=== PATIENT | male | born 1980 | race Caucasian/White ===

== ENCOUNTER → 2023-03-28 08:49 | Outpatient (REF) | payer OTHER, MEDICAID, SELFPAY ==
[2023-03-28 10:00] LABS: INR 2.04; PT 22.9 Sec (11.4-14.6)
[2023-03-28 10:01] LABS: APTT 36.7 Sec (23.4-35.0)
[2023-03-28 10:26] LABS: ALT (SGPT) 49 U/L (0-50); AST (SGOT) 83 U/L (17-59); Albumin 3.1 g/dl (3.5-5.0); Alkaline Phosphatase 293 U/L (38-126); Blood Urea Nitrogen 18 mg/dl (9-20); Calcium 8.5 mg/dl (8.4-10.2); Carbon Dioxide 28 mmol/L (22-30); Chloride 102 mmol/L (98-107); Direct Bilirubin 3.1 mg/dl (0.0-0.4); Glucose 126 mg/dl (70-99); Potassium 3.9 mmol/L (3.5-5.1); Sodium 137 mmol/L (135-145); Total Bilirubin 6.2 mg/dl (0.2-1.3); Total Protein 7.5 g/dl (6.3-8.2); eGFR > 60.00
== END ==
LOC: REG 08:49
PROVIDERS: ATTENDING PHYSICIAN Internal Medicine
DX: K70.10 Alcoholic hepatitis without ascites (principal)
CPT/HCPCS: 36415; 80053; 82248; 85610; 85730

== ENCOUNTER → 2023-06-11 06:35 | Day surgery (SDC) | payer MEDICAID, SELFPAY | LOC: GI 06:35 | PROVIDERS: ATTENDING PHYSICIAN Internal Medicine Gastroenterology | DX: K76.6 Portal hypertension (principal); K31.89 Other diseases of stomach and duodenum; T18.2XXA Foreign body in stomach, initial encounter; Y83.1 Surgical operation with implant of artificial internal device as the cause of abnormal reaction of the patient, or of later complication, without mention of misadventure at the time of the procedure; K92.0 Hematemesis | CPT/HCPCS: 43235 ==

== ENCOUNTER 2023-07-10 14:50 | Emergency (ER) | payer OTHER, SELFPAY ==
[2023-07-10] VITALS (8 sets, daily range): BP systolic 101–130; BP diastolic 56–80; BMI 25.1
[2023-07-10 15:33] LABS: % Basophils 1.1 % (0-2); % Eosinophils 0.7 % (0-6); % Immature Granulocytes 1.3 % (0-0.5); % Lymphocytes 20.6 % (20.5-51.1); % Monocytes 6.9 % (1.7-9.3); % Neutrophils 69.4 % (42.2-75.2); Absolute Basophils 0.1 10^3/uL (0-0.2); Absolute Eosinophils 0.1 10^3/uL (0-0.7); Absolute Immature Granulocytes 0.1 10^3/uL (0-0.05); Absolute Lymphocytes 1.7 10^3/uL (1.2-3.4); Absolute Monocytes 0.6 10^3/uL (0.1-0.6); Absolute Neutrophils 5.7 10^3/uL (1.4-6.5); Hematocrit 27.4 % (39.0-52.0); Hemoglobin 9.5 g/dL (13.0-18.0); Mean Corp Hgb Conc. 34.7 g/dL (33.0-37.0); Mean Corpuscular Hgb 35.3 pg (27.0-31.0); Mean Corpuscular Volume 101.9 fL (80.0-94.0); Mean Platelet Volume 9.1 fL (7.4-10.4); Nucleated Red Blood Cells % 0 % (-); Platelet Count 71 10^3/uL (130-400); Red Blood Cell Count 2.69 10^6/uL (4.70-6.10); Red Cell Dist. Width 12.8 % (11.5-14.5); White Blood Cell Count 8.3 10^3/uL (4.8-10.8)
[2023-07-10 15:47] LABS: Alcohol 241 mg/dl; Blood Urea Nitrogen 9 mg/dl (9-20); Carbon Dioxide 25 mmol/L (22-30); Chloride 105 mmol/L (98-107); Estimated Creatinine Clearance > 125 ml/min; Glucose 84 mg/dl (70-99); Potassium 3.4 mmol/L (3.5-5.1); Sodium 141 mmol/L (135-145); eGFR > 60.00
[2023-07-10 20:11] LABS: INR 2.31; PT 25.6 Sec (11.4-14.6)
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
[2023-07-10 23:31] LABS: Amphetamines Negative (Negative); Barbiturates Negative (Negative); Benzodiazepines Negative (Negative); Buprenorphine Negative (Negative); Cocaine Negative (Negative); Marijuana Positive (Negative); Methadone Negative (Negative); Methamphetamines Negative (Negative); Opiates Negative (Negative); Phencyclidine Negative (Negative); Tricyclic Antidepressants Negative (Negative)
[2023-07-11 01:00] VITALS: BP 106/57
[2023-07-11 02:00] VITALS: BP 106/64
[2023-07-11 03:00] VITALS: BP 100/64
== END 2023-07-11 04:12 ==
LOC: EMR 14:50
PROVIDERS: Emergency Medicine; EMERGENCY PHYSICIAN Emergency Medicine; FAMILY PHYSICIAN Family Medicine
DX: F32.9 Major depressive disorder, single episode, unspecified (principal); K76.9 Liver disease, unspecified; F41.8 Other specified anxiety disorders; F19.10 Other psychoactive substance abuse, uncomplicated; F43.10 Post-traumatic stress disorder, unspecified; K70.30 Alcoholic cirrhosis of liver without ascites; F17.210 Nicotine dependence, cigarettes, uncomplicated
CPT/HCPCS: 99283; 71046; 73030; 80048; 80306; 82077; 85025; 85610

== ENCOUNTER → 2023-10-08 07:42 | Outpatient (REF) | payer OTHER, SELFPAY ==
[2023-10-08 08:52] LABS: % Basophils 1.2 % (0-2); % Eosinophils 1.5 % (0-6); % Immature Granulocytes 0.2 % (0-0.5); % Lymphocytes 39.2 % (20.5-51.1); % Monocytes 7.5 % (1.7-9.3); % Neutrophils 50.4 % (42.2-75.2); Absolute Basophils 0.1 10^3/uL (0-0.2); Absolute Eosinophils 0.1 10^3/uL (0-0.7); Absolute Lymphocytes 1.6 10^3/uL (1.2-3.4); Absolute Monocytes 0.3 10^3/uL (0.1-0.6); Absolute Neutrophils 2.1 10^3/uL (1.4-6.5); Hematocrit 30.7 % (39.0-52.0); Hemoglobin 10.9 g/dL (13.0-18.0); Mean Corp Hgb Conc. 35.5 g/dL (33.0-37.0); Mean Corpuscular Hgb 36.3 pg (27.0-31.0); Mean Corpuscular Volume 102.3 fL (80.0-94.0); Mean Platelet Volume 9.5 fL (7.4-10.4); Nucleated Red Blood Cells % 0 % (-); Platelet Count 60 10^3/uL (130-400); White Blood Cell Count 4.1 10^3/uL (4.8-10.8)
[2023-10-08 09:00] LABS: INR 1.89; PT 21.9 Sec (11.4-14.6)
[2023-10-08 10:41] LABS: Blood Urea Nitrogen 13 mg/dl (9-20); Calcium 9.8 mg/dl (8.4-10.2); Carbon Dioxide 24 mmol/L (22-30); Chloride 105 mmol/L (98-107); Glucose 82 mg/dl (70-99); Potassium 4.2 mmol/L (3.5-5.1); Sodium 137 mmol/L (135-145); eGFR > 60.00
== END ==
LOC: REG 07:42
PROVIDERS: ATTENDING PHYSICIAN Internal Medicine Gastroenterology; FAMILY PHYSICIAN Physician Assistant Medical
DX: K70.10 Alcoholic hepatitis without ascites (principal)
CPT/HCPCS: 36415; 80048; 85025; 85610

== ENCOUNTER → 2023-10-08 07:48 | Outpatient (REF) | payer SELFPAY ==
[2023-10-08 10:38] LABS: ALT (SGPT) 36 U/L (0-50); AST (SGOT) 54 U/L (17-59); Albumin 4.2 g/dl (3.5-5.0); Alkaline Phosphatase 139 U/L (38-126); Direct Bilirubin 2.8 mg/dl (0.0-0.4); Total Protein 7.4 g/dl (6.3-8.2)
== END ==
LOC: REG 07:48
PROVIDERS: ATTENDING PHYSICIAN Internal Medicine Gastroenterology; FAMILY PHYSICIAN Physician Assistant Medical
DX: K70.10 Alcoholic hepatitis without ascites (principal)
CPT/HCPCS: 36415; 80076

== ENCOUNTER 2023-10-23 10:45 | Inpatient (IN) | payer OTHER, SELFPAY ==
[2023-10-23] VITALS (16 sets, daily range): BP systolic 92–120; BP diastolic 49–76; BMI 21.8; BMI 22.1
[2023-10-23 04:23] LABS: Ammonia 42 umol/L (9-30)
[2023-10-23 04:26] LABS: ALT (SGPT) 32 U/L (0-50); AST (SGOT) 46 U/L (17-59); Albumin 3.9 g/dl (3.5-5.0); Alkaline Phosphatase 139 U/L (38-126); Blood Urea Nitrogen 20 mg/dl (9-20); Calcium 9.3 mg/dl (8.4-10.2); Carbon Dioxide 26 mmol/L (22-30); Chloride 106 mmol/L (98-107); Glucose 89 mg/dl (70-99); Lipase 151 U/L (23-300); Potassium 3.9 mmol/L (3.5-5.1); Sodium 141 mmol/L (135-145); Total Bilirubin 9.5 mg/dl (0.2-1.3); Total Protein 6.9 g/dl (6.3-8.2); eGFR > 60.00
[2023-10-23 04:40] LABS: % Basophils 0.8 % (0-2); % Eosinophils 1.8 % (0-6); % Immature Granulocytes 0.2 % (0-0.5); % Lymphocytes 38.2 % (20.5-51.1); % Monocytes 9.4 % (1.7-9.3); % Neutrophils 49.6 % (42.2-75.2); Absolute Eosinophils 0.1 10^3/uL (0-0.7); Absolute Lymphocytes 1.9 10^3/uL (1.2-3.4); Absolute Monocytes 0.5 10^3/uL (0.1-0.6); Absolute Neutrophils 2.5 10^3/uL (1.4-6.5); Hematocrit 24.6 % (39.0-52.0); Hemoglobin 8.8 g/dL (13.0-18.0); Mean Corp Hgb Conc. 35.8 g/dL (33.0-37.0); Mean Corpuscular Hgb 35.8 pg (27.0-31.0); Mean Platelet Volume 10.2 fL (7.4-10.4); Nucleated Red Blood Cells % 0 % (-); Platelet Count 53 10^3/uL (130-400); Red Blood Cell Count 2.46 10^6/uL (4.70-6.10); Red Cell Dist. Width 12.3 % (11.5-14.5)
--- NOTE | 2023-10-23 06:11 | ED.GENMED ---
History of Present Illness
General
Chief Complaint: Abdominal Symptoms
Source: patient
Exam Limitations: none
Time Seen by Provider: 10/23/23 05:59
History of Present Illness
History of Present Illness:
See MDM
Past History
Past History
ED Past Medical History: Other (Migraine headaches) and Other (Chronic alcohol abuse, alcoholic cirrhosis anxiety, depression, substance abuse)
ED Past Surgical History: Other (Nasal surgery)
Social History
Tobacco: Smoker (1.5 ppd)
Alcohol: Daily
Drug: Former user and IVDA (heroin)
Personal: Single
Living: alone
Employment: Employed
Family History
Family History: Other (Noncontributory)
Phy Exam
Physical Exam
Physical Exam:
See MDM
Course
Orders/Labs/Results
Orders:
Orders
10/23/23 03:59
Ammonia Urgent
Complete Blood Count/With Diff Urgent
Comprehensive Metabolic Panel Urgent
Lipase Urgent
10/23/23 06:09
CT Abd/pelvis W Iv Cont Urgent
Comment:
Reason For Exam: general abd pain, liver disease
Morphine Sulfate 4 mg IV NOW STA
10/23/23 06:11
Nicotine [Nicoderm Transdermal] 14 mg TRANSDERM ONCE ONE
10/23/23 06:26
PTT Urgent
Prothrombin Time Urgent
Abnormal Lab Results
10/23/23 10/23/23
03:59 06:26
RBC 2.46 L 10^6/uL
(4.70-6.10)
Hgb 8.8 L g/dL
(13.0-18.0)
Hct 24.6 L %
(39.0-52.0)
MCV 100.0 H fL
(80.0-94.0)
MCH 35.8 H pg
(27.0-31.0)
Plt Count 53 L 10^3/uL
(130-400)
Monocytes % 9.4 H %
(1.7-9.3)
PT 25.9 H Sec
(11.4-14.6)
APTT 45.1 H Sec
(23.4-35.0)
Total Bilirubin 9.5 H mg/dl
(0.2-1.3)
Alkaline Phosphatase 139 H U/L
(38-126)
Ammonia 42 H umol/L
(9-30)
10/23/23 03:59
10/23/23 03:59
Vital Signs
Initial and Last Documented VS:
Initial Vital Signs
Temp Pulse Resp BP Pulse Ox
98.8 F 70 16 111/76 100
10/23/23 03:36 10/23/23 03:36 10/23/23 03:36 10/23/23 03:36 10/23/23 03:36
Last Documented Vital Signs
Temp Pulse Resp BP Pulse Ox
98.8 F 65 16 113/64 100
10/23/23 03:36 10/23/23 07:37 10/23/23 07:37 10/23/23 07:37 10/23/23 07:37
MDM/Problems Addressed
Differential Diagnosis Includes:
HPI and MDM Narrative:
43-year-old male presenting for evaluation of generalized abdominal pain. Patient states has been ongoing for the past 2 days or so. He states he has been unable to sleep. History of liver disease but denies any vomiting or black or red stool.
Patient states compliance with lactulose. On exam, patient is intermittently falling asleep while complaining of pain. He has no significant abdominal tenderness. We did discuss that his elevated lactulose could be the cause of his altered mental
status. Patient states he has not drank alcohol in months. Given his ongoing pain, will obtain CT but will likely admit based on mental status and elevated ammonia level
Physical exam
General: Sitting bed comfortably. Intermittently falling asleep
HEENT: protecting airway
Neck: appears supple
CV: No evidence of cyanosis
Resp: No accessory muscle use
Abd: Non-distended. No significant tenderness
Extremities: No deformities
Neuro: alert
Psych: Normal affect
Skin: Jaundiced
Problems Addressed including Acute and Chronic Conditions affecting care:
1. Abdominal pain
Acuity: acute
Prognosis: stable
Details: No palpable ascites to suggest SBP. Will obtain CT.
2. Hepatic encephalopathy
Acuity: acute
Prognosis: stable
Details: Patient states compliance with lactulose. Will likely admit based on ammonia level
Updates
CT abdomen/pelvis does show gallstones and sludge. Will obtain right upper quadrant ultrasound and admit
Differential Diagnosis (but not limited to): Hepatic encephalopathy, constipation, appendicitis
Testing considered: Urinalysis but denies symptoms
Drug therapy (if applicable): OTC meds, please see d/c instruction regarding Rx drugs
Amount and/or Complexity of Data Reviewed
Clinical info obtained from: Patient
External data reviewed: Chronic liver disease with history of baseline anemia and thrombocytopenia
Labs I independently reviewed (but not limited to): [Anemia, thrombocytopenia, elevated ammonia level
Radiology: The CT scan was personally and independently reviewed. In addition, official CT report reviewed.
Pulse Ox: not hypoxic
EKG independently reviewed: N/A
Chief I Dispatcher: N/A
Critical Care: N/A
Risk of Complication:
Social Determinants of health: Good social support
Discussed with other providers: Hospitalist
Escalation of Care includes Admit/Obs: Given the abdominal pain and elevated ammonia level, will admit
Occasional wrong word or 'sound a like' substitutions may have occurred due to the inherent limitations of voice recognition software. Read the chart carefully and recognize, using context, where substitutions have occurred.
*Critical Care Note
Total Time (30-74mins, 75-104mins- exclusive of procedures): Not Applicable
ED Attending Note
-
Portions of this chart may have been created with voice recognition software.� Occasional wrong word or��sound alike� substitutions may have occurred due to the inherent limitations of voice recognition software.
Discharge Plan
Departure
Patient Disposition: Admit
Date of Disposition: 10/23/23
Time of Disposition: 08:01
Admit to: Med/Surg
Presentation/result/management discussed w/ accepting MD/DO: Hospitalist
Discharge Problem:
Acute hepatic encephalopathy, Symptomatic cholelithiasis
Prescriptions:
No Action
thiamine HCl (vitamin B1) 100 mg tablet
100 mg PO BID
pantoprazole 40 mg tablet,delayed release (DR/EC)
40 mg PO DAILY
folic acid 1 mg tablet
5 mg PO DAILY
prednisolone sodium phosphate 15 mg/5 mL (3 mg/mL) Solution
40 mg PO DAILY Qty: 335 0RF
lidocaine 4 % Adhesive Patch,Medicated
1 patch topical DAILY Qty: 30 0RF
nicotine 21 mg/24 hr Patch 24 Hour
21 mg transdermal DAILY Qty: 30 0RF
oxycodone 5 mg tablet
5 mg PO Q6H PRN (Reason: Pain) Qty: 24 0RF
senna 8.6 mg capsule
8.6 mg PO DAILY PRN (Reason: when you take Oxycodone) Qty: 30 0RF
Referrals:
Julianna Tay PA-C [Family Provider] -
Interventions
Interventions:
*Risk Screen - Suicide Last Done: 10/23/23 05:07
*General Assessment Last Done: 10/23/23 05:07
*Neglect/Abuse Screening Last Done: 10/23/23 05:07
ED- Fall Risk Assessment Last Done: 10/23/23 06:03
GK-Cdaxvn-Uxlkhavelf Assessment Last Done: 10/23/23 07:40
Discharge Date and Time
Print Language: OCCITAN
[2023-10-23] MEDS: NICODERM TRANSDERMAL 14 MG TRANSDERM (06:23)
[2023-10-23] MEDS: MORPHINE SULFATE 4 MG IV (06:24)
[2023-10-23 06:46] LABS: INR 2.34; PT 25.9 Sec (11.4-14.6)
[2023-10-23 06:47] LABS: APTT 45.1 Sec (23.4-35.0)
--- NOTE | 2023-10-23 08:01 | EDRN ---
Dr. Birmingham in to see pt.
--- NOTE | 2023-10-23 08:31 | EDRN ---
Clary, Dormitory Keeper, in room w/ pt.
--- NOTE | 2023-10-23 08:46 | HPS.HSE ---
Family Physician
-
Family Physician: Julianna Tay PA-C
Chief Complaint
-
Hepatic encephalopathy
History of Present Illness
43-year-old male with alcoholic cirrhosis (C/B hepatic encephalopathy), GERD, depression, substance abuse/IVDU history that presented to the emergency department with altered mentation. Has a history of hepatic encephalopathy, current alcohol use,
prescribed lactulose 10 g twice daily for outpatient reconciliation, unclear if he is adherent to this regimen. Upon arrival [facility]. Labs in the ED showed hemoglobin 8.8 with MCV 100, platelet count 53, INR 2.34, albumin 3.9, ALP 139, total
bilirubin 9.5, normal AST and ALT. CT A/P with contrast showed severe portal hypertension and esophageal varices, splenomegaly, severely distended gallbladder with sludge and cholelithiasis. He was given 4 mg of morphine IV in the ED. Ultrasound
abdomen ordered with results pending. He notes that he was told by his caption writer that he might have a process where his red blood cells were broken down, presumed hemolytic anemia.
Medical History
Past Medical History
Past Medical History: Reports Psychiatric and Other
Additional Past Medical History:
Liver cirrhosis C/B hepatic encephalopathy
Past Surgical History: Reports None
Social History
Tobacco: Smoker
Alcohol: Former (No drinks for 3 months per patient's history)
Drug: Former User
Family History
Family History: Not pertinent
Allergies / Home Medications
Allergies reflects when Allergies were last updated in [facility].
Home Medications with original date entered in [facility]
Allergy/Medication List:
Allergies
Allergy/AdvReac Type Severity Reaction Status Date / Time
No Known Allergies Allergy Verified 07/10/23 15:17
Home Medications
thiamine HCl (vitamin B1) 100 mg tablet 100 mg PO DAILY Supplement 03/07/23
lactulose 10 gram/15 mL oral solution 10 g PO BID 10/23/23
Review of Systems
-
A 12 point ROS was completed and negative except as noted: Yes
Constitutional: Reports Weight Loss
EENT: Reports No Symptoms
Respiratory: Reports No Symptoms
Cardiac: Reports No Symptoms
Abdomen/GI: Reports Abdominal Pain and Nausea
: Reports No Symptoms
Musculoskeletal: Reports Muscle Pain
Skin: Reports No Symptoms
Neurological: Reports No Symptoms
Endocrine: Reports No Symptoms
Hematologic/Lymphatic: Reports No Symptoms
Psych: Reports No Symptoms
Physical Exam
Vital Signs
Vital Signs
Temp Pulse Resp BP Pulse Ox
98.8 F 65 12 109/66 100
10/23/23 03:36 10/23/23 08:00 10/23/23 08:00 10/23/23 08:00 10/23/23 08:00
Physical Exam
General: Comfortable, Appears Chronically Ill and Other (Thin male)
HEENT: NormoCephalic, Moist mucous membranes, Atraumatic, PERRLA and Other (Scleral icterus)
Respiratory: Clear and Non Labored Respirations; No Wheezes, Rales, Rhonchi or Accessory Resp Muscle Use
Cardiac: S1/S2 and Regular Rhythm; No Murmur, Rub, Gallop or Peripheral Edema
GI: Soft, Non Distended, Normal Bowel Sounds, Tender (RUQ, Harden positive) and Organomegaly
Musculoskeletal: No Clubbing, No Cyanosis and No Edema
Skin: Warm, Dry and Jaundice; No Rash
Neuro: AO x 3, Nonfocal/grossly intact and Cranial Nerves Intact
Laboratory Results
-
10/23/23 03:59
10/23/23 03:59
Laboratory Results
PT 25.9 Sec (11.4-14.6) H 10/23/23 06:26
INR 2.34 10/23/23 06:26
APTT 45.1 Sec (23.4-35.0) H 10/23/23 06:26
Total Bilirubin 9.5 mg/dl (0.2-1.3) H 10/23/23 03:59
AST 46 U/L (17-59) 10/23/23 03:59
ALT 32 U/L (0-50) 10/23/23 03:59
Alkaline Phosphatase 139 U/L (38-126) H 10/23/23 03:59
Lipase 151 U/L (23-300) 10/23/23 03:59
Data Reviewed
-
CT Scan: Report Reviewed by me
Lab Data: Labs Reviewed by me
Impression/Plan
-
#Hepatic encephalopathy
-Unclear cause for decompensation, no longer drinks alcohol, adherent to lactulose; possible cholecystitis contributing
-Home regimen includes lactulose 10 g twice daily per outpatient reconciliation
-Upon arrival had altered mentation with elevated bilirubin, INR 2.34
-ALP elevated currently, transaminases WNL, albumin 3.9
-GCS 12-13, no signs of inability to protect airway
Plan
-Resume lactulose with goal for 3-4 bowel movements daily
-Trend daily BMP, CBC, LFTs
-Start supportive IV fluids
-Consult GI for further guidance
#Suspected cholecystitis
-CT A/P with contrast showed severe gallbladder distention with sludge and gallstones present
-Cannot rule out cholecystitis contributing to his decompensated encephalopathy
-RUQ ultrasound ordered with results pending
Plan
-Start IV Zosyn with low threshold to DC if ultrasound negative
-Monitor CBC and temperature curve
-Serial abdominal exams for now
-As needed antiemetics and analgesia
#Hyperbilirubinemia
-Very likely in the context of his decompensated liver cirrhosis
-He does mention that his outpatient caption writer mentioned suspicion for 'breakdown of red cells'
-I added on a hemolytic panel for completeness to labs from the ED, will trend CBC as above
#Decompensated alcoholic cirrhosis -- MELD-Na score 24, 20% 3 month mortality
#Esophageal varices -- S/P intervention in 02/2023
-History of cirrhosis complicated by encephalopathy and thrombocytopenia; CT showing large varices here
-Home regimen includes lactulose, no history of ascites and not on diuretics at this time
-GI consulted as above
#Alcohol abuse
-Start CIWA protocol with PRN benzodiazepine
#Hyperalgesia
-Numerous complaints of pain in different parts of his body
-Does have history of IVDU, suspect hyperalgesia in this contact
-On as needed pain meds for cholecystitis
DVT prophylaxis: SCDs
Diet: N.p.o. pending clinical improvement
CODE STATUS: Full code
Disposition: Admit to ICU
I will be admitting Yong Ye to the hospital for acute on chronic hepatic encephalopathy. He is at high risk of further morbidity mortality due to altered mental status which could worsen to the point of inability to protect airway, potential for
acute liver failure. He will need intensive monitoring of his labs, administration of lactulose with titration of bowel movements to 4 daily. Will require IMU level of care, evaluation by gastroenterology. I have spoken with the
medical front desk specialist, ED physician in order to facilitate care of this patient.
--- NOTE | 2023-10-23 10:00 | EDRN ---
Dr. Soria, hospitalist in to see pt.
--- NOTE | 2023-10-23 10:10 | CON.GI ---
Addendum entered and electronically signed by EDMOND Wray 10/27/23 19:01:
with weight losss concern for severe calorie malnutrition
Addendum entered and electronically signed by Ynes Saeed Do, MD 10/23/23 16:13:
I saw and examined the patient.
The SNUFF BLENDER's note was reviewed and I agree with the note.
Comment: Yong is a 43yo M with h/o ETOH cirrhosis decompensated by encephalopathy who was admitted for 'irritability not feeling well and fatigue' He lives with parents and few days prior to admission had some constipation despite lactulose 15m
BID. He denies blood in stools fever chills or sick contacts. He follows with Dr Alas/GI last seen in May. Vitals reviewed. jaundiced icteric no asterixis. NTTP. Labs reviewed
Impression
- Grade I/II Grade hepatic encephalopathy
- ETOH cirrhosis
Last drink 2 months ago
MELD Na 24
- H/o Maria Eugenia Merino tear
- tobacco use
- h/o esophageal varices on CT not seen endoluminally
- Thrombocytopenia
- Cannabis use
Recommendations
- Lactulose TID goal is 2BMs daily basis.
- Add xifaximin BID
- Infectious workup: UA, BC , CXR
- Imaging neg for HCC
- C/w regular diet
- Trial of vitamin K in case elevated INR is diet related. Recalculate DF tomorrow
- Counseled on continued ETOH abstinence. He has OP FU with transplant hepatology at [facility] next month
Will follow with you
Addendum entered and electronically signed by EDMOND Wray 10/23/23 11:44:
reviewed with pharmacy preferred vitamin K IV or po with erratic absorption. Will change to PO
Original Note:
Consultation
-
Date/Time Consultation Requested: 10/23/23 0900
Date/Time Consultation Performed: 10/23/23 1010
Requesting Provider: Eldon Soria MD
Performing Provider: EDMOND Torres, Ynes Saez MD
Reason for Consultation: encephalopathy
Medical History
Chief Complaint / HPI
Chief Complaint: confusion
History of Present Illness:
Pt is a 43yo yo male with a PMH significant for GERD, alcohol abuse with prior ETOH hepatitis/cirrhosis , GI bleed with EG with MW tear, injected/clips no varices seen otherwise normal. He had follow up in office with repeat EGD 05/2023 with
normal esophagus, healed MW tear no varies, portal gastropathy, endoclip found. He missed follow up in July and call office 2 weeks ago with memory issues, wt loss, neuropathy, and jaundice. He was sent for repeat labs and noted with coagulopathy
elevated LFT's with bili up to 8.4, ammonia 99, hbg 9.5, haptoglobin <10, fibrinogen 133 and platelets 59,000 with possible underlying heme issues and pt was set up for [facility] evaluation. He now presents with abdominal pain and mental status
issue with ammonia 42 on admission and continued elevated bili, INR, with low platelets. Pt states he was concerned as hx heavy ETOH [id number] but cut back in 2023 and last ETOH 3 months ago with worsening labs. He also admits to some RUQ pain
that has developed worse with palpation. On admission US with coarsening liver with steatosis, portal HTN, splenomegaly, mild extrahepatic biliary dilatation no CBD dilatation, cholelithiasis without cholecystitis. Ct with severe portal HTN and EV,
a large recanalized paraumbilical vein, extensive varices in the anterior abdominal wall, and moderate splenomegaly. mildly enlarged liver with nodularity diffuse liver disease, distended GB, mild retroperitoneal edema.
At this time patient admits to occasional GERD. He did have constipation but had several stools with start of Lactulose and continued very dark urine. He denies dysphagia, odynophagia, nausea, vomiting, blood or black in stools. Pt has been
to rehab for ETOH within last year.
Past Medical History
Past Medical History: GERD, Psychiatric (anxiety/depression) and Other (alcohol abuse, ETOH hepatitis/cirrhosis, vocal cord lesion/nodule, migraines)
Past Surgical History: Other (nasal surgery)
Social History
Tobacco: Smoker (1 PPD)
Alcohol: Former (quit 3 months ago but admits to hx heavy use in past )
Drug: Former User (heroin, quit 6 years ago) and Marijuana (gummies )
Living: With Family (parents)
Employment: Not Employed
Family History
Family History: Other (no family hx colon CA, polyps, liver disease )
Allergies / Home Medications
Allergy/AdvReac Type Severity Reaction Status Date / Time
No Known Allergies Allergy Verified 07/10/23 15:17
�Medication �Instructions �Recorded
thiamine HCl (vitamin B1) 100 mg 100 mg PO DAILY Supplement 03/07/23
tablet
lactulose 10 gram/15 mL oral 10 g PO BID 10/23/23
solution
Review of Systems
-
History Source: Patient
Constitutional: Reports Weight Loss ( 30 lbs 3 months ) and Other (feeling hot, sweats )
EENT: Reports No Symptoms
Respiratory: Reports No Symptoms
Cardiac: Reports No Symptoms
Abdomen/GI: Reports Abdominal Pain and Constipated
: Reports Dark Urine
Musculoskeletal: Reports Other (decrease muscle mass )
Skin: Reports Itching and Other (jaundice x 2 years )
Neurological: Reports Weakness and Other (neuropathy)
Hematologic/Lymphatic: Reports Bruising
Vital Signs
Temp Pulse Resp BP Pulse Ox
98.8 F 65 12 109/66 100
10/23/23 03:36 10/23/23 08:00 10/23/23 08:00 10/23/23 08:00 10/23/23 08:00
Physical Exam
Exam
General: Other (thin appearing with marked jaundice and muscle waisting )
HEENT: Normocephalic and Other (marked jaundice, icteric sclera )
Cardiac: Regular Rhythm
GI: Soft, Non Distended and Tender (RUQ)
Genito-urinary: Other (dark urine )
Musculoskeletal: No Clubbing and No Cyanosis
Skin: Warm and Dry
Neuro: Awake, Alert, AO x 3 and Other (no asterixis )
Psych: Calm
Results
WBC 5.0 10^3/uL (4.8-10.8) 10/23/23 03:59
Hgb 8.8 g/dL (13.0-18.0) L 10/23/23 03:59
Hct 24.6 % (39.0-52.0) L 10/23/23 03:59
MCV 100.0 fL (80.0-94.0) H 10/23/23 03:59
Plt Count 53 10^3/uL (130-400) L 10/23/23 03:59
Absolute Neuts (auto) 2.5 10^3/uL (1.4-6.5) 10/23/23 03:59
PT 25.9 Sec (11.4-14.6) H 10/23/23 06:26
INR 2.34 10/23/23 06:26
APTT 45.1 Sec (23.4-35.0) H 10/23/23 06:26
Sodium 141 mmol/L (135-145) 10/23/23 03:59
Potassium 3.9 mmol/L (3.5-5.1) 10/23/23 03:59
Chloride 106 mmol/L (98-107) 10/23/23 03:59
Carbon Dioxide 26 mmol/L (22-30) 10/23/23 03:59
BUN 20 mg/dl (9-20) 10/23/23 03:59
Creatinine 0.7 mg/dL (0.7-1.3) 10/23/23 03:59
Calcium 9.3 mg/dl (8.4-10.2) 10/23/23 03:59
Total Bilirubin 9.5 mg/dl (0.2-1.3) H 10/23/23 03:59
AST 46 U/L (17-59) 10/23/23 03:59
ALT 32 U/L (0-50) 10/23/23 03:59
Alkaline Phosphatase 139 U/L (38-126) H 10/23/23 03:59
Lipase 151 U/L (23-300) 10/23/23 03:59
Diagnostic Image Results:
10/23/23 US abdomen
Coarsened, echogenic liver consistent with steatosis. There is evidence of portal hypertension characterized by a recanalized umbilical vein and splenomegaly. No surface nodularity to suggest cirrhosis. No focal hepatic lesion.
Cholelithiasis with distention of the gallbladder, unchanged in appearance since 03/05/2023. No sonographic evidence of acute cholecystitis.
Suggestion of mild extrahepatic biliary ductal dilatation on ultrasound, however there is no appreciable dilatation of the common bile duct on the same day CT.
10/23/23 CT Abd/pelvis W Iv Cont
1. SEVERE PORTAL HYPERTENSION with SEVERE ESOPHAGEAL VARICES, a large recanalized paraumbilical vein, extensive varices in the anterior abdominal wall, and moderate splenomegaly.
2. Mild hepatomegaly with evidence for diffuse liver disease.
3. Severely distended gallbladder containing sludge and cholelithiasis.
4. Interval increase in mild diffuse retroperitoneal edema.
Prior GI Procedures:
EGD:02/2023 [facility] - Maria Eugenia-Merino tears. Injected. Clip was placed as
described above. No signs of varices were seen.
- Normal stomach.
- Normal examined duodenum.
- No specimens collected.
EGD: 06/11/23 [facility] - Normal esophagus. Healed MW tears, no varices seen.
- Portal hypertensive gastropathy.
- An endoclip was found in the stomach.
- Normal examined duodenum.
- No specimens collected.
Colonoscopy: none
Assessment / Plan
-
Pt is a 43yo yo male with a PMH significant for GERD, alcohol abuse (last 3 months ago prior heavy use), ETOH hepatitis/cirrhosis , GI bleed with MW tear in February with no varices seen. Repeat EGD in May with portal gastropathy healed tear. Now
noted with wt loss (30 lbs in months with loss of muscle), memory issues, wt loss, neuropathy, and jaundice. He is noted with rising bili mostly indirect, elevated INR, thrombocytopenia, elevated ammonia and normal albumin. OP testing with
haptoglobin <10, LDH 176, fibrinogen 133. He was also started on Lactulose 2 weeks ago for confusion and noted constipation and new RUQ pain.
10/22 US with coarsening liver with steatosis, portal HTN, splenomegaly, mild extrahepatic biliary dilatation no CBD dilatation, cholelithiasis without cholecystitis.
10/22 Ct A/p with severe portal HTN and EV, a large recanalized paraumbilical vein, extensive varices in the anterior abdominal wall, and moderate splenomegaly. mildly enlarged liver with nodularity diffuse liver disease, distended GB, mild
retroperitoneal edema.
-ETOH hepatitis/cirrhosis
-hepatic encephalopathy
-coagulopathy
-macrocytic anemia
-thrombocytopenia
-constipation
-neuropathy
-RUQ pain
-severe portal HTN noted in imaging with EV and extensive varices anterior abdominal wall
-ETOH abuse
-hx MW tear
PLAN:
etiology of symptoms with concern for ETOH hepatitis/cirrhosis, ? concurrent underlying heme issue with now confusion- HE, and upper abdominal pain, wt loss
will review labs with Dr. Saez with normal albumin to eval for other heme process
DF - 68.8 with control of 13, MELD 3.0 - 24
will review with for steroids with high DF
check tox screen and ETOH level though pt denies use for 3 months
rutledge culture with concern for HE- urine, blood, CXR
continue lactulose and add Xifaxan -- monitor stools may need increased lactulose dosing
etiology of abdominal pain unclear
US and ct as noted
give dose of vitamin K with marked coagulopathy
counseled on remaining off ETOH
regular diet add supplement daily
consider heme eval as question of concurrent heme issue as bili mostly indirect--
pt is due for follow up at [facility] hepatology in October
-
-
Thank you for consultation and allowing me to participate in the patient's care. Please call the regional intermodal truck driver GI physician during the after hours with any questions or concerns.
--- NOTE | 2023-10-23 10:44 | EDRN ---
Jamaica Arana NP w/ GI was in to see pt for Dr. Churchill
--- NOTE | 2023-10-23 11:00 | EDRN ---
No Delay Nurse Report tubed to IMU at this time w/ call placed to floor and message left for RN who will care for pt.
[2023-10-23 11:02] LABS: Direct Bilirubin 3.2 mg/dl (0.0-0.4)
[2023-10-23 11:28] LABS: LDH 164 U/L (120-246)
[2023-10-23 11:33] LABS: Alcohol None Detected
[2023-10-23] MEDS: NSS 1000 IV (12:01)
[2023-10-23] MEDS: MEPHYTON 10 MG PO (12:01)
[2023-10-23] MEDS: ZOSYN 50 IV ×2 (12:45→17:00)
[2023-10-23] MEDS: XIFAXAN 550 MG PO ×2 (12:46→20:16)
[2023-10-23] MEDS: DUPHALAC/CHRONULAC 10 GRAMS PO ×2 (12:46→20:16)
[2023-10-23] MEDS: VITAMIN B1 100 MG PO (12:46)
[2023-10-23] MEDS: MORPHINE SULFATE 2 MG IV ×2 (12:47→17:00)
[2023-10-23 14:07] LABS: Urine Albumin Negative (Neg - Trace); Urine Bilirubin 1+ (Negative); Urine Character Clear (Clear); Urine Color Yellow; Urine Glucose Negative (Negative); Urine Ketone Negative (Negative); Urine Leukocyte Trace (Negative); Urine Nitrite Negative (Negative); Urine Occult Blood Negative (Negative); Urine Specific Gravity 1.015 (<1.030); Urine Urobilinogen 2+ (Neg - 1+)
[2023-10-23 14:19] LABS: Amphetamines Negative (Negative); Barbiturates Negative (Negative); Benzodiazepines Negative (Negative); Buprenorphine Negative (Negative); Cocaine Negative (Negative); Marijuana Positive (Negative); Methadone Negative (Negative); Methamphetamines Negative (Negative); Opiates Positive (Negative); Phencyclidine Negative (Negative); Tricyclic Antidepressants Negative (Negative)
[2023-10-23 14:20] LABS: Urine Bacteria Few (Negative); Urine Red Blood Cell 0-2 /HPF (0-2)
[2023-10-23 15:10] LABS: Fentanyl, Urine Negative (Negative)
--- NOTE | 2023-10-23 16:11 | PTCARENOTE ---
Pt rec'd from ED into IMU [id number] approx 12 noon, ambulated to bed from stretcher independently with stby assist. Pt is pleasant and conversant, AOx3. Pt does feel that he has 'holes in his memory' and looses train of thought occ. Otherwise appropriate
and compliant with all care. Plan discussed with Dr. Saez at bedside, pt in agreement. Oriented to room, admission and assessment completed. Bcx, urine, and MRSA sent, meds given per orders. Call king in reach.
--- NOTE | 2023-10-23 18:08 | PTCARENOTE ---
Pt continues AOx3, no s/s ETOH w/d, MSAS scores remain benign. Pt eating regular diet, cooperative with care. Call king in reach.
[2023-10-23 20:59] LABS: Magnesium 1.6 mg/dl (1.6-2.3)
[2023-10-24] VITALS (13 sets, daily range): BP systolic 90–107; BP diastolic 45–62; BMI 22.4
[2023-10-24] MEDS: ZOSYN 50 IV ×4 (00:45→17:35)
[2023-10-24] MEDS: SENOKOT-S 1 TABLET PO (01:20)
[2023-10-24] MEDS: REFRESH EYE DROPS (PF) 1 DROPS OPHTH (01:20)
[2023-10-24] MEDS: MORPHINE SULFATE 2 MG IV ×5 (05:06→21:40)
[2023-10-24] MEDS: NSS 1000 IV (05:08)
[2023-10-24 05:41] LABS: INR 2.19; PT 24.6 Sec (11.4-14.6)
[2023-10-24 05:51] LABS: Hematocrit 21.7 % (39.0-52.0); Mean Corp Hgb Conc. 36.9 g/dL (33.0-37.0); Mean Corpuscular Volume 100.5 fL (80.0-94.0); Mean Platelet Volume 10.3 fL (7.4-10.4); Platelet Count 47 10^3/uL (130-400); Red Blood Cell Count 2.16 10^6/uL (4.70-6.10); Red Cell Dist. Width 12.1 % (11.5-14.5)
[2023-10-24 05:53] LABS: ALT (SGPT) 28 U/L (0-50); AST (SGOT) 45 U/L (17-59); Albumin 3.2 g/dl (3.5-5.0); Alkaline Phosphatase 144 U/L (38-126); Blood Urea Nitrogen 16 mg/dl (9-20); Calcium 8.9 mg/dl (8.4-10.2); Carbon Dioxide 25 mmol/L (22-30); Chloride 109 mmol/L (98-107); Estimated Creatinine Clearance > 125 ml/min; Glucose 84 mg/dl (70-99); Magnesium 1.6 mg/dl (1.6-2.3); Potassium 4.3 mmol/L (3.5-5.1); Sodium 140 mmol/L (135-145); Total Bilirubin 6.8 mg/dl (0.2-1.3); Total Protein 5.9 g/dl (6.3-8.2); eGFR > 60.00
[2023-10-24 06:50] LABS: % Basophils 0.7 % (0-2); % Monocytes 10.9 % (1.7-9.3); % Neutrophils 49.4 % (42.2-75.2); Absolute Eosinophils 0.1 10^3/uL (0-0.7); Absolute Lymphocytes 1.5 10^3/uL (1.2-3.4); Absolute Monocytes 0.4 10^3/uL (0.1-0.6); Nucleated Red Blood Cells % 0 % (-)
[2023-10-24] MEDS: XIFAXAN 550 MG PO ×2 (08:04→19:37)
[2023-10-24] MEDS: FOLVITE 1 MG PO (08:04)
[2023-10-24] MEDS: DUPHALAC/CHRONULAC 10 GRAMS PO (08:04)
[2023-10-24] MEDS: VITAMIN B1 100 MG PO (08:04)
--- NOTE | 2023-10-24 08:50 | W.PN.GI.CBS2 ---
Addendum entered and electronically signed by Donavan Moses MD 10/24/23 15:28:
I saw and examined the patient.
The PA's note was reviewed and I agree with the note.
Comment:
Feels somewhat better today. Had 1 BM and has not been having 2-3 BMs recently despite being compliant with lactulose. Will titrate up. Agree with heme consult. Continue with xifaxan.
Original Note:
Today's Communication / Plan
-
continue Xifaxan, lactulose
will request Hematology consult to evaluate for concurrent hemolytic issue
Assessment / Plan
-
Pt is a 43yo yo male with a PMH significant for GERD, alcohol abuse (last 3 months ago prior heavy use), ETOH hepatitis/cirrhosis , GI bleed with MW tear in February with no varices seen. Repeat EGD in May with portal gastropathy healed tear. Now
noted with wt loss (30 lbs in months with loss of muscle), memory issues, wt loss, neuropathy, and jaundice. He is noted with rising bili mostly indirect, elevated INR, thrombocytopenia, elevated ammonia and normal albumin. OP testing with
haptoglobin <10, LDH 176, fibrinogen 133. He was also started on Lactulose 2 weeks ago for confusion and noted constipation and new RUQ pain.
Imaging:
-10/22 US with coarsening liver with steatosis, portal HTN, splenomegaly, mild extrahepatic biliary dilatation no CBD dilatation, cholelithiasis without cholecystitis.
-10/22 Ct A/p with severe portal HTN and EV, a large recanalized paraumbilical vein, extensive varices in the anterior abdominal wall, and moderate splenomegaly. mildly enlarged liver with nodularity diffuse liver disease, distended GB, mild
retroperitoneal edema.
IMPRESSION:
-ETOH hepatitis/cirrhosis
-hepatic encephalopathy
-coagulopathy
-macrocytic anemia
-thrombocytopenia
-constipation
-neuropathy
-RUQ pain
-severe portal HTN noted in imaging with EV and extensive varices anterior abdominal wall
-ETOH abuse - patient reports sober for 4 months (last ETOH drink 05/2023)
-hx MW tear
PLAN:
Etiology of symptoms with concern for alcoholic hepatitis/cirrhosis, with ? concurrent underlying heme issue with now confusion- HE, and upper abdominal pain, wt loss
- haptoglobin pending
- outpatient labs showed haptoglobin <10 and with mostly indirect bilirubin, suggestive of possible hemolytic process, ?ITP/TTP
- will request Hematology consult
Alcoholic Hepatitis/Cirrhosis
- DF today 60.2 (was 68.8 yesterday) - using control of 13
- MELD 3.0 22
- continue lactulose and Xifaxan
- to consider prednisolone with significantly elevated DF, pending blood cultures
- scheduled for outpt Hepatology consultation at [facility] mid-October, Dr. Mejía
Abdominal Pain, RUQ
- etiology unclear, US showing gallstones without acute cholecystitis
- tolerating regular diet
We will follow.
Subjective
Subjective
Date of Service: October 24, 2023
Continues to feel malaise, some confusion, 'all over pain'
-no fevers, chills
Objective
Data Reviewed
Laboratory Data:
Laboratory Results
10/24/23 05:17
10/24/23 05:16
Laboratory Results
PT 24.6 Sec (11.4-14.6) H 10/24/23 05:16
INR 2.19 10/24/23 05:16
APTT 45.1 Sec (23.4-35.0) H 10/23/23 06:26
Magnesium 1.6 mg/dl (1.6-2.3) 10/24/23 05:16
Total Bilirubin 6.8 mg/dl (0.2-1.3) H 10/24/23 05:16
AST 45 U/L (17-59) 10/24/23 05:16
ALT 28 U/L (0-50) 10/24/23 05:16
Alkaline Phosphatase 144 U/L (38-126) H 10/24/23 05:16
Lipase 151 U/L (23-300) 10/23/23 03:59
Vital Signs and I&O:
Vital Signs
Temp Pulse Resp BP Pulse Ox
97.7 F 65 9 92/58 96
10/24/23 04:00 10/24/23 06:00 10/24/23 06:00 10/24/23 06:00 10/24/23 08:14
I&O
10/23/23 10/24/23 10/25/23
06:59 06:59 06:59
Intake Total 1000 / 1000
Output Total 725 / 725
Balance 275 / 275
Physical Exam
Physical Exam
HEENT: Other (+scleral icterus)
Cardiology: Normal Sinus Rhythm
Pulmonary: Clear
GI: Soft, Non Distended, Tender (+mild RUQ tenderness) and Normal Bowel Sounds
Extremities: No Edema
Neuro: Non Focal
--- NOTE | 2023-10-24 09:00 | PTCARENOTE ---
Patient received from fast food shift supervisor. Patient resting comfortably in bed. AAO, VSS. No events noted overnight. Complaints of pain at this time, stated as whole body pain, see MAR. Patient still without bowel movement, monitoring. IVF through IV,
continuing ABX. Call king in reach.
--- NOTE | 2023-10-24 10:15 | W.PN.HOSP.TC ---
Today's Communication/Plan
-
Continue with IV Zosyn and follow cultures
Continue lactulose, increase dode if no BM by early afternoon
Continue Xifaxan
Trend LFTs and follow-up BRETT
Assessment / Plan
Assessment / Plan
#Hepatic encephalopathy
#Coagulopathy
#Alcoholic hepatitis/cirrhosis
-Unclear cause for decompensation, no longer drinks alcohol, adherent to lactulose per patient history
-Home regimen includes lactulose 10 g twice daily per outpatient reconciliation, unclear if he was taking this
-Upon arrival had altered mentation with elevated bilirubin, INR 2.34; s/p vitamin K for reversal
-ALP elevated currently, transaminases WNL, albumin 3.9; GCS 12-13, protecting airway and conversing
-States he has not had bowel movement yet, needs stool softeners before able to go per his history
-Currently on IV Zosyn, pancultures pending for identification of infectious source
-Ammonia level was elevated, debatable whether this is of clinical utility
-Maddrey's DF 62, MELD 24
Plan
-Continue with Xifaxan and lactulose with goal for 2+ bowel movements daily
-Will increase lactulose dose if no bowel movement by early afternoon
-Continue IV Zosyn and follow-up cultures
-Continue supportive IVF; trend daily BMP, CBC, LFTs
-Consider further vitamin K if INR worsening
-Consider steroid, will defer to GI
#Hyperbilirubinemia
-Very likely in the context of his decompensated liver cirrhosis, intravascular hemolysis of nonimmune origin
-He does mention that his outpatient town justice mentioned suspicion for 'breakdown of red cells'
-LDH was normal, haptoglobin is still pending; suspicion for immune mediated hemolysis is low
Plan
-Hematology is consulted, added on Aidee test today
-Trend daily LFTs with fractionated bilirubin
#Decompensated alcoholic cirrhosis -- MELD-Na score 24, 20% 3 month mortality
#Esophageal varices -- S/P intervention in 02/2023 per patient history
#Chronic thrombocytopenia -- reduced TPO, possible intravascular nonimmune hemolysis component
-History of cirrhosis complicated by encephalopathy and thrombocytopenia; CT showing large varices here
-Home regimen includes lactulose, no history of ascites and not on diuretics at this time
-See above for more detail
#Alcohol abuse
-MSAS protocol with PRN benzodiazepine
-States he has been sober for 3 months
#Hyperalgesia
-Numerous complaints of pain in different parts of his body
-Does have history of IVDU, suspect hyperalgesia in this contact
-On as needed pain meds for cholecystitis
DVT prophylaxis: SCDs
Diet: N.p.o. pending clinical improvement
CODE STATUS: Full code
Anticipated Discharge: > 48 hours
Subjective/Interval History
-
Date of Service: October 24, 2023
Seen and examined at bedside. No acute events overnight. He was walking around the room when I entered, states he feels better today.
He also says he has not had a bowel movement yet. Says that when he starts his lactulose that he needs a couple of stool softener doses prior to increased bowel output. Says he would like to hold off on increasing lactulose dose until he has a
second dose of the stool softener. Will follow-up in afternoon and provide extra lactulose if no bowel movement
He denies chest pain, shortness of breath, fevers or chills, abnormal bleeding or bruising, urinary issues, nausea or vomiting, paresthesias or weakness.
Objective Data
-
Labs:
Laboratory Results
10/24/23 10/24/23
05:16 05:17
WBC 4.0 L
Hgb 8.0 L
Hct 21.7 L
Plt Count 47 L
PT 24.6 H
INR 2.19
Sodium 140
Potassium 4.3
Chloride 109 H
Carbon Dioxide 25
BUN 16
Creatinine 0.6 L
Glucose 84
Calcium 8.9
Total Bilirubin 6.8 H
AST 45
ALT 28
Alkaline Phosphatase 144 H
Vital Signs:
Vital Signs
Temp Pulse Resp BP Pulse Ox
98.2 F 65 9 92/58 96
10/24/23 07:59 10/24/23 06:00 10/24/23 06:00 10/24/23 06:00 10/24/23 08:14
I&O
10/23/23 10/24/23 10/25/23
06:59 06:59 06:59
Intake Total 1000 / 1000
Output Total 725 / 725
Balance 275 / 275
Review of Systems
-
History Source: Patient
All other systems: Reviewed and negative
Physical Exam
-
General: No Apparent Distress, Comfortable, Appears Chronically Ill and Other (Thin male)
HEENT: Normocephalic, Atraumatic, Moist Mucous Membranes and Other (Scleral icterus)
Respiratory: Clear to Auscultation and Non Labored Respirations; Negative Wheezes, Rales or Rhonchi
Cardiac: Regular Rhythm and S1/S2; Negative Murmur, Rub or Gallop
GI: Soft, Nondistended, Normal Bowel Sounds and Tender (RUQ, no peritoneal signs)
Musculoskeletal: No Clubbing, No Cyanosis and No Edema
Skin: Warm, Dry and Jaundice; Negative Rash
Neuro: AO x 3, Nonfocal/Grossly Intact and Central Nerve's Intact; Negative Tremors
Data Reviewed
-
Ultrasound: Report Reviewed by me and Discussed with Patient
Labs: Labs Reviewed by me and Discussed with Patient
--- NOTE | 2023-10-24 11:25 | CM ---
Patient with Hx substance abuse/IVDU with Dx Hepatic encephalopathy, Coagulopathy, Alcoholic hepatitis/cirrhosis. Tox Screen + opiates & THC. Room air. Receiving IV Abx, IV MS prn, Lactulose. Per nursing; ambulatory in room. MSAS.
Met with patient who resides in a 2 story rented house with his parents.
The patient has been independent in ADLs and ambulation.
The patient states he is unemployed and on MA.
He receives food assist through the [employer] program.
He has no insecurity re; food, housing, utilities or transportation.
He takes buses or Lyft to medical appointments.
The patient states he hadn't slept for several days prior to admission.
He states he has chronic pain.
The patient denies having a MH counselor.
No DME, prior VN.
PCP - Julianna Tay
Pharmacy - [facility] [place] [facility] [place]
CM Consult: Substance Abuse
Patient volunteers that he is currently in a 12-step program and has a sponsor.
He has been to Inpatient programs in the past including [facility], [facility] and [facility] (left AMA in June 2023).
Patient agrees to speak with YAMILET.
Spoke with YAMILET Pinedo; he will meet with the patient over tomorrow or Sun.
Plan follow up with YAMILET.
[2023-10-24] MEDS: NICODERM TRANSDERMAL 14 MG TRANSDERM (11:45)
--- NOTE | 2023-10-24 13:34 | CON.ONC ---
Addendum entered and electronically signed by Eldon Kamara MD 10/24/23 15:27:
Hematology Addendum:
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
-reviewed peripheral blood smear - significant acanthocytosis - spurr cells - indicative of chronic liver disease
-thrombocytopenia - also likely related to chronic liver disease - it has been chronic in nature
-splenomegaly could also be contributing to cytopenias in the context of splenic sequestration
-check B12 and folic acid levels
-continue to follow CBC
Original Note:
Impression
Impression
ETOH hepatitis/cirrhosis
hepatic encephalopathy
coagulopathy
macrocytic anemia
thrombocytopenia
constipation
neuropathy
RUQ pain
severe portal HTN noted in imaging with EV and extensive varices anterior abdominal wall
ETOH abuse
hx MW tear
Plan
Plan
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
decrease thrombopoiesis secondary to liver disease and splenic sequestrant
Hematology will sign off, please reach out for any questions or concerns
Patient History
History of Present Illness
Consulted by Dr. Eldon Soria
Consult reason: thrombocytopenia
43yo M h/o ETOH cirrhosis decompensated by encephalopathy who was admitted with AMS.
Clinically, denies any overt bleeding or atypical bruising. He feels that his mental status has improved.
Past-Medical/Surgical History
PMH ETOH cirrhosis, hepatic encephalopathy, Maria Eugenia Merino tear, esophageal varices
PSH: nasal surgery
Social: ETOH abstinence x 3 months, daily tobacco use, has medical marijuana card. Former recreational drugs.
Family: denies malignancy, hemochromatosis, bleeding or clotting disorder
Patient Medication
�Medication �Instructions �Recorded �Confirmed �Last Taken �Type
thiamine HCl (vitamin B1) 100 mg 100 mg PO DAILY Supplement 03/07/23 10/23/23 Unknown History
tablet
lactulose 10 gram/15 mL oral 10 g PO BID Gastrointestinal Issue 10/23/23 10/23/23 10/22/23 History
solution
Active Medications
Generic Name Dose Route Start Last Admin
Trade Name Freq PRN Reason Stop Dose Admin
Artificial Tears 1 drops 10/24/23 01:14 10/24/23 01:20
Artificial Tears Pf (Refresh) 10 Drop Droperette OPHTH 11/21/23 01:13 1 drops
QIDPRN PRN Administration
dry eyes
Bisacodyl 10 mg 10/23/23 11:43
Bisacodyl 10 Mg Rectal Suppository RECTAL 11/20/23 11:42
[id number] PRN
constipation
Folic Acid 1 mg 10/24/23 08:00 10/24/23 08:04
Folic Acid 1 Mg Tablet PO 11/21/23 07:59 1 mg
DAILY ABIOLA Administration
Sodium Chloride 1,000 mls @ 60 mls/hr 10/23/23 11:43 10/24/23 05:08
Nss IV 1,000 mls
.[id number] ABIOLA Administration
Piperacillin Sod/Tazobactam Sod 3.375 gram in 50 mls @ 100 mls/hr 10/23/23 12:00 10/24/23 11:45
Zosyn IV 50 mls
Q6 ABIOLA Administration
Lactulose 10 grams 10/23/23 12:00 10/24/23 08:04
Lactulose Solution (20 Grams/30 Ml) 30 Ml Cup PO 11/20/23 11:59 10 grams
BID ABIOLA Administration
Lorazepam 1 mg 10/23/23 18:12
Lorazepam 1 Mg Tablet PO 11/20/23 18:11
Q2HPRN PRN
MSAS 5-7
Lorazepam 1 mg 10/23/23 18:12
Lorazepam 2 Mg/Ml Vial IV 11/20/23 18:11
Q1HPRN PRN
MSAS 8-11
Lorazepam 2 mg 10/23/23 18:12
Lorazepam 2 Mg/Ml Vial IV 11/20/23 18:11
Q1HPRN PRN
MSAS > 11
Morphine Sulfate 2 mg 10/23/23 11:43 10/24/23 13:30
Morphine 2 Mg/Ml Syringe IV 11/06/23 11:42 2 mg
Q4HPRN PRN Administration
severe pain
Morphine Sulfate 1 mg 10/23/23 11:43
Morphine 2 Mg/Ml Syringe IV 11/06/23 11:42
Q4HPRN PRN
pain, moderate
Nicotine 14 mg 10/24/23 11:00 10/24/23 11:45
Nicotine 14 Mg Patch TRANSDERM 11/21/23 10:59 14 mg
DAILY ABIOLA Administration
Ondansetron HCl 4 mg 10/23/23 11:43
Ondansetron 4 Mg/2 Ml Vial IV 11/20/23 11:42
Q6HPRN PRN
nausea and vomiting
Polyethylene Glycol 17 grams 10/23/23 11:43
Polyethylene Glycol Powder 17 Grams Packet PO 11/20/23 11:42
DAILYPRN PRN
constipation
Rifaximin 550 mg 10/23/23 11:30 10/24/23 08:04
Rifaximin 550 Mg Tablet PO 550 mg
BID ABIOLA Administration
Senna/Docusate Sodium 1 tablet 10/23/23 11:43 10/24/23 01:20
Docusate W/Senna (Kailyn-Colace) Tablet PO 11/20/23 11:42 1 tablet
BIDPRN PRN Administration
constipation
Sodium Chloride 0 flush 10/23/23 12:00
Sodium Chloride 0.9% (Flush) Syringe IV 11/20/23 11:59
PER PROTOCOL ABIOLA
Sodium Chloride 0 ml 10/23/23 19:00
Sodium Chloride 0.9% (Preservative Free) 10 Ml Vial IV 11/20/23 18:59
PRN PRN
IV Lorazepam dilution
Protocol
Thiamine HCl 100 mg 10/23/23 11:43 10/24/23 08:04
Thiamine 100 Mg Tablet PO 11/20/23 11:42 100 mg
DAILY ABIOLA Administration
Review of Systems
-
ROS notable for subjective, otherwise negative
Physical Exam
-
General: thin appearing with marked jaundice and muscle waisting
HEENT: icteric sclera
Cardiac: Regular Rhythm
GI: Soft, Non Distended and Tender (RUQ)
Skin: Warm and Dry
Neuro: Awake, Alert, AO x 3
Psych: Calm
Labs
Lab Results
WBC 4.0 10^3/uL (4.8-10.8) L 10/24/23 05:17
RBC 2.16 10^6/uL (4.70-6.10) L 10/24/23 05:17
Hgb 8.0 g/dL (13.0-18.0) L 10/24/23 05:17
Hct 21.7 % (39.0-52.0) L 10/24/23 05:17
MCV 100.5 fL (80.0-94.0) H 10/24/23 05:17
MCH 37.0 pg (27.0-31.0) H 10/24/23 05:17
MCHC 36.9 g/dL (33.0-37.0) 10/24/23 05:17
RDW 12.1 % (11.5-14.5) 10/24/23 05:17
Plt Count 47 10^3/uL (130-400) L 10/24/23 05:17
MPV 10.3 fL (7.4-10.4) 10/24/23 05:17
Abs Immat Gran (auto) 0.0 10^3/uL (0-0.05) 10/24/23 05:17
Absolute Neuts (auto) 2.0 10^3/uL (1.4-6.5) 10/24/23 05:17
Absolute Lymphs (auto) 1.5 10^3/uL (1.2-3.4) 10/24/23 05:17
Absolute Monos (auto) 0.4 10^3/uL (0.1-0.6) 10/24/23 05:17
Absolute Eos (auto) 0.1 10^3/uL (0-0.7) 10/24/23 05:17
Absolute Basos (auto) 0.0 10^3/uL (0-0.2) 10/24/23 05:17
Immature Gran % 0.0 % (0-0.5) 10/24/23 05:17
Neutrophils % 49.4 % (42.2-75.2) 10/24/23 05:17
Lymphocytes % 37.0 % (20.5-51.1) 10/24/23 05:17
Monocytes % 10.9 % (1.7-9.3) H 10/24/23 05:17
Eosinophils % 2.0 % (0-6) 10/24/23 05:17
Basophils % 0.7 % (0-2) 10/24/23 05:17
Creatinine 0.6 mg/dL (0.7-1.3) L 10/24/23 05:16
Vital Signs
Vital Signs
Temp Pulse Resp BP Pulse Ox
98.4 F 65 9 92/58 96
10/24/23 11:58 10/24/23 06:00 10/24/23 06:00 10/24/23 06:00 10/24/23 08:14
--- NOTE | 2023-10-24 14:55 | PN.CDI ---
CDI
- -
CDI:
Physician Documentation Request
Admit Date: 10/23/23 10:45
Dear Doctor /PANTOGRAPH OPERATOR,
Please review the following and provide your response in the progress notes.
Clinical Indicators:
Pt admitted with hepatic encephalopathy /Portal HTN/ Alcoholic Cirrhosis
Documented per Gi consult, ' Reports Weight Loss ( 30 lbs 3 months ) ...(decrease muscle mass )...thin appearing with marked jaundice and muscle waisting )...'
Nutrition note 10/22,' For the past 6-8 weeks he states that he has not had an appetite at all. He states that he lost 30 lbs over the past 6 months. This is a 17% body weight loss in 6 months...Unintentional weight loss >10% in 6 months.'
Based on the above information and your assessment, which of the following most accurately represents the patient's nutritional status?
Malnutrition (specify if mild, moderate or severe)
Cachexia without malnutrition
Other (please specify)
[place] Criteria (ACP Hospitalist 2017)
2 or more criteria must be present for either
non severe or severe malnutrition
Note that the criteria differs related to the
presence of an acute or chronic illness
Acute Illness Chronic Illness
Energy Intake Non Severe: <75% for >7 days Non Severe: <75% for >1 month
Severe: <50% for >5 days Severe: <75% for >1 month
Weight Loss Non Severe: 1-2% over 1 week Non Severe: 5% over 1 month
5% over 1 month 7.5% over 3 months
7.5% over 3 months 10% over 6 months
1 year N/A 20% over 1 year
Severe: >2% over 1 week Severe: >5% over 1 month
>5% over 1 month >7.5% over 3 months
>7.5% over 3 months >10% over 6 months
1 year N/A >20% over 1 year
Body Fat Non Severe: Mild Decrease Non Severe: Mild Loss
Severe: Moderate Decrease Severe: Severe Loss
Muscle Mass Non Severe: Mild Decrease Non Severe: Mild Loss
Severe: Moderate Decrease Severe: Severe Loss
Fluid Accumulation Non Severe: Mild Accumulation Non Severe: Mild Accumulation
Severe: Moderate to severe Severe: Moderate to severe
accumulation accumulation
Reduced Refractory Specialist Strength Non Severe: N/A Non Severe: N/A
Severe: Measurably reduced Severe: Measurably reduced
Use of terms such as suspected, likely, concern for, or probable (associated with a specific diagnosis that is being evaluated, monitored, or treated as if it exists) are acceptable and can be coded in the inpatient setting, when documented at the
time of discharge.
Thank you,
Lorena Laura RN
CDI Specialist
[place] [employer]
Please use your independent medical judgment in providing your response.
[2023-10-24] MEDS: DUPHALAC/CHRONULAC 20 GRAMS PO ×2 (15:45→19:37)
[2023-10-24 20:55] LABS: Folate 6.3 ng/ml (2.76-20); Vitamin B12 793 pg/ml (239-931)
[2023-10-24 23:31] LABS: Haptoglobin <10 mg/dL (30-200)
--- NOTE | 2023-10-25 00:29 | PTCARENOTE ---
Assumed care of pt. approx. 2300.
Pt. OOB, walking to restroom with supervision.
Offers no complaints at this time.
[2023-10-25] MEDS: NSS 1000 IV (01:04)
[2023-10-25] MEDS: ZOSYN 50 IV ×3 (01:05→11:39)
[2023-10-25 01:07] VITALS: BP 110/53
[2023-10-25] MEDS: MORPHINE SULFATE 2 MG IV ×2 (02:40→07:49)
[2023-10-25 02:43] VITALS: BP 91/73
[2023-10-25 03:44] VITALS: BMI 23.1
[2023-10-25 04:00] VITALS: BP 84/50
[2023-10-25 04:06] VITALS: BP 92/55
[2023-10-25 06:00] LABS: % Basophils 0.6 % (0-2); % Eosinophils 1.7 % (0-6); % Immature Granulocytes 0.2 % (0-0.5); % Lymphocytes 33.8 % (20.5-51.1); % Monocytes 10.8 % (1.7-9.3); % Neutrophils 52.9 % (42.2-75.2); Absolute Eosinophils 0.1 10^3/uL (0-0.7); Absolute Lymphocytes 1.6 10^3/uL (1.2-3.4); Absolute Monocytes 0.5 10^3/uL (0.1-0.6); Absolute Neutrophils 2.5 10^3/uL (1.4-6.5); Hematocrit 21.5 % (39.0-52.0); Hemoglobin 7.8 g/dL (13.0-18.0); Mean Corp Hgb Conc. 36.3 g/dL (33.0-37.0); Mean Corpuscular Hgb 36.4 pg (27.0-31.0); Mean Corpuscular Volume 100.5 fL (80.0-94.0); Mean Platelet Volume 10.3 fL (7.4-10.4); Nucleated Red Blood Cells % 0 % (-); Platelet Count 51 10^3/uL (130-400); Red Blood Cell Count 2.14 10^6/uL (4.70-6.10); Red Cell Dist. Width 12.2 % (11.5-14.5); White Blood Cell Count 4.6 10^3/uL (4.8-10.8)
[2023-10-25 06:02] LABS: INR 2.16; PT 23.9 Sec (11.4-14.6)
[2023-10-25 06:42] VITALS: BP 91/51
[2023-10-25 06:43] LABS: ALT (SGPT) 34 U/L (0-50); AST (SGOT) 59 U/L (17-59); Albumin 3.3 g/dl (3.5-5.0); Alkaline Phosphatase 154 U/L (38-126); Blood Urea Nitrogen 16 mg/dl (9-20); Carbon Dioxide 25 mmol/L (22-30); Chloride 106 mmol/L (98-107); Direct Bilirubin 2.5 mg/dl (0.0-0.4); Estimated Creatinine Clearance > 125 ml/min; Glucose 87 mg/dl (70-99); Magnesium 1.6 mg/dl (1.6-2.3); Potassium 4.3 mmol/L (3.5-5.1); Sodium 139 mmol/L (135-145); Total Bilirubin 7.4 mg/dl (0.2-1.3); Total Protein 6.2 g/dl (6.3-8.2); eGFR > 60.00
[2023-10-25] MEDS: FOLVITE 1 MG PO (07:38)
[2023-10-25] MEDS: DUPHALAC/CHRONULAC 20 GRAMS PO (07:38)
[2023-10-25] MEDS: NICODERM TRANSDERMAL 14 MG TRANSDERM (07:38)
[2023-10-25] MEDS: XIFAXAN 550 MG PO (07:38)
[2023-10-25] MEDS: VITAMIN B1 100 MG PO (07:38)
[2023-10-25] MEDS: SENOKOT-S 1 TABLET PO (07:50)
--- NOTE | 2023-10-25 07:55 | PTCARENOTE ---
Patient received from inspector casing. Patient resting comfortably in bed. AAO, VSS. No events noted overnight. Complaints of pain at this time, continues with whole body pain, see MAR. Patient with multiple bowel movements in the later half of
yesterday, however, stated none since and request PRN Senna. IVF through IV, continuing ABX. Possible discharge pending GI, if not, possible downgrade. Call king in reach.
--- NOTE | 2023-10-25 08:00 | W.PN.HOSP.TC ---
Today's Communication/Plan
-
if pt cleared for d/c by GI, will d/c--if not, will transfer out of IMU
Assessment / Plan
Assessment / Plan
pt is a 43 year old male
Hepatic encephalopathy (resolved) unclear trigger, likely from alcoholic hepatitis/cirrhosis with coagulopathy and pancytopenia (chronic thrombocytopenia)--pt awake--lactulose was increased, ammonia 42 on admission--not repeated--no longer drinks
alcohol, adherent to lactulose per patient history---Upon arrival had altered mentation with elevated bilirubin, INR 2.34; s/p vitamin K for reversal--Currently on IV Zosyn, cultures negative --apprec GI--on increased lactulose and Xifaxin--INR
improving to 2.16 but has been lower in past--further care per GI--Decompensated alcoholic cirrhosis -- MELD-Na score 24, 20% 3 month mortality
hypotensive--pt BP running low (although not unusual for cirrhosis/liver disease)--consider stopping IVF and re-eval
Hyperbilirubinemia--Very likely in the context of his decompensated liver cirrhosis, intravascular hemolysis of nonimmune origin--apprec heme--haptoglobin low
Esophageal varices -- S/P intervention in 02/2023 per patient history
Alcohol abuse--MSAS protocol with PRN benzodiazepine--States he has been sober for 3 months
Hyperalgesia/diffuse body pain--Numerous complaints of pain in different parts of his body--Does have history of IVDU--On as needed pain meds --would avoid narcotics if at all possible--nursing reports pt getting IV morphine for diffuse all over
body pain?
DVT prophylaxis: SCDs
CODE STATUS: Full code
if pt cleared for d/c by GI, will d/c--if not, will transfer out of IMU
Anticipated Discharge: Within 24 hours
Subjective/Interval History
-
Date of Service: October 25, 2023
pt feeling better but says not at his baseline
Objective Data
-
Labs:
Laboratory Results
10/25/23
05:37
WBC 4.6 L
Hgb 7.8 L
Hct 21.5 L
Plt Count 51 L
PT 23.9 H
INR 2.16
Sodium 139
Potassium 4.3
Chloride 106
Carbon Dioxide 25
BUN 16
Creatinine 0.6 L
Glucose 87
Calcium 9.0
Total Bilirubin 7.4 H
AST 59
ALT 34
Alkaline Phosphatase 154 H
Vital Signs:
max temp for 24 hours
10/25/23
03:42
Temp 98.7 F
Vital Signs
Temp Pulse Resp BP Pulse Ox
98.7 F 74 18 92/55 97
10/25/23 03:42 10/25/23 04:06 10/25/23 05:45 10/25/23 04:06 10/25/23 05:45
I&O
10/24/23 10/25/23 10/26/23
06:59 06:59 06:59
Intake Total 1000 / 1000 1160 / 1160
Output Total 725 / 725 1000 / 1000
Balance 275 / 275 160 / 160
Review of Systems
-
All other systems: Reviewed and negative
EENT: Reports Other (eye stye (inner left lower eyelid) improved)
Abdomen/GI: Reports Abdominal Pain
Physical Exam
-
General: Appears Chronically Ill
HEENT: Normocephalic and Atraumatic; Negative Anicteric (improved icterus--improved stye on lower inner left eyelid) or Oxygen
Respiratory: Clear to Auscultation; Negative Wheezes or Rhonchi
Cardiac: Regular Rhythm and S1/S2; Negative Murmur
GI: Soft, Nondistended, Normal Bowel Sounds and Tender (diffusely--no guarding or rebound)
Musculoskeletal: No Clubbing, No Cyanosis and No Edema
Skin: Warm and Dry
Neuro: Awake and Alert
[2023-10-25] MEDS: NSS IV (09:10)
[2023-10-25] MEDS: MIRALAX 17 GRAMS PO (11:40)
--- NOTE | 2023-10-25 11:55 | W.PN.GI.CBS2 ---
Today's Communication / Plan
-
Can d/c home from GI stand point
Assessment / Plan
-
Pt is a 43yo yo male with a PMH significant for GERD, alcohol abuse (last 3 months ago prior heavy use), ETOH hepatitis/cirrhosis , GI bleed with MW tear in February with no varices seen. Repeat EGD in May with portal gastropathy healed tear. Now
noted with wt loss (30 lbs in months with loss of muscle), memory issues, wt loss, neuropathy, and jaundice. He is noted with rising bili mostly indirect, elevated INR, thrombocytopenia, elevated ammonia and normal albumin. OP testing with
haptoglobin <10, LDH 176, fibrinogen 133. He was also started on Lactulose 2 weeks ago for confusion and noted constipation and new RUQ pain.
Lactulose dosing increased yesterday, had 2 BMs, pt feeling his cognition is better. On rifaximin, continue. Can d/c zosyn. Tolerating oral diet. Ok to d/c home from GI standpoint, pt has close f/u with hepatology at [facility].
Total Time Spent with Patient (in minutes): 35
Subjective
Subjective
Date of Service: October 25, 2023
Feels better today with improved cognition
Objective
Data Reviewed
Laboratory Data:
Laboratory Results
10/25/23 05:37
10/25/23 05:37
Laboratory Results
PT 23.9 Sec (11.4-14.6) H 10/25/23 05:37
INR 2.16 10/25/23 05:37
APTT 45.1 Sec (23.4-35.0) H 10/23/23 06:26
Magnesium 1.6 mg/dl (1.6-2.3) 10/25/23 05:37
Total Bilirubin 7.4 mg/dl (0.2-1.3) H 10/25/23 05:37
AST 59 U/L (17-59) 10/25/23 05:37
ALT 34 U/L (0-50) 10/25/23 05:37
Alkaline Phosphatase 154 U/L (38-126) H 10/25/23 05:37
Lipase 151 U/L (23-300) 10/23/23 03:59
Vital Signs and I&O:
Vital Signs
Temp Pulse Resp BP Pulse Ox
98.2 F 67 18 91/51 95
10/25/23 07:30 10/25/23 10:00 10/25/23 05:45 10/25/23 06:42 10/25/23 08:01
I&O
10/24/23 10/25/23 10/26/23
06:59 06:59 06:59
Intake Total 1000 / 1000 1160 / 1160
Output Total 725 / 725 1000 / 1000
Balance 275 / 275 160 / 160
[2023-10-25] MEDS: ROXICODONE 5 MG PO (12:29)
[2023-10-25 13:01] VITALS: BP 94/77
--- NOTE | 2023-10-25 13:31 | PTCARENOTE ---
Patient discharged home, left with all known belongings. Patient picked up by family member. Discharge instructions read and reviewed, all questions answered.
--- NOTE | 2023-10-25 13:44 | W.DCSUMMARY ---
Discharge Summary
Discharge Data
Date of Admission: 10/23/23
Date of Discharge: 10/25/23
-
Pending Results: No
Hospital Course
Primary care physician : Julianna Tay
Principal Discharge diagnosis : Hepatic encephalopathy likely from alcoholic hepatitis/cirrhosis with coagulopathy and pancytopenia
Chronic Discharge diagnosis : Hyperbilirubinemia, esophageal varices, history of alcohol abuse, hyperalgesia with diffuse body pain
Hospital Course : Patient is a 43-year-old male with a history of alcoholic cirrhosis, gastroesophageal reflux disease, substance abuse with history of IV drug abuse who presented with altered mentation. He had a previous history of hepatic
encephalopathy and was prescribed lactulose 10 mg twice daily but it was unclear if he was adherent to that regimen. Laboratory studies showed hemoglobin of 8.8 with platelet count of 53,000, INR of 2.3. CAT scan of the abdomen and pelvis showed
severe portal hypertension with esophageal varices, splenomegaly, and a severely distended gallbladder with sludge. Patient stated he was told by his moving picture producer that he might have a process where his red blood cells were broken down. Patient was
admitted.
Problem #1: Hepatic encephalopathy likely from alcoholic hepatitis/cirrhosis with coagulopathy and pancytopenia. Patient was seen in consultation by GI and hematology. Patient received vitamin K for elevated INR of 2.3. His ammonia level was also
42. Patient reports he no longer drinks alcohol and has been adherent to the lactulose protocol. GI increased his lactulose and started Xifaxan. INR improved to 2.16. This is likely decompensated alcoholic cirrhosis. GI has cleared him for
discharge and follow-up with his moving picture producer. His pancytopenia from a hematologic standpoint is considered multifactorial, he has a acanthocytosis, spur cells, indicative of chronic liver disease which could also explain the thrombocytopenia,
splenomegaly could be contributing to his anemia and cytopenias as well.
Problem #2: All other medical issues. These include Hyperbilirubinemia, esophageal varices, history of alcohol abuse, hyperalgesia with diffuse body pain. These medical issues were stable during his hospitalization. Medications were continued as
able. In regards to his diffuse body pain and hyperalgesia, it is unclear what is causing this. Patient has been receiving IV morphine here. He did receive 1 dose of Roxicodone ordered by myself this morning. Since I do not know what I am
treating, I have elected not to send him on any type of pain medications. He is instructed to follow-up with his physician to determine the cause of his diffuse body pain.
Patient has been cleared for discharge by GI. If there are any questions regarding this dictation or his hospital stay, please do not hesitate to call. Our office number is [phone].
Important imaging findings :
ULTRASOUND IMPRESSION:
Coarsened, echogenic liver consistent with steatosis. There is evidence of portal hypertension characterized by a recanalized umbilical vein and splenomegaly. No surface nodularity to suggest cirrhosis. No focal hepatic lesion.
Cholelithiasis with distention of the gallbladder, unchanged in appearance since 03/05/2023. No sonographic evidence of acute cholecystitis.
Suggestion of mild extrahepatic biliary ductal dilatation on ultrasound, however there is no appreciable dilatation of the common bile duct on the same day CT.
CT SCAN ABDOMEN/PELVIS IMPRESSION:
1. SEVERE PORTAL HYPERTENSION with SEVERE ESOPHAGEAL VARICES, a large recanalized paraumbilical vein, extensive varices in the anterior abdominal wall, and moderate splenomegaly.
2. Mild hepatomegaly with evidence for diffuse liver disease.
3. Severely distended gallbladder containing sludge and cholelithiasis.
4. Interval increase in mild diffuse retroperitoneal edema.
Discharge Plan
-
Patient Disposition: Home (Routine Discharge)
Discharge Diagnosis/Procedures: Resolved hepatic encephalopathy from alcoholic hepatitis/cirrhosis with coagulopathy and pancytopenia, hyperbilirubinemia, esophageal varices, alcohol abuse, diffuse body pain
Condition: Good
Diet: As tolerated and Regular
Activity: As tolerated
Driving Restrictions: As prior to admission
Bathing Restrictions: None
Referrals:
Julianna Tay PA-C [Family Provider] - in less than 1 week
Prescriptions:
New
folic acid 1 mg Tablet
1 mg PO DAILY Qty: 30 0RF
lactulose 20 gram/30 mL Solution
20 g PO BID Qty: 1200 0RF
Xifaxan 550 mg Tablet
550 mg PO BID Qty: 60 0RF
Continued
thiamine HCl (vitamin B1) 100 mg tablet
100 mg PO DAILY
Discontinued
lactulose 10 gram/15 mL Solution
10 g PO BID
Discharge Orders:
Discharge Patient (As Directed); Ordered 10/25/23
Ordered By: Josy Nayak
Discharge Date and Time
Discharge Date/Time: 10/25/23 13:24
Print Language: CROATIAN
== END 2023-10-25 13:24 | disposition home or self-care (01) | DRG 441 ==
LOC: IMU 10:45
PROVIDERS: Emergency Medicine; Internal Medicine Gastroenterology; ADMITTING PHYSICIAN Internal Medicine; ATTENDING PHYSICIAN Internal Medicine; EMERGENCY PHYSICIAN Student in an Organized Health Care Education/Training Program; FAMILY PHYSICIAN Physician Assistant Medical; OTHER PHYSICIAN Internal Medicine Hematology & Oncology; OTHER PHYSICIAN Nurse Practitioner Adult Health
DX: K76.82 Hepatic encephalopathy (principal); E43 Unspecified severe protein-calorie malnutrition; D61.818 Other pancytopenia; D68.4 Acquired coagulation factor deficiency; I85.10 Secondary esophageal varices without bleeding; F17.210 Nicotine dependence, cigarettes, uncomplicated; K70.30 Alcoholic cirrhosis of liver without ascites; K70.10 Alcoholic hepatitis without ascites; D53.9 Nutritional anemia, unspecified; F10.10 Alcohol abuse, uncomplicated; Z68.23 Body mass index [BMI] 23.0-23.9, adult
CPT/HCPCS: 71046; 74177; 76700; 80053; 80306; 80307; 81003; 81015; 82077; 82140; 82248; 82607; 82746; 83010; 83615; 83690; 83735; 85025; 85045; 85610; 85730; 87040; 87070; 96374; 99285; Q9967

== ENCOUNTER 2023-11-21 10:46 | Emergency (ER) | payer OTHER, SELFPAY ==
[2023-11-21 10:48] VITALS: BP 117/78
--- NOTE | 2023-11-21 11:23 | ED.GENMED ---
History of Present Illness
General
Chief Complaint: Abdominal Pain
Time Seen by Provider: 11/21/23 11:06
History of Present Illness
History of Present Illness:
43-year-old male with history of alcoholic cirrhosis with ascites presents to the emergency department for evaluation of general malaise, tactile fevers, occasional visual changes, and upper abdominal pain for the past 2 to 3 days. He is concerned
that he is 'becoming encephalopathic'. Denies any vomiting. Has been having daily bowel movements and has been compliant with his lactulose.
Past History
Past History
ED Past Medical History: Other (Migraine headaches) and Other (Chronic alcohol abuse, alcoholic cirrhosis anxiety, depression, substance abuse)
ED Past Surgical History: Other (Nasal surgery)
Social History
Tobacco: Smoker (1.5 ppd)
Alcohol: Daily
Drug: Former user and IVDA (heroin)
Personal: Single
Living: alone
Employment: Employed
Family History
Family History: Other (Noncontributory)
Review of Systems
Review of Systems
Allergies reviewed?: Yes
All Other Systems: ROS reviewed and negative except as documented in HPI and ROS
Phy Exam
Physical Exam
Physical Exam:
GEN: Chronically ill-appearing and jaundiced, no immediate distress
Eyes: PERRLA, EOMs intact, no scleral icterus
HENT: NCAT, oral mucosa moist, no JVD, no cervical adenopathy.
Lungs: CTAB, no wheezes, rales, rhonchi, normal chest wall excursion
Cardiac: RRR, no M/R/G, no peripheral edema. Radial pulses 2+ bilat
Abdomen: Soft, minimal epigastric tenderness, no reproducible fluid wave
Neuro: AO x 3, no asterixis
MSK: No gross deformity or ecchymosis. No edema. No digital clubbing
Skin: No rashes, petechiae. Generalized jaundice
Psych: Calm, cooperative, proper hygiene
Course
Orders/Labs/Results
Orders:
Orders
11/21/23 11:21
US Abdomen Complete/Upper Urgent
Comment:
Reason For Exam: upper abd pain
11/21/23 11:31
Ammonia Urgent
COVID-19 Antigen Urgent
Source: Nasal Swab
Complete Blood Count/With Diff Urgent
Comprehensive Metabolic Panel Urgent
Direct Bilirubin Urgent
Prothrombin Time Urgent
Abnormal Lab Results
11/21/23
11:31
WBC 4.6 L 10^3/uL
(4.8-10.8)
RBC 2.61 L 10^6/uL
(4.70-6.10)
Hgb 9.8 L g/dL
(13.0-18.0)
Hct 27.1 L %
(39.0-52.0)
MCV 103.8 H fL
(80.0-94.0)
MCH 37.5 H pg
(27.0-31.0)
Plt Count 44 L 10^3/uL
(130-400)
PT 22.5 H Sec
(11.4-14.6)
Creatinine 0.6 L mg/dL
(0.7-1.3)
Total Bilirubin 8.1 H mg/dl
(0.2-1.3)
Direct Bilirubin 3.1 H mg/dl
(0.0-0.4)
AST 71 H U/L
(17-59)
Alkaline Phosphatase 190 H U/L
(38-126)
11/21/23 11:31
11/21/23 11:31
Vital Signs
Initial and Last Documented VS:
Initial Vital Signs
Temp Pulse Resp BP Pulse Ox
97.1 F 60 18 117/78 99
11/21/23 10:48 11/21/23 10:48 11/21/23 10:48 11/21/23 10:48 11/21/23 10:48
Last Documented Vital Signs
Temp Pulse Resp BP Pulse Ox
97.1 F 70 18 118/68 98
11/21/23 10:48 11/21/23 13:33 11/21/23 13:33 11/21/23 13:33 11/21/23 13:33
MDM/Problems Addressed
MDM/Problems Addressed:
Patient appears stable, no evidence of hyperammonemia and he is alert and oriented on exam thus we can rule out hepatic cephalopathy. He has no ascites on ultrasound to suggest SBP and gallbladder looks similar to past ultrasound so doubt
Choleycystitis. Patient discharged to outpatient hepatology follow-up at the [facility]
*Critical Care Note
Total Time (30-74mins, 75-104mins- exclusive of procedures): Not Applicable
ED Attending Note
-
Portions of this chart may have been created with voice recognition software.� Occasional wrong word or��sound alike� substitutions may have occurred due to the inherent limitations of voice recognition software.
Discharge Plan
Departure
Patient Disposition: Home (Routine Discharge)
Date of Disposition: 11/21/23
Time of Disposition: 13:17
Patient with high blood pressure during this ER visit?: No
Discharge Problem:
Alcoholic cirrhosis of liver with ascites
Instructions: Cirrhosis
Prescriptions:
No Action
thiamine HCl (vitamin B1) 100 mg tablet
100 mg PO DAILY
folic acid 1 mg Tablet
1 mg PO DAILY Qty: 30 0RF
lactulose 20 gram/30 mL Solution
20 g PO BID Qty: 1200 0RF
Xifaxan 550 mg Tablet
550 mg PO BID Qty: 60 0RF
Referrals:
Julianna Tay PA-C [Family Provider] -
Interventions
Interventions:
*Risk Screen - Suicide Last Done: 11/21/23 11:39
*General Assessment Last Done: 11/21/23 11:39
*Neglect/Abuse Screening Last Done: 11/21/23 11:39
ED- Fall Risk Assessment Last Done: 11/21/23 13:33
*ED COVID-19 Vaccine History Last Done: 11/21/23 13:33
*Nursing Disposition Last Done: 11/21/23 13:33
LV-Ywlurq-Fovnmkwesy Assessment Last Done: 11/21/23 11:39
Discharge Date and Time
Discharge Date/Time: 11/21/23 13:35
Print Language: GUYANESE
[2023-11-21 11:32] VITALS: BP 120/78
[2023-11-21 11:58] LABS: INR 1.99; PT 22.5 Sec (11.4-14.6)
[2023-11-21 11:59] LABS: Ammonia 29 umol/L (9-30)
[2023-11-21 12:00] VITALS: BP 110/71
[2023-11-21 12:00] LABS: Hematocrit 27.1 % (39.0-52.0); Hemoglobin 9.8 g/dL (13.0-18.0); Mean Corp Hgb Conc. 36.2 g/dL (33.0-37.0); Mean Corpuscular Hgb 37.5 pg (27.0-31.0); Mean Corpuscular Volume 103.8 fL (80.0-94.0); Red Blood Cell Count 2.61 10^6/uL (4.70-6.10); Red Cell Dist. Width 11.9 % (11.5-14.5); White Blood Cell Count 4.6 10^3/uL (4.8-10.8)
[2023-11-21 12:03] LABS: ALT (SGPT) 40 U/L (0-50); AST (SGOT) 71 U/L (17-59); Albumin 3.9 g/dl (3.5-5.0); Alkaline Phosphatase 190 U/L (38-126); Blood Urea Nitrogen 14 mg/dl (9-20); Calcium 9.4 mg/dl (8.4-10.2); Carbon Dioxide 26 mmol/L (22-30); Chloride 105 mmol/L (98-107); Direct Bilirubin 3.1 mg/dl (0.0-0.4); Glucose 92 mg/dl (70-99); Potassium 4.1 mmol/L (3.5-5.1); Sodium 142 mmol/L (135-145); Total Bilirubin 8.1 mg/dl (0.2-1.3); Total Protein 7.2 g/dl (6.3-8.2); eGFR > 60.00
[2023-11-21 12:31] LABS: % Basophils 0.7 % (0-2); % Eosinophils 1.5 % (0-6); % Immature Granulocytes 0.4 % (0-0.5); % Lymphocytes 27.5 % (20.5-51.1); % Monocytes 7.4 % (1.7-9.3); % Neutrophils 62.5 % (42.2-75.2); Absolute Eosinophils 0.1 10^3/uL (0-0.7); Absolute Lymphocytes 1.3 10^3/uL (1.2-3.4); Absolute Monocytes 0.3 10^3/uL (0.1-0.6); Absolute Neutrophils 2.9 10^3/uL (1.4-6.5); Mean Platelet Volume 9.2 fL (7.4-10.4); Normal RBC Morphology No; Nucleated Red Blood Cells % 0 % (-); Platelet Count 44 10^3/uL (130-400)
[2023-11-21 12:32] LABS: Acanthocytes 2+
[2023-11-21 13:00] VITALS: BP 124/64
[2023-11-21 13:28] LABS: COVID-19 Antigen Negative (Negative)
[2023-11-21 13:33] VITALS: BP 118/68
== END 2023-11-21 13:35 | disposition home or self-care (01) ==
LOC: EMR 10:46
PROVIDERS: Physician Assistant; EMERGENCY PHYSICIAN Emergency Medicine; FAMILY PHYSICIAN Physician Assistant Medical
DX: K70.31 Alcoholic cirrhosis of liver with ascites (principal); F17.210 Nicotine dependence, cigarettes, uncomplicated
CPT/HCPCS: 99284; 76700; 80053; 82140; 82248; 85025; 85610; 87811

== ENCOUNTER → 2023-12-02 04:35 | Emergency (ER) | payer OTHER, SELFPAY ==
[2023-12-02 04:40] VITALS: BP 125/71
--- NOTE | 2023-12-02 07:24 | ED.GENMED ---
History of Present Illness
General
Chief Complaint: Abdominal Pain
Source: patient
Exam Limitations: none
Time Seen by Provider: 12/02/23 06:04
Nursing documentation reviewed up to this point in time: agreed with
History of Present Illness
History of Present Illness:
Patient is a 43-year-old male with alcoholic cirrhosis decompensated with encephalopathy who is here because of right-sided abdominal pain that radiates to back and both shoulders starting from about 2 weeks ago. States he fell his encephalopathy
is getting worse in the sense that he is irritable and forgetful at times. Does not mention recent constipation last bowel movement was this morning which had normal consistency and was nonbloody. Also mentions tingling of both lower extremities
and occasional shortness of breath. Denies nausea /vomiting, denies fever. Last drink was more than 2 months ago.
He was seen in the ED on the Nov 20 with similar symptoms. Patient follows with Dr. Alas and is scheduled for a transplant evaluation at [facility] on Friday.
Past History
Past History
ED Past Medical History: Other (Migraine headaches) and Other (Chronic alcohol abuse, alcoholic cirrhosis, anxiety, depression, substance abuse)
ED Past Surgical History: Other (Nasal surgery)
Social History
Tobacco: Smoker (1.5 ppd)
Alcohol: Former
Drug: Former user and IVDA (heroin)
Personal: Single
Living: with family
Employment: Employed
Family History
Family History: Other (Noncontributory)
Review of Systems
Review of Systems
Allergies reviewed?: Yes
All Other Systems: ROS reviewed and negative except as documented in HPI and ROS
Phy Exam
Physical Exam
Physical Exam:
Alert and oriented
General Physical Exam
General Skin: other (Jaundice)
General Mental: alert
General Hydration: appears well hydrated
Eye Exam
Scleral Findings: icteric sclera: Bilateral
Cardiovascular Exam
Cardiovascular Exam: regular rate/rhythm, no JVD and normal peripheral pulses
Pulmonary Exam
Pulmonary Exam: lungs clear and no respiratory distress
Gastrointestinal Exam
Gastrointestinal Exam: normal bowel sounds, soft, non distended, no cva tenderness and tender (Mild right upper quadrant)
Neurological Exam
Neurological Exam: alert, oriented x3, no motor deficits, normal reflexs, no sensory deficits and speech normal
Musculoskeletal Exam
Musculoskeletal Exam: no edema
Course
Orders/Labs/Results
Orders:
Orders
12/02/23 08:34
Ammonia Urgent
Complete Blood Count/No Diff Urgent
Comprehensive Metabolic Panel Urgent
LFT [[id number]] Urgent
PTT Urgent
Prothrombin Time Urgent
12/02/23 08:41
Urinalysis Reflex To Culture Urgent
Date Specimen was Collected: 12/02/23
Time Specimen was Collected: 08:39
Vital Signs
Initial and Last Documented VS:
Initial Vital Signs
Temp Pulse Resp BP Pulse Ox
98.2 F 73 18 125/71 100
12/02/23 04:40 12/02/23 04:40 12/02/23 04:40 12/02/23 04:40 12/02/23 04:40
Last Documented Vital Signs
Temp Pulse Resp BP Pulse Ox
98.6 F 75 18 125/71 128
12/02/23 08:42 12/02/23 08:42 12/02/23 08:42 12/02/23 04:40 12/02/23 08:42
MDM/Problems Addressed
Differential Diagnosis Includes:
Encephalopathy in the setting of alcoholic cirrhosis
*Critical Care Note
Total Time (30-74mins, 75-104mins- exclusive of procedures): 20
ED Attending Note
-
Portions of this chart may have been created with voice recognition software.� Occasional wrong word or��sound alike� substitutions may have occurred due to the inherent limitations of voice recognition software.
Discharge Plan
Departure
Prescriptions:
No Action
thiamine HCl (vitamin B1) 100 mg tablet
100 mg PO DAILY
folic acid 1 mg Tablet
1 mg PO DAILY Qty: 30 0RF
lactulose 20 gram/30 mL Solution
20 g PO BID Qty: 1200 0RF
Xifaxan 550 mg Tablet
550 mg PO BID Qty: 60 0RF
Referrals:
Terrance Oconnell MD [Family Provider] -
Interventions
Interventions:
*Risk Screen - Suicide Last Done: 12/02/23 04:45
*General Assessment Last Done: 12/02/23 04:45
*Neglect/Abuse Screening Last Done: 12/02/23 04:45
*ED COVID-19 Vaccine History Last Done: 12/02/23 08:45
PT-Xsrhlv-Gcxoxktrlh Assessment Last Done: 12/02/23 08:43
Discharge Date and Time
Print Language: MALDIVIAN
[2023-12-02 09:01] LABS: Urine Albumin Negative (Neg - Trace); Urine Bilirubin 1+ (Negative); Urine Character Clear (Clear); Urine Color Amber; Urine Glucose Negative (Negative); Urine Ketone Trace (Negative); Urine Leukocyte Trace (Negative); Urine Nitrite Negative (Negative); Urine Occult Blood Negative (Negative); Urine Specific Gravity 1.025 (<1.030); Urine Urobilinogen 3+ (Neg - 1+)
[2023-12-02 09:04] LABS: Hematocrit 25.7 % (39.0-52.0); Hemoglobin 9.1 g/dL (13.0-18.0); Mean Corp Hgb Conc. 35.4 g/dL (33.0-37.0); Mean Corpuscular Hgb 35.5 pg (27.0-31.0); Mean Corpuscular Volume 100.4 fL (80.0-94.0); Platelet Count 52 10^3/uL (130-400); Red Blood Cell Count 2.56 10^6/uL (4.70-6.10); Red Cell Dist. Width 11.9 % (11.5-14.5)
[2023-12-02 09:09] LABS: APTT 41.6 Sec (23.4-35.0); INR 2.25; PT 24.8 Sec (11.4-14.6)
[2023-12-02 09:10] LABS: Urine Mucus Many
[2023-12-02 09:11] LABS: Urine Calcium Oxalate Crystals Present; Urine Hyaline Cast 0-2 /LPF (0-2); Urine Red Blood Cell 0-2 /HPF (0-2); Urine White Cell 0-2 /HPF (0-5)
[2023-12-02 09:16] LABS: ALT (SGPT) 35 U/L (0-50); AST (SGOT) 56 U/L (17-59); Albumin 3.4 g/dl (3.5-5.0); Alkaline Phosphatase 189 U/L (38-126); Blood Urea Nitrogen 13 mg/dl (9-20); Calcium 8.7 mg/dl (8.4-10.2); Carbon Dioxide 24 mmol/L (22-30); Chloride 107 mmol/L (98-107); Glucose 137 mg/dl (70-99); Potassium 3.8 mmol/L (3.5-5.1); Sodium 141 mmol/L (135-145); Total Bilirubin 7.1 mg/dl (0.2-1.3); Total Protein 6.3 g/dl (6.3-8.2); eGFR > 60.00
[2023-12-02 09:31] LABS: Ammonia 28 umol/L (9-30)
--- NOTE | 2023-12-02 12:08 | CON.GI ---
Addendum entered and electronically signed by Prem Tolentino MD 12/02/23 14:51:
I saw and examined the patient.
The [employer] or PA's note was reviewed and I agree with the note.
Comment: 44-year-old male past medical history of alcohol cirrhosis MELD 22 here with acute on chronic right upper quadrant pain. He was seen here in October with similar pain. Ultrasound performed showed gallstones no signs of acute
cholecystitis. Patient with no fever. Does have some nausea. Most likely suspect this is biliary colic. He is undergoing a liver transplant workup at [facility] on Friday. At this time, would defer to [facility] regarding surgery of his gallbladder. Also
ran out of Xifaxan which Krista said gave him a 30-day supply. I also counseled patient to take lactulose and have 2-3 bowel movements a day. He has no signs of encephalopathy at this time is awake alert oriented x 3 with no asterixis. His labs are
similar to prior. I discussed with the ER, okay from GI point of view for discharge. I sent a message to Dr. Alas his outpatient horse groomer as well as to Dr. Gallardo at [facility] regarding his ER visit.
Original Note:
Consultation
-
Date/Time Consultation Requested: 12/02/23 1100
Date/Time Consultation Performed: 12/02/23 1105
Requesting Provider: Dr. Arroyo
Performing Provider: Dr. Tolentino/EDMOND Remy
Reason for Consultation: cirrhosis, abd pain, patient concerns for hepatic encephalopathy
Medical History
Chief Complaint / HPI
Chief Complaint: confusion
History of Present Illness:
43 yo male with a PMH significant for GERD, alcohol abuse (Quit 05/2023 prior heavy use), ETOH hepatitis/cirrhosis , GI bleed with MW tear in February with no varices seen. Repeat EGD in May with portal gastropathy healed tear. In September 2023 seen
in the hospital with memory issues, wt loss, neuropathy, and jaundice. He was noted to have rising bili mostly indirect, elevated INR, thrombocytopenia, elevated ammonia and normal albumin. He was also started on Lactulose in early September 2023 for
confusion and noted constipation and new RUQ pain. His MELD on 10/24/23 was 22 and his Lactulose was increased. He was also started on Xifaxan 550 mg. The patient was only taking this daily and received samples from his PCP. Patient was seen in the
emergency room on 11/21/2023 for right upper quadrant discomfort. The patient's labs are stable. Ultrasound of the right upper quadrant did not show acute cholecystitis. He did have gallstones. There was no signs of ascites. He states that he
felt as if he had some increasing confusion. He was only taking lactulose 20 g twice a day. He would have 1 bowel movement daily. We did discuss that ultimately he should have 2-3 bowel movements daily. He did run out of Xifaxan. Rx from my
office was sent over to [facility]. He was also out of folic acid, this was sent over to [facility] and the patient did receive prescription. As an outpatient he did see [facility] hepatology Dr. Mejía. The patient states that he did not want a follow-up with
him and had already made an outpatient appointment with [facility] and he has an appointment with them on December 07. The patient states that he came in today because he was unable to get a Xifaxan. He thought he may be a little more confused
than usual. He is last bowel movement was yesterday. He is having 1 bowel movement daily. We did discuss that he can give himself an extra dose of lactulose and up titrate to make sure he has 2-3 bowel movements daily. The patient is able to eat
without any difficulty. He has no abdominal pain with eating. He has no nausea. He is afebrile and has no white count. His MELD is still 22. He denies any fevers, chills, nausea, vomiting, melena, hematochezia, dysphagia or odynophagia. He
denies any early satiety. The patient has no lower extremity edema. WBC 4.0, hemoglobin 9.1, hematocrit 25.7, platelets 52, PT 24.8, INR 2.25, sodium 141, potassium 3.8, chloride 107, CO2 24, BUN 13, creatinine 0.5, glucose 137, total bilirubin
7.1, direct bilirubin 3.0, AST 56, ALT 35, alk phos 189, ammonia 28, albumin 3.4
Past Medical History
Past Medical History: GERD, Psychiatric (anxiety/depression) and Other (alcohol abuse, ETOH hepatitis/cirrhosis, vocal cord lesion/nodule, migraines)
Past Surgical History: Other (nasal surgery)
Social History
Tobacco: Smoker (1 PPD)
Alcohol: Former (quit 3 months ago but admits to hx heavy use in past )
Drug: Former User (heroin, quit 6 years ago) and Marijuana (gummies )
Living: With Family (parents)
Employment: Not Employed
Family History
Family History: Other (no family hx colon CA, polyps, liver disease )
Allergies / Home Medications
Allergy/AdvReac Type Severity Reaction Status Date / Time
No Known Allergies Allergy Verified 07/10/23 15:17
�Medication �Instructions �Recorded
thiamine HCl (vitamin B1) 100 mg 100 mg PO DAILY Supplement 03/07/23
tablet
folic acid 1 mg tablet 1 mg PO DAILY #30 tabs 10/25/23
lactulose 20 gram/30 mL oral 20 g (30 mL) PO BID #1,200 mL 10/25/23
solution
rifaximin 550 mg tablet (Xifaxan) 550 mg PO BID #60 tabs 10/25/23
Review of Systems
-
All other systems: A 12 pt ROS was Negative except as stated above in HPI
Vital Signs
Temp Pulse Resp BP Pulse Ox
98.6 F 75 18 125/71 128
12/02/23 08:42 12/02/23 08:42 12/02/23 08:42 12/02/23 04:40 12/02/23 08:42
Physical Exam
Exam
General: No Apparent Distress
HEENT: Other (icteric)
Respiratory: Clear
Cardiac: Regular Rhythm
GI: Soft, Non Distended, Normal Bowel Sounds and Tender (ruq)
Musculoskeletal: No Edema
Skin: Warm and Dry
Neuro: AO x 3 and Other (no asterixis)
Psych: Calm
Results
WBC 4.0 10^3/uL (4.8-10.8) L 12/02/23 08:34
Hgb 9.1 g/dL (13.0-18.0) L 12/02/23 08:34
Hct 25.7 % (39.0-52.0) L 12/02/23 08:34
MCV 100.4 fL (80.0-94.0) H 12/02/23 08:34
Plt Count 52 10^3/uL (130-400) L 12/02/23 08:34
PT 24.8 Sec (11.4-14.6) H 12/02/23 08:34
INR 2.25 12/02/23 08:34
APTT 41.6 Sec (23.4-35.0) H 12/02/23 08:34
Sodium 141 mmol/L (135-145) 12/02/23 08:34
Potassium 3.8 mmol/L (3.5-5.1) 12/02/23 08:34
Chloride 107 mmol/L (98-107) 12/02/23 08:34
Carbon Dioxide 24 mmol/L (22-30) 12/02/23 08:34
BUN 13 mg/dl (9-20) 12/02/23 08:34
Creatinine 0.5 mg/dL (0.7-1.3) L 12/02/23 08:34
Calcium 8.7 mg/dl (8.4-10.2) 12/02/23 08:34
Total Bilirubin 7.1 mg/dl (0.2-1.3) H 12/02/23 08:34
AST 56 U/L (17-59) 12/02/23 08:34
ALT 35 U/L (0-50) 12/02/23 08:34
Alkaline Phosphatase 189 U/L (38-126) H 12/02/23 08:34
Diagnostic Image Results:
US Abd Limited: IMPRESSION: Many tiny gallstones. Stable. No secondary findings to suggest acute cholecystitis. Clinical and laboratory correlation recommended.
Prior GI Procedures:
EGD:02/2023 [facility] - Maria Eugenia-Merino tears. Injected. Clip was placed as
described above. No signs of varices were seen.
- Normal stomach.
- Normal examined duodenum.
- No specimens collected.
EGD: 06/11/23 [facility] - Normal esophagus. Healed MW tears, no varices seen.
- Portal hypertensive gastropathy.
- An endoclip was found in the stomach.
- Normal examined duodenum.
- No specimens collected.
Colonoscopy: none
Assessment / Plan
-
43 yo male with a PMH significant for GERD, alcohol abuse (Quit 05/2023 prior heavy use), ETOH hepatitis/cirrhosis , GI bleed with MW tear in February with no varices seen. Repeat EGD in May with portal gastropathy healed tear. In September 2023 seen
in the hospital with memory issues, wt loss, neuropathy, and jaundice. He was noted to have rising bili mostly indirect, elevated INR, thrombocytopenia, elevated ammonia and normal albumin. He was also started on Lactulose in early September 2023 for
confusion and noted constipation and new RUQ pain. His MELD on 10/24/23 was 22 and his Lactulose was increased. He was also started on Xifaxan 550 mg. The patient was only taking this daily and received samples from his PCP. Patient was seen in the
emergency room on 11/21/2023 for right upper quadrant discomfort. The patient's labs are stable. Ultrasound of the right upper quadrant did not show acute cholecystitis. He did have gallstones. There was no signs of ascites. He states that he
felt as if he had some increasing confusion. He was only taking lactulose 20 g twice a day. He would have 1 bowel movement daily. We did discuss that ultimately he should have 2-3 bowel movements daily. He did run out of Xifaxan. Rx from my
office was sent over to [facility]. He was also out of folic acid, this was sent over to [facility] and the patient did receive prescription. As an outpatient he did see [facility] hepatology Dr. Mejía. The patient states that he did not want a follow-up with
him and had already made an outpatient appointment with [facility] and he has an appointment with them on December 07. The patient states that he came in today because he was unable to get a Xifaxan.
IMPRESSION:
-ETOH hepatitis/cirrhosis-> MELD 3.0 = 22
-hepatic encephalopathy
-Right sided abd pain
-cholelithiasis, no signs of acute cholecystitis
-coagulopathy
-macrocytic anemia
-thrombocytopenia
-RUQ pain
-severe portal HTN noted in imaging with EV and extensive varices anterior abdominal wall in past
-ETOH abuse - patient reports sober (last ETOH drink 05/2023)
-hx MW tear
Plan:
-Discussed with patient would increase his Lactulose to TID to make sure having 2-3 BM daily
-Xifaxan 550 mg BID ordered yesterday. I called [facility] personally in front of patient and this was secured for him for him for the next 5 days without prior auth. Patient wishes to have [facility] to follow up with this. I was also able to secure
a 30 day supply via samples. This was given directly to the patient.
-Follow up with [facility] on Friday.
-Further recommendations to be forthcoming.
-
-
Thank you for consultation and allowing me to participate in the patient's care. Please call the organisational psychologist GI physician during the after hours with any questions or concerns.
== END | disposition home or self-care (01) ==
LOC: EMR 04:35
PROVIDERS: EMERGENCY PHYSICIAN Emergency Medicine; FAMILY PHYSICIAN Internal Medicine; OTHER PHYSICIAN Internal Medicine Gastroenterology
DX: K70.30 Alcoholic cirrhosis of liver without ascites (principal); K76.6 Portal hypertension; F17.210 Nicotine dependence, cigarettes, uncomplicated; K21.9 Gastro-esophageal reflux disease without esophagitis; F10.10 Alcohol abuse, uncomplicated
CPT/HCPCS: 99284; 76705; 80053; 80076; 81003; 81015; 82140; 85027; 85610; 85730

== ENCOUNTER 2024-01-20 23:57 | Emergency (ER) | payer OTHER, SELFPAY ==
[2024-01-21] VITALS: BP 111/61
[2024-01-21 00:12] VITALS: BMI 22.1
[2024-01-21 00:14] VITALS: BP 114/72
[2024-01-21] MEDS: MORPHINE SULFATE 4 MG IV (00:32)
--- NOTE | 2024-01-21 00:35 | ED.GENMED ---
History of Present Illness
General
Chief Complaint: Abdominal Pain
Time Seen by Provider: 01/21/24 00:09
History of Present Illness
History of Present Illness:
44-year-old male with history of alcoholic cirrhosis, currently undergoing evaluation for liver transplant presenting to the emergency department for right-sided abdominal pain. Patient reports after lunch, started with right-sided abdominal pain.
Notes that he has had issues with his gallbladder before. However, they are considering taking out his gallbladder if and when he gets a liver transplant. Denies fever. Reports nausea without vomiting. Denies changes in stool or urination. Pain
is worse with deep inspiration. Notes compliance with his medications. Denies additional acute medical complaints
Past History
Past History
ED Past Medical History: Other (Migraine headaches) and Other (Chronic alcohol abuse, alcoholic cirrhosis, anxiety, depression, substance abuse)
ED Past Surgical History: Other (Nasal surgery)
Social History
Tobacco: Smoker (1.5 ppd)
Alcohol: Former
Drug: Former user and IVDA (heroin)
Personal: Single
Living: with family
Employment: Employed
Family History
Family History: Other (Noncontributory)
Phy Exam
Physical Exam
Physical Exam:
General: no clinical signs of dehydration, nontoxic and in no acute distress, jaundice
HEENT: protecting airway, scleral icterus
Neck: appears supple
CV: Normal heart rate, regular rhythm, no evidence of cyanosis
Resp: No accessory muscle use, no increased work of breathing, lungs clear to auscultation bilaterally
Abd: Soft and non-distended, generalized tenderness to the right upper and right lower quadrant of the abdomen without rebound or guarding
Extremities: No deformities, no swelling, no erythema
Neuro: alert, no focal neurologic deficit
: deferred
Rectal: deferred
Psych: Normal affect
Skin: Intact
Course
Orders/Labs/Results
Orders:
Orders
01/21/24 00:17
Complete Blood Count/With Diff Urgent
Comprehensive Metabolic Panel Urgent
Lipase Urgent
01/21/24 00:26
Morphine Sulfate 4 mg IV NOW STA
US Abdomen Complete/Upper Urgent
Comment:
Reason For Exam: acute on chronic RUQ pain
01/21/24 00:43
0.9% Sodium Chloride 1000 ml [Nss] 1,000 ml IV BOLUS
Abnormal Lab Results
01/21/24
00:17
RBC 2.83 L 10^6/uL
(4.70-6.10)
Hgb 10.5 L g/dL
(13.0-18.0)
Hct 29.2 L %
(39.0-52.0)
MCV 103.2 H fL
(80.0-94.0)
MCH 37.1 H pg
(27.0-31.0)
Plt Count 65 L 10^3/uL
(130-400)
Abs Immat Gran (auto) 0.1 H 10^3/uL
(0-0.05)
Immature Gran % 1.2 H %
(0-0.5)
BUN 24 H mg/dl
(9-20)
Creatinine 0.6 L mg/dL
(0.7-1.3)
Total Bilirubin 6.0 H mg/dl
(0.2-1.3)
AST 65 H U/L
(17-59)
Alkaline Phosphatase 222 H U/L
(38-126)
Lipase 331 H U/L
(23-300)
01/21/24 00:17
01/21/24 00:17
Vital Signs
Initial and Last Documented VS:
Initial Vital Signs
Temp Pulse Resp BP Pulse Ox
98.0 F 66 18 111/61 99
01/21/24 00:00 01/21/24 00:00 01/21/24 00:00 01/21/24 00:00 01/21/24 00:00
Last Documented Vital Signs
Temp Pulse Resp BP Pulse Ox
98.0 F 66 18 114/72 97
01/21/24 00:00 01/21/24 00:00 01/21/24 00:00 01/21/24 00:14 01/21/24 00:21
MDM/Problems Addressed
MDM/Problems Addressed:
44-year-old male with history of alcoholic cirrhosis presenting to the emergency department for right-sided abdominal pain. Vital signs are normal.
On exam, patient is in no acute distress, slightly uncomfortable secondary to pain with generalized tenderness to the right side of the abdomen. On review of EMR, patient has been seen multiple occasions in the past for acute on chronic right-sided
abdominal pain, thought to be biliary colic. Suspected source of symptoms, started after eating lunch. Patient with history of hepatic encephalopathy, no current confusion or concern for decompensated encephalopathy. Will obtain laboratory
analysis and ultrasound imaging to ensure no component of acute cholecystitis. Morphine administered for pain.
00:40 -lipase slightly elevated without focal tenderness epigastric abdomen without present concern for acute pancreatitis. No leukocytosis. Pending ultrasound.
02:30 -ultrasound shows cholelithiasis without evidence of cholecystitis. Bili is 6, which patient reports is at his baseline. On reassessment, remains stable, comfortable. Feel stable for discharge with close interval follow-up with his GI
doctor. Strict return precautions communicated and patient verbalized understanding
*Critical Care Note
Total Time (30-74mins, 75-104mins- exclusive of procedures): Not Applicable
ED Attending Note
-
Portions of this chart may have been created with voice recognition software.� Occasional wrong word or��sound alike� substitutions may have occurred due to the inherent limitations of voice recognition software.
Discharge Plan
Departure
Patient Disposition: Home (Routine Discharge)
Patient with high blood pressure during this ER visit?: No
Condition: Good
Discharge Problem:
Biliary colic
Instructions: Gallstones (DC)
Prescriptions:
No Action
thiamine HCl (vitamin B1) 100 mg tablet
100 mg PO DAILY
folic acid 1 mg Tablet
1 mg PO DAILY Qty: 30 0RF
lactulose 20 gram/30 mL Solution
20 g PO BID Qty: 1200 0RF
Xifaxan 550 mg Tablet
550 mg PO BID Qty: 60 0RF
Referrals:
Julianna Tay PA-C [Family Provider] -
Interventions
Interventions:
*Risk Screen - Suicide Last Done: 01/21/24 00:00
*General Assessment Last Done: 01/21/24 00:00
*Neglect/Abuse Screening Last Done: 01/21/24 00:00
ED- Fall Risk Assessment Last Done: 01/21/24 00:21
*ED COVID-19 Vaccine History Last Done: 01/21/24 00:21
*Nursing Disposition Last Done: 01/21/24 03:30
ZW-Qxlvdd-Bidxscsazy Assessment Last Done: 01/21/24 00:21
Discharge Date and Time
Discharge Date/Time: 01/21/24 03:30
Print Language: LAO
[2024-01-21 00:38] LABS: ALT (SGPT) 44 U/L (0-50); AST (SGOT) 65 U/L (17-59); Albumin 3.9 g/dl (3.5-5.0); Alkaline Phosphatase 222 U/L (38-126); Blood Urea Nitrogen 24 mg/dl (9-20); Carbon Dioxide 27 mmol/L (22-30); Chloride 105 mmol/L (98-107); Estimated Creatinine Clearance > 125 ml/min; Glucose 99 mg/dl (70-99); Lipase 331 U/L (23-300); Sodium 142 mmol/L (135-145); eGFR > 60.00
[2024-01-21 00:39] LABS: % Basophils 0.8 % (0-2); % Eosinophils 2.3 % (0-6); % Immature Granulocytes 1.2 % (0-0.5); % Lymphocytes 41.9 % (20.5-51.1); % Monocytes 8.4 % (1.7-9.3); % Neutrophils 45.4 % (42.2-75.2); Absolute Basophils 0.1 10^3/uL (0-0.2); Absolute Eosinophils 0.1 10^3/uL (0-0.7); Absolute Immature Granulocytes 0.1 10^3/uL (0-0.05); Absolute Lymphocytes 2.5 10^3/uL (1.2-3.4); Absolute Monocytes 0.5 10^3/uL (0.1-0.6); Absolute Neutrophils 2.8 10^3/uL (1.4-6.5); Hematocrit 29.2 % (39.0-52.0); Hemoglobin 10.5 g/dL (13.0-18.0); Mean Corpuscular Hgb 37.1 pg (27.0-31.0); Mean Corpuscular Volume 103.2 fL (80.0-94.0); Mean Platelet Volume 9.4 fL (7.4-10.4); Nucleated Red Blood Cells % 0 % (-); Platelet Count 65 10^3/uL (130-400); Red Blood Cell Count 2.83 10^6/uL (4.70-6.10); Red Cell Dist. Width 12.6 % (11.5-14.5); White Blood Cell Count 6.1 10^3/uL (4.8-10.8)
[2024-01-21] MEDS: NSS 1000 IV (00:49)
--- NOTE | 2024-01-21 04:00 | DOWNTIME ---
There was a [facility] [employer] Downtime on 01/21/2024 from 0100 to 01/21/2024 at 0350. Downtime documentation of patient's care, including medication administrations, has been reconciled in the electronic record per guidelines. Refer to the
patient's paper chart under the miscellaneous tab to see printed paper medication records and downtime forms.
== END 2024-01-21 03:30 | disposition home or self-care (01) ==
LOC: EMR 23:57
PROVIDERS: EMERGENCY PHYSICIAN Student in an Organized Health Care Education/Training Program; FAMILY PHYSICIAN Physician Assistant Medical
DX: K80.70 Calculus of gallbladder and bile duct without cholecystitis without obstruction (principal); R11.0 Nausea; K70.30 Alcoholic cirrhosis of liver without ascites; G43.909 Migraine, unspecified, not intractable, without status migrainosus; F41.9 Anxiety disorder, unspecified; F32.A Depression, unspecified; F17.210 Nicotine dependence, cigarettes, uncomplicated; F19.11 Other psychoactive substance abuse, in remission; Z76.82 Awaiting organ transplant status
CPT/HCPCS: 99284; 96374; 96361; 76700; 80053; 83690; 85025

== ENCOUNTER 2024-02-27 05:14 | Inpatient (IN) | payer OTHER, SELFPAY ==
[2024-02-26 20:40] VITALS: BP 129/74
[2024-02-26 21:02] LABS: % Basophils 0.4 % (0-2); % Eosinophils 1.5 % (0-6); % Immature Granulocytes 0.1 % (0-0.5); % Lymphocytes 31.9 % (20.5-51.1); % Monocytes 9.5 % (1.7-9.3); % Neutrophils 56.6 % (42.2-75.2); Absolute Eosinophils 0.1 10^3/uL (0-0.7); Absolute Lymphocytes 2.4 10^3/uL (1.2-3.4); Absolute Monocytes 0.7 10^3/uL (0.1-0.6); Absolute Neutrophils 4.2 10^3/uL (1.4-6.5); Hematocrit 26.2 % (39.0-52.0); Hemoglobin 9.5 g/dL (13.0-18.0); Mean Corp Hgb Conc. 36.3 g/dL (33.0-37.0); Mean Corpuscular Hgb 37.7 pg (27.0-31.0); Nucleated Red Blood Cells % 0 % (-); Red Blood Cell Count 2.52 10^6/uL (4.70-6.10); Red Cell Dist. Width 13.3 % (11.5-14.5); White Blood Cell Count 7.4 10^3/uL (4.8-10.8)
[2024-02-26 21:12] LABS: Mean Platelet Volume 9.3 fL (7.4-10.4); Platelet Count 60 10^3/uL (130-400)
[2024-02-26 21:15] LABS: ALT (SGPT) 69 U/L (0-50); AST (SGOT) 95 U/L (17-59); Albumin 3.9 g/dl (3.5-5.0); Alkaline Phosphatase 257 U/L (38-126); Blood Urea Nitrogen 18 mg/dl (9-20); Calcium 8.8 mg/dl (8.4-10.2); Carbon Dioxide 25 mmol/L (22-30); Chloride 107 mmol/L (98-107); Glucose 115 mg/dl (70-99); Lipase 531 U/L (23-300); Potassium 3.5 mmol/L (3.5-5.1); Sodium 141 mmol/L (135-145); Total Bilirubin 7.2 mg/dl (0.2-1.3); Total Protein 6.9 g/dl (6.3-8.2); eGFR > 60.00
[2024-02-26 23:20] VITALS: BMI 21.5
[2024-02-26 23:26] VITALS: BP 114/58
[2024-02-27] VITALS (10 sets, daily range): BP systolic 91–140; BP diastolic 50–93
[2024-02-27] LABS: Creatine Phosphokinase 138 U/L (55-170)
[2024-02-27 00:15] LABS: Ammonia 71 umol/L (9-30)
[2024-02-27] MEDS: ZOFRAN 4 MG IV (00:34)
[2024-02-27] MEDS: MORPHINE SULFATE 4 MG IV (00:35)
--- NOTE | 2024-02-27 00:36 | ED.GENMED ---
History of Present Illness
General
Chief Complaint: Abdominal Pain
Source: patient, records, previous radiology exam and previous hospital records
Exam Limitations: none
Time Seen by Provider: 02/26/24 23:49
Nursing documentation reviewed up to this point in time: agreed with
History of Present Illness
History of Present Illness:
44-year-old male complex past medical history--- alcoholic cirrhosis, gallstones, varices, no longer drinking seen locally by GI also in the process of being worked up for transplant at [facility], had few weeks of fatigue, upper
abdominal pain some shortness of breath, no fever, intermittent noncompliance with his lactulose, no fevers, body aches, positive upper respiratory symptoms, states he typically gets some fluids and pain meds and feels better, was told that he may
need to have his gallbladder out sometime sounds like the thought was to have that done at the time of his transplant or by his transplant surgeons, does not typically hold fluid in his abdomen, does holding his legs occasionally
Past History
Past History
ED Past Medical History: Other (Migraine headaches) and Other (Chronic alcohol abuse, alcoholic cirrhosis, anxiety, depression, substance abuse)
ED Past Surgical History: Other (Nasal surgery)
Social History
Tobacco: Smoker (1.5 ppd)
Alcohol: Former
Drug: Former user and IVDA (heroin)
Personal: Single
Living: with family
Employment: Employed
Family History
Family History: Other (Noncontributory)
Review of Systems
Review of Systems
All Other Systems: Not applicable
Constitutional: Reports weight loss and fatigue
EENT: Reports no symptoms
Respiratory: Reports trouble breathing
ABD/GI: Reports abdominal pain, nausea and vomiting; Denies diarrhea or black stools
: Reports no symptoms
Musculoskeletal: Reports no symptoms
Neurological: Reports no symptoms
Endocrine: Reports no symptoms
Phy Exam
Physical Exam
Physical Exam:
Physical Exam
General: Jaundiced chronically ill male
Neck: Yellow skin
Heart: s1/s2 regular rate and rhythm, no murmur. equal radial pulses.
Lungs: no acute respiratory distress. clear bilaterally
Abdomen: Tender in the upper abdomen
Neuro: alert and oriented. No asterixis
Skin: no rash
Psychiatric: Cooperative
Extremities: No cyanosis
Course
Orders/Labs/Results
Orders:
Orders
02/26/24 20:50
Complete Blood Count/With Diff Urgent
Comprehensive Metabolic Panel Urgent
Creatine Phosphokinase Urgent
Comment: ADDED
Lipase Urgent
02/26/24 23:18
EKG [Electrocardiogram (*1)] Urgent
Reason for Study: Fatigue / Weakness
EKG- Treatment ONCE
02/26/24 23:44
Ammonia Urgent
02/26/24 23:50
Add On- LAB Urgent
Tests Added?: cpk
02/27/24 00:15
Morphine Sulfate 4 mg IV NOW STA
Ondansetron Injectable [Zofran] 4 mg IV NOW STA
CR Chest - 2 Views Urgent
Comment:
Reason For Exam: fagigue
02/27/24 00:35
Lactulose [Duphalac/Chronulac] 20 grams PO NOW STA
02/27/24 00:39
US Abdomen Complete/Upper Urgent
Comment:
Reason For Exam: Pain stones pancreatitis
02/27/24 00:41
COVID-19 Antigen Urgent
Source: Nasal Swab
Influenza A+B Rapid Molecular Urgent
ZEHRA Source: Nasal Swab
Specimen Description:
02/27/24 01:00
0.9% Sodium Chloride 1000 ml [Nss] 1,000 ml Mvi, Adult [Multivitamin] 10 ml Thiamine Injection 100 mg IV 500 mls/hr
Abnormal Lab Results
02/26/24 02/26/24
20:50 23:44
RBC 2.52 L 10^6/uL
(4.70-6.10)
Hgb 9.5 L g/dL
(13.0-18.0)
Hct 26.2 L %
(39.0-52.0)
MCV 104.0 H fL
(80.0-94.0)
MCH 37.7 H pg
(27.0-31.0)
Plt Count 60 L 10^3/uL
(130-400)
Absolute Monos (auto) 0.7 H 10^3/uL
(0.1-0.6)
Monocytes % 9.5 H %
(1.7-9.3)
Glucose 115 H mg/dl
(70-99)
Total Bilirubin 7.2 H mg/dl
(0.2-1.3)
AST 95 H U/L
(17-59)
ALT 69 H U/L
(0-50)
Alkaline Phosphatase 257 H U/L
(38-126)
Ammonia 71 H umol/L
(9-30)
Lipase 531 H U/L
(23-300)
02/26/24 20:50
02/26/24 20:50
Vital Signs
Initial and Last Documented VS:
Initial Vital Signs
Temp Pulse Resp BP Pulse Ox
98.3 F 78 16 129/74 99
02/26/24 20:40 02/26/24 20:40 02/26/24 20:40 02/26/24 20:40 02/26/24 20:40
Last Documented Vital Signs
Temp Pulse Resp BP Pulse Ox
98.3 F 70 13 108/53 99
02/26/24 20:40 02/27/24 00:15 02/27/24 00:15 02/27/24 00:00 02/27/24 00:15
MDM/Problems Addressed
Differential Diagnosis Includes:
Decompensated cirrhosis electrolyte abnormality hepatic encephalopathy biliary colic pancreatitis deconditioning electrolyte abnormality pneumonia
MDM/Problems Addressed:
Fatigue shortness of breath abdominal pain
Chronic conditions affecting care:
Liver disease
Acute Exacerbation and/or Progression of Chronic Illness:
Liver disease
*Pulse Oximetry
Patient hypoxic: no
*EKG
Interpreted by ED Provider?: Yes
Interpretation: normal
Comparison EKG: no comparison EKG present
Heart Rate: 68
Rate: normal
Rhythm: sinus
Ischemia: non-specific ST changes
*Staff Writer Interpretation
Rate: normal
Heart Rate: 78
Rhythm: sinus
*Critical Care Note
Total Time (30-74mins, 75-104mins- exclusive of procedures): 15
Update Note
Update Note:
2:30 AM update labs are noted, lipase is creeping up, pneumonia resolved mental status is fairly clear, ultrasound report noted, patient overall does not look too bad all things considered, he states he still feels unwell, with pain in his legs
abdomen and back, options reviewed with the patient including discharged home to follow-up at [place], he prefers to be admitted as he would like to talk to his GI team here
ED Attending Note
-
Portions of this chart may have been created with voice recognition software.� Occasional wrong word or��sound alike� substitutions may have occurred due to the inherent limitations of voice recognition software.
Discharge Plan
Departure
Patient Disposition: Admit
Date of Disposition: 02/27/24
Time of Disposition: 02:35
Admit to: Med/Surg
Presentation/result/management discussed w/ accepting MD/DO: Hospitalist
Patient with high blood pressure during this ER visit?: No
Condition: Fair
Covid-19: Negative COVID-19
Discharge Problem:
Chronic liver failure
Prescriptions:
No Action
thiamine HCl (vitamin B1) 100 mg tablet
100 mg PO DAILY
folic acid 1 mg Tablet
1 mg PO DAILY Qty: 30 0RF
Xifaxan 550 mg Tablet
550 mg PO BID Qty: 60 0RF
lactulose 20 gram/30 mL solution
20 g PO BID
Referrals:
Terrance Oconnell MD [Family Provider] -
Interventions
Interventions:
*Risk Screen - Suicide Last Done: 02/26/24 20:40
*General Assessment Last Done: 02/26/24 20:40
*Neglect/Abuse Screening Last Done: 02/26/24 20:40
ED- Fall Risk Assessment Last Done: 02/26/24 23:35
*ED COVID-19 Vaccine History Last Done: 02/26/24 20:40
KU-Zndzak-Bxebrtmgtf Assessment Last Done: 02/26/24 23:35
Discharge Date and Time
Print Language: GUAMANIAN
[2024-02-27 01:06] LABS: COVID-19 Antigen Negative (Negative)
[2024-02-27] MEDS: MULTIVITAMIN 1011 ML IV (01:33)
[2024-02-27] MEDS: MULTIVITAMIN 1011 MG IV (01:33)
[2024-02-27] MEDS: DUPHALAC/CHRONULAC 20 GRAMS PO ×3 (01:38→12:22)
--- NOTE | 2024-02-27 04:25 | HPS.HSE ---
Family Physician
-
Family Physician: Terrance Oconnell MD
Chief Complaint
-
Abdominal discomfort
History of Present Illness
This is a 44-year-old male with past medical history that is significant for alcohol abuse and alcoholic liver cirrhosis complicated by esophageal varices status post banding who is currently on a transplant list and awaiting cardiac evaluation
presenting to the emergency department with complaints of abdominal discomfort and feeling unwell in general.
Patient tells me that he feels that he is having a decompensation episode. He reports a left-sided lower quadrant abdominal discomfort that he associates with constipation. Instead of having 3-4 bowel movements a day he has maybe 1 and reports he
has about 5-week. He denies any increased abdominal girth. He denies any hematemesis, melena or hematochezia. He reports decreased oral intake and generally feeling dehydrated. Patient denies nausea or vomiting. He has not had any fevers or
chills. He denies sharp abdominal discomfort. Denies any increased lower extremity edema. He reports compliance with his lactulose and despite the toleration of up to 60 g per dose he states he still does not have bowel movements. He denies any
alcohol use. His last alcohol use was in May of last year.
In the ED today blood pressure was 96/50 with a pulse of 64, temperature was 98.3 and was satting 100% on room air. CBC was at baseline with known thrombocytopenia of 60 and hemoglobin of 9.5. Electrolytes were stable with a normal BUN/creatinine.
He has a total bilirubin of 7.2 which is within the range he has had before. Unfortunately stamina level is at 71. Abdominal ultrasound is negative for ascites. He shows gallstones in the gallbladder with 8.9 mm common bile duct dilatation. No
evidence of acute cholecystitis.
Medical History
Past Medical History
Past Medical History: Reports Other (ESLD 2/2 ETOH cirrhosis)
Additional Past Medical History:
Alcoholic cirrhosis
Esophageal varices status post banding
Past Surgical History: Reports None
Social History
Tobacco: Non-smoker
Alcohol: Former
Drug: None
Personal: Single
Living: Alone
Family History
Family History: Not pertinent
Allergies / Home Medications
Allergies reflects when Allergies were last updated in [facility].
Home Medications with original date entered in [facility]
Allergy/Medication List:
Allergies
Allergy/AdvReac Type Severity Reaction Status Date / Time
No Known Allergies Allergy Verified 01/21/24 00:00
Home Medications
thiamine HCl (vitamin B1) 100 mg tablet 100 mg PO DAILY Supplement 03/07/23
folic acid 1 mg tablet 1 mg PO DAILY #30 tabs 10/25/23
rifaximin 550 mg tablet (Xifaxan) 550 mg PO BID #60 tabs 10/25/23
lactulose 20 gram/30 mL oral solution 20 g PO BID 02/26/24
Review of Systems
-
History Source: Patient
Constitutional: Reports Weight Loss
EENT: Reports No Symptoms
Respiratory: Reports No Symptoms
Cardiac: Reports No Symptoms
Abdomen/GI: Reports Abdominal Pain
: Reports No Symptoms
Musculoskeletal: Reports No Symptoms
Skin: Reports No Symptoms
Neurological: Reports Weakness
Endocrine: Reports No Symptoms
Hematologic/Lymphatic: Reports No Symptoms
Psych: Reports No Symptoms
Physical Exam
Vital Signs
Vital Signs
Temp Pulse Resp BP Pulse Ox
98.3 F 64 11 96/52 100
02/26/24 20:40 02/27/24 03:00 02/27/24 03:00 02/27/24 03:00 02/27/24 03:00
Physical Exam
General: Appears Chronically Ill
HEENT: Moist mucous membranes and PERRLA
Respiratory: Clear
Cardiac: S1/S2 and Regular Rhythm
Breast: Deferred by me
GI: Soft, Non Tender, Non Distended and Normal Bowel Sounds
Rectal: Deferred by Provider
Genito-urinary: Deferred by me
Musculoskeletal: No Clubbing, No Cyanosis and No Edema
Skin: Warm
Neuro: AO x 3
Hematologic/Lymphatic: No Lymphadenopathy
Psych: Calm
Laboratory Results
-
02/26/24 20:50
02/26/24 20:50
Laboratory Results
Total Bilirubin 7.2 mg/dl (0.2-1.3) H 02/26/24 20:50
AST 95 U/L (17-59) H 02/26/24 20:50
ALT 69 U/L (0-50) H 02/26/24 20:50
Alkaline Phosphatase 257 U/L (38-126) H 02/26/24 20:50
Lipase 531 U/L (23-300) H 02/26/24 20:50
Data Reviewed
-
Ultrasound: Report Reviewed by me
Lab Data: Labs Reviewed by me
Old Records: Reviewed
Impression/Plan
-
IMPRESSION:
44 male with cirrhosis complicated by esophageal varices s/p banding and h/o hepatic encephalopathy comes in with non-specific abdominal discomfort localized to the left lower quadrant and associated with constipation despite lactulose. Denies
melena, hematochezia or hematemesis. Notes jaundice and bilirubin is similarly chronically elevated. Possibly biliary colic but CBD dilation unchanged and no evidence of stone in duct. No evidence of acute cholecystitis. No ascites and thus
unlikely SBP. Ammonia is elevated. Awaiting transplant
PLAN:
1. Hepatic encephalopathy - Elevated ammonia. Currently alert and oriented. No asterixis.
- admit to med surg
- lactulose enema x 1
- continue lactulose 20g po q 6 until 3 -4 soft bms daily
- continue rifaximin bid
- thiamine/folate
- pain control and antiemetics
- claudia etoh, no evidence of GI bleed or ascites, no evidence of acute choledocholithiasis, occult stool
- check hep panel in am
- GI consult
DVT PPX - heparin sq
Code status - full code
[2024-02-27] MEDS: D5/0.9% SODIUM CHLORIDE 1000 IV (06:24)
[2024-02-27 06:37] LABS: Hematocrit 23.8 % (39.0-52.0); Hemoglobin 8.5 g/dL (13.0-18.0); Mean Corp Hgb Conc. 35.7 g/dL (33.0-37.0); Mean Corpuscular Hgb 37.1 pg (27.0-31.0); Mean Corpuscular Volume 103.9 fL (80.0-94.0); Mean Platelet Volume 10.5 fL (7.4-10.4); Platelet Count 57 10^3/uL (130-400); Red Blood Cell Count 2.29 10^6/uL (4.70-6.10); Red Cell Dist. Width 13.5 % (11.5-14.5); White Blood Cell Count 4.9 10^3/uL (4.8-10.8)
[2024-02-27] MEDS: LACTULOSE ENEMA 300 ML RECTAL (06:40)
[2024-02-27 06:57] LABS: ALT (SGPT) 68 U/L (0-50); AST (SGOT) 91 U/L (17-59); Alkaline Phosphatase 249 U/L (38-126); Blood Urea Nitrogen 14 mg/dl (9-20); Calcium 8.1 mg/dl (8.4-10.2); Carbon Dioxide 20 mmol/L (22-30); Chloride 113 mmol/L (98-107); Direct Bilirubin 2.9 mg/dl (0.0-0.4); Estimated Creatinine Clearance > 125 ml/min; Glucose 82 mg/dl (70-99); Potassium 3.5 mmol/L (3.5-5.1); Sodium 140 mmol/L (135-145); Total Bilirubin 5.6 mg/dl (0.2-1.3); Total Protein 5.8 g/dl (6.3-8.2); eGFR > 60.00
--- NOTE | 2024-02-27 07:15 | CON.GI ---
Addendum entered and electronically signed by Ynes Saeed Do, MD 02/27/24 15:03:
I saw and examined the patient.
The ULTIMATE HOOPS TRAINER's note was reviewed and I agree with the note.
Comment: Yong is a 44yo M with h/o ETOH cirrhosis decompensated with encephalopathy, and chronic biliary dilation who presents with constipation and wanting to see case management. He lives with elderly parents in past and now homeless. He states
that if he eats oats/apples daily then it resolves but he does not have reliable route of groceries and financial means recently. He is currently not working. He completed ETOH rehab in June 2023 but was kicked out. Currently he c/o chronic
fatigue and muscle weakness. Exam jaundice, itcerus, AAOx3 no focal deficits diffuse tattoos, mild abd distension. Labs reviewed.
Impression
- Constipation
- Homeless ness
- ETOH cirrhosis MELD of 20
- GERD
- H/o ETOH abuse
Rehab last June 2023
- h/o ETOH hepatitis
- h/o MWT
Recommendations:
- C/w bowel regimen and xifaximin
- Mental status appears good currently
- ETOH cession
- Close OP FU with [facility]. Currently not transplant candidate due to homelessness and incomplete cardiac workup
- C/w PPI BID
- Case management consult
Ok from GI perspective for hosp d/c if tolerates diet
Will sign off please call for ?
Above d/w hospitalist
Addendum entered and electronically signed by EDMOND Wray 02/27/24 10:35:
meld Na 20 based on today's labs
Original Note:
Consultation
-
Date/Time Consultation Requested: 02/27/2420
Date/Time Consultation Performed: 02/27/24 0915
Requesting Provider: EDMOND Guzman
Performing Provider: EDMOND Torres, Ynes Saez MD
Reason for Consultation: abdominal pain
Medical History
Chief Complaint / HPI
Chief Complaint: abdominal pain/change in mental status
History of Present Illness:
44 yo male with a PMH significant for GERD, alcohol abuse (Quit 06/2023 prior heavy use - 1 bottle daily for 4 years), ETOH hepatitis(prior steroid course 02/2023)/cirrhosis, GI bleed with MW tear, portal gastropathy, Hepatic encephalopathy on Xifaxan
and Lactulose, gallstones with prior noted intra and extrahepatic biliary dilatation, neuropathy, and constipation who now presents with concern for hepatic encephalopathy and multiple other complaints with weakness, abdominal pain etc. Pt is
followed at [facility] for recent cardiac issues with need for cath and possible stenting. He now presents to ER with abdominal pain with shortness of breath. He is currently being followed by [facility] by Dr. Ruben Pro and admits to initial
evaluation for liver transplant but now noted with cardiac issues and due for upcoming cardiac cath and may need stenting completed. On admission he is noted with ammonia of 71 s/p enema given in ER and resumed Xifaxan and lactulose q 6 hours.
In review with patient he is noted with some constipation and states he gets constipated with lactulose and if does not produce diarrhea. Prior to admission he take Xifaxan BID and Lactulose variable amounts from 1-3 doses. He does take
increased protein in his diet and tries to have 3-4 stool daily with diet intakes. He also has some complaints of continued neuropathy, diffuse muscular pain and atrophy. He also admits to dysphagia with liquids at time, GERD, small amount of
blood from nasal area with prior neg ENT eval for source, mild abdominal pain and some LE swelling. He denies any rectal bleeding. On admission labs with hbg 9.5, platelets 60,000, bili 7.2, AST 95, ALT 69, alk phos 257 and lipase 531. US on
admission with chiolelithiasis with neg harden sign no fluid or wall thickening, HSM CBD enlarged to 9 mm no choledocholithiasis in CBD.
Past Medical History
Past Medical History: GERD, Psychiatric (anxiety/depression) and Other (alcohol abuse, ETOH hepatitis/cirrhosis, hepatic encephalopathy, MW tear, portal gastropathy, vocal cord lesion/nodule, migraines)
Past Surgical History: Other (nasal surgery)
Social History
Tobacco: Smoker (1 PPD)
Alcohol: Former (quit 3 months ago but admits to hx heavy use in past )
Drug: Former User (heroin, quit 6 years ago) and Marijuana (gummies )
Living: With Family (parents)
Employment: Not Employed
Family History
Family History: Other (no family hx colon CA, polyps, liver disease )
Allergies / Home Medications
Allergy/AdvReac Type Severity Reaction Status Date / Time
No Known Allergies Allergy Verified 01/21/24 00:00
�Medication �Instructions �Recorded
thiamine HCl (vitamin B1) 100 mg 100 mg PO DAILY Supplement 03/07/23
tablet
folic acid 1 mg tablet 1 mg PO DAILY #30 tabs 10/25/23
rifaximin 550 mg tablet (Xifaxan) 550 mg PO BID #60 tabs 10/25/23
lactulose 20 gram/30 mL oral 20 g PO BID 02/26/24
solution
Review of Systems
-
History Source: Patient
Constitutional: Reports Weight Loss (with some muscle atrophy )
EENT: Reports Other (occasional small amount bleeding from nose )
Respiratory: Reports Trouble Breathing (at times )
Cardiac: Reports Chest Pain (at times )
Abdomen/GI: Reports Abdominal Pain and Constipated
: Reports No Symptoms
Musculoskeletal: Reports Joint Pain
Skin: Reports No Symptoms
Neurological: Reports Weakness
Endocrine: Reports No Symptoms
Hematologic/Lymphatic: Reports No Symptoms
Vital Signs
Temp Pulse Resp BP Pulse Ox
98.3 F 63 18 108/60 100
02/26/24 20:40 02/27/24 06:19 02/27/24 06:19 02/27/24 06:19 02/27/24 06:19
Physical Exam
Exam
General: Other (jaundice with cachexia )
HEENT: Normocephalic and Anicteric
Respiratory: Clear
Cardiac: Regular Rhythm
GI: Soft, Tender (diffuse mild ) and Distended (minimal )
Musculoskeletal: No Clubbing and No Cyanosis
Skin: Warm and Dry
Neuro: Awake, Alert, AO x 3 and Other (no current axterixis )
Psych: Calm
Results
WBC 4.9 10^3/uL (4.8-10.8) 02/27/24 06:19
Hgb 8.5 g/dL (13.0-18.0) L 02/27/24 06:19
Hct 23.8 % (39.0-52.0) L 02/27/24 06:19
MCV 103.9 fL (80.0-94.0) H 02/27/24 06:19
Plt Count 57 10^3/uL (130-400) L 02/27/24 06:19
Absolute Neuts (auto) 4.2 10^3/uL (1.4-6.5) 02/26/24 20:50
Sodium 140 mmol/L (135-145) 02/27/24 06:19
Potassium 3.5 mmol/L (3.5-5.1) 02/27/24 06:19
Chloride 113 mmol/L (98-107) H 02/27/24 06:19
Carbon Dioxide 20 mmol/L (22-30) L 02/27/24 06:19
BUN 14 mg/dl (9-20) 02/27/24 06:19
Creatinine 0.6 mg/dL (0.7-1.3) L 02/27/24 06:19
Calcium 8.1 mg/dl (8.4-10.2) L 02/27/24 06:19
Total Bilirubin 5.6 mg/dl (0.2-1.3) H 02/27/24 06:19
AST 91 U/L (17-59) H 02/27/24 06:19
ALT 68 U/L (0-50) H 02/27/24 06:19
Alkaline Phosphatase 249 U/L (38-126) H 02/27/24 06:19
Lipase 531 U/L (23-300) H 02/26/24 20:50
Diagnostic Image Results:
02/27/24 US abdomen complete
Cholelithiasis with a negative Harden's sign, no pericholecystic fluid and no wall thickening. Findings are unlikely to represent acute cholecystitis.
Hepatosplenomegaly, similar to prior.
The common bile duct is mildly enlarged measuring 9 mm, similar to prior. There is no sonographic evidence of choledocholithiasis within the visualized common bile duct.
02/27/24 CXR No acute cardiopulmonary abnormality.
Prior GI Procedures:
EGD:02/2023 [facility] - Maria Eugenia-Merino tears. Injected. Clip was placed as
described above. No signs of varices were seen.
- Normal stomach.
- Normal examined duodenum.
- No specimens collected.
EGD: 06/11/23 [facility] - Normal esophagus. Healed MW tears, no varices seen.
- Portal hypertensive gastropathy.
- An endoclip was found in the stomach.
- Normal examined duodenum.
- No specimens collected.
Colonoscopy: none
Assessment / Plan
-
44 yo male with a PMH significant for GERD, alcohol abuse (Quit 05/2023 prior heavy use), ETOH hepatitis/cirrhosis , GI bleed with MW tear, portal gastropathy, Hepatic encephalopathy on Xifaxan and Lactulose, gallstones, neuropathy, constipation
presents to ER with abdominal pain with shortness of breath. He is currently being followed by [facility].
-ETOH hepatitis/cirrhosis
-abdominal pain
-hepatic encephalopathy with elevated ammonia level on admission
-elevated LFT's and lipase
-coagulopathy
-macrocytic anemia
-thrombocytopenia
-constipation
-neuropathy
-severe portal HTN noted in imaging with EV and extensive varices anterior abdominal wall
-ETOH abuse
-hx MW tear
-hepatosplenomegaly on imaging
-cholelithiasis
PLAN:
etiology of symptoms with concern for ETOH hepatitis/cirrhosis with decompensation with mild hepatic encephalopathy with elevated ammonia level on admission
Etiology of encephalopathy due to constipation, infection vs other
add INR to calculate MELD
rutledge culture with concern for HE- urine, blood, CXR completed and noted neg
s/p enema given in ER
continue lactulose and add Xifaxan -- monitor stools may need increased dosing at home but admits to constipation with use--- other alternative in adding miralax
etiology of abdominal pain unclear but has been chronic-- known gallstones but no acute cholecystitis-- mild enlarged CBD 9 mm but no choledocholithiasis-- prior imaging with US 12/2023 with CBD 0.8mm
counseled on remaining off ETOH
regular diet add supplement daily
cont thiamine and folate
check tox screen and ETOH level to ensure no recent ETOH with elevated lipase
will need follow up at [facility] where he follows for GI and cardiac care
reviewed with Dr. Lemus
-
-
Thank you for consultation and allowing me to participate in the patient's care. Please call the medical scientific liaison GI physician during the after hours with any questions or concerns.
[2024-02-27 07:29] LABS: Hepatitis B Surface Antigen Negative (Negative)
[2024-02-27 07:47] LABS: Hepatitis A Antibody, Total Negative (Negative); Hepatitis B Core Ab, Total Negative (Negative); Hepatitis B Surface Antibody Negative; Hepatitis C Antibody Negative (Negative)
[2024-02-27] MEDS: DILAUDID 0.5 MG IV ×3 (08:05→18:07)
[2024-02-27 08:53] LABS: INR 1.82; PT 21.2 Sec (11.4-14.6)
[2024-02-27] MEDS: VITAMIN B1 100 MG PO (08:53)
[2024-02-27] MEDS: XIFAXAN 550 MG PO (08:53)
[2024-02-27] MEDS: FOLVITE 1 MG PO (08:53)
[2024-02-27 09:06] LABS: Urine Albumin Trace (Neg - Trace); Urine Bilirubin 1+ (Negative); Urine Character Clear (Clear); Urine Color Amber; Urine Glucose Negative (Negative); Urine Ketone Negative (Negative); Urine Leukocyte Trace (Negative); Urine Nitrite Negative (Negative); Urine Occult Blood Negative (Negative); Urine Specific Gravity 1.025 (<1.030); Urine Urobilinogen 4+ (Neg - 1+)
[2024-02-27 11:02] LABS: Urine Calcium Oxalate Crystals Seen
[2024-02-27 11:03] LABS: Urine Mucus Few; Urine Red Blood Cell 0-2 /HPF (0-2); Urine Squamous Cell 0-2 /LPF (Few); Urine White Cell 0-2 /HPF (0-5)
[2024-02-27 12:45] LABS: Amphetamines Negative (Negative); Barbiturates Negative (Negative); Benzodiazepines Negative (Negative); Buprenorphine Negative (Negative); Cocaine Negative (Negative); Methadone Negative (Negative); Methamphetamines Negative (Negative); Phencyclidine Negative (Negative); Tricyclic Antidepressants Negative (Negative)
[2024-02-27 12:46] LABS: Marijuana Positive (Negative); Opiates Positive (Negative)
[2024-02-27 13:45] LABS: Fentanyl, Urine Negative (Negative)
--- NOTE | 2024-02-27 14:23 | W.PN.HOSP.TC ---
Addendum entered and electronically signed by Getachew Lemus MD 02/29/24 16:24:
[id number]
Original Note:
Today's Communication/Plan
-
dc with close gi outpt f/u
cont rifaximin, lactulose�educated on compliance
Patient appears nontoxic
Assessment / Plan
Assessment / Plan
General: Appears Chronically Ill
HEENT: Moist mucous membranes and PERRLA
Respiratory: Clear
Cardiac: S1/S2 and Regular Rhythm
Breast: Deferred by me
GI: Soft, Non Tender, Non Distended and Normal Bowel Sounds
Rectal: Deferred by Provider
Genito-urinary: Deferred by me
Musculoskeletal: No Clubbing, No Cyanosis and No Edema; diffuse tenderness to touch throughout the body
Skin: Warm
Neuro: AO x 3
Hematologic/Lymphatic: No Lymphadenopathy
Psych: Calm
#Un-domiciled
-patient was kicked out of house this AM - seems to be social issue causing hospital visit
-patient is nontoxic, with no evidence of encephalopathy
#Encephalopathy, resolved
� Apparently this was the case earlier although was also on marijuana
- no evidence of infection, afebrile, normotensive, non toxic, no leukocytosis, no ascitic fluid
� Upon my examination, patient is alert and orient x 3, clear
� Ammonia level is not an accurate correlation at all times, patient also has been noncompliant with lactulose in the past
� Continue rifaximin, lactulose upon discharge
�Follow-up with [facility]
#Transaminitis
� Secondary to cirrhosis
� Follow-up outpatient closely, has been following up with GI outpatient
#Marijuana use
# Possibly cause some altered sensorium
Total time spent on today's encounter was 56 minutes which included time spent in counseling the patient/family regarding diagnosis and treatment plan as listed above, goals of care, and symptom management. Case was discussed with nursing staff,
specialists, and care coordinators/case management. All labs and imaging personally reviewed by me. Remainder the time spent in detailed review of previous records, lab data, imaging, and other medical provider documentation.
Anticipated Discharge: Today
Subjective/Interval History
-
Date of Service: February 27, 2024
Abdominal discomfort associated with diffuse pain throughout the body including extremities. Patient states this has been going on for over a year, chronic, not worsening. Patient has pain even at the slightest touch. Also with history of
noncompliance with lactulose. Patient appears to be alert and orient x 3
Objective Data
-
Labs:
Laboratory Results
02/27/24 02/27/24
06:19 08:14
WBC 4.9
Hgb 8.5 L
Hct 23.8 L
Plt Count 57 L
PT 21.2 H
INR 1.82
Sodium 140
Potassium 3.5
Chloride 113 H
Carbon Dioxide 20 L
BUN 14
Creatinine 0.6 L
Glucose 82
Calcium 8.1 L
Total Bilirubin 5.6 H
AST 91 H
ALT 68 H
Alkaline Phosphatase 249 H
Vital Signs:
Vital Signs
Temp Pulse Resp BP Pulse Ox
97.8 F 67 18 118/80 100
02/27/24 08:13 02/27/24 08:13 02/27/24 08:13 02/27/24 08:13 02/27/24 08:13
Review of Systems
-
History Source: Patient
All other systems: Not reviewed unless documented
Data Reviewed
-
Diagnostic Radiology: Report Reviewed by me
Ultrasound: Report Reviewed by me
Labs: Labs Reviewed by me
--- NOTE | 2024-02-27 14:29 | CM ---
Addendum entered by Siomara Sylvester RN 02/27/24 18:48:
CM referred patient to [facility].
Addendum entered by Siomara Sylvester RN 02/27/24 18:08:
[facility] is unable to assist given patient's aggressive behavior and history of PFA.
CM updated patient. Patient stated that his mother is coming to drop clothes off to him. Patient stated that he would figure out his own ride and place for discharge.
CM updated patient's bedside RN.
Addendum entered by Siomara Sylvester RN 02/27/24 17:55:
CM spoke with Tone at [facility]. She is confirming that patient is eligible to stay at [facility]. She will call and confirm.
Addendum entered by Siomara Sylvester RN 02/27/24 17:44:
Patient's 302 has not be upheld. As per crisis, [facility] police service patient with PFA that his father filed against him.
CM spoke with patient. He is agreeable to a hotel room and ride. He further questioned why he was being discharged. CM advised that he is medically ready for discharge.
Patient is asking for pants and clothes.
CM spoke with [facility]. CM is hoping [facility] can assist with motel.
Addendum entered by Siomara Sylvester RN 02/27/24 16:58:
CM spoke with crisis. They confirmed that the 302 was valid. They are currently pending telepsych's evaluation. CM will await outcome of telepsych.
Addendum entered by Siomara Sylvester RN 02/27/24 15:46:
SONJA was updated that patient currently has a 302 warrant. Patient's family 302'd pateint on 02/05, but patient went missing and police were unable to find. Father called crisis department to update that patient is now in the hospital.
SONJA updated Darlene Britton.
Addendum entered by Siomara Sylvester RN 02/27/24 15:25:
CM spoke with patient's friend Lydia who has been trying to support patient. Lydia stated that she is in touch with patient's family and they have decided to not continue to support patient. Patient lost his housing about a month ago. CM
provided Lydia with housing resources and she will assist patient.
CM is awaiting [facility] to return call.
Original Note:
CM met with patient in room. Patient confirmed that he is homeless and has been staying at a nursing home in [place]. He is refusing to return to that nursing home. CM advised that CM will call [facility] for a motel this evening. CM will await call back.
--- NOTE | 2024-02-27 14:39 | W.DS.TRANS ---
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
-
Discharge Instructions:
Discharge Diagnosis/Procedures homeless
nonspecific symptoms
Diet Restrict fluids to 48 oz
Activity As tolerated
Blood Work cbc, cmp, coags within 3-5 days with pcp/gi
Other Services OT,PT
Instructions:
Stand-Alone Forms:
Changes to Home Medications: Yes
Discharge Medications:
DC Medications w/original date entered in [facility]
thiamine HCl (vitamin B1) 100 mg tablet 100 mg PO DAILY Supplement 03/07/23
folic acid 1 mg tablet 1 mg PO DAILY #30 tabs 10/25/23
rifaximin 550 mg tablet (Xifaxan) 550 mg PO BID #60 tabs 10/25/23
acetaminophen 325 mg tablet 325 mg PO Q6HPRN PRN mild pain #30 tabs 02/27/24
lactulose 20 gram/30 mL oral solution 20 g (30 mL) PO Q6H #600 mL 02/27/24
Home Medication Changes
More than 30 minutes spent in discharge including
Final examination of the patient
Summarizing hospital stay
Instructions for continuing care to all relevant caregivers
Preparation of discharge records, prescriptions, and referral forms
Total time spent (36 in minutes):
Pending Results: No
[2024-02-27 18:09] LABS: Alcohol None Detected
== END 2024-02-27 19:26 | disposition home or self-care (01) | DRG 442 ==
LOC: ED 05:14
PROVIDERS: Emergency Medicine; Nurse Practitioner Adult Health; Nurse Practitioner Gerontology; Student in an Organized Health Care Education/Training Program; ADMITTING PHYSICIAN Internal Medicine; ATTENDING PHYSICIAN Internal Medicine; CONSULT PHYSICIAN Internal Medicine Gastroenterology; EMERGENCY PHYSICIAN Emergency Medicine; FAMILY PHYSICIAN Internal Medicine
DX: K76.82 Hepatic encephalopathy (principal); I85.10 Secondary esophageal varices without bleeding; K70.30 Alcoholic cirrhosis of liver without ascites; K70.40 Alcoholic hepatic failure without coma; F12.90 Cannabis use, unspecified, uncomplicated; F10.10 Alcohol abuse, uncomplicated; D69.6 Thrombocytopenia, unspecified; K80.20 Calculus of gallbladder without cholecystitis without obstruction; Z91.148 Patient's other noncompliance with medication regimen for other reason
CPT/HCPCS: 71046; 76700; 80048; 80053; 80076; 80306; 80307; 81003; 81015; 82077; 82140; 82550; 83690; 85025; 85027; 85610; 86704; 86706; 86708; 86803; 87040; 87340; 87502; 87811; 93005; 96374; 96375; 99285

== ENCOUNTER 2024-03-04 14:26 | Emergency (ER) | payer OTHER, SELFPAY ==
[2024-03-04 14:29] VITALS: BP 152/106
--- NOTE | 2024-03-04 14:33 | ED.GENMED ---
ED Provider Triage
<EDMOND Tatum - Last Filed: 03/04/24 14:38>
-
Patient seen by provider in Triage?: Seen in Triage
Attestation: A medical screening examination has been initiated by a qualified medical provider. Based on the assessment performed at this time, it has been determined that an emergent medical condition may exist and the patient has been informed
that further medical evaluation and possible additional diagnostic testing may be needed.
HPI:
44 yr old male w / hx of cirrhosis on transplant list at [facility]. Pt c/o of weight loss atrophy and feels dehydrated. Pt last ate 7 am , last drank at 7 am.
no recent fevers. no abdominal pain
GENERAL: Alert , in no apparent distress
EYE: No visual abnormalities.
NECK: Trachea midline
ENT: No visible abnormalities.
LUNGS: No acute respiratory distress
NEUROLOGICAL: Alert and oriented
SKIN: Skin intact. + jaundice
MUSCULOSKELETAL: Moving extremities normally
PSYCH: Normal and appropriate interaction.
This is a medical evaluation conducted in person to initiate diagnostic evaluation and provide initial therapeutics. Please see further documentation by the treating clinician.
History of Present Illness
<EDMOND Tatum - Last Filed: 03/04/24 14:38>
General
Chief Complaint: Dehydration Symptoms
Time Seen by Provider: 03/04/24 18:01
<EDMOND Davis - Last Filed: 03/04/24 20:08>
General
Source: patient
Exam Limitations: none
History of Present Illness
History of Present Illness:
This is a 44 year old male that comes in with c/o feeling dehydrated. Patient is homeless and was just seen here on Friday and discharged. States that he just needs protein and fluid. States that he does see a Specialist and they were happy with
his numbers. States that he has some abd discomfort and occasionally is dizzy. Denies any fever, chills, chest pain, SOB, nausea, vomiting diarrhea, headache.
Past History
<EDMOND Tatum - Last Filed: 03/04/24 14:38>
Past History
ED Past Medical History: Other (Migraine headaches) and Other (Chronic alcohol abuse, alcoholic cirrhosis, anxiety, depression, substance abuse)
ED Past Surgical History: Other (Nasal surgery)
Social History
Tobacco: Smoker (1.5 ppd)
Alcohol: Former
Drug: Former user and IVDA (heroin)
Personal: Single
Living: with family
Employment: Employed
Family History
Family History: Other (Noncontributory)
<EDMOND Davis - Last Filed: 03/04/24 20:08>
Past History
ED Past Medical History: GERD, Psychiatric (Anxiety, Depression. ) and Other (Migraine headaches, Neuropathy, Numbness arms and legs, Cirrhosis liver, Hepatic encephalopathy, Erectile dysfunction, Esophageal varices. Substance abuse.)
ED Past Surgical History: Other (Nasal surgery for Deviated septum)
Social History
Living: homeless (going from hotel to hotel)
Review of Systems
<EDMOND Davis - Last Filed: 03/04/24 20:08>
Review of Systems
All Other Systems: ROS reviewed and negative except as documented in HPI and ROS
Constitutional: Reports no symptoms; Denies fever or chills
EENT: Reports no symptoms
Respiratory: Reports no symptoms; Denies cough or trouble breathing
Cardiac: Reports no symptoms; Denies chest pain
ABD/GI: Reports abdominal pain; Denies nausea, vomiting or diarrhea
: Reports no symptoms; Denies dysuria, frequency or urgency
Musculoskeletal: Reports no symptoms
Skin: Reports no symptoms
Neurological: Reports dizzy; Denies headache
Psychiatric: Reports no symptoms
Phy Exam
<EDMOND Davis - Last Filed: 03/04/24 20:08>
General Physical Exam
General Presentation: no apparent distress
General age: appears stated age
General Skin: warm and dry
General Habitus: normal
General Mental: alert
General Hydration: appears well hydrated
ENT Exam
ENT Exam: TM's normal, pharynx normal and neck supple
Eye Exam
Eye Exam: EOMI
Cardiovascular Exam
Cardiovascular Exam: regular rate/rhythm, no edema and normal peripheral pulses
Pulmonary Exam
Pulmonary Exam: lungs clear, no respiratory distress, no rales, chest non tender, no crackles, no rhonchi, no wheezing and no cough
Gastrointestinal Exam
Gastrointestinal Exam: normal bowel sounds, soft, no pulsatile mass, non distended and tender (Slight tenderness with palpation right sided)
Musculoskeletal Exam
Musculoskeletal Exam: full ROM and no edema
Skin Exam
Skin Exam: normal color, warm/dry, no rash and no petechia
Psychiatric Exam
Psychiatric Exam: normal mood/affect
Course
<EDMOND Tatum - Last Filed: 03/04/24 14:38>
Orders/Labs/Results
Orders:
Orders
03/04/24 14:50
Complete Blood Count/With Diff Urgent
Comprehensive Metabolic Panel Urgent
03/04/24 18:16
0.9% Sodium Chloride 500 ml [Nss] 500 ml IV BOLUS
Nursing to Place Non Medication Order As Directed
Physician Order: Feed patient
Above order entered?: Yes
03/04/24 18:44
Ammonia Urgent
Abnormal Lab Results
03/04/24
14:50
RBC 2.52 L 10^6/uL
(4.70-6.10)
Hgb 9.6 L g/dL
(13.0-18.0)
Hct 27.2 L %
(39.0-52.0)
MCV 107.9 H fL
(80.0-94.0)
MCH 38.1 H pg
(27.0-31.0)
Plt Count 74 L D 10^3/uL
(130-400)
Creatinine 0.6 L mg/dL
(0.7-1.3)
Glucose 106 H mg/dl
(70-99)
Calcium 8.2 L mg/dl
(8.4-10.2)
Total Bilirubin 7.6 H mg/dl
(0.2-1.3)
AST 70 H U/L
(17-59)
ALT 63 H U/L
(0-50)
Alkaline Phosphatase 306 H U/L
(38-126)
Albumin 3.4 L g/dl
(3.5-5.0)
03/04/24 14:50
03/04/24 14:50
Vital Signs
Initial and Last Documented VS:
Initial Vital Signs
Temp Pulse Resp BP Pulse Ox
98.7 F 98 18 152/106 99
03/04/24 14:29 03/04/24 14:29 03/04/24 14:29 03/04/24 14:29 03/04/24 14:29
Last Documented Vital Signs
Temp Pulse Resp BP Pulse Ox
98.7 F 98 18 152/106 99
03/04/24 14:29 03/04/24 14:29 03/04/24 14:29 03/04/24 14:29 03/04/24 14:29
Eddilt;EDMOND Davis - Last Filed: 03/04/24 20:08>
Orders/Labs/Results
Orders:
Orders
03/04/24 14:50
Complete Blood Count/With Diff Urgent
Comprehensive Metabolic Panel Urgent
03/04/24 18:16
0.9% Sodium Chloride 500 ml [Nss] 500 ml IV BOLUS
Nursing to Place Non Medication Order As Directed
Physician Order: Feed patient
Above order entered?: Yes
03/04/24 18:44
Ammonia Urgent
Abnormal Lab Results
03/04/24
14:50
RBC 2.52 L 10^6/uL
(4.70-6.10)
Hgb 9.6 L g/dL
(13.0-18.0)
Hct 27.2 L %
(39.0-52.0)
MCV 107.9 H fL
(80.0-94.0)
MCH 38.1 H pg
(27.0-31.0)
Plt Count 74 L D 10^3/uL
(130-400)
Creatinine 0.6 L mg/dL
(0.7-1.3)
Glucose 106 H mg/dl
(70-99)
Calcium 8.2 L mg/dl
(8.4-10.2)
Total Bilirubin 7.6 H mg/dl
(0.2-1.3)
AST 70 H U/L
(17-59)
ALT 63 H U/L
(0-50)
Alkaline Phosphatase 306 H U/L
(38-126)
Albumin 3.4 L g/dl
(3.5-5.0)
03/04/24 14:50
03/04/24 14:50
H/H slightly low but improved from prior labs, Anemia, Thrombocytopenia but improved. Glucose nonfasting, Total fabien elevation, AST/ALt elevation but decreased from prior labs, Alk phos elevation Albumin very slightly elevated.
Ammonia normal at 9
Vital Signs
Initial and Last Documented VS:
Initial Vital Signs
Temp Pulse Resp BP Pulse Ox
98.7 F 98 18 152/106 99
03/04/24 14:29 03/04/24 14:29 03/04/24 14:29 03/04/24 14:29 03/04/24 14:29
Last Documented Vital Signs
Temp Pulse Resp BP Pulse Ox
98.7 F 98 18 152/106 99
03/04/24 14:29 03/04/24 14:29 03/04/24 14:29 03/04/24 14:29 03/04/24 14:29
<EDMOND Davis - Last Filed: 03/04/24 20:08>
MDM/Problems Addressed
Differential Diagnosis Includes:
Chronic liver disease, Homelessness
MDM/Problems Addressed:
This russell 44 year old male that is homeless and was just seen on Friday. States that today he feels that he is dehydrated and that he needs protein.
Will check labs and give IV fluids and food
Chronic conditions affecting care:
Cirrhosis liver,
Acute Exacerbation and/or Progression of Chronic Illness:
Cirrhosis liver
<EDMOND Davis - Last Filed: 03/04/24 20:08>
*Pulse Oximetry
Patient hypoxic: no
*EKG
Interpreted by ED Provider?: NA
Rate: EKG- N/A
*Director Of Religious Life Interpretation
Rate: Director Of Religious Life- N/A
*Critical Care Note
Total Time (30-74mins, 75-104mins- exclusive of procedures): Not Applicable
ED Attending Note
<EDMOND Tatum - Last Filed: 03/04/24 14:38>
-
Portions of this chart may have been created with voice recognition software.� Occasional wrong word or��sound alike� substitutions may have occurred due to the inherent limitations of voice recognition software.
Discharge Plan
Departure
Patient Disposition: Home (Routine Discharge)
Date of Disposition: 03/04/24
Time of Disposition: 20:05
Patient with high blood pressure during this ER visit?: Yes
Condition: Good
Covid-19: Not Applicable
Discharge Problem:
Homelessness
Instructions: BLOOD PRESSURE
Prescriptions:
No Action
thiamine HCl (vitamin B1) 100 mg tablet
100 mg PO DAILY
folic acid 1 mg Tablet
1 mg PO DAILY Qty: 30 0RF
Xifaxan 550 mg Tablet
550 mg PO BID Qty: 60 0RF
acetaminophen 325 mg Tablet
325 mg PO Q6HPRN PRN (Reason: mild pain) Qty: 30 0RF
lactulose 20 gram/30 mL Solution
20 g PO Q6H Qty: 600 0RF
Referrals:
Terrance Oconnell MD [Family Provider] - Call in 1-3 days for appt
Activity Restrictions/Additional Instructions:
As discussed, your blood work shows that you are a little anemic. Your Liver enzymes have improved from prior labs. Your Ammonia level is normal. You have been given food here that had protein. Please follow up with the family doctor as needed. IF
YOU HAVE ANY OTHER CONCERNS PLEASE RETURN TO THE EMERGENCY ROOM.
Interventions
Interventions:
*Risk Screen - Suicide Last Done: 03/04/24 14:29
*General Assessment Last Done: 03/04/24 14:29
*Neglect/Abuse Screening Last Done: 03/04/24 14:29
ED- Fall Risk Assessment Last Done: 03/04/24 17:52
*ED COVID-19 Vaccine History Last Done: 03/04/24 17:52
ED- Cardiac Assessment Last Done: 03/04/24 18:04
ED- Neurological Assessment Last Done: 03/04/24 18:04
ED- Pulmonary Assessment Last Done: 03/04/24 18:04
Discharge Date and Time
Print Language: KIS[place]IL[place]
[2024-03-04 15:23] LABS: % Basophils 0.7 % (0-2); % Eosinophils 1.8 % (0-6); % Immature Granulocytes 0.2 % (0-0.5); % Lymphocytes 30.5 % (20.5-51.1); % Neutrophils 62.8 % (42.2-75.2); Absolute Eosinophils 0.1 10^3/uL (0-0.7); Absolute Lymphocytes 1.7 10^3/uL (1.2-3.4); Absolute Monocytes 0.2 10^3/uL (0.1-0.6); Absolute Neutrophils 3.5 10^3/uL (1.4-6.5); Hematocrit 27.2 % (39.0-52.0); Hemoglobin 9.6 g/dL (13.0-18.0); Mean Corp Hgb Conc. 35.3 g/dL (33.0-37.0); Mean Corpuscular Hgb 38.1 pg (27.0-31.0); Mean Corpuscular Volume 107.9 fL (80.0-94.0); Mean Platelet Volume 9.8 fL (7.4-10.4); Nucleated Red Blood Cells % 0 % (-); Platelet Count 74 10^3/uL (130-400); Red Blood Cell Count 2.52 10^6/uL (4.70-6.10); Red Cell Dist. Width 13.8 % (11.5-14.5); White Blood Cell Count 5.6 10^3/uL (4.8-10.8)
[2024-03-04 15:32] LABS: ALT (SGPT) 63 U/L (0-50); AST (SGOT) 70 U/L (17-59); Albumin 3.4 g/dl (3.5-5.0); Alkaline Phosphatase 306 U/L (38-126); Blood Urea Nitrogen 15 mg/dl (9-20); Calcium 8.2 mg/dl (8.4-10.2); Carbon Dioxide 27 mmol/L (22-30); Chloride 106 mmol/L (98-107); Glucose 106 mg/dl (70-99); Potassium 4.5 mmol/L (3.5-5.1); Sodium 141 mmol/L (135-145); Total Bilirubin 7.6 mg/dl (0.2-1.3); Total Protein 6.6 g/dl (6.3-8.2); eGFR > 60.00
[2024-03-04 17:52] VITALS: BMI 22.8
[2024-03-04] MEDS: NSS 500 IV (18:48)
[2024-03-04 19:04] LABS: Ammonia 9 umol/L (9-30)
[2024-03-04 20:07] VITALS: BP 122/64
== END 2024-03-04 20:16 | disposition home or self-care (01) ==
LOC: EMR 14:26
PROVIDERS: Clinical Nurse Specialist Family Health; Nurse Practitioner; EMERGENCY PHYSICIAN Emergency Medicine; FAMILY PHYSICIAN Internal Medicine
DX: R10.9 Unspecified abdominal pain (principal); R42 Dizziness and giddiness; Z59.00 Homelessness unspecified; R03.0 Elevated blood-pressure reading, without diagnosis of hypertension; D64.9 Anemia, unspecified; K70.30 Alcoholic cirrhosis of liver without ascites; G43.909 Migraine, unspecified, not intractable, without status migrainosus; F41.9 Anxiety disorder, unspecified; F32.A Depression, unspecified; K21.9 Gastro-esophageal reflux disease without esophagitis; Z76.82 Awaiting organ transplant status; G62.9 Polyneuropathy, unspecified; F17.210 Nicotine dependence, cigarettes, uncomplicated; F11.11 Opioid abuse, in remission
CPT/HCPCS: 99284; 96360; 80053; 82140; 85025

== ENCOUNTER 2024-05-23 16:50 | Inpatient (IN) | payer OTHER, SELFPAY ==
[2024-05-23 12:26] VITALS: BMI 26.7
[2024-05-23 12:30] VITALS: BP 136/120
[2024-05-23 13:00] VITALS: BP 114/62
--- NOTE | 2024-05-23 13:38 | ED.GENMED ---
History of Present Illness
General
Chief Complaint: Change in Mental Status
Source: patient and other ([facility] guards)
Exam Limitations: none
Time Seen by Provider: 05/23/24 13:22
Nursing documentation reviewed up to this point in time: agreed with
History of Present Illness
History of Present Illness:
44-year-old male presents emerged department due to change in mental status, bilateral lower extremity erythema, right worse than left.
Past History
Past History
ED Past Medical History: GERD, Psychiatric (Anxiety, Depression. ) and Other (Migraine headaches, Neuropathy, Numbness arms and legs, Cirrhosis liver, Hepatic encephalopathy, Erectile dysfunction, Esophageal varices. Substance abuse.)
ED Past Surgical History: Other (Nasal surgery for Deviated septum)
Social History
Tobacco: Smoker (1.5 ppd)
Alcohol: Former
Drug: Former user and IVDA (heroin)
Personal: Single
Living: homeless (going from hotel to hotel)
Employment: Employed
Family History
Family History: Other (Noncontributory)
Review of Systems
Review of Systems
Allergies reviewed?: Yes
All Other Systems: Not applicable
Constitutional: Reports no symptoms
EENT: Reports no symptoms
Respiratory: Reports no symptoms
Cardiac: Reports no symptoms
ABD/GI: Reports no symptoms
: Reports no symptoms
Musculoskeletal: Reports no symptoms
Skin: Reports rash
Neurological: Reports other (Confusion)
Endocrine: Reports no symptoms
Hematologic/Lymphatic: Reports no symptoms
Psychiatric: Reports no symptoms
Phy Exam
Physical Exam
Physical Exam:
Physical Exam
General: Ill-appearing
Neck: supple. no meningeal signs. normal posterior pharynx
Heart: s1/s2 regular rate and rhythm, no murmur. equal radial
pulses.
HEENT: Pupils equal round reactive to light, EOMI, sclera icteric
Lungs: no acute respiratory distress. clear bilaterally
Abdomen: normal bowel sounds. not tender. no CVAT, ascites
Neuro: alert and oriented. no focal neurological deficits cranial nerves II through XII intact occasionally confused
Skin: Erythema bilateral lower extremity, jaundice
Psychiatric: well kept. interactive and cooperative
Extremities: Bilateral lower extremity swelling. no calf tenderness. negative homans. good distal pulses
Course
Orders/Labs/Results
Orders:
Orders
05/23/24 13:35
CT Head W/o Iv Contrast Urgent
Comment:
Reason For Exam: altered mental status
IV Insert/Care/Rem.- Treatment PRN
Peripheral Venous Lwr Ext Bilat US [US Periph Venous LOWER Ext Al] Urgent
Comment:
Reason For Exam: bilateral leg swelling
05/23/24 13:38
Electrocardiogram (*1) Urgent
Reason for Study: Fatigue / Weakness
EKG- Treatment ONCE
05/23/24 14:03
Ammonia Urgent
Complete Blood Count/With Diff Urgent
Comprehensive Metabolic Panel Urgent
Magnesium Urgent
Comment: MAG ADDED ON BY FLOOR 3PM 05-23-24
PTT Urgent
Prothrombin Time Urgent
05/23/24 14:55
Add On- LAB Urgent
Tests Added?: magnesium
Abnormal Lab Results
05/23/24
14:03
RBC 2.37 L 10^6/uL
(4.70-6.10)
Hgb 8.7 L g/dL
(13.0-18.0)
Hct 25.2 L %
(39.0-52.0)
MCV 106.3 H fL
(80.0-94.0)
MCH 36.7 H pg
(27.0-31.0)
RDW 16.8 H %
(11.5-14.5)
Abs Immat Gran (auto) 0.1 H 10^3/uL
(0-0.05)
Absolute Monos (auto) 0.7 H 10^3/uL
(0.1-0.6)
Immature Gran % 0.7 H %
(0-0.5)
Lymphocytes % 18.9 L %
(20.5-51.1)
Monocytes % 10.3 H %
(1.7-9.3)
PT 22.8 H Sec
(11.4-14.6)
APTT 36.6 H Sec
(23.4-35.0)
Potassium 3.1 L mmol/L
(3.5-5.1)
Chloride 109 H mmol/L
(98-107)
Creatinine 0.5 L mg/dL
(0.7-1.3)
Glucose 119 H mg/dl
(70-99)
Total Bilirubin 7.9 H mg/dl
(0.2-1.3)
AST 62 H U/L
(17-59)
Alkaline Phosphatase 134 H U/L
(38-126)
Ammonia 59 H umol/L
(9-30)
05/23/24 14:03
05/23/24 14:03
Vital Signs
Initial and Last Documented VS:
Initial Vital Signs
Temp Pulse Resp BP Pulse Ox
98.3 F 74 20 136/120 100
05/23/24 12:30 05/23/24 12:30 05/23/24 12:30 05/23/24 12:30 05/23/24 12:30
Last Documented Vital Signs
Temp Pulse Resp BP Pulse Ox
98.3 F 74 20 136/120 100
05/23/24 12:30 05/23/24 12:30 05/23/24 12:30 05/23/24 12:30 05/23/24 12:30
MDM/Problems Addressed
Differential Diagnosis Includes:
Cellulitis, liver failure, hepatic cephalopathy
MDM/Problems Addressed:
44-year-old male with right lower extremity cellulitis, hepatic encephalopathy, confusion.
Chronic conditions affecting care: Other (Cirrhosis)
*Pulse Oximetry
Patient hypoxic: no
*EKG
Interpreted by ED Provider?: Yes
EKG Intrepretation Date: 05/23/24
EKG Intrepretation Time: 14:47
Interpretation: abnormal
Comparison EKG: changes noted
Heart Rate: 63
Rate: normal
Rhythm: sinus
[place]: normal axis
Interval: normal interval
QRS Pattern: normal QRS
Ischemia: non-specific ST changes
*Concierge Receptionist Interpretation
Rate: normal
Interpretation: normal
Heart Rate: 62
Rhythm: sinus
*Critical Care Note
Total Time (30-74mins, 75-104mins- exclusive of procedures): 30
comment:
Critical care statement: A total of 30 minutes of critical care time was provided for this patient. This includes management of unstable vital signs, evaluation of the patient at bedside, reviewing the patient's pertinent medical records, discussion
with consultants, review of old EKGs and review of pertinent medical records. This time with separate from time utilized to perform the aforementioned documented procedures
Patient Management
Social determinants of health affecting care: Living situation
Discussion with other providers: Hospitalist
Escalation/DeEscalation of care consider admission/obs:
Admit indicated
ED Attending Note
-
Portions of this chart may have been created with voice recognition software.� Occasional wrong word or��sound alike� substitutions may have occurred due to the inherent limitations of voice recognition software.
Discharge Plan
Departure
Patient Disposition: Admit
Date of Disposition: 05/23/24
Time of Disposition: 15:11
Admit to: IMU
Presentation/result/management discussed w/ accepting MD/DO: Hospitalist
Patient with high blood pressure during this ER visit?: Yes
Condition: Fair
Discharge Problem:
Acute hepatic encephalopathy, Coagulopathy, Jaundice, Acute hypokalemia, Cellulitis
Prescriptions:
No Action
thiamine HCl (vitamin B1) 100 mg tablet
100 mg PO DAILY
folic acid 1 mg Tablet
1 mg PO DAILY Qty: 30 0RF
Xifaxan 550 mg Tablet
550 mg PO BID Qty: 60 0RF
acetaminophen 325 mg Tablet
325 mg PO Q6HPRN PRN (Reason: mild pain) Qty: 30 0RF
lactulose 20 gram/30 mL Solution
20 g PO Q6H Qty: 600 0RF
Referrals:
[facility] [Family Provider] -
Interventions
Interventions:
*Risk Screen - Suicide Last Done: 05/23/24 12:30
*General Assessment Last Done: 05/23/24 12:30
*Neglect/Abuse Screening Last Done: 05/23/24 12:30
Discharge Date and Time
Print Language: SLOVAK
[2024-05-23 14:10] LABS: % Basophils 0.3 % (0-2); % Eosinophils 1.3 % (0-6); % Immature Granulocytes 0.7 % (0-0.5); % Lymphocytes 18.9 % (20.5-51.1); % Monocytes 10.3 % (1.7-9.3); % Neutrophils 68.5 % (42.2-75.2); Absolute Eosinophils 0.1 10^3/uL (0-0.7); Absolute Immature Granulocytes 0.1 10^3/uL (0-0.05); Absolute Lymphocytes 1.3 10^3/uL (1.2-3.4); Absolute Monocytes 0.7 10^3/uL (0.1-0.6); Absolute Neutrophils 4.8 10^3/uL (1.4-6.5); Hematocrit 25.2 % (39.0-52.0); Hemoglobin 8.7 g/dL (13.0-18.0); Mean Corp Hgb Conc. 34.5 g/dL (33.0-37.0); Mean Corpuscular Hgb 36.7 pg (27.0-31.0); Mean Corpuscular Volume 106.3 fL (80.0-94.0); Mean Platelet Volume 9.8 fL (7.4-10.4); Nucleated Red Blood Cells % 0 % (-); Platelet Count 199 10^3/uL (130-400); Red Blood Cell Count 2.37 10^6/uL (4.70-6.10); Red Cell Dist. Width 16.8 % (11.5-14.5)
[2024-05-23 14:23] LABS: INR 1.99; PT 22.8 Sec (11.4-14.6)
[2024-05-23 14:24] LABS: APTT 36.6 Sec (23.4-35.0); Ammonia 59 umol/L (9-30)
[2024-05-23 14:25] LABS: ALT (SGPT) 33 U/L (0-50); AST (SGOT) 62 U/L (17-59); Albumin 3.6 g/dl (3.5-5.0); Alkaline Phosphatase 134 U/L (38-126); Blood Urea Nitrogen 20 mg/dl (9-20); Calcium 8.8 mg/dl (8.4-10.2); Carbon Dioxide 28 mmol/L (22-30); Chloride 109 mmol/L (98-107); Glucose 119 mg/dl (70-99); Potassium 3.1 mmol/L (3.5-5.1); Sodium 144 mmol/L (135-145); Total Bilirubin 7.9 mg/dl (0.2-1.3); eGFR > 60.00
--- NOTE | 2024-05-23 15:21 | HPS.HSE ---
Family Physician
-
Family Physician: Facility [facility]
Chief Complaint
-
change in mental status
History of Present Illness
Patient is a 44-year-old male with past medical history significant for alcoholic cirrhosis, GERD and esophageal varices status post banding who presented to [facility] ED for evaluation of change in mental status. Patient is in custody
with [employer] and reports indicate he was no making sense and caught urinating in places other than the bathroom. It is also noted he has not been taking the Xifaxan for the past 10 days. Patient babbling and unable to answer questions. Corrections
officer present states he took patient to [facility] on Friday for some confusion, was yellow but not as yellow as today and bilateral lower extremities were swollen but they are significantly worse today.
Medical History
Past Medical History
Past Medical History: Reports Other
Additional Past Medical History:
Alcoholic cirrhosis
GERD
Esophageal varices s/p banding
Past Surgical History: Reports Other
Additional Past Surgical History:
wisdom teeth extraction
Social History
Tobacco: Non-smoker
Alcohol: Former (can not remember when last drink was )
Drug: None
Personal: Single
Living: Alone
Family History
Family History: Not pertinent
Allergies / Home Medications
Allergies reflects when Allergies were last updated in [employer].
Home Medications with original date entered in [employer]
Allergy/Medication List:
Allergies
Allergy/AdvReac Type Severity Reaction Status Date / Time
No Known Allergies Allergy Verified 05/23/24 12:39
Home Medications
thiamine HCl (vitamin B1) 100 mg tablet 100 mg PO DAILY Supplement 03/07/23
folic acid 1 mg tablet 1 mg PO DAILY #30 tabs 10/25/23
rifaximin 550 mg tablet (Xifaxan) 550 mg PO BID #60 tabs 10/25/23
carvedilol 6.25 mg tablet (Coreg) 6.25 mg PO BID 05/23/24
furosemide 40 mg tablet (Lasix) 40 mg PO DAILY 05/23/24
lactulose 10 gram/15 mL oral solution 20 g PO QID 05/23/24
omeprazole 20 mg capsule,delayed release 20 mg PO DAILY 05/23/24
Review of Systems
-
Unable to obtain full review of systems at this time due to: Other (patient is confused and does not answer questioning appropriately )
Physical Exam
Vital Signs
Vital Signs
Temp Pulse Resp BP Pulse Ox
98.3 F 74 20 136/120 100
05/23/24 12:30 05/23/24 12:30 05/23/24 12:30 05/23/24 12:30 05/23/24 12:30
Physical Exam
General: Well Developed, Well Nourished and Slurred Speech
HEENT: NormoCephalic, Moist mucous membranes, Atraumatic, Nose Appears Normal, Ears Appear Normal and Other (sclera icteric)
Respiratory: Clear and Non Labored Respirations
Cardiac: S1/S2 and Regular Rhythm; No Murmur
GI: Soft, Non Tender and Normal Bowel Sounds
Rectal: Deferred by Provider
Genito-urinary: Deferred by me
Musculoskeletal: No Clubbing, No Cyanosis, Edema, Left Lower Extremity and Edema, Right Lower Extremity
Skin: Jaundice and IV/Catheter Site
Neuro: Awake, Nonfocal/grossly intact and Slurred Speech
Psych: Confused
Laboratory Results
-
05/23/24 14:03
05/23/24 14:03
Laboratory Results
PT 22.8 Sec (11.4-14.6) H 05/23/24 14:03
INR 1.99 05/23/24 14:03
APTT 36.6 Sec (23.4-35.0) H 05/23/24 14:03
Total Bilirubin 7.9 mg/dl (0.2-1.3) H 05/23/24 14:03
AST 62 U/L (17-59) H 05/23/24 14:03
ALT 33 U/L (0-50) 05/23/24 14:03
Alkaline Phosphatase 134 U/L (38-126) H 05/23/24 14:03
Data Reviewed
-
CT Scan: Report Reviewed by me (Head: No acute intracranial abnormality noted.)
Ultrasound: Report Reviewed by me (BLLE: No sonographic evidence for lower extremity venous thrombosis.)
Medical Tests (Nuc Med, Echo, EKG etc): Report Reviewed by me (EKG: NORMAL SINUS RHYTHM T WAVE ABNORMALITY, CONSIDER ANTERIOR ISCHEMIA PROLONGED QT)
Lab Data: Labs Reviewed by me (hgb 8.7, hct 25.2, K+ 3.1, Tot bili 7.9, AST 62, ALT 33, Alk Phos 134, Ammonia 59)
Impression/Plan
-
IMPRESSION/PLAN:
#Hepatic encephalopathy
#decompensated alcoholic cirrhosis
#Elevated ammonia
patient MAR indicates refusal of lactulose often and no Xifaxan in 10 days
pending liver transplant with [facility]
tot bili 7.9, AST 62, ALT 33, Alk Phos 134
Ammonia 59
unknown last drink
Head CT: No acute intracranial abnormality noted.
- Admit to med/surg
- Consult GI
- Lactulose q6 goal of 2-3 soft BMs daily
- continue lactulose and Xifaxan
#hypokalemia
K+ 3.1
repleted in ED
- monitor BMP
- replete as indicated
#cellulitis
bilateral lower extremity edema L>R
BLLE US: No sonographic evidence for lower extremity venous thrombosis.
WBC 7.0
- IV Ancef
#GERD
- continue omeprazole
#esophageal varices
s/p banding
Code status: full code
DVT prophylaxis: SCDs
[2024-05-23 15:26] LABS: Magnesium 1.9 mg/dl (1.6-2.3)
[2024-05-23] MEDS: DUPHALAC/CHRONULAC 20 GRAMS PO ×2 (16:57→19:36)
[2024-05-23] MEDS: ANCEF 10 IV (16:57)
--- NOTE | 2024-05-23 16:59 | W.PN.UPDATE ---
Update Note
Progress Note Update
I saw and examined the patient.
I agree with assessment plan outlined in the CIRCULAR HEAD SAW OPERATOR's H&P note with the following comments:
General: Disheveled, awake and alert, disoriented
HEENT: NormoCephalic, Moist mucous membranes, scleral icterus
Respiratory: Clear and Non Labored Respirations
Cardiac: S1/S2 and Regular Rhythm; No Rub or Gallop
GI: Soft, Non Tender, Normal Bowel Sounds
Musculoskeletal: Bilateral lower extremity edema right greater than left, no deformity
Skin: Warm and dry, right medial ankle wound with surrounding erythema and TTP
: NO Nichols
Neuro: Awake, disoriented, asterixis
Psych: Calm and cooperative
Mr. Ye is a 44-year-old male with medical history of alcoholic cirrhosis with esophageal varices, tobacco use (1.5 pack/day smoker), former IVDA (heroin) who presents in police custody due to mental status change and lower extremity edema and
erythema. He has been hemodynamically stable and afebrile here in the emergency department today. Labs are significant for anemia with hemoglobin at 8.7 which is close to his baseline, mildly elevated PT and PTT, potassium of 3.1, mildly abnormal
LFTs, and significantly elevated ammonia of 59. Doppler ultrasound of bilateral lower extremity showed no evidence of DVT. He has been admitted for further evaluation and management of hepatic encephalopathy and lower extremity cellulitis.
Hepatic encephalopathy:
-Continue scheduled lactulose, titrate to 2-3 soft stools per day
-Does not appear to have significant ascites
-Hemoglobin currently stable, no overt evidence of bleeding, monitor hemodynamics and hemoglobin considering bleeding risk in the setting of known esophageal varices
-Fall precautions
-[facility], will need [facility] follow-up
-Will clarify with patient if has been drinking alcohol recently once he is more alert
Lower extremity cellulitis:
-Appears worst on medial right ankle
-Continue antibiotics with Ancef
-Wound care
Hypokalemia:
-Potassium 3.1
-replete, continue to monitor
Tobacco use:
-1.5 pack/day current smoker
-Encouraged cessation
-Provide nicotine patch
CODE STATUS: Full code
[2024-05-23] MEDS: KCL 270 MEQ IV (17:00)
[2024-05-23 17:14] VITALS: BP 119/72
[2024-05-23] MEDS: COREG 6.25 MG PO (19:35)
--- NOTE | 2024-05-23 19:54 | EDRN ---
Pt said he was in the [place] [employer] station, knows it is 2024. Pt with rambling speech, one topic to the next. Pt says he hasn't had alcohol in the past year, that he has to be good and cannot use alcohol or any drugs because 'I'm on the
list.' When what type of place pt is currently in, he did say he thought it was a hospital. Pt complains of pain throughout body, chronic. Pt's lower extremities secured to stretcher loosely by corrections officers. Pt able to move himself in
bed, attempted to get off the end of the stretcher but was instructed to move back which he did on his own. Pt used urinal to void. Pt denies cp, sob, n/v, fever/chills/cough.
[2024-05-23 20:00] VITALS: BP 126/83
--- NOTE | 2024-05-23 20:21 | EDRN ---
Addendum entered by Cathy Salmon RN 05/23/24 20:23:
First dose lactulose given 1935, not 190
Original Note:
Pharmacy verified 2000 rifaximin - called for pharmacy to send. Asked about 2200 order for lactulose - first dose given at 1902 - instructed by pharmacy to NOT give 2200 dose lactulose.
[2024-05-23] MEDS: DUPHALAC/CHRONULAC PO (20:23)
[2024-05-23] MEDS: XIFAXAN 550 MG PO (20:33)
[2024-05-23 22:00] VITALS: BP 115/74
[2024-05-24] VITALS (10 sets, daily range): BP systolic 74–126; BP diastolic 55–77
[2024-05-24] MEDS: ANCEF 10 IV ×4 (00:12→23:45)
[2024-05-24] MEDS: HEPARIN 5000 UNITS SC ×4 (00:12→23:43)
[2024-05-24 06:06] LABS: Ammonia 63 umol/L (9-30)
[2024-05-24 06:20] LABS: Hematocrit 22.3 % (39.0-52.0); Hemoglobin 7.7 g/dL (13.0-18.0); Mean Corp Hgb Conc. 34.5 g/dL (33.0-37.0); Mean Corpuscular Hgb 36.5 pg (27.0-31.0); Mean Corpuscular Volume 105.7 fL (80.0-94.0); Mean Platelet Volume 9.8 fL (7.4-10.4); Platelet Count 166 10^3/uL (130-400); Red Blood Cell Count 2.11 10^6/uL (4.70-6.10); Red Cell Dist. Width 17.2 % (11.5-14.5); White Blood Cell Count 7.1 10^3/uL (4.8-10.8)
--- NOTE | 2024-05-24 06:38 | CON.GI ---
Consultation
-
Date/Time Consultation Performed: 05/24/2024
Performing Provider: Raymond Alas MD
Reason for Consultation: confusion, cirrhosis
Medical History
Chief Complaint / HPI
Chief Complaint: confusion
History of Present Illness:
The patient is a 44-year-old male with past medical history as noted who presents with confusion. He has a history of cirrhosis secondary to alcohol, decompensated with hepatic encephalopathy and edema in the past. He was apparently arrested and
incarcerated since May 13 per immigration services officer. The reports that he was not taking his lactulose in care home, now presents with increasing confusion. He is currently oriented to place, year and month. He denies any new abdominal pain. He
denies any melena. He admittedly was not taking his medications. He has not had varices on the 2 endoscopies here, did have a very large Maria Eugenia-Merino tear that required intervention, the repeat EGD without varices. Is unclear when his last drink
was, though again has been incarcerated since May 13.
Past Medical History
Past Medical History: Other (Cirrhosis, secondary to alcohol, decompensated with encephalopathy and edema. No esophageal varices on 2 EGDs.)
Past Surgical History: Other ([place] tooth extraction)
Social History
Tobacco: Former Smoker
Alcohol: Former
Drug: Former User
Family History
Family History: Reviewed & Not Pertinent
Allergies / Home Medications
Allergy/AdvReac Type Severity Reaction Status Date / Time
No Known Allergies Allergy Verified 05/23/24 12:39
�Medication �Instructions �Recorded
thiamine HCl (vitamin B1) 100 mg 100 mg PO DAILY Supplement 03/07/23
tablet
folic acid 1 mg tablet 1 mg PO DAILY #30 tabs 10/25/23
rifaximin 550 mg tablet (Xifaxan) 550 mg PO BID #60 tabs 10/25/23
carvedilol 6.25 mg tablet (Coreg) 6.25 mg PO BID 05/23/24
furosemide 40 mg tablet (Lasix) 40 mg PO DAILY 05/23/24
lactulose 10 gram/15 mL oral 20 g PO QID 05/23/24
solution
omeprazole 20 mg capsule,delayed 20 mg PO DAILY 05/23/24
release
Review of Systems
-
All other systems: A 12 pt ROS was Negative except as stated above in HPI
Vital Signs
Temp Pulse Resp BP Pulse Ox
98.5 F 67 14 112/69 100
05/23/24 19:51 05/24/24 04:00 05/24/24 04:00 05/24/24 02:00 05/23/24 19:31
Physical Exam
Exam
General: NAD, alert and oriented x 3 though some difficulty with word finding and perseveration
HEENT: MMM, icteric, no lymphadenopathy
Heart: Regular, no murmurs
Lungs: CTA bilaterally
Abdomen: normal bowel sounds, soft, no tenderness, no rebound or guarding, no masses, probable mild ascites
Extremeties: 2+ edema
Skin: no rashes
Results
WBC 7.1 10^3/uL (4.8-10.8) 05/24/24 05:43
Hgb 7.7 g/dL (13.0-18.0) L 05/24/24 05:43
Hct 22.3 % (39.0-52.0) L 05/24/24 05:43
MCV 105.7 fL (80.0-94.0) H 05/24/24 05:43
Plt Count 166 10^3/uL (130-400) 05/24/24 05:43
Absolute Neuts (auto) 4.8 10^3/uL (1.4-6.5) 05/23/24 14:03
PT 22.8 Sec (11.4-14.6) H 05/23/24 14:03
INR 1.99 05/23/24 14:03
APTT 36.6 Sec (23.4-35.0) H 05/23/24 14:03
Sodium 144 mmol/L (135-145) 05/23/24 14:03
Potassium 3.1 mmol/L (3.5-5.1) L 05/23/24 14:03
Chloride 109 mmol/L (98-107) H 05/23/24 14:03
Carbon Dioxide 28 mmol/L (22-30) 05/23/24 14:03
BUN 20 mg/dl (9-20) 05/23/24 14:03
Creatinine 0.5 mg/dL (0.7-1.3) L 05/23/24 14:03
Calcium 8.8 mg/dl (8.4-10.2) 05/23/24 14:03
Total Bilirubin 7.9 mg/dl (0.2-1.3) H 05/23/24 14:03
AST 62 U/L (17-59) H 05/23/24 14:03
ALT 33 U/L (0-50) 05/23/24 14:03
Alkaline Phosphatase 134 U/L (38-126) H 05/23/24 14:03
Diagnostic Image Results:
Prior GI Procedures:
EGD:
EGD:02/2023 [facility] - Maria Eugenia-Merino tears. Injected. Clip was placed as
described above. No signs of varices were seen.
- Normal stomach.
- Normal examined duodenum.
- No specimens collected.
EGD: 06/11/23 [facility] - Normal esophagus. Healed MW tears, no varices seen.
- Portal hypertensive gastropathy.
- An endoclip was found in the stomach.
- Normal examined duodenum.
- No specimens collected.
Colonoscopy:
Assessment / Plan
-
1. Cirrhosis: Secondary to alcohol, decompensated with medic encephalopathy and edema in the past, without esophageal varices, though did have large Maria Eugenia-Merino tear initially. He currently presents with increasing encephalopathy, likely from
medication noncompliance. There have been no reports of GI bleeding, no leukocytosis or fever or significant abdominal tenderness to suggest SBP. At this point we will continue lactulose that has been restarted 4 times a day, and Xifaxan. Without
significant renal insufficiency will continue diuretics for now and salt restriction. Will check ultrasound and a significant ascites and paracentesis to rule out SBP. Will check iron studies, B12 and folate. He was following at the [facility]
[place] in the past, though had many social issues, currently incarcerated, currently not a transplant candidate.
-
-
Thank you for consultation and allowing me to participate in the patient's care. Please call the audit consultant GI physician during the after hours with any questions or concerns.
[2024-05-24 06:44] LABS: Blood Urea Nitrogen 18 mg/dl (9-20); Calcium 8.5 mg/dl (8.4-10.2); Carbon Dioxide 26 mmol/L (22-30); Chloride 110 mmol/L (98-107); Estimated Creatinine Clearance > 125 ml/min; Glucose 80 mg/dl (70-99); Potassium 3.2 mmol/L (3.5-5.1); Sodium 142 mmol/L (135-145); eGFR > 60.00
[2024-05-24] MEDS: PROTONIX 40 MG PO (08:39)
[2024-05-24] MEDS: VITAMIN B1 100 MG PO (08:39)
[2024-05-24] MEDS: LASIX 40 MG PO (08:39)
[2024-05-24] MEDS: COREG 6.25 MG PO ×2 (08:39→20:00)
[2024-05-24] MEDS: FOLVITE 1 MG PO (08:39)
[2024-05-24] MEDS: DUPHALAC/CHRONULAC 20 GRAMS PO ×4 (08:39→21:04)
[2024-05-24 09:59] LABS: Albumin 2.8 g/dl (3.5-5.0)
[2024-05-24] MEDS: XIFAXAN 550 MG PO ×2 (10:01→21:05)
--- NOTE | 2024-05-24 11:18 | PTCARENOTE ---
pt aaox3 forgetful. anxious. [facility] guards at bedside pt shackled to bed.
[2024-05-24 11:23] LABS: Iron 128 ug/dl (49-181)
[2024-05-24 11:32] LABS: Percent Saturation 70 % (20-50); Total Iron Binding Capacity 181 ug/dl (261-462)
--- NOTE | 2024-05-24 11:55 | CM ---
CM reviewed chart
Pt incarcerated at [facility] since May 13 and remains in custody
Plan for return to [facility] on dc
Discharge Disposition- return [facility]
Phone- [phone] Fax- [phone]
[2024-05-24 13:09] LABS: Folate 16.9 ng/ml (2.76-20); Vitamin B12 193 pg/ml (239-931)
--- NOTE | 2024-05-24 13:16 | W.PN.HOSP.TC ---
Today's Communication/Plan
-
Replete potassium
IR consult
continue lactulose, rifaximin
Continue antibiotics
IV Lasix
Assessment / Plan
Assessment / Plan
Gen-AAOx3, NAD
HEENT-NC, AT, anicteric, clear oral mm
Neck-supple
CV-reg, no M, +S1/S2
Lungs-clear B/L
Abd-soft, NT, ND
Ext-no edema
Musculoskeletal-no cyanosis, clubbing
Skin-warm and dry, jaundiced
Neuro-grossly non-focal
Psych-calm, cooperative
Acute hepatic encephalopathy -suspect related to noncompliance with meds, lactulose and rifaximin. Has been incarcerated since May 13.
Continue lactulose, rifaximin. No bowel movements recorded so far.
Right ankle cellulitis -continue IV cefazolin.
Decompensated cirrhosis -chronic alcohol related cirrhosis. Ascites noted on ultrasound. IR consulted for paracentesis.
Hypokalemia - replete orally. Check magnesium.
Acute on chronic anemia - hemoglobin 7.7. Macrocytic anemia. Baseline appears to be 9. No evidence of bleeding. Monitor for now.
Vitamin B12 deficiency, start oral repletion.
Anasarca -significant bilateral lower extremity edema. Will change Lasix to IV. Doppler ultrasound negative for DVT.
Alcohol use disorder -reportedly patient still drinks, although he denies. He is under arrest for DUI.
Tobacco dependence
Full code
Anticipated Discharge: > 48 hours
Subjective/Interval History
-
Date of Service: May 24, 2024
Patient seen and examined. No complaints.
Objective Data
-
Labs:
Laboratory Results
05/24/24
05:43
WBC 7.1
Hgb 7.7 L
Hct 22.3 L
Plt Count 166
Sodium 142
Potassium 3.2 L
Chloride 110 H
Carbon Dioxide 26
BUN 18
Creatinine 0.5 L
Glucose 80
Calcium 8.5
Vital Signs:
Vital Signs
Temp Pulse Resp BP Pulse Ox
97.5 F 68 18 116/73 100
05/24/24 08:45 05/24/24 08:45 05/24/24 08:45 05/24/24 08:45 05/24/24 08:45
I&O
05/23/24 05/24/24 05/25/24
06:59 06:59 06:59
Output Total 800 / 800
Balance -800 / -800
Review of Systems
-
History Source: Patient
All other systems: Reviewed and negative
[2024-05-24 13:55] LABS: Magnesium 1.8 mg/dl (1.6-2.3)
[2024-05-24] MEDS: VITAMIN B-12 1000 MCG PO (14:11)
[2024-05-24] MEDS: KCL 40 MEQ PO (14:12)
[2024-05-24] MEDS: LASIX 40 MG IV (14:13)
[2024-05-24 17:07] LABS: Body Fluid Amylase < 30 U/L; Body Fluid LDH 173 U/L; Body Fluid Protein 2.4 g/dl; Body Fluid WBC 488 /CUMM
[2024-05-24 17:31] LABS: Body Fluid Second Tech DW
[2024-05-24] MEDS: KCL 20 MEQ PO (19:59)
--- NOTE | 2024-05-24 20:08 | PTCARENOTE ---
Resumed care of pt laying in bed talking a mile a minute with intermediate guards at bedside. Vital signs stable at this time. Report called to floor. NO issues to report at this time. Will continue to monitor.
--- NOTE | 2024-05-25 04:52 | PTCARENOTE ---
Patient arrived to floor from ED. Patient 'scooted' self over from stretcher to bed. Guards accompanying patient. Patient oriented to room, bed in lowest position, call king within reach. Will continue to monitor.
[2024-05-25 05:14] VITALS: BMI 24.4
[2024-05-25 06:31] LABS: Hematocrit 21.8 % (39.0-52.0); Hemoglobin 7.5 g/dL (13.0-18.0); Mean Corp Hgb Conc. 34.4 g/dL (33.0-37.0); Mean Corpuscular Hgb 37.1 pg (27.0-31.0); Mean Corpuscular Volume 107.9 fL (80.0-94.0); Mean Platelet Volume 9.2 fL (7.4-10.4); Platelet Count 154 10^3/uL (130-400); Red Blood Cell Count 2.02 10^6/uL (4.70-6.10); Red Cell Dist. Width 17.1 % (11.5-14.5); White Blood Cell Count 7.6 10^3/uL (4.8-10.8)
[2024-05-25 06:51] LABS: ALT (SGPT) 23 U/L (0-50); AST (SGOT) 39 U/L (17-59); Albumin 2.8 g/dl (3.5-5.0); Alkaline Phosphatase 119 U/L (38-126); Blood Urea Nitrogen 17 mg/dl (9-20); Calcium 8.3 mg/dl (8.4-10.2); Carbon Dioxide 26 mmol/L (22-30); Chloride 106 mmol/L (98-107); Estimated Creatinine Clearance > 125 ml/min; Glucose 88 mg/dl (70-99); Potassium 3.7 mmol/L (3.5-5.1); Sodium 140 mmol/L (135-145); Total Protein 5.9 g/dl (6.3-8.2); eGFR > 60.00
[2024-05-25 07:46] VITALS: BP 99/53
[2024-05-25] MEDS: DUPHALAC/CHRONULAC 20 GRAMS PO ×4 (07:57→21:06)
[2024-05-25] MEDS: HEPARIN 5000 UNITS SC ×2 (07:58→16:56)
[2024-05-25] MEDS: ANCEF 10 IV (07:58)
[2024-05-25] MEDS: PROTONIX 40 MG PO (07:58)
[2024-05-25] MEDS: VITAMIN B1 100 MG PO (07:59)
[2024-05-25] MEDS: VITAMIN B-12 1000 MCG PO (07:59)
[2024-05-25] MEDS: FOLVITE 1 MG PO (07:59)
[2024-05-25] MEDS: COREG PO ×2 (07:59→21:04)
[2024-05-25] MEDS: KCL 20 MEQ PO ×2 (07:59→21:04)
[2024-05-25] MEDS: XIFAXAN 550 MG PO ×2 (07:59→21:05)
[2024-05-25] MEDS: LASIX 40 MG PO (09:10)
[2024-05-25] MEDS: LASIX IV (09:15)
--- NOTE | 2024-05-25 10:36 | W.PN.HOSP.TC ---
Today's Communication/Plan
-
Discharge planning
Assessment / Plan
Assessment / Plan
Gen-AAOx3, NAD
HEENT-NC, AT, anicteric, clear oral mm
Neck-supple
CV-reg, no M, +S1/S2
Lungs-clear B/L
Abd-soft, NT, ND
Ext-no edema
Musculoskeletal-no cyanosis, clubbing
Skin-warm and dry, jaundiced
Neuro-grossly non-focal
Psych-calm, cooperative
Acute hepatic encephalopathy -suspect related to noncompliance with meds, lactulose and rifaximin. Has been incarcerated since May 13.
Continue lactulose, rifaximin. Mental status back to baseline.
Right ankle cellulitis -improving. Change to Keflex.
Decompensated cirrhosis -chronic alcohol related cirrhosis. Ascites noted on ultrasound. Paracentesis completed by IR, no evidence of SBP. 1.7 L removed.
Hypokalemia -improved.
Acute on chronic anemia - hemoglobin 7.5 today. Macrocytic anemia. Baseline appears to be 9. No evidence of bleeding. Not iron deficient. Monitor for now.
Vitamin B12 deficiency, continue oral repletion.
Anasarca -significant bilateral lower extremity edema. Doppler ultrasound negative for DVT.
Peripheral neuropathy -suspect related to alcohol. Discussed with patient importance of abstinence.
Alcohol use disorder -reportedly patient still drinks, although he denies. He is under arrest for DUI.
Tobacco dependence
Full code
Dispo -discharge back to shelter today if okay with GI service. Outpatient follow-up.
Anticipated Discharge: Today
Subjective/Interval History
-
Date of Service: May 25, 2024
Patient seen/examined. Complaining of RLE burning pain.
Objective Data
-
Labs:
Laboratory Results
05/25/24
05:40
WBC 7.6
Hgb 7.5 L
Hct 21.8 L
Plt Count 154
Sodium 140
Potassium 3.7
Chloride 106
Carbon Dioxide 26
BUN 17
Creatinine 0.6 L
Glucose 88
Calcium 8.3 L
Total Bilirubin 5.0 H
AST 39
ALT 23
Alkaline Phosphatase 119
Vital Signs:
Vital Signs
Temp Pulse Resp BP Pulse Ox
98.3 F 82 16 99/53 100
05/25/24 07:46 05/25/24 07:46 05/25/24 07:46 05/25/24 07:46 05/25/24 07:46
I&O
05/24/24 05/25/24 05/26/24
06:59 06:59 06:59
Intake Total 400 / 400
Output Total 800 / 800 900 / 900
Balance -800 / -800 -500 / -500
Review of Systems
-
History Source: Patient
All other systems: Reviewed and negative
[2024-05-25 12:08] LABS: % Basophils 0.4 % (0-2); % Eosinophils 1.5 % (0-6); % Immature Granulocytes 0.7 % (0-0.5); % Lymphocytes 24.9 % (20.5-51.1); % Monocytes 10.6 % (1.7-9.3); % Neutrophils 61.9 % (42.2-75.2); Absolute Eosinophils 0.1 10^3/uL (0-0.7); Absolute Immature Granulocytes 0.1 10^3/uL (0-0.05); Absolute Lymphocytes 1.9 10^3/uL (1.2-3.4); Absolute Monocytes 0.8 10^3/uL (0.1-0.6); Absolute Neutrophils 4.7 10^3/uL (1.4-6.5); Nucleated Red Blood Cells % 0 % (-)
[2024-05-25 12:34] LABS: Hematocrit 23.8 % (39.0-52.0); Hemoglobin 7.9 g/dL (13.0-18.0)
[2024-05-25 13:00] VITALS: BP 114/50; O2SAT 99
--- NOTE | 2024-05-25 13:10 | CM ---
Plan: back to [facility] when medically stable.
[facility]charge [facility]position- [facility]

Fax- [phone]
[2024-05-25] MEDS: MIRALAX 17 GRAMS PO (13:47)
[2024-05-25 15:05] VITALS: BP 106/56
--- NOTE | 2024-05-25 15:10 | W.PN.GI.CBS2 ---
Today's Communication / Plan
-
NPO PMN for EGD tomorrow. Start SBP prophylaxis in setting of new ascites. Continue lactulose, Rifaximin. Diuresis.
Assessment / Plan
-
1. Cirrhosis: Secondary to alcohol, decompensated with medic encephalopathy and edema in the past, without esophageal varices, though did have large Cal-Merino tear initially. Current admission for encephalopathy 2/2 medication noncompliance
with lactulose. Mental status improved with lactulose and xifaxin. New LE edema and ascites now s/p IR paracentesis with removal of 1.7 L of ascitic fluid, negative for SBP. LE edema improving with lasix 40mg daily. Hemoglobin slowly downtrending
without overt signs of GI bleeding. He was following at the [facility] in the past, though had many social issues, currently incarcerated, currently not a transplant candidate.
--Encephalopathy: continue lactulose and Rifaximin, titrating to 2-3 loose BMs daily.
--New ascites, LE edema- s/p IR paracentesis on 05/24 with removal of 1.7 L of fluid, fluid c/w portal HTN. Lasix 40mg once daily started, recommend adding aldactone if tolerated as an outpatient
--Anemia--multifactorial. No history of varices, hx of cal-merino tear. Downtrending hemoglobin without overt signs of active GI bleeding. Continue B12, folic acid. No evidence of iron deficiency and normal BUN, low suspicion for UGI source.
However, reasonable to proceed with EGD prior to d/c. Will d/c keflex and start on Rocephin due to new ascites, plan for EGD tomorrow.
Subjective
Subjective
Date of Service: May 25, 2024
Patient seen in follow-up. Mental status improving. Lower extremity edema improved with lasix, patient feels this is helping. Hemoglobin down to 7.5, repeat later today was 7.9. No BMs. BUN 17, Cr. 0.6. Abdominal US showed ascites, s/p IR
paracentesis with removal of 1.7 L of fluid, negative for SBP.
Objective
Data Reviewed
Laboratory Data:
Laboratory Results
05/25/24 11:56
05/25/24 05:40
Laboratory Results
PT 22.8 Sec (11.4-14.6) H 05/23/24 14:03
INR 1.99 05/23/24 14:03
APTT 36.6 Sec (23.4-35.0) H 05/23/24 14:03
Magnesium 1.8 mg/dl (1.6-2.3) 05/24/24 05:43
Total Bilirubin 5.0 mg/dl (0.2-1.3) H 05/25/24 05:40
AST 39 U/L (17-59) 05/25/24 05:40
ALT 23 U/L (0-50) 05/25/24 05:40
Alkaline Phosphatase 119 U/L (38-126) 05/25/24 05:40
Vital Signs and I&O:
Vital Signs
Temp Pulse Resp BP Pulse Ox
98.3 F 82 16 99/53 100
05/25/24 07:46 05/25/24 07:46 05/25/24 07:46 05/25/24 07:46 05/25/24 07:46
I&O
05/24/24 05/25/24 05/26/24
06:59 06:59 06:59
Intake Total 400 / 400
Output Total 800 / 800 900 / 900
Balance -800 / -800 -500 / -500
Physical Exam
Physical Exam
HEENT: Anicteric (+icteric)
GI: Soft and Distended (mild distension, nontender)
Extremities: Edema (2+ pitting edema in LE, b/l)
Neuro: Non Focal and Other (AAOx3)
[2024-05-25] MEDS: STERILE WATER FOR INJECTION 10 ML IV (16:56)
[2024-05-25] MEDS: ROCEPHIN 1000 MG IV (16:56)
[2024-05-25 23:38] VITALS: BP 112/65
[2024-05-26] MEDS: HEPARIN 5000 UNITS SC ×2 (00:25→08:21)
[2024-05-26 06:00] VITALS: BMI 25.0
[2024-05-26 06:54] LABS: ALT (SGPT) 31 U/L (0-50); AST (SGOT) 60 U/L (17-59); Albumin 2.6 g/dl (3.5-5.0); Alkaline Phosphatase 154 U/L (38-126); Blood Urea Nitrogen 17 mg/dl (9-20); Calcium 8.1 mg/dl (8.4-10.2); Carbon Dioxide 29 mmol/L (22-30); Chloride 106 mmol/L (98-107); Estimated Creatinine Clearance > 125 ml/min; Glucose 85 mg/dl (70-99); Potassium 4.1 mmol/L (3.5-5.1); Sodium 138 mmol/L (135-145); Total Bilirubin 4.9 mg/dl (0.2-1.3); Total Protein 5.8 g/dl (6.3-8.2); eGFR > 60.00
[2024-05-26 07:06] LABS: Hematocrit 22.7 % (39.0-52.0); Hemoglobin 7.6 g/dL (13.0-18.0); Mean Corp Hgb Conc. 33.5 g/dL (33.0-37.0); Mean Corpuscular Hgb 36.4 pg (27.0-31.0); Mean Corpuscular Volume 108.6 fL (80.0-94.0); Mean Platelet Volume 9.7 fL (7.4-10.4); Platelet Count 160 10^3/uL (130-400); Red Blood Cell Count 2.09 10^6/uL (4.70-6.10); Red Cell Dist. Width 17.5 % (11.5-14.5); White Blood Cell Count 9.5 10^3/uL (4.8-10.8)
[2024-05-26 07:25] VITALS: BP 104/58
[2024-05-26 08:06] LABS: % Basophils 0.5 % (0-2); % Eosinophils 1.7 % (0-6); % Immature Granulocytes 0.7 % (0-0.5); % Lymphocytes 19.1 % (20.5-51.1); % Monocytes 10.3 % (1.7-9.3); % Neutrophils 67.7 % (42.2-75.2); Absolute Basophils 0.1 10^3/uL (0-0.2); Absolute Eosinophils 0.2 10^3/uL (0-0.7); Absolute Immature Granulocytes 0.1 10^3/uL (0-0.05); Absolute Lymphocytes 1.8 10^3/uL (1.2-3.4); Absolute Neutrophils 6.4 10^3/uL (1.4-6.5); Nucleated Red Blood Cells % 0 % (-)
[2024-05-26] MEDS: DUPHALAC/CHRONULAC 20 GRAMS PO ×2 (08:20→12:24)
[2024-05-26] MEDS: KCL 20 MEQ PO (08:20)
[2024-05-26] MEDS: XIFAXAN 550 MG PO (08:21)
[2024-05-26] MEDS: PROTONIX 40 MG PO (08:21)
[2024-05-26] MEDS: LASIX 40 MG PO (08:21)
[2024-05-26] MEDS: VITAMIN B-12 1000 MCG PO (08:21)
[2024-05-26] MEDS: COREG 6.25 MG PO (08:21)
[2024-05-26] MEDS: FOLVITE 1 MG PO (08:21)
[2024-05-26] MEDS: VITAMIN B1 100 MG PO (08:22)
[2024-05-26] MEDS: MIRALAX PO (08:22)
--- NOTE | 2024-05-26 10:06 | W.PN.HOSP.TC ---
Addendum entered and electronically signed by Chad Ingram DO 05/26/24 12:25:
I spoke with GI attending.
EGD completed this morning, portal hypertensive gastropathy noted. Erosive gastropathy with stigmata of recent bleeding. Treated with a monopolar probe. No specimens collected.
Continue daily Protonix, advance diet to solids by dinnertime.
GI service okay with discharge later today back to correctional facility.
Will discharge on 5-day course of ciprofloxacin for SBP prophylaxis in the setting of GI bleed and ascites.
Outpatient follow-up.
Original Note:
Today's Communication/Plan
-
EGD
Assessment / Plan
Assessment / Plan
Gen-AAOx3, NAD
HEENT-NC, AT, icteric, clear oral mm
Neck-supple
CV-reg, no M, +S1/S2
Lungs-clear B/L
Abd-soft, distended, mildly tender
Ext-no edema
Musculoskeletal-no cyanosis, clubbing
Skin-warm and dry, jaundiced
Neuro-grossly non-focal
Psych-calm, cooperative
Acute hepatic encephalopathy -suspect related to noncompliance with meds, lactulose and rifaximin. Has been incarcerated since May 13.
Continue lactulose, rifaximin. Mental status back to baseline.
Bowel movements are not being documented for unclear reasons.
Right ankle cellulitis -improving. Continue antibiotics.
Decompensated cirrhosis -chronic alcohol related cirrhosis. Ascites noted on ultrasound. Paracentesis completed by IR, no evidence of SBP. 1.7 L removed.
IV ceftriaxone for SBP prophylaxis in the setting of questionable GI bleed. Discussed with GI service.
Hypokalemia -improved.
Acute on chronic anemia - hemoglobin relatively stable, 7.6 today. Macrocytic anemia. Baseline appears to be 9. No evidence of bleeding. Not iron deficient. Monitor for now.
Vitamin B12 deficiency, continue oral repletion.
Plan for EGD today as per GI service to evaluate for any GI bleed.
Anasarca -significant bilateral lower extremity edema. Doppler ultrasound negative for DVT.
Peripheral neuropathy -suspect related to alcohol. Discussed with patient importance of abstinence.
Alcohol use disorder -reportedly patient still drinks, although he denies. He is under arrest for DUI.
Tobacco dependence
Full code
Dispo -[facility] to [facility] medically [facility].
Anticipated Discharge: Within 24 hours
Subjective/Interval History
-
Date of Service: May 26, 2024
Patient seen and examined. No complaints.
Objective Data
-
Labs:
Laboratory Results
05/26/24
05:44
WBC 9.5
Hgb 7.6 L
Hct 22.7 L
Plt Count 160
Sodium 138
Potassium 4.1
Chloride 106
Carbon Dioxide 29
BUN 17
Creatinine 0.6 L
Glucose 85
Calcium 8.1 L
Total Bilirubin 4.9 H
AST 60 H
ALT 31
Alkaline Phosphatase 154 H
Vital Signs:
Vital Signs
Temp Pulse Resp BP Pulse Ox
98.7 F 73 17 104/58 97
05/26/24 07:25 05/26/24 07:25 05/26/24 07:25 05/26/24 07:25 05/26/24 07:25
I&O
05/25/24 05/26/24 05/27/24
06:59 06:59 06:59
Intake Total 400 / 400 1320 / 1320
Output Total 900 / 900 1700 / 1700
Balance -500 / -500 -380 / -380
Review of Systems
-
History Source: Patient
All other systems: Reviewed and negative
[2024-05-26 10:47] VITALS: BP 102/62; BP_SYST 13
[2024-05-26 10:55] VITALS: BP 102/60; BP_SYST 11
[2024-05-26 11:00] VITALS: BP 108/65
[2024-05-26 11:02] VITALS: BP 102/60; BP_SYST 11
--- NOTE | 2024-05-26 12:29 | W.DS.TRANS ---
DC Summary - [facility] [place]
-
Discharge Instructions:
Discharge Diagnosis/Procedures Hepatic encephalopathy, hypokalemia, alcohol use
disorder, GI bleed with anemia
Diet 2 Gram Sodium,Restrict fluids to 64 oz
Activity As tolerated
Driving Restrictions No driving
Bathing Restrictions None
Blood Work CBC in 1 week
Instructions:
Stand-Alone Forms:
Changes to Home Medications: No
Discharge Medications:
DC Medications w/original date entered in [employer]
thiamine HCl (vitamin B1) 100 mg tablet 100 mg PO DAILY Supplement 03/07/23
folic acid 1 mg tablet 1 mg PO DAILY #30 tabs 10/25/23
rifaximin 550 mg tablet (Xifaxan) 550 mg PO BID #60 tabs 10/25/23
carvedilol 6.25 mg tablet (Coreg) 6.25 mg PO BID 05/23/24
furosemide 40 mg tablet (Lasix) 40 mg PO DAILY 05/23/24
lactulose 10 gram/15 mL oral solution 20 g PO QID 05/23/24
cephalexin 500 mg capsule 500 mg PO QID #20 caps 05/25/24
cyanocobalamin (vitamin B-12) 1,000 mcg tablet (Vitamin B-12) 1,000 mcg PO DAILY #0 tabs 05/25/24
ciprofloxacin HCl 500 mg tablet 500 mg PO BID #10 tabs 05/26/24
pantoprazole 40 mg tablet,delayed release 40 mg PO DAILY #0 tabs 05/26/24
polyethylene glycol 3350 17 gram oral powder packet 17 g PO DAILY #0 ea 05/26/24
Home Medication Changes
Pending Results: No
--- NOTE | 2024-05-26 12:59 | CM ---
CM spoke with [facility] and updated them that patient was discharged today. CM will continue to follow for discharge planning needs.
Plan: back to [facility] when medically stable.
Discharge Disposition- return [facility]

Fax- [phone]
== END 2024-05-26 13:23 | DRG 442 ==
LOC: 3 WEST ACU 16:50
PROVIDERS: Internal Medicine; Nurse Practitioner; Nurse Practitioner Family; Radiology Vascular & Interventional Radiology; ADMITTING PHYSICIAN Internal Medicine; ATTENDING PHYSICIAN Hospitalist; CONSULT PHYSICIAN Internal Medicine Gastroenterology; EMERGENCY PHYSICIAN Emergency Medicine
PROC: 0W9G3ZX Drainage of Peritoneal Cavity, Percutaneous Approach, Diagnostic (ICD-10-PCS; 2024-05-24)
PROC: 0W3P8ZZ Control Bleeding in Gastrointestinal Tract, Via Natural or Artificial Opening Endoscopic (ICD-10-PCS; 2024-05-26)
DX: K76.82 Hepatic encephalopathy (principal); D62 Acute posthemorrhagic anemia; Z59.00 Homelessness unspecified; L03.115 Cellulitis of right lower limb; D68.9 Coagulation defect, unspecified; K76.6 Portal hypertension; Q39.9 Congenital malformation of esophagus, unspecified; F17.210 Nicotine dependence, cigarettes, uncomplicated; E87.6 Hypokalemia; K70.31 Alcoholic cirrhosis of liver with ascites; K21.9 Gastro-esophageal reflux disease without esophagitis; Z91.148 Patient's other noncompliance with medication regimen for other reason; F10.10 Alcohol abuse, uncomplicated; K31.89 Other diseases of stomach and duodenum; G62.1 Alcoholic polyneuropathy; Z76.82 Awaiting organ transplant status
CPT/HCPCS: 88305; 49083; 70450; 76700; 80048; 80053; 82040; 82042; 82140; 82150; 82607; 82728; 82746; 83540; 83550; 83615; 83735; 84157; 85014; 85018; 85025; 85027; 85610; 85730; 87015; 87070; 87205; 88112; 89051; 93005; 93970; 97162; 99291

== ENCOUNTER 2024-05-28 19:06 | Emergency (ER) | payer OTHER, SELFPAY ==
[2024-05-28 19:13] VITALS: BP 103/53
[2024-05-28 19:16] VITALS: BP 103/53
[2024-05-28 19:41] VITALS: BMI 24.4
[2024-05-28 19:50] LABS: % Basophils 0.6 % (0-2); % Eosinophils 1.8 % (0-6); % Immature Granulocytes 0.5 % (0-0.5); % Lymphocytes 16.8 % (20.5-51.1); % Monocytes 9.4 % (1.7-9.3); % Neutrophils 70.9 % (42.2-75.2); Absolute Basophils 0.1 10^3/uL (0-0.2); Absolute Eosinophils 0.2 10^3/uL (0-0.7); Absolute Immature Granulocytes 0.1 10^3/uL (0-0.05); Absolute Lymphocytes 1.8 10^3/uL (1.2-3.4); Absolute Neutrophils 7.4 10^3/uL (1.4-6.5); Hematocrit 24.5 % (39.0-52.0); Hemoglobin 8.3 g/dL (13.0-18.0); Mean Corp Hgb Conc. 33.9 g/dL (33.0-37.0); Mean Corpuscular Hgb 37.2 pg (27.0-31.0); Mean Corpuscular Volume 109.9 fL (80.0-94.0); Mean Platelet Volume 9.7 fL (7.4-10.4); Nucleated Red Blood Cells % 0 % (-); Platelet Count 118 10^3/uL (130-400); Red Blood Cell Count 2.23 10^6/uL (4.70-6.10); Red Cell Dist. Width 17.3 % (11.5-14.5); White Blood Cell Count 10.5 10^3/uL (4.8-10.8)
[2024-05-28 20:00] LABS: ALT (SGPT) 34 U/L (0-50); AST (SGOT) 50 U/L (17-59); Albumin 3.4 g/dl (3.5-5.0); Alkaline Phosphatase 176 U/L (38-126); Blood Urea Nitrogen 24 mg/dl (9-20); Calcium 8.6 mg/dl (8.4-10.2); Carbon Dioxide 30 mmol/L (22-30); Chloride 103 mmol/L (98-107); Estimated Creatinine Clearance > 125 ml/min; Glucose 111 mg/dl (70-99); Potassium 3.8 mmol/L (3.5-5.1); Sodium 140 mmol/L (135-145); Total Bilirubin 6.2 mg/dl (0.2-1.3); Total Protein 7.2 g/dl (6.3-8.2); eGFR > 60.00
--- NOTE | 2024-05-28 20:07 | ED.GENMED ---
History of Present Illness
General
Chief Complaint: Swelling
Source: patient, records and previous hospital records
Exam Limitations: none
Time Seen by Provider: 05/28/24 19:29
Nursing documentation reviewed up to this point in time: agreed with
History of Present Illness
History of Present Illness:
44-year male from local [facility] chronic liver disease, ex drinker presents for evaluation of swelling of his feet with oozing from some wounds on his anterior feet no fevers, normal mental status, recent admission with cirrhosis hepatic cephalopathy
sent out with antibiotics
Past History
Past History
ED Past Medical History: GERD, Psychiatric (Anxiety, Depression. ) and Other (Migraine headaches, Neuropathy, Numbness arms and legs, Cirrhosis liver, Hepatic encephalopathy, Erectile dysfunction, Esophageal varices. Substance abuse.)
ED Past Surgical History: Other (Nasal surgery for Deviated septum)
Social History
Tobacco: Smoker (1.5 ppd)
Alcohol: Former
Drug: Former user and IVDA (heroin)
Personal: Single
Living: [facility] (going from hotel to hotel)
Employment: Employed
Family History
Family History: Other (Noncontributory)
Review of Systems
Review of Systems
All Other Systems: Not applicable
Constitutional: Denies fever or fatigue
EENT: Reports no symptoms
Respiratory: Reports no symptoms
Cardiac: Reports no symptoms
Musculoskeletal: Reports edema
Skin: Reports other (Slight oozing)
Phy Exam
Physical Exam
Physical Exam:
Physical Exam
General: Chronically ill nontoxic very chatty normal mental
Neck: Yellow sclera
Heart: regular
Lungs: no acute respiratory distress.
Neuro: alert and oriented. no focal neurological deficits
Skin: warm
Psychiatric: cooperative
Extremities: 2+ lower extremity edema trace petechiae few small ulcers with no overt cellulitic changes
Scores
Heart Failure Risk
Heart Failure Risk Score: Not Applicable
Course
Orders/Labs/Results
Orders:
Orders
05/28/24 19:33
CMP [Comprehensive Metabolic Panel] Urgent
Complete Blood Count/With Diff Urgent
05/28/24 19:[address] Non Medication Order As Directed
Physician Order: antibiotic ointment to feet
Above order entered?: Yes
Abnormal Lab Results
05/28/24
19:33
RBC 2.23 L 10^6/uL
(4.70-6.10)
Hgb 8.3 L g/dL
(13.0-18.0)
Hct 24.5 L %
(39.0-52.0)
MCV 109.9 H fL
(80.0-94.0)
MCH 37.2 H pg
(27.0-31.0)
RDW 17.3 H %
(11.5-14.5)
Plt Count 118 L D 10^3/uL
(130-400)
Abs Immat Gran (auto) 0.1 H 10^3/uL
(0-0.05)
Absolute Neuts (auto) 7.4 H 10^3/uL
(1.4-6.5)
Absolute Monos (auto) 1.0 H 10^3/uL
(0.1-0.6)
Lymphocytes % 16.8 L %
(20.5-51.1)
Monocytes % 9.4 H %
(1.7-9.3)
BUN 24 H mg/dl
(9-20)
Glucose 111 H mg/dl
(70-99)
Total Bilirubin 6.2 H mg/dl
(0.2-1.3)
Alkaline Phosphatase 176 H U/L
(38-126)
Albumin 3.4 L g/dl
(3.5-5.0)
04/04/25 19:33
05/28/24 19:33
Vital Signs
Initial and Last Documented VS:
Initial Vital Signs
Temp Pulse Resp BP Pulse Ox
98.5 F 70 17 103/53 100
05/28/24 19:13 05/28/24 19:13 05/28/24 19:13 05/28/24 19:13 05/28/24 19:13
Last Documented Vital Signs
Temp Pulse Resp BP Pulse Ox
98.5 F 70 17 103/53 100
05/28/24 19:13 05/28/24 19:13 05/28/24 19:13 05/28/24 19:16 05/28/24 19:30
*Critical Care Note
Total Time (30-74mins, 75-104mins- exclusive of procedures): Not Applicable
Update Note
Update Note:
Update labs are noted, abnormal but similar to prior values feasible wash your dress with antibiotic ointment
ED Attending Note
-
Portions of this chart may have been created with voice recognition software.� Occasional wrong word or��sound alike� substitutions may have occurred due to the inherent limitations of voice recognition software.
Discharge Plan
Departure
Patient Disposition: Home (Routine Discharge)
Date of Disposition: 05/28/24
Time of Disposition: 20:38
Patient with high blood pressure during this ER visit?: No
Condition: Good
Discharge Problem:
Visit for wound care
Instructions: Dependent Edema (DC), Wound care - ED discharge instructions
Prescriptions:
New
Neosporin Plus PainRelief(bairon) 3.5-500-10,000 [id number] ointment
1 applic topical BID Qty: 28.3 5RF
No Action
thiamine HCl (vitamin B1) 100 mg tablet
100 mg PO DAILY
folic acid 1 mg Tablet
1 mg PO DAILY Qty: 30 0RF
Xifaxan 550 mg Tablet
550 mg PO BID Qty: 60 0RF
furosemide [Lasix] 40 mg Tablet
40 mg PO DAILY
carvedilol [Coreg] 6.25 mg Tablet
6.25 mg PO BID
lactulose 10 gram/15 mL Solution
20 g PO QID
cyanocobalamin (vitamin B-12) [Vitamin B-12] 1,000 mcg Tablet
1,000 mcg PO DAILY Qty: 0 0RF
cephalexin 500 mg capsule
500 mg PO QID Qty: 20 0RF
polyethylene glycol 3350 17 gram Powder In Packet
17 g PO DAILY Qty: 0 0RF
pantoprazole 40 mg Tablet,Delayed Release (Dr/Ec)
40 mg PO DAILY Qty: 0 0RF
ciprofloxacin HCl 500 mg tablet
500 mg PO BID Qty: 10 0RF
Referrals:
[facility] [Family Provider] - Tomorrow
Activity Restrictions/Additional Instructions:
Wash your feet with soap and water twice a day
Use antibiotic ointment twice a day
Interventions
Interventions:
*Risk Screen - Suicide Last Done: 05/28/24 19:22
*General Assessment Last Done: 05/28/24 19:22
*Neglect/Abuse Screening Last Done: 05/28/24 19:22
*ED- Fall Risk Assessment Last Done: 05/28/24 19:22
*ED COVID-19 Vaccine History Last Done: 05/28/24 19:22
ED- Cardiac Assessment Last Done: 05/28/24 19:22
ED- Pulmonary Assessment Last Done: 05/28/24 19:22
ED-Skin Assessment Last Done: 05/28/24 19:22
Discharge Date and Time
Print Language: [place]
== END 2024-05-28 21:10 | disposition home or self-care (01) ==
LOC: EMR 19:06
PROVIDERS: EMERGENCY PHYSICIAN Emergency Medicine
DX: Z48.00 Encounter for change or removal of nonsurgical wound dressing (principal); K74.60 Unspecified cirrhosis of liver; F17.210 Nicotine dependence, cigarettes, uncomplicated; K21.9 Gastro-esophageal reflux disease without esophagitis; F41.8 Other specified anxiety disorders; G62.9 Polyneuropathy, unspecified; N52.9 Male erectile dysfunction, unspecified; F19.10 Other psychoactive substance abuse, uncomplicated
CPT/HCPCS: 99283; 80053; 85025

== ENCOUNTER 2024-06-01 14:33 | Inpatient (IN) | payer OTHER, SELFPAY ==
[2024-06-01] VITALS (64 sets, daily range): BP systolic 73–124; BP diastolic 38–85; BMI 25.7; BMI 24.9
[2024-06-01 09:31] LABS: % Basophils 0.3 % (0-2); % Eosinophils 0.9 % (0-6); % Immature Granulocytes 0.6 % (0-0.5); % Lymphocytes 7.2 % (20.5-51.1); % Monocytes 6.7 % (1.7-9.3); % Neutrophils 84.3 % (42.2-75.2); Absolute Basophils 0.1 10^3/uL (0-0.2); Absolute Eosinophils 0.2 10^3/uL (0-0.7); Absolute Immature Granulocytes 0.1 10^3/uL (0-0.05); Absolute Lymphocytes 1.2 10^3/uL (1.2-3.4); Absolute Monocytes 1.1 10^3/uL (0.1-0.6); Absolute Neutrophils 13.5 10^3/uL (1.4-6.5); Hematocrit 25.3 % (39.0-52.0); Hemoglobin 8.5 g/dL (13.0-18.0); Mean Corp Hgb Conc. 33.6 g/dL (33.0-37.0); Mean Corpuscular Hgb 36.6 pg (27.0-31.0); Mean Corpuscular Volume 109.1 fL (80.0-94.0); Mean Platelet Volume 10.5 fL (7.4-10.4); Nucleated Red Blood Cells % 0 % (-); Platelet Count 73 10^3/uL (130-400); Red Blood Cell Count 2.32 10^6/uL (4.70-6.10)
[2024-06-01] MEDS: NSS 1000 IV ×3 (09:37→17:38)
[2024-06-01 09:42] LABS: INR 2.56; PT 27.5 Sec (11.4-14.6)
[2024-06-01 09:43] LABS: AST (SGOT) 115 U/L (17-59); Albumin 3.6 g/dl (3.5-5.0); Alkaline Phosphatase 140 U/L (38-126); Blood Urea Nitrogen 39 mg/dl (9-20); Calcium 8.9 mg/dl (8.4-10.2); Carbon Dioxide 25 mmol/L (22-30); Chloride 106 mmol/L (98-107); Estimated Creatinine Clearance 120 ml/min; Glucose 131 mg/dl (70-99); Potassium 3.3 mmol/L (3.5-5.1); Sodium 145 mmol/L (135-145); Total Protein 7.3 g/dl (6.3-8.2); eGFR > 60.00
[2024-06-01 09:47] LABS: Ammonia 41 umol/L (9-30)
[2024-06-01 09:54] LABS: ALT (SGPT) 54 U/L (0-50); Lipase 43 U/L (23-300)
--- NOTE | 2024-06-01 10:00 | ED.GENMED ---
History of Present Illness
General
Chief Complaint: Change in Mental Status
Time Seen by Provider: 06/01/24 09:07
History of Present Illness
History of Present Illness:
44-year-old male with history of hepatic encephalopathy, alcoholic cirrhosis with ascites, and depression presents for [facility] due to change in mental status. Patient was admitted here at the end of April through May 26
due to hepatic encephalopathy, during that admission he underwent paracentesis for 1.7 L of ascitic fluid, negative for SBP. Also underwent a diagnostic EGD showing evidence of portal gastropathy but no active upper GI bleed. He was seen here 4
days ago due to wounds to bilateral feet. On arrival the patient is lethargic but arouses to loud voice, able to answer orientation questions but frequently with nonsensical speech
Past History
Past History
ED Past Medical History: GERD, Psychiatric (Anxiety, Depression. ) and Other (Migraine headaches, Neuropathy, Numbness arms and legs, Cirrhosis liver, Hepatic encephalopathy, Erectile dysfunction, Esophageal varices. Substance abuse.)
ED Past Surgical History: Other (Nasal surgery for Deviated septum)
Social History
Tobacco: Smoker (1.5 ppd)
Alcohol: Former
Drug: Former user and IVDA (heroin)
Personal: Single
Living: [facility] (going from hotel to hotel)
Employment: Employed
Family History
Family History: Other (Noncontributory)
Review of Systems
Review of Systems
Allergies reviewed?: Yes
All Other Systems: ROS reviewed and negative except as documented in HPI and ROS
Phy Exam
Physical Exam
Physical Exam:
GEN: Chronically ill-appearing, grossly jaundiced, somnolent but arouses to voice
Eyes: PERRLA, EOMs intact, sclera markedly icteric
HENT: NCAT, oral mucosa moist, no JVD
Lungs: CTAB, no wheezes, rales, rhonchi, normal chest wall excursion
Cardiac: RRR, no M/R/G, no peripheral edema. Radial pulses 2+ bilat
Abdomen: Mildly protuberant abdomen, soft, diffuse tenderness to all 4 quadrants
Neuro: Somnolent, arouses to loud voice, nonsensical speech
MSK: Massive edema bilateral lower extremities
Skin: Scattered petechia and purpuric lesions throughout the upper and lower extremities
Psych: Calm, cooperative, proper hygiene
Sepsis
Sepsis Screening
Sepsis Assessment: Septic Shock
Sepsis Screening: Lactate >/=4mmol/L and Sustained Hypotension-SBP <90,MAP<65, or SBP decrease 40mmHg or more
Sepsis Screen
Sepsis Screen: Septic Shock
Date: 06/01/24
Time: 11:00
Course
Orders/Labs/Results
Orders:
Orders
06/01/24 Breakfast
NPO
Allow oral meds: Yes
Allow clear liquids: No
NPO with Ice Chips: No
06/01/24 09:10
Electrocardiogram (*1) Urgent
Reason for Study: Abdominal Pain
EKG- Treatment ONCE
06/01/24 09:15
Ammonia Urgent
Complete Blood Count/With Diff Urgent
Comprehensive Metabolic Panel Urgent
Lipase Urgent
Prothrombin Time Urgent
06/01/24 09:24
0.9% Sodium Chloride 1000 ml [Nss] 1,000 ml IV BOLUS
06/01/24 09:38
Urinalysis Reflex To Culture Urgent
Date Specimen was Collected: 06/01/24
Time Specimen was Collected: 09:36
Urine Drug Abuse Screen Urgent
Date Specimen was Collected: 06/01/24
Time Specimen was Collected: 09:36
Urine Microscopic Reflex Cult Urgent
Urine Culture Urgent
ZEHRA Source: U
Specimen Description:
Obtained by: Random
Date Specimen was Collected: 06/01/24
Time Specimen was Collected: 09:36
06/01/24 10:05
Lactic Acid Q4H
Comment: CANCEL 2nd LACTIC ACID IF 1st LACTIC ACID IS LESS THAN 2
Blood Culture Q30M
ZEHRA Source: Blood/Venous
Specimen Description:
Blood Culture Q30M
ZEHRA Source: Blood/Venous
Specimen Description:
06/01/24 10:32
0.9% Sodium Chloride 1000 ml [Nss] 1,000 ml IV BOLUS
06/01/24 10:33
Add On- LAB Urgent
Tests Added?: urine drug
CR Chest Portable - 1 View Urgent
Comment:
Reason For Exam: sepsis
Reason Study Needs to be Portable: Other
06/01/24 10:37
Piperacillin/Tazo 3.375 Gram [Zosyn] 3.375 gram in 50 ml IV NOW
06/01/24 11:40
0.9% Sodium Chloride 500 ml [Nss] 500 ml IV BOLUS
06/01/24 11:45
NORepinephrine 4 MG/250 ML [Levophed] 4 mg in 250 ml IV PER PROTOCOL
Initial dose in mcg/min, then titrate:: 2
Titrate to keep:: MAP > 65 mmHg
Titrate by mcg/min:: 1-2 mcg/min
Frequency of titrations (minutes):: 5
Maximum dose in ICU in mcg/min:: 30
Maximum dose in IMU in mcg/min:: 8
Maximum dose in IVU in mcg/min:: 4
Begin to taper infusion when:: Remained at goal for 4hrs
Taper by mcg/min:: 1-2 mcg/min
Frequency of taper (minutes) if patient maintains goal:: 30
Taper to off?: Yes
If infusion off & no longer maintaining goal:: Contact Provider
06/01/24 12:29
Potassium Chloride [KCl] 40 meq 0.9% Sodium Chloride 250 ml [Nss] 250 ml IV NOW
06/01/24 13:02
Admit/Transfer Patient As Directed
Co-Sign Provider:
Level of Care: Inpatient admission
Assign to:: ICU
Physician / Group: consuelo michel
Diagnosis: septic shock unclear, suprather inr,worsening cirrhosis, hypoK
Reason for Hospitalization: septic shock unclear, suprather inr,worsening cirrhosis, hypoK
Expected length of stay greater than two midnights?: Yes
ELOS- Estimated Length of Stay in days: 7
I certify the patient meets the requirements for IP care: Yes
Code Status As Directed
Resuscitation Status: Full Code
06/01/24 13:06
PRN Pain Medication Management As Directed
May give lesser potent ordered pain med per pt: Yes
preference::
Protocol:: Medication orders for pain may be administered in a
manner that supports deferring to patient preference
when the pt is:
- Requesting an ordered lesser potent pain medication.
Least to most potent pain medications are defined
as: acetaminophen < NSAID < tramadol < opioids
(morphine, oxycodone, hydromorphone).
- Requesting a lesser dose of the same medication IF
ORDERED.
- Requesting a less intrusive route of administration
if both routes are prescribed by the provider (PO <
IV).
06/01/24 13:08
Soaking Pits Supervisor Consult Routine
Consulting Provider: Natalya Patton
Was physician already notified: Yes
Reason for consult: septic shock worseing cirrhosis, hypo-K
06/01/24 13:41
COVID-19 Antigen Urgent
Source: Nasal Swab
Lactic Acid Q4H
Comment: CANCEL 2nd LACTIC ACID IF 1st LACTIC ACID IS LESS THAN 2
Influenza A+B Rapid Molecular Urgent
ZEHRA Source: Nasal Swab
Specimen Description:
06/01/24 18:00
Lactic Acid Q4H
06/01/24 22:00
Lactic Acid Q4H
Abnormal Lab Results
06/01/24 06/01/24 06/01/24
09:15 09:38 10:05
WBC 16.0 H 10^3/uL
(4.8-10.8)
RBC 2.32 L 10^6/uL
(4.70-6.10)
Hgb 8.5 L g/dL
(13.0-18.0)
Hct 25.3 L %
(39.0-52.0)
MCV 109.1 H fL
(80.0-94.0)
MCH 36.6 H pg
(27.0-31.0)
RDW 17.0 H %
(11.5-14.5)
Plt Count 73 L D 10^3/uL
(130-400)
MPV 10.5 H fL
(7.4-10.4)
Abs Immat Gran (auto) 0.1 H 10^3/uL
(0-0.05)
Absolute Neuts (auto) 13.5 H 10^3/uL
(1.4-6.5)
Absolute Monos (auto) 1.1 H 10^3/uL
(0.1-0.6)
Immature Gran % 0.6 H %
(0-0.5)
Neutrophils % 84.3 H %
(42.2-75.2)
Lymphocytes % 7.2 L %
(20.5-51.1)
PT 27.5 H Sec
(11.4-14.6)
Potassium 3.3 L mmol/L
(3.5-5.1)
BUN 39 H mg/dl
(9-20)
Glucose 131 H mg/dl
(70-99)
Lactic Acid 4.5 H* mmol/L
(0.7-2.0)
Total Bilirubin 9.0 H mg/dl
(0.2-1.3)
AST 115 H U/L
(17-59)
ALT 54 H U/L
(0-50)
Alkaline Phosphatase 140 H U/L
(38-126)
Ammonia 41 H umol/L
(9-30)
Urine Ketones 1+ A
(Negative)
Ur Occult Blood Reflex 4+ A
(Negative)
Urine Urobilinogen 2+ A
(Neg - 1+)
Leukocyte Esterase Rfl 1+ A
(Negative)
Urine Albumin (Reflex) 2+ A
(Neg - Trace)
U Marijuana (THC) Screen Positive H
(Negative)
06/01/24 09:15
06/01/24 09:15
Vital Signs
Initial and Last Documented VS:
Initial Vital Signs
Temp Pulse Resp BP Pulse Ox
97.6 F 63 18 81/38 100
06/01/24 09:11 06/01/24 09:11 06/01/24 09:11 06/01/24 09:11 06/01/24 09:11
Last Documented Vital Signs
Temp Pulse Resp BP Pulse Ox
97.6 F 66 12 95/55 100
06/01/24 09:11 06/01/24 12:45 06/01/24 13:00 06/01/24 12:45 06/01/24 09:11
MDM/Problems Addressed
MDM/Problems Addressed:
Unclear etiology to the patient's sepsis. Certainly concerning for cholangitis given Risk factors and lack of appropriate outpatient antibiotic use. There is no obvious ascites on bedside ultrasound thus no indication for paracentesis for SBP.
Broad-spectrum IV antibiotics initiated, the patient was refractory to IV fluids and remained quite hypotensive thus requiring use of vasopressors. Marginally elevated ammonia I do not feel this represents the underlying cause of his altered mental
status will admit to the ICU
*Critical Care Note
Total Time (30-74mins, 75-104mins- exclusive of procedures): 60 minutes
comment:
Critical care time: 60 minutes
Critical care time was exclusive of: Separately billable procedures, treating other patients, and teaching time
Critical care was necessary to treat or prevent imminent or life-threatening deterioration of the following conditions: Toxic metabolic encephalopathy, hypotension
Critical care time spent personally by me on the following activities:
[x] Review of old charts
[x] Obtaining history from patient or surrogate
[x] Ordering and review of the laboratory studies
[x] Ordering and review of radiographic studies
[x] Ordering and performing treatments and interventions
[x] Patient patient's response to treatment
[x] Development of treatment plan with patient or surrogate
Update Note
Update Note:
Bedside limited ultrasound performed by myself shows no evidence of large drainable fluid collection in the abdomen to suggest SBP, bedside paracentesis withheld
ED Attending Note
-
Portions of this chart may have been created with voice recognition software.� Occasional wrong word or��sound alike� substitutions may have occurred due to the inherent limitations of voice recognition software.
Discharge Plan
Departure
Patient Disposition: Admit
Date of Disposition: 06/01/24
Time of Disposition: 11:23
Admit to: ICU
Presentation/result/management discussed w/ accepting MD/DO: Hospitalist
Discharge Problem:
Toxic metabolic encephalopathy, Sepsis
Prescriptions:
No Action
folic acid 1 mg Tablet
1 mg PO DAILY Qty: 30 0RF
Xifaxan 550 mg Tablet
550 mg PO BID Qty: 60 0RF
furosemide [Lasix] 40 mg Tablet
40 mg PO DAILY
carvedilol [Coreg] 6.25 mg Tablet
6.25 mg PO BID
lactulose 10 gram/15 mL Solution
20 g PO QID
polyethylene glycol 3350 17 gram Powder In Packet
17 g PO DAILY Qty: 0 0RF
pantoprazole 40 mg Tablet,Delayed Release (Dr/Ec)
40 mg PO DAILY Qty: 0 0RF
omeprazole 20 mg Tablet,Disintegrat, Delay Rel
20 mg PO DAILY
cyanocobalamin (vitamin B-12) [Vitamin B-12] 1,000 mcg tablet
500 mcg PO DAILY
Referrals:
[facility] [Family Provider] -
Interventions
Interventions:
*Risk Screen - Suicide Last Done: 06/01/24 09:11
*Neglect/Abuse Screening Last Done: 06/01/24 09:11
*ED COVID-19 Vaccine History Last Done: 06/01/24 09:11
ED- Neurological Assessment Last Done: 06/01/24 10:11
ED Swallowing Screen Last Done: 06/01/24 10:11
Discharge Date and Time
Print Language: KYRGYZ
[2024-06-01 10:15] LABS: Urine Albumin 2+ (Neg - Trace); Urine Bilirubin Negative (Negative); Urine Character Clear (Clear); Urine Color Amber; Urine Glucose Negative (Negative); Urine Ketone 1+ (Negative); Urine Leukocyte 1+ (Negative); Urine Nitrite Negative (Negative); Urine Occult Blood 4+ (Negative); Urine Specific Gravity 1.025 (<1.030); Urine Urobilinogen 2+ (Neg - 1+)
[2024-06-01 10:27] LABS: Lactic Acid 4.5 mmol/L (0.7-2.0)
--- NOTE | 2024-06-01 10:40 | PHANOTE ---
med rec note- patient from [facility] spoke to nurse karen [phone], patient discharge on 05/26/2024 with cipro and cephalexin new start to continue at [facility] but the facility never started them
[2024-06-01 10:45] LABS: Urine Amorphous Seen; Urine Red Blood Cell 0-2 /HPF (0-2); Urine Squamous Cell 0-2 /LPF (Few); Urine White Cell 0-2 /HPF (0-5)
[2024-06-01] MEDS: ZOSYN 50 IV ×2 (11:01→18:14)
[2024-06-01 11:28] LABS: Amphetamines Negative (Negative); Barbiturates Negative (Negative); Benzodiazepines Negative (Negative); Buprenorphine Negative (Negative); Cocaine Negative (Negative)
[2024-06-01 11:29] LABS: Methamphetamines Negative (Negative)
[2024-06-01 11:30] LABS: Methadone Negative (Negative); Opiates Negative (Negative); Phencyclidine Negative (Negative)
[2024-06-01 11:31] LABS: Marijuana Positive (Negative); Tricyclic Antidepressants Negative (Negative)
[2024-06-01] MEDS: NSS 500 IV (11:48)
[2024-06-01] MEDS: LEVOPHED 250 IV (11:54)
--- NOTE | 2024-06-01 12:32 | HPS.HSE ---
Family Physician
-
Family Physician: Facility [facility]
Chief Complaint
-
Lethargic, hypotensive
History of Present Illness
44-year-old male from [facility] sent due to change in mental status. Patient was admitted at [place] end of April through May 26 due to hepatic encephalopathy underwent paracentesis for 1.7 L of ascitic fluid that was
negative for SBP he did undergo an EGD showing evidence of portal gastropathy but no active upper GI bleed. He was seen here 4 days ago due to wounds on bilateral feet he was given prescription for Keflex and Cipro for SBP prophylaxis on his
discharge on 05/26 but they never started it. On arrival to the ER patient was lethargic but arousable to loud voice but frequently had nonsensical speech he is currently in septic shock with BP 83/39 despite IV fluids. Patient is awake alert
oriented x 3 however is lethargic does start to ramble as he is falling asleep during my exam. He states he is taking his Xifaxan daily but has missed multiple doses of lactulose as it does not work he states. He reports dizziness only. He denies
headache, sore throat, fever, chills, chest pain, palpitations, cough, shortness of breath, abdominal pain, nausea, vomiting, diarrhea, urinary symptoms, sick contacts. He has past medical history of alcohol abuse, marijuana use, alcoholic
cirrhosis, hepatic encephalopathy, chronic anemia, chronic thrombocytopenia due to cirrhosis, chronic anasarca bilateral lower legs portal hypertension, decompensated cirrhosis, esophageal varices status post banding ascites status post 1.5 L
removed 05/24/2024, chronic transaminitis, erosive gastropathy per EGD 05/26/2024, chronic anemia, chronic B12 deficiency, chronic peripheral neuropathy, nicotine abuse, marijuana use
Medical History
Past Medical History
Past Medical History: Reports Other
Additional Past Medical History:
alcohol abuse
Alcoholic cirrhosis
hepatic encephalopathy
Supratherapeutic INR due to cirrhosis
chronic anemia
chronic B12 deficiency
chronic thrombocytopenia due to cirrhosis
chronic anasarca bilateral lower legs portal hypertension
decompensated cirrhosis, esophageal varices status post banding ascites status post 1.5 L removed 05/24/2024
chronic transaminitis
erosive gastropathy per EGD 05/26/2024
chronic peripheral neuropathy
nicotine abuse
marijuana use
Past Surgical History: Reports Other
Additional Past Surgical History:
wisdom teeth extraction
Esophageal varices s/p banding
Social History
Tobacco: Non-smoker
Alcohol: Former (can not remember when last drink was )
Drug: None
Personal: Single
Living: Alone
Family History
Family History: Not pertinent
Allergies / Home Medications
Allergies reflects when Allergies were last updated in [employer].
Home Medications with original date entered in [employer]
Allergy/Medication List:
Allergies
Allergy/AdvReac Type Severity Reaction Status Date / Time
No Known Allergies Allergy Verified 05/23/24 12:39
Home Medications
thiamine HCl (vitamin B1) 100 mg tablet 100 mg PO DAILY Supplement 03/07/23
folic acid 1 mg tablet 1 mg PO DAILY #30 tabs 10/25/23
rifaximin 550 mg tablet (Xifaxan) 550 mg PO BID #60 tabs 10/25/23
carvedilol 6.25 mg tablet (Coreg) 6.25 mg PO BID 05/23/24
furosemide 40 mg tablet (Lasix) 40 mg PO DAILY 05/23/24
lactulose 10 gram/15 mL oral solution 20 g PO QID 05/23/24
omeprazole 20 mg capsule,delayed release 20 mg PO DAILY 05/23/24
Review of Systems
-
History Source: Patient and Other (2 correctional officers at bedside)
A 12 point ROS was completed and negative except as noted: Yes
Constitutional: Reports Fatigue; Denies Fever or Chills
EENT: Reports Other (Acute jaundice); Denies Sore Throat or Runny Nose
Respiratory: Denies Cough or Trouble Breathing
Cardiac: Denies Chest Pain, Diaphoresis, Palpitations or Syncope
Abdomen/GI: Denies Abdominal Pain, Nausea, Vomiting, Diarrhea, Constipated, Bloody Stools or Black Stools
: Reports Dark Urine; Denies Dysuria, Frequency, Flank Pain, Incontinence or Difficulty Voiding
Musculoskeletal: Reports Edema (+3 dorsal pedal, +2 lower legs up to hips and buttocks); Denies Joint Pain
Skin: Denies Itching or Rash
Neurological: Reports Dizzy and Weakness (Generalized due to hyperbilirubinemia/hepatic encephalopathy); Denies Headache
Endocrine: Denies Polyuria or Polydipsia
Hematologic/Lymphatic: Denies Bleeding
Psych: Reports Calm
Physical Exam
Vital Signs
Vital Signs
Temp Pulse Resp BP Pulse Ox
97.6 F 62 15 83/39 100
06/01/24 09:11 06/01/24 11:45 06/01/24 12:00 06/01/24 11:45 06/01/24 09:11
Physical Exam
General: Comfortable and Conversant (But falls asleep during exam); No Pain, Fever or Chills
HEENT: NormoCephalic, Atraumatic, PERRLA, [place] Conjunctivae, No Ptosis, Neck Nontender and Other (Scleral icterus)
Respiratory: Clear; No Wheezes, Rales or Rhonchi
Cardiac: S1/S2, Regular Rhythm and Peripheral Edema (+3 dorsal pedal, +2 lower legs up to hips and buttocks); No Murmur, Rub or Gallop
Breast: Deferred by me
GI: Soft, Non Tender, Non Distended, Normal Bowel Sounds and No Hepatosplenomegaly
Rectal: Deferred by Provider
Genito-urinary: Deferred by me
Musculoskeletal: No Clubbing, No Cyanosis, Edema, Left Lower Extremity, Edema, Right Lower Extremity and Other (+3 dorsal pedal, +2 lower legs up to hips and buttocks); No Edema, Left Upper Extremity or Edema, Right Upper Extremity
Skin: Warm, Dry and Other (Petechial rash to right foot secondary to +3 dorsal pedal edema likely capillary vessel ruptures); No Rash
Neuro: No Motor Deficits, Cranial Nerves Intact, No Sensory Deficits and Other (Lethargic but oriented x 3 does fall asleep during exam as falling asleep starts to mumble nonsense, bilateral feet with plastic restraints in place from present); No
Slurred Speech, Facial Droop, Tremors or Sedated
Psych: Calm
Laboratory Results
-
06/01/24 09:15
06/01/24 09:15
Laboratory Results
PT 27.5 Sec (11.4-14.6) H 06/01/24 09:15
INR 2.56 06/01/24 09:15
Lactic Acid 4.5 mmol/L (0.7-2.0) H* 06/01/24 10:05
Total Bilirubin 9.0 mg/dl (0.2-1.3) H 06/01/24 09:15
AST 115 U/L (17-59) H 06/01/24 09:15
ALT 54 U/L (0-50) H 06/01/24 09:15
Alkaline Phosphatase 140 U/L (38-126) H 06/01/24 09:15
Lipase 43 U/L (23-300) 06/01/24 09:15
Data Reviewed
-
Diagnostic Radiology: Report Reviewed by me
Lab Data: Labs Reviewed by me
Impression/Plan
-
Impression/plan:
Admit to ICU
#Septic shock unclear etiology
Patient with no complaints of cough, shortness of breath, fever, chills, abdominal pain
WBC 16 with left shift, temp 97.6 F, 83/39
Lactic acid 4.5 will trend
Urinalysis negative
- Blood cultures x 2,
-BP 81/38 > 83/39 post 3 L IV NSS
-Continue IV NSS 100 cc/h
- Continue Levophed
- IV Zosyn, IV vancomycin
- Consult editor book
- PT/OT/case management consult
CXR: Pulmonary interstitial markings at least top normal cannot exclude mild interstitial edema or pneumonitis
#Acute hypokalemia
Potassium 3.3
- K rider 40 mEq
- Follow BMP
EKG: NSR 62 bpm, prolonged QTC 525 MS
#Prolonged QTc 525 MS
- Hold prolonging QTc agents
- Follow on telemetry
#Positive marijuana use
Urine drug screen positive for marijuana-patient states was daily marijuana user until 05/13 when he was incarcerated
#Acute on chronic hepatic encephalopathy with hyperbilirubinemia- related to noncompliance with meds, lactulose and rifaximin on last admission. Has been incarcerated since May 13.
T. bili 9 > 6.2 noncompliant with lactulose per patient he states however he is taking rifaximin
-Continue lactulose 20gm 4 times daily, rifaximin.
-
#Supratherapeutic INR due to cirrhotic liver/worsening liver failure due to chronic alcohol use
INR 2.56 > 1.99 on 05/23/2024
#Right ankle cellulitis -improving
#Chronic petechial rash to right foot in setting of +3 edema
#Chronic anasarca due to Portal hypertension
-significant bilateral lower extremity edema. Doppler ultrasound negative for DVT on visit.
- Hold Lasix 40 mg daily
#Alcohol abuse
-Currently no alcohol since arrest on 05/13/2024
-reportedly patient still drinks 1/5 a day of hard liquor vodka, whiskey, fireball whenever he could get up until arrest on 05/13/2024
He is under arrest for DUI.
- Continue vitamin B12, folic acid 1 mg daily
#Decompensated cirrhosis -Chronic alcohol related cirrhosis
#Chronic transaminitis secondary to alcohol abuse
#Hx ascites status post paracentesis 1.7 L removed by IR 05/24/2024
IV ceftriaxone for SBP prophylaxis and Rx for Keflex/Cipro which was not started at [facility]
(Review of culture peritoneal fluid no growth)
No significant ascites on bedside ultrasound in ER today 06/01/2024*
- Follow CMP
#Hx erosive gastropathy recent EGD 05/26/2024
- Continue Protonix 40 mg daily
#Acute on chronic anemia -Macrocytic anemia.
Hgb 8.5�baseline appears to be 9. No evidence of bleeding.
Not iron deficient per recent labs April - May 2024
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
portal hypertension,
erosive gastropathy with stigmata of recent bleeding treated with monopolar probe
#Acute on chronic thrombocytopenia secondary to cirrhosis
Plt 73 <118 on 05/28/2024
#Vitamin B12 deficiency
- continue oral repletion.
#Chronic peripheral neuropathy -suspect related to alcohol.
#Nicotine abuse
Was smoking daily unknown amount prior to arrest on 05/13/2024
- Cessation advised
DVT prophylaxis
SCDs given platelets are 78
Full code since patient incarcerated must call medical staff if case worsens [phone] as we must get Paper Inserter approval to contact emergency contact patient lists as a friend Lydia his friend [phone]. Patient still has living parents which
are his next of kin he is estranged from
--- NOTE | 2024-06-01 13:04 | W.PN.UPDATE ---
Update Note
Progress Note Update
This is an addendum to H&P written by Tawny Glasgow on 06/01/2024. Patient seen examined independently with CRIME SCENE EXAMINER.
44-year-old male past medical history of alcoholic cirrhosis, hepatic encephalopathy, hypertensive erosive gastropathy, chronic anemia, peripheral neuropathy, alcohol use disorder, presenting from [facility] due to change in
mental status.
Patient was recently admitted and discharged on May 26 due to decompensated hepatic cirrhosis and acute hepatic encephalopathy. He was started on lactulose and rifaximin. He underwent paracentesis with drainage of 1.7 L of fluid. No evidence of
SBP on analysis. He was on SBP prophylaxis. Due to worsening of anemia he underwent EGD on May 26 which showed portal hypertensive gastropathy. He was discharged on PPI.
Patient's blood pressure in the 70s systolic. Labs show leukocytosis, stable anemia, thrombocytopenia with platelets of 73. Lactic acid 4.5. Potassium 3.3. Stable transaminitis with bilirubin of 9 from 6.2 previously. Ammonia level of 41 from
63.
On examination he has petechia on lower ankles.
Chest x-ray showed pulmonary interstitial markings at least top normal cannot exclude mild interstitial edema or pneumonitis. Bedside ultrasound showed no significant ascites. UDS positive for marijuana. INR of 2.56 from 1.99 previously.
Patient clinically with septic shock unclear source although could be pneumonia. Also with hepatic encephalopathy due to lactulose noncompliance. Transaminitis secondary to worsening liver failure. Thrombocytopenia secondary to sepsis/cirrhosis.
COVID and flu pending. Trend lactate.
Blood cultures pending. IV fluids started. Hold Lasix. Levophed started. Vancomycin/Zosyn. Replete potassium.
[2024-06-01] MEDS: KCL 270 MEQ IV (13:40)
[2024-06-01 14:03] LABS: Lactic Acid 2.3 mmol/L (0.7-2.0)
[2024-06-01 14:10] LABS: COVID-19 Antigen Negative (Negative)
--- NOTE | 2024-06-01 14:15 | CON.INTV ---
Consultation
Consultation Request
Date/Time Consultation Requested: 06/01/2024 at 13:08
Date/Time Consultation Performed: 06/01/2024 at 14:15
Requesting Provider: Tawny Glasgow
Reason for Consultation: septic shock, worsening cirrhosis, hypokalemia
Medical History
-
Chief Complaint: altered mental status
History of Present Illness:
Yong Ye is a 44yoM pmh hepatic encephalopathy, alcoholic cirrhosis, ascites, and depression from [facility] admitted for altered mental status. He was recently admitted to for hepatic encephalopathy. Paracentesis
drained 1.7L, no evidence of SBP. EGD positive for portal gastropathy and negative for upper GI bleed. Never started ciprofloxacin and keflex for SBP ppx. Seen in ED 05/28 for wounds to b/l feet. Pt reports missing multiple lactulose doses. +visual
hallucinations, +auditory hallucinations, -KIMBROUGH,-CP, -SOB, -change in vision, -N/V/D.
Past Medical History
Past Medical History: GERD, Psychiatric (anxiety, depression) and Other (Migraine headaches, Neuropathy, Numbness arms and legs, Cirrhosis liver, Hepatic encephalopathy, Erectile dysfunction, Esophageal varices. Substance use. Chronic anemia,
chronic B12 deficiency, chronic thrombocytopenia, chronic anasarca, chronic transaminitis, erosive gastrophy)
Past Surgical History: Other (Nasal surgery for Deviated septum, wisdom teeth extraction, esophageal varices s/p banding)
Social History
Tobacco: Smoker (1.5ppd)
Alcohol: Former
Drug: Former User, Marijuana and IVDA (heroin)
Personal: Single
Living: Long-Term
Employment: Employed
Family History
Family History: Reviewed & Not Pertinent
Allergies / Home Medications
Allergies
Allergy/AdvReac Type Severity Reaction Status Date / Time
No Known Allergies Allergy Verified 05/23/24 12:39
Home Medications
�Medication �Instructions �Recorded �Confirmed �Last Taken �Type
folic acid 1 mg tablet 1 mg PO DAILY #30 tabs 10/25/23 06/01/24 Unknown Rx
rifaximin 550 mg tablet (Xifaxan) 550 mg PO BID #60 tabs 10/25/23 06/01/24 10 Days Ago Rx
~05/13/24
carvedilol 6.25 mg tablet (Coreg) 6.25 mg PO BID 05/23/24 06/01/24 Unknown History
furosemide 40 mg tablet (Lasix) 40 mg PO DAILY 05/23/24 06/01/24 Unknown History
lactulose 10 gram/15 mL oral 20 g PO QID 05/23/24 06/01/24 Unknown History
solution
pantoprazole 40 mg tablet,delayed 40 mg PO DAILY #0 tabs 05/26/24 06/01/24 Unknown Rx
release
polyethylene glycol 3350 17 gram 17 g PO DAILY #0 ea 05/26/24 06/01/24 Unknown Rx
oral powder packet
cyanocobalamin (vitamin B-12) 500 mcg PO DAILY 06/01/24 06/01/24 Unknown History
1,000 mcg tablet (Vitamin B-12)
omeprazole 20 mg delayed 20 mg PO DAILY 06/01/24 06/01/24 Unknown History
release,disintegrating tablet
Review of Systems
-
Unable to Obtain full review of systems at this time due to: Acuity
History Source: Patient
Constitutional: No Symptoms
Respiratory: No Symptoms
Cardiac: No Symptoms
Abdomen/GI: No Symptoms
Neuro: No Symptoms
Vitals / Labs / Diagnostic Testing
Vital Signs
Temp Pulse Resp BP Pulse Ox
97.6 F 60 14 100/58 100
06/01/24 09:11 06/01/24 13:30 06/01/24 13:45 06/01/24 13:45 06/01/24 09:11
Lab Data
06/01/24 09:15
06/01/24 09:15
Laboratory Results
06/01/24
09:15
PT 27.5 H
INR 2.56
Microbiology
06/01/24 13:41 Nasal Swab Influenza Types A & B (STEVEN) - Final
Negative for Influenza A & B, NAAT
Negative results must be combined with clinical observations
and patient history.
Nucleic Acid Amplification test (NAAT)performed on the
[employer] platform.
Diagnostic Testing:
Physical Exam
-
HEENT: Normocephalic and Other (scleral icterus)
Cardiovascular: S1/S2, Regular Rhythm and Peripheral Edema
Respiratory: Clear and Non-Labored Respirations
GI: Soft, Non Distended, Non Tender and Normal Bowel Sounds
Neurology: Awake, Alert, Oriented and Other (asterixis )
Skin: Warm, Dry and Other (jaundice)
Exam:
Extremities: petechiae on b/l LE, BLEE edema, excoriations over R ankle
Assessment
-
Pt is a 44yo M pmh hepatic encephalopathy, alcoholic cirrhosis, ascites, and depression being admitted for toxic metabolic encephalopathy and septic shock.
septic shock
leukocytosis
hypokalemia
alcohol use
Alcoholic cirrhosis
hepatic encephalopathy
Supratherapeutic INR due to cirrhosis
chronic anemia
chronic B12 deficiency
chronic thrombocytopenia due to cirrhosis
chronic anasarca bilateral lower legs portal hypertension
decompensated cirrhosis, esophageal varices status post banding ascites status post 1.5 L removed 05/24/2024
chronic transaminitis
erosive gastropathy per EGD 05/26/2024
chronic peripheral neuropathy
nicotine use
marijuana use
Plan
Neurological: acute on chronic hepatic encephalopathy, Hx of drug and alcohol use, chronic peripheral neuropathy
- RASS goal 0
- pt denies pain, no indication for pain management at this time
- likely secondary to noncompliance with lactulose
- reports marijuana use, reports drinking a fifth a day of hard liquor until arrest on 05/13/2024 for DUI
- outside window for alcohol w/d
- UDS positive for marijuana only
- cont lactulose 20g QID, rifaximin 550 mg BID, folic acid 1mg daily for hepatic encephalopathy
- cont home B12 for vit B12 deficiency, which likely is causing the peripheral neuropathy
Cardiovascular: septic shock, HoTN, prolonged QTc
- lactic acid 4.5
- WBC 16, afebrile, hypotensive
- urinalysis neg for infection
- blood cx x2
- HoTN refractory to 3L IV NSS
- cont IV NSSS 100 cc/hr
- cont levophed per protocol for HoTN
- hold home lasix, carvedilol for HoTN
- hold QTc prolonging agents
- troponins, pro-BNP
- echo
Respiratory:
- hx: smoking tobacco, marijuana
- smoking cessation advised
- on room air
- monitor for progression of shock/hepatic encephalopathy
GI: chronic cirrhosis, vitamin B12 deficiency, hx esophageal varices s/p banding, supratherapeutic INR
- erosive gastropathy per EGD 05/26/2024
- continue home vit B12 repletion
- cont ppi for hx of GI bleeding
- cont miralax for constipation
- diet: regular
Renal: hypokalemia
- K 3.3, repleted w 40mg K
- Cr 0.8, wnl
- I's and O's
ID: septic shock
- blood cx x2
- urinalysis neg for UTI
- on IV zosyn and IV vancomycin
- abdominal u/s in morning
Heme/onc: acute on chronic thrombocytopenia secondary to cirrhosis, acute on chronic macrocytic anemia
- Hb 8.5, Plt 73
- transfuse for Hb<7 or Hb<8 w active bleeding
- transfuse for plt<10 or plt<50 w active bleeding
- dvt ppx SCDs, chemoprophylaxis held due to thrombocytopenia
Endocrine
- HbA1c
Data Reviewed
-
EKG: Tracing personally visualized and interpreted and Report reviewed by me
Radiology: Image personally visualized and interpreted and Report reviewed by me
[2024-06-01 16:15] LABS: Magnesium 2.1 mg/dl (1.6-2.3); Phosphorus 4.3 mg/dl (2.5-4.5)
[2024-06-01 16:45] LABS: NT-proBNP 531 pg/ml; Troponin I < 0.012 ng/ml
[2024-06-01 17:33] LABS: Glucose - Point of Care 105 mg/dl (70-99)
[2024-06-01] MEDS: VANCOCIN 540 MG IV (17:38)
[2024-06-01] MEDS: DUPHALAC/CHRONULAC 20 GRAMS PO ×2 (18:13→20:57)
[2024-06-01 18:18] LABS: Lactic Acid 1.5 mmol/L (0.7-2.0)
--- NOTE | 2024-06-01 19:05 | PTCARENOTE ---
Received pt from Ed around 1700 on Levophed with kcl infusing as ordered via peripheral IV site. Pt confirmed DNR status. CHG bath given, admission completed. Pt oriented, but confused conversation and at times inappropriate. Shackle applied to
l leg by guards. Otherwise please see work list.
--- NOTE | 2024-06-01 19:13 | PHA.VAN.IN ---
Assessment
- Assessment
Renal Function: Appears elevated from baseline (0.5)
Concomitant Antimicrobials: piperacillin/tazobactam
AUC Dosing Plan
- Dosing Variables
Dosing Weight (kg): 78.8
Dosing CrCl (ml/min): 120
Vd coefficient (L/kg): 0.7
- Empiric Dosing
Initial / Loading Dose: vanc 2000mg
Maintenance Regimen: vanc 1000mg Q8
Estimated AUC (mcg*h/mL): 550
Estimated Peak (mcg*h/mL): 32.1
Estimated Trough (mcg/ml): 15.5
Estimated Half Life (H): 6.7
- Monitoring
No levels ordered at this time: consider levels in next few days
Pharmacokinetics Vancomycin I
- -
Patient Age: 44
Patient Sex: Male
Vancomycin Day #: 1
Indication: Bacteremia
Requesting Provider: Tawny Glasgow
Pertinent Antimicrobial Allergies:
no pertinent antimicrobial allergies
Height / Weight:
Height 5 ft 10 in
Actual Weight 78.8 kg
- Vital Signs / Lab Results
Temp Pulse Resp BP Pulse Ox
98 F 63 12 106/56 99
06/01/24 17:16 06/01/24 17:30 06/01/24 17:45 06/01/24 17:45 06/01/24 18:24
Lab Results - Hematology
06/01/24
09:15
WBC 16.0 H
Lab Results - Chemistry
06/01/24
09:15
BUN 39 H
Creatinine 0.8
Estimated Creat Clear 120
Albumin 3.6
06/01/24 06/01/24 06/01/24
10:05 13:41 17:56
Lactic Acid 4.5 H* 2.3 H 1.5
06/01/24
22:00
Lactic Acid Cancelled
Lab Results - Urine
06/01/24
09:38
Urine Nitrite (Reflex) Negative
Leukocyte Esterase Rfl 1+ A
Urine WBC (Reflex) 0-2
Ur Squamous Epith Cells 0-2
Microbiology Results
06/01/24 13:41 Influenza Types A & B (STEVEN) - Final
Nasal Swab Negative for Influenza A & B, NAAT
Negative results must be combined with clinical observations
and patient history.
Nucleic Acid Amplification test (NAAT)performed on the
[employer] platform.
--- NOTE | 2024-06-01 20:00 | PTCARENOTE ---
Received pt from previous shift. Systems reviewed, see flowsheets. Pt is AAOx3 but drowsy. NSR on heart monitor with 1st degree HB and prolonged QTc. +4 b/l LE edema with numbness and tingling. Weak DPs. Pt reporting 10/10 generalized pain. Reached
out to overnight provider and dilaudid 0.25mg q3h PRN ordered. Pt with levo gtt infusing through forearm PIV. NSS at 100mL/hr through forearm PIV. Will continue to monitor.
[2024-06-01] MEDS: DILAUDID 0.25 MG IV (20:57)
[2024-06-01] MEDS: XIFAXAN 550 MG PO (20:57)
[2024-06-02] VITALS (65 sets, daily range): BP systolic 68–129; BP diastolic 40–75; PULSE 64–72; O2SAT 98–99; BMI 27.0
[2024-06-02] MEDS: ZOSYN 50 IV ×5 (00:32→23:38)
[2024-06-02] MEDS: LEVOPHED 250 IV ×4 (00:33→14:15)
--- NOTE | 2024-06-02 01:03 | PTCARENOTE ---
Pt is Aox3, confused conversation at times. Drowsy but easily arousable. SB on monitor w/ prolonged QT. +4 LE edema, weak pedals. Abdomen is round, and firm. Lactulose given by previous RN, no BM. Urine is tea colored. Skin is intact, pt has
petechial rash on b/l lower extremities. Levophed infusing per protocol.
[2024-06-02] MEDS: NSS 1000 IV (02:52)
[2024-06-02] MEDS: DILAUDID 0.25 MG IV ×2 (02:53→08:51)
[2024-06-02 04:56] LABS: % Lymphocytes 13.2 % (20.5-51.1); % Neutrophils 74.1 % (42.2-75.2); Hematocrit 22.8 % (39.0-52.0); Hemoglobin 7.7 g/dL (13.0-18.0); Mean Corp Hgb Conc. 33.8 g/dL (33.0-37.0); Mean Corpuscular Hgb 36.7 pg (27.0-31.0); Mean Corpuscular Volume 108.6 fL (80.0-94.0); Mean Platelet Volume 10.6 fL (7.4-10.4); Platelet Count 76 10^3/uL (130-400); White Blood Cell Count 14.4 10^3/uL (4.8-10.8)
[2024-06-02 04:57] LABS: % Basophils 0.6 % (0-2); % Eosinophils 2.9 % (0-6); % Immature Granulocytes 0.4 % (0-0.5); % Monocytes 8.8 % (1.7-9.3); Absolute Basophils 0.1 10^3/uL (0-0.2); Absolute Eosinophils 0.4 10^3/uL (0-0.7); Absolute Immature Granulocytes 0.1 10^3/uL (0-0.05); Absolute Lymphocytes 1.9 10^3/uL (1.2-3.4); Absolute Monocytes 1.3 10^3/uL (0.1-0.6); Absolute Neutrophils 10.7 10^3/uL (1.4-6.5); Nucleated Red Blood Cells % 0 % (-)
[2024-06-02] MEDS: VANCOCIN 200 IV (05:25)
[2024-06-02 05:33] LABS: ALT (SGPT) 46 U/L (0-50); AST (SGOT) 80 U/L (17-59); Albumin 2.6 g/dl (3.5-5.0); Alkaline Phosphatase 126 U/L (38-126); Blood Urea Nitrogen 30 mg/dl (9-20); Calcium 8.1 mg/dl (8.4-10.2); Carbon Dioxide 26 mmol/L (22-30); Chloride 111 mmol/L (98-107); Estimated Creatinine Clearance > 125 ml/min; Glucose 124 mg/dl (70-99); Potassium 3.1 mmol/L (3.5-5.1); Sodium 143 mmol/L (135-145); Total Bilirubin 5.4 mg/dl (0.2-1.3); Total Protein 5.8 g/dl (6.3-8.2); eGFR > 60.00
[2024-06-02] MEDS: KCL 270 MEQ IV (06:22)
--- NOTE | 2024-06-02 07:15 | W.PN.INTV ---
Today's Communication / Plan
Recommendations
Increasing pressor requirements, add midodrine/vasopressin
Diagnostic tap today, IR consulted
Pain regiment added
If not improving, will check CTA
Assessment
-
Patient is a 44-year-old male with previous history of alcoholic liver cirrhosis (on [place] transplant list), hepatic encephalopathy, recurrent abdominal ascites status post recent paracentesis, chronic alcohol abuse, current incarceration status
presenting to ER with increased confusion. On admission ammonia level 41 on admission, INR 2.56, total bili 9. Received 2.5 L normal saline resuscitation in ER, maintained on Levophed low-dose 3-4 mcgs. Appears to be in decompensated liver
failure with possible underlying sepsis etiology. Recent paracentesis labs are not indicating SBP (culture negative), he was not compliant with prophylaxis. MELD score 25. CXR showing possible CHF. Admitted to ICU for shock, presumed sepsis.
Septic shock on pressors
Abd ascites, recurrent s/p recent diagnosic paracentesis 05/24/24, culture negative
B/l LE edema, volume overload status
Decompensated liver failure (MELD score 25)
Hepatic encephalopathy
Leukocytosis
Thrombocytopenia
Hypokalemia
Conditions present PRODUCTION ROUSTABOUT
GERD
Anxiety, depression
Migraine headaches
Neuropathy
ETOH Cirrhosis, hep panel negative, on [place] transplant list
Hepatic encephalopathy on home lactulose
Erectile dysfunction
Esophageal varices s/p banding
Substance use
Chronic anemia/thrombocytopenia
Chronic B12 deficiency
Chronic anasarca, recurrent ascites s/p paracentesis 05/24/24
Chronic transaminitis
Erosive gastropathy
Portal hypertension suspected
Nasal surgery for deviated septum
[place] teeth extraction
Plan
Hepatic encephalopathy noted on presentation, ammonia level 41
Noncompliant wtih home regimen, resumed, MS improving
Psychiatric history noted above including anxiety/depression, resume on home meds
Chronic pain noted in LE, asking for more pain meds
Pain/sedation: Dilaudid PRN, will add tylenol and oxycodone with pain scale to reduce oversedation
Can consider gabapentin if needed
RASS goals: 0
Hemodynamically unstable, requiring pressors.
Requiring pressors: Levo @4 migs initially, this has escalated to 12, will add midodrine and vasopressin
Plan to wean levophed if able
Cardiac history reviewed--none noted
No prior ECHO for review, will obtain new study--reviewed/stable EF, moderate MR, mild-mod PH
Hold home meds while hypotensive
Monitor on telemetry
Oxygen needs: stable on RA
Prior history of lung disease: none noted
Supplemental O2 as indicated to maintain sats > 89%
CXR/CT reviewed indicating mild cephalization, no effusion
Can repeat imaging as needed
If shock continues w/o improvement, may consider CTA study
Advanced liver disease, GI consult
Decompensation most likely, notably noncompliant
Diet advanced as tolerated
Product Development Intern recommendations
Aspiration precautions, HOB > 30 degrees
Speech therapy eval can be considered if at elevated risk
GI prophylaxis resumed, on home PPI
No bleeding noted
Creat at baseline, no history of renal disease
No evidence of HRS
Void trials
Follow urine output, critical I/Os
Replete electrolytes as needed
Possible infection given shock, WBC on arrival
Started on empiric antibiotics
Cultures sent/pending
Agree with diagnostic paracentesis again, repeat labs
Follow fever trend, WBC count
CBC stable, no signs of bleeding or coagulopathy.
Overall he has anemia/thrombocytopenia at baseline
DVT prophylaxis as assessed based on risk, including mechanical SCDs
Can transfuse if indicated for Hb <7, plt < 10
INR elevated 2.5, follow clinically
No prior h/o diabetes or thyroid disease
Monitor accuchecks PRN/SS coverage if needed
Check HbA1c
He is DNR, overall QoL is poor, he understands that. If not clinically improving would be appropriate to discuss pall care options.
Diagnostic Data
Chest X-Ray: 06/01/24- No findings to suggest pneumonia. Pulmonary interstitial markings at least top normal, cannot exclude mild interstitial edema or pneumonitis.
02/27/24- No acute cardiopulmonary abnormality.
CT Scan:
HCT 05/23/24- No acute intracranial abnormality noted.
Abd US 06/02/24- Limited targeted ultrasound evaluation of the four quadrants of the abdomen was performed. Moderate volume ascites in the right upper and lower quadrants with trace ascites in the left upper and lower quadrants.
Echo: 06/01/24- Normal left ventricular size, wall thickness and systolic function. No regional wall motion abnormalities are seen. LV ejection fraction is 70-75%. Moderate mitral regurgitation. Mild tricuspid regurgitation. Estimated pulmonary
artery pressure of 40-45 mmHg. No prior study available for comparison.
PFT's:
Reports and relevant images were personally reviewed.
Critical Care time 45 mins -- The patient is admitted for acute critical illness for the treatment of vital organ failure and/or prevention of further life-threatening conditions. Total care includes time spent in review of history, physical exam,
medications, hemodynamic/ventilator parameters, laboratory data, imaging and discussion with house staff, pharmacy, respiratory therapy, employee communications intern, and nursing.
Subjective Dataa
Subjective Data
Date of Service:
Date of Service: June 02, 2024
Chief Complaint: Card Mounter Follow Up
Subjective:
No events ON, but patient us now on higher levo doses
More awake today
Still endorsing pain in LEs
Objective Data
Data Reviewed
Vital Signs / I&O / Oxygen:
Vital Signs
Temp Pulse Resp BP Pulse Ox
98.1 F 57 10 105/48 99
06/02/24 03:16 06/02/24 03:45 06/02/24 03:45 06/02/24 03:30 06/02/24 03:45
Intake and Output
06/01/24 06/02/24 06/03/24
06:59 06:59 06:59
Intake Total 4375.0 / 4375.0
Output Total 1849 / 1849
Balance 2525.0 / 2525.0
SaO2 99
Physical Exam
General: Comfortable and Other (NAD, chronically ill appearing, muscle wasting)
HEENT: Normocephalic and Other (scleral icterus, dry MM, temporal wasting)
Cardiovascular: S1-S2, Regular Rhythm and Peripheral Edema (3+ bilateral)
Respiratory: Clear and Non-Labored Respirations
GI: Soft, Distended and Tender (w/ palpation, non focal, diffuse)
Neurology: Awake, Alert, No Motor Deficits and Tremors
Skin: Warm, Dry and Jaundice
Labs/Micro/Reports
Lab Data
06/02/24 04:37
Laboratory Results
06/01/24
09:15
PT 27.5 H
INR 2.56
Microbiology
06/01/24 13:41 Nasal Swab Influenza Types A & B (STEVEN) - Final
Negative for Influenza A & B, NAAT
Negative results must be combined with clinical observations
and patient history.
Nucleic Acid Amplification test (NAAT)performed on the
[employer] platform.
--- NOTE | 2024-06-02 08:06 | PHA.VAN.FU ---
Vancomycin Assessment / Plan
- Assessment
Renal Function: Stable (0.6)
WBC's are: Trending Down (16->14.4)
In the past 24 hrs, patient has been: Afebrile
Concomitant Antimicrobials: Piperacillin/Tazobactam, Rifaximin
- Dosing Plan
Adjust Regimen to: Vanco 1500mg Q12H Starting 06/02/24 1800
New Regimen Predicts: AUC (501), Peak (34.5), Trough (11.1)
- Monitoring Plan
No level(s) ordered at this time: Consider in the next few days
Monitoring Comments: Monitor renal function and increase in pressor support requirements
- Follow Up
Pharmacy will continue to follow.
Vancomycin Follow UP
- -
Patient Age: 44
Patient Sex: Male
Vancomycin Day #: 2
Indication: Bacteremia
Requesting Provider: Tawny Glasgow
Pertinent Antimicrobial Allergies:
no pertinent antimicrobial allergies
Height / Weight:
Height 5 ft 10 in
Actual Weight 78.8 kg
- Vital Signs / Lab Results
Temp Pulse Resp BP Pulse Ox
98.1 F 57 10 105/48 99
06/02/24 07:20 06/02/24 03:45 06/02/24 03:45 06/02/24 03:30 06/02/24 03:45
Lab Results - Hematology
06/01/24 06/02/24
09:15 04:37
WBC 16.0 H 14.4 H
Lab Results - Chemistry
06/01/24 06/02/24
09:15 04:37
BUN 39 H 30 H
Creatinine 0.8 0.6 L
Estimated Creat Clear 120 > 125
Albumin 3.6 2.6 L
06/01/24 06/01/24 06/01/24
10:05 13:41 17:56
Lactic Acid 4.5 H* 2.3 H 1.5
06/01/24
22:00
Lactic Acid Cancelled
Lab Results - Urine
06/01/24
09:38
Urine Nitrite (Reflex) Negative
Leukocyte Esterase Rfl 1+ A
Ur Squamous Epith Cells 0-2
Microbiology Results
06/01/24 13:41 Influenza Types A & B (STEVEN) - Final
Nasal Swab Negative for Influenza A & B, NAAT
Negative results must be combined with clinical observations
and patient history.
Nucleic Acid Amplification test (NAAT)performed on the
[employer] platform.
--- NOTE | 2024-06-02 08:13 | CON.GI ---
Addendum entered and electronically signed by Ana Cason DO 06/02/24 17:55:
Patient seen and examined independently of EDMOND. I agree with her note with my additions below
Ynog is a 44-year-old male with history of prior heavy alcohol use, prior alcoholic hepatitis with decompensated cirrhosis with hepatic encephalopathy on Xifaxan and lactulose, ascites and lower extremity edema on diuretics who comes from the
senior living with recurrent hepatic encephalopathy weakness.
He is difficult to redirect as he is concentrating on senior living life and says that he is not being treated well.
He denies any dysphagia, GI bleeding, confusion, abdominal pain, nausea or vomiting.
He has been getting lactulose [id number] and just had a solid brown formed bowel movement
He is requiring pressure support with norepinephrine, vasopressin and midodrine
He is on empiric antibiotics with no signs of an infection with vancomycin and Zosyn
Review of his urine, blood, imaging, ascitic fluid do not show any sign of infection
On exam he has no asterixis
According to the shredder tender peat notes cardiogenic shock was ruled out, his Lasix and carvedilol have been held
MELD 23 -patient is not currently a candidate for transplant due to social situation
Continue 2 g sodium diet, continue lactulose to titrate to 2-3 bowel movements a day
We currently have nothing to add. GI will sign off. Please call back with any questions or if we can help in any way
Addendum entered and electronically signed by EDMOND Wray 06/02/24 11:21:
para complete for 1200ml/ neg SBP no albumin needed per protocol
Original Note:
Consultation
-
Date/Time Consultation Requested: 06/01/242029
Date/Time Consultation Performed: 06/02/24814
Requesting Provider: EDMOND Fairbanks
Performing Provider: EDMOND Torres, Ana Cason DO
Reason for Consultation: hepatic encephalopathy
Medical History
Chief Complaint / HPI
Chief Complaint: abdominal pain/change in mental status
History of Present Illness:
44 yo male with a PMH significant for GERD, alcohol abuse (Quit 06/2023 prior heavy use - 1 bottle daily for 4 years), ETOH hepatitis(prior steroid course 02/2023)/cirrhosis with decompensation, LE edema/cellulitis, GI bleed with MW tear, portal
gastropathy, Hepatic encephalopathy on Xifaxan and Lactulose prior to admission, gallstones with prior noted intra and extrahepatic biliary dilatation, neuropathy, and constipation who now presents with concern for recurrent hepatic encephalopathy
and multiple other complaints with weakness, abdominal pain etc. In review with patient and records he was seen in past with evaluation with Dr. Ruben Pro. He did need cardiac clearance and completed cardiac cath but never was listed as now
report issues with family and in senior living with social concern for transplant. He missed last visit at [facility] due to incarceration. He was recently admission to 05/23-05/26/24 with HE, cellulitis with antibiotic courses, upper GI bleed with drop in hbg
to range and completed follow up EGD 05/23 with portal HTN gastropathy, erosive gastropathy with treatment with monopolar probe, normal duodenal bulb. He now returns with change in mental status from senior living. On admission blood cx pending, urine
cx pending, CXR no PNA, cannot excluded mild interstitial edema or pneumonitis, limited with US with moderate ascites. Labs notable for ammonia 41, K 3.3, , glucose 131, lactate 4.5, bili 9, AST 115, ALT 54, alk phos 140, lipase 43, INR 2.56. hbg
8.5, WBC 16,000, platelets 73,000.
At this time patient admits to diffuse pain worse in legs. He has mild nausea without vomiting and ate breakfast this am. He has diffuse abdominal pain which is ongoing iwth some loose stools with lactulose but denies odynophagia, dysphagia,
GERD, constipation or rectal bleeding. He admits to compliance with lactulose and Xifaxan.
Past Medical History
Past Medical History: GERD, Psychiatric (anxiety/depression) and Other (alcohol abuse, prior substance abuse, ETOH hepatitis/cirrhosis with decompensation with ascites/LE edema, hepatic encephalopathy, GI bleeding --MW tear, portal gastropathy,
erosive gastropathy vocal cord lesion/nodule, migraines)
Past Surgical History: Other (nasal surgery)
Social History
Tobacco: Smoker (1 PPD)
Alcohol: Former (quit 3 months ago but admits to hx heavy use in past )
Drug: Former User (heroin, quit 6 years ago) and Marijuana (gummies )
Employment: Not Employed
Family History
Family History: Other (no family hx colon CA, polyps, liver disease )
Allergies / Home Medications
Allergy/AdvReac Type Severity Reaction Status Date / Time
No Known Allergies Allergy Verified 05/23/24 12:39
�Medication �Instructions �Recorded
folic acid 1 mg tablet 1 mg PO DAILY #30 tabs 10/25/23
rifaximin 550 mg tablet (Xifaxan) 550 mg PO BID #60 tabs 10/25/23
carvedilol 6.25 mg tablet (Coreg) 6.25 mg PO BID 05/23/24
furosemide 40 mg tablet (Lasix) 40 mg PO DAILY 05/23/24
lactulose 10 gram/15 mL oral 20 g PO QID 05/23/24
solution
pantoprazole 40 mg tablet,delayed 40 mg PO DAILY #0 tabs 05/26/24
release
polyethylene glycol 3350 17 gram 17 g PO DAILY #0 ea 05/26/24
oral powder packet
cyanocobalamin (vitamin B-12) 500 mcg PO DAILY 06/01/24
1,000 mcg tablet (Vitamin B-12)
omeprazole 20 mg delayed 20 mg PO DAILY 06/01/24
release,disintegrating tablet
Review of Systems
-
History Source: Patient
Constitutional: Reports Weight Gain ( wt 06/2022- 102 kg, 02/2024- 68 kg, 06/01/24 81 kg)
EENT: Reports No Symptoms
Respiratory: Reports No Symptoms
Cardiac: Reports No Symptoms
Abdomen/GI: Reports Abdominal Pain, Nausea and Diarrhea (with lactulose use )
: Reports Difficulty Voiding (pressure with urination)
Musculoskeletal: Reports Joint Pain
Skin: Reports Other (LE pain and swelling )
Neurological: Reports Weakness
Endocrine: Reports No Symptoms
Hematologic/Lymphatic: Reports No Symptoms
Vital Signs
Temp Pulse Resp BP Pulse Ox
98.1 F 57 10 105/48 99
06/02/24 07:20 06/02/24 03:45 06/02/24 03:45 06/02/24 03:30 06/02/24 03:45
Physical Exam
Exam
General: Other (chronic ill appearing )
HEENT: Normocephalic and Other (jaundice with icteric sclera )
Respiratory: Clear
Cardiac: Regular Rhythm and Peripheral Edema (+3)
GI: Soft, Tender (mild ) and Distended
Musculoskeletal: No Clubbing and No Cyanosis
Skin: Warm, Dry and Other (LE bruising, swelling /dressing in place )
Neuro: Awake, Alert, AO x 3 and Other (trace asterixis )
Psych: Calm
Results
WBC 14.4 10^3/uL (4.8-10.8) H 06/02/24 04:37
Hgb 7.7 g/dL (13.0-18.0) L 06/02/24 04:37
Hct 22.8 % (39.0-52.0) L 06/02/24 04:37
MCV 108.6 fL (80.0-94.0) H 06/02/24 04:37
Plt Count 76 10^3/uL (130-400) L 06/02/24 04:37
Absolute Neuts (auto) 10.7 10^3/uL (1.4-6.5) H 06/02/24 04:37
PT 27.5 Sec (11.4-14.6) H 06/01/24 09:15
INR 2.56 06/01/24 09:15
Sodium 143 mmol/L (135-145) 06/02/24 04:37
Potassium 3.1 mmol/L (3.5-5.1) L 06/02/24 04:37
Chloride 111 mmol/L (98-107) H 06/02/24 04:37
Carbon Dioxide 26 mmol/L (22-30) 06/02/24 04:37
BUN 30 mg/dl (9-20) H 06/02/24 04:37
Creatinine 0.6 mg/dL (0.7-1.3) L 06/02/24 04:37
Calcium 8.1 mg/dl (8.4-10.2) L 06/02/24 04:37
Total Bilirubin 5.4 mg/dl (0.2-1.3) H 06/02/24 04:37
AST 80 U/L (17-59) H 06/02/24 04:37
ALT 46 U/L (0-50) 06/02/24 04:37
Alkaline Phosphatase 126 U/L (38-126) 06/02/24 04:37
Lipase 43 U/L (23-300) 06/01/24 09:15
Diagnostic Image Results:
05/24/24 US abdomen
1. There is much ascites predominantly in the right upper quadrant
2. There are stones and sludge within the gallbladder. The gallbladder wall is thickened but this may be related to the surrounding ascites. Cholecystitis cannot be excluded.
3. Common bile duct is dilated, but has been noted to be dilated on prior ultrasounds
4. The liver is borderline in size with a coarse echotexture consistent with history of ascites
5. There is splenomegaly
02/27/24 US abdomen complete
Cholelithiasis with a negative Harden's sign, no pericholecystic fluid and no wall thickening. Findings are unlikely to represent acute cholecystitis.
Hepatosplenomegaly, similar to prior.
The common bile duct is mildly enlarged measuring 9 mm, similar to prior. There is no sonographic evidence of choledocholithiasis within the visualized common bile duct.
02/27/24 CXR No acute cardiopulmonary abnormality.
Prior GI Procedures:
EGD:02/2023 [facility] - Maria Eugenia-Merino tears. Injected. Clip was placed as
described above. No signs of varices were seen.
- Normal stomach.
- Normal examined duodenum.
- No specimens collected.
EGD: 06/11/23 [facility] - Normal esophagus. Healed MW tears, no varices seen.
- Portal hypertensive gastropathy.
- An endoclip was found in the stomach.
- Normal examined duodenum.
- No specimens collected.
05/23/24 Alej[facility] - Tortuous esophagus.
- Portal hypertensive gastropathy.
- Erosive gastropathy with stigmata of recent
bleeding. Treated with a monopolar probe.
- Normal duodenal bulb and second portion of the
duodenum.
- No specimens collected.
Colonoscopy: none
Assessment / Plan
-
44 yo male with a PMH significant for GERD, alcohol abuse (Quit 06/2023 prior heavy use - 1 bottle daily for 4 years), ETOH hepatitis(prior steroid course 02/2023)/cirrhosis with decompensation, LE edema/cellulitis, GI bleed with MW tear, portal
gastropathy, Hepatic encephalopathy on Xifaxan and Lactulose prior to admission, gallstones with prior noted intra and extrahepatic biliary dilatation, neuropathy, and constipation who now presents with concern for recurrent hepatic encephalopathy
and multiple other complaints with weakness, abdominal pain etc. In review with patient and records he was seen in past with evaluation with Dr. Ruben Pro. He did need cardiac clearance and completed cardiac cath but never was listed as now
report issues with family and in senior living with social concern for transplant. He missed last visit at [facility] due to incarceration. He was recently admission to 05/23-05/26/24 with HE, cellulitis with antibiotic courses, upper GI bleed with drop in hbg
to range and completed follow up EGD 05/23 with portal HTN gastropathy, erosive gastropathy with treatment with monopolar probe, normal duodenal bulb. He now returns with change in mental status from senior living. On admission blood cx pending, urine
cx pending, CXR no PNA, cannot excluded mild interstitial edema or pneumonitis, limited with US with moderate ascites. Labs notable for ammonia 41, K 3.3, , glucose 131, lactate 4.5, bili 9, AST 115, ALT 54, alk phos 140, lipase 43, INR 2.56, hbg
8.5, WBC 16,000, platelets 73,000.
-cirrhosis with decompensation with elevated LFT's
-hepatic encephalopathy with elevated ammonia level on admission
-recent cellulitis with marked LE edema
-coagulopathy
-hypokalemia
-macrocytic anemia
-thrombocytopenia
-neuropathy
-severe portal HTN/gastric erosion per recent EGD
-ETOH abuse/prior ETOH hepatitis
-hx MW tear
-hepatosplenomegaly on imaging
-cholelithiasis
PLAN:
etiology of symptoms with concern for ETOH cirrhosis with decompensation with mild hepatic encephalopathy with elevated ammonia level on admission in setting of recent cellulitis vs other- pt admits to compliance with medication at [facility]
pt also with worsening fluid overload with ascites/edema with wt gain
MELD 3.0 25
cont Lactulose QID and Xifaxan BID
r/o infection,- urine/blood cx pending, CXR completed -- add paracentesis to rule out SBP, add cytology-- 1 prior neg in past
change to 2 gram Na diet
t/c adding diuretics in AM after tap if BP stable
cont folate and add thiamine
correct K per medical team
will give dose vitamin K with coagulopathy and anemia
cont to trend labs
add AFP last noted 7.25 in 2022 , last US
liver serology completed recently at [facility] per patient and some in past at (2022, AMA, SLA neg, ceruloplasmin 23 mild celiac elevation) hepatitis neg 02/2024 need for eventual hep A/B vaccination
absolute ETOH abstinence and avoid liver toxins
if continue drop in hbg likely portal gastropathy but pt had not had colonoscopy in past
discussed with patient he was in work up for liver transplant but currently on hold with incarceration and admits to estrangement with family and lack of social support -- will need re eval if able vs consider goals of care discussion
-
-
Thank you for consultation and allowing me to participate in the patient's care. Please call the recreation assistant GI physician during the after hours with any questions or concerns.
--- NOTE | 2024-06-02 08:17 | W.PN.INTV ---
Today's Communication / Plan
Recommendations
- paracentesis
- follow blood/urine cx
Assessment
-
Pt is a 44yo M pmh hepatic encephalopathy, alcoholic cirrhosis, ascites, and depression being admitted for toxic metabolic encephalopathy and septic shock.
septic shock
leukocytosis
hypokalemia
alcohol use
Alcoholic cirrhosis
hepatic encephalopathy
Supratherapeutic INR due to cirrhosis
chronic anemia
chronic B12 deficiency
chronic thrombocytopenia due to cirrhosis
chronic anasarca bilateral lower legs portal hypertension
decompensated cirrhosis, esophageal varices status post banding ascites status post 1.5 L removed 05/24/2024
chronic transaminitis
erosive gastropathy per EGD 05/26/2024
chronic peripheral neuropathy
nicotine use
marijuana use
Plan
Neurological:
- Hx peripheral neuropathy, chronic hepatic encephalopathy, hx drug use
- RASS goal 0
- pt endorse b/l LE pain. On dilaudid
- outside window for alcohol w/d
- UDS positive for marijuana only
- cont lactulose 20g QID, rifaximin 550 mg BID, folic acid 1mg daily for hepatic encephalopathy
- cont home B12 for vit B12 deficiency, which likely is causing the peripheral neuropathy
Cardiovascular:
- Hx HTN
- lactic acid normalized
- leukocytosis improving, afebrile, hypotension worsening
- troponins undetectable, pro-BNP WNL
- TTE: LVEF 70-75%. Moderate MR, mild TR, pulm HTN.
- cardiogenic shock ruled out
- cont IV NSSS 100 cc/hr
- cont levophed for HoTN
- hold home lasix, carvedilol for HoTN
- hold QTc prolonging agents
Respiratory:
- hx: smoking tobacco, marijuana
- smoking cessation advised
- on room air
- monitor for progression of shock/hepatic encephalopathy
GI:
- Hx of chronic cirrhosis, vitamin B12 deficiency, esophageal varices s/p banding, supratherapeutic INR
- erosive gastropathy per EGD 05/26/2024
- abd u/s: moderate ascites
- Child Liao Class C
- MELD Score: 23 pts, 19.6% estimated 3-month mortality
- continue home vit B12 repletion
- cont ppi for hx of GI bleeding
- diagnostic paracentesis
- diet: 2g sodium, tolerating well
- appreciate GI input
Renal:
- no prior hx
- hypokalemia, repleted w KCl
- Cr wnl
- I's and O's - positive fluid balance
- UO wnl
ID: septic shock
- blood cx x2 pending
- urine cx pending
- on IV zosyn and IV vancomycin
- paracentesis pending
Heme/onc: acute on chronic thrombocytopenia secondary to cirrhosis, acute on chronic macrocytic anemia
- Hb 8.5, Plt 73
- transfuse for Hb<7 or Hb<8 w active bleeding
- transfuse for plt<10 or plt<50 w active bleeding
- dvt ppx SCDs, chemoprophylaxis held due to thrombocytopenia
Endocrine
- HbA1c 3.6
Subjective Dataa
Subjective Data
Date of Service:
Date of Service: June 02, 2024
Chief Complaint: Roving Winder Follow Up
Subjective:
Pt endorses b/l LE pain. The pain is sharp and rated a 12/10. Worse with SCDs. No sensation in feet.
Review of Systems
Cardiopulmonary: Edema and Lower Extremity Pain
Objective Data
Data Reviewed
Vital Signs / I&O / Oxygen:
Vital Signs
Temp Pulse Resp BP Pulse Ox
98.1 F 57 10 105/48 99
06/02/24 07:20 06/02/24 03:45 06/02/24 03:45 06/02/24 03:30 06/02/24 03:45
Intake and Output
06/01/24 06/02/24 06/03/24
06:59 06:59 06:59
Intake Total 4375.0 / 4375.0
Output Total 1850 / 1850
Balance 2525.0 / 2525.0
SaO2 99
Physical Exam
General: Comfortable, Pain and Good Appetite
HEENT: Normocephalic and Other (scleral icterus)
Cardiovascular: S1-S2, Murmur and Peripheral Edema
Respiratory: Clear and Non-Labored Respirations
GI: Distended, Non Tender and Normal Bowel Sounds
Neurology: AO x 3 and Other (asterixis)
Skin: Warm, Dry, Jaundice and Rash
Labs/Micro/Reports
Lab Data
06/02/24 04:37
Laboratory Results
06/01/24
09:15
PT 27.5 H
INR 2.56
Microbiology
06/01/24 13:41 Nasal Swab Influenza Types A & B (STEVEN) - Final
Negative for Influenza A & B, NAAT
Negative results must be combined with clinical observations
and patient history.
Nucleic Acid Amplification test (NAAT)performed on the
[employer] platform.
[2024-06-02] MEDS: DUPHALAC/CHRONULAC 20 GRAMS PO ×4 (08:50→22:09)
[2024-06-02] MEDS: VITAMIN B-12 500 MCG PO (08:51)
[2024-06-02] MEDS: FOLVITE 1 MG PO (08:51)
[2024-06-02] MEDS: PROTONIX 40 MG PO (08:51)
[2024-06-02] MEDS: XIFAXAN 550 MG PO ×2 (08:51→20:42)
[2024-06-02 09:19] LABS: Glycohemoglobin (HgbA1c) 3.6 % (4.0-5.6)
[2024-06-02] MEDS: MEPHYTON 10 MG PO (09:47)
[2024-06-02 11:12] LABS: Body Fluid Mononuclear 91.4 %; Body Fluid Polymorphonuclear 8.6 %; Body Fluid WBC 337 /CUMM
[2024-06-02 11:15] LABS: Body Fluid Second Tech AMA
[2024-06-02 11:25] LABS: Body Fluid Albumin < 1.0 g/dl; Body Fluid Protein < 2.0 g/dl
[2024-06-02] MEDS: ROXICODONE 5 MG PO ×3 (11:27→20:42)
[2024-06-02] MEDS: TYLENOL 650 MG PO ×3 (11:28→23:38)
[2024-06-02] MEDS: PITRESSIN 100 IV ×2 (11:29→17:45)
[2024-06-02] MEDS: VITAMIN B1 100 MG PO ×2 (11:39→20:42)
--- NOTE | 2024-06-02 15:11 | CM ---
Patient from [facility] and will call and update [facility]. Plan is to return to [facility] when medically appropriate.
--- NOTE | 2024-06-02 15:32 | WOUNDNOTE ---
LINDY (photo taken by Caitlyn Adair, [facility] RN)
--- NOTE | 2024-06-02 15:33 | WOUNDNOTE ---
SACRUM (photo taken by Caitlyn Adair, [facility] RN)
[2024-06-02] MEDS: ProAmatine 5 MG PO ×2 (15:34→23:38)
--- NOTE | 2024-06-02 15:34 | WOUNDNOTE ---
AMADEO (photo taken by Caitlyn Adair, [facility] RN)
--- NOTE | 2024-06-02 15:41 | PTCARENOTE ---
Pt continues to have bizarre conversations, but oriented. Worked with pt/ot went to bathroom and voided. Passing lot of flatus but no bm as of yet. Tolerating meals. Weaning levo as able since vaso initiated. Midodrine started as ordered.
--- NOTE | 2024-06-02 15:43 | WOUNDNOTE ---
[facility] RN NOTE: Reviewed chart, met with patient. Patient appears to have petechiae of lower extremities. Patient also has an abrasion of sacral/coccyx. No open wounds noted. Heels intact and off-loaded with pillows under calves. Patient moves and
turns easily in bed. Will sign off.
[2024-06-02 17:50] LABS: Blood Urea Nitrogen 23 mg/dl (9-20); Carbon Dioxide 25 mmol/L (22-30); Chloride 108 mmol/L (98-107); Estimated Creatinine Clearance > 125 ml/min; Glucose 123 mg/dl (70-99); Potassium 3.5 mmol/L (3.5-5.1); Sodium 141 mmol/L (135-145); eGFR > 60.00
[2024-06-02] MEDS: VANCOCIN 530 MG IV (18:21)
--- NOTE | 2024-06-02 19:27 | W.PN.HOSP.TC ---
Addendum entered and electronically signed by Josy Nayak MD 06/02/24 20:20:
I saw and evaluated the patient independently. I reviewed the resident�s note and agree with findings and plan as documented by Dr. Connolly.
GENERAL: well developed, well nourished, male in no apparent distress
HEENT:NC/AT--mild scleral icterus
HEART: regular rate and rhythm, +S1, +S2
LUNGS : clear to auscultation bilaterally
ABDOM: soft, nontender, nondistended, + bowel sounds
EXT: no cyanosis, clubbing-- bilateral 4+ pedal edema with redness
NEUROLOGIC: grossly intact
Altered mental status-- likely due to Acute hepatic encephalopathy due to chronic alcohol use--s/p paracentesis, studies pending--Continue lactulose, rifaximin, folic acid--follow for improvement-- Last day of drinking hard liquor was 05/13/2024,
doubt intoxication or withdrawal
Septic shock with leukocytosis and hypotension-- on pressors-- Lactic acid on admission was 4.5, WBC was 16, patient was hypotensive--possible UTI, SBP--blood and urine cultures no growth--cont IVF--with cirrhosis, BP might run lower--trend
lactates--cont vanco/zosyn--consider ID
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
patient's chronic alcohol use--cont thiamine, folate--check B12
Thrombocytopenia--likely due to cirrhosis and chronic ETOH use--no active bleeding
Alcohol abuse--- [facility] protocol- B cares- Alcohol cessation counseling
Nicotine abuse- Counseled smoking cessation--nicotine patch
Positive marijuana screen on urine drug screen-- Counseled on marijuana cessation
DVT prophylaxis on SCDs
code status -- DNR
Original Note:
Today's Communication/Plan
-
.
Assessment / Plan
Assessment / Plan
Acute on hepatic encephalopathy due to chronic alcohol use:
- Last day of drinking hard liquor was 05/13/2024
- Continue lactulose, rifaximin, folic acid
- Monitor ammonia levels daily
- Neurochecks every 4 hours, assess for mental status improvement
- Aspiration precautions
- Identify and treat precipitating factors
- Continue laxatives for regular bowel movements
- Peritoneal fluid study is pending
- Monitor electrolyte levels
- Protonix for GI prophylaxis
Septic shock:
- Lactic acid on admission was 4.5, WBC was 16, patient was hypotensive
- Blood culture showed no growth
- Urine culture showed no growth
- Continue fluids , try to keep the mean arterial pressure above 65 using pressors if needed, urine output more than 0.5, continue Vanco and Zosyn,
- Trend lactate, CBC, fever curve
Leukocytosis:
- WBC count is 14.4
- Possibly reactive as there is no fever and it is trending down from 16 on admission
Anemia unspecified:
- Hemoglobin is 7.7, transfuse if the hemoglobin reaches less than 7
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
- Order an iron panel to see if there is also iron deficiency anemia
Thrombocytopenia:
- Platelet count 76
- Transfuse for when the platelet count is less than 10 or platelet count is less than 50 with active bleeding
Alcohol abuse:
- [facility] protocol
- B cares
- Alcohol cessation counseling
Nicotine abuse:
- Counseled smoking cessation
Positive marijuana screen on urine drug screen:
- Counseled on marijuana cessation
DVT prophylaxis on SCDs
Anticipated Discharge: 24 - 48 hours
Subjective/Interval History
-
Date of Service: June 02, 2024
Patient is a 44-year-old male DO NOT RESUSCITATE with hepatic encephalopathy, alcoholic cirrhosis, ascites, depression was admitted here from [facility] due to change in mental status yet a previous admission where he was admitted
here for hepatic encephalopathy on May 26 underwent paracentesis related 1.7 L of ascitic fluid he also underwent an EGD on the previous admission showing portal gastropathy but no active upper GI bleed. He was also in 4 days ago for wounds of
bilateral feet. Which was diagnosed as cellulitis. Patient is disoriented.
Objective Data
-
Labs:
Laboratory Results
06/02/24
17:21
Sodium 141
Potassium 3.5
Chloride 108 H
Carbon Dioxide 25
BUN 23 H
Creatinine 0.6 L
Glucose 123 H
Calcium 8.0 L
Vital Signs:
Vital Signs
Temp Pulse Resp BP Pulse Ox
98 F 75 9 99/61 98
06/02/24 15:22 06/02/24 18:30 06/02/24 18:30 06/02/24 18:30 06/02/24 16:30
I&O
06/01/24 06/02/24 06/03/24
06:59 06:59 06:59
Intake Total 4375.0 / 4520.0 2297.3 / 2297.3
Output Total 1850 / 1850 400 / 400
Balance 2525.0 / 2670.0 1897.3 / 1897.3
Review of Systems
-
Constitutional: Denies Fever, Fatigue or Chills
EENT: Denies Sore Throat
Respiratory: Denies Cough
Cardiac: Denies Chest Pain, Palpitations or Syncope
Abdomen/GI: Denies Abdominal Pain, Nausea or Vomiting
Musculoskeletal: Denies Joint Pain
Skin: Denies Itching or Rash
Neuro: Denies Headache, Weakness, Numbness or Seizures
Physical Exam
-
General: Appears Chronically Ill
Respiratory: Clear to Auscultation
Cardiac: Regular Rhythm and S1/S2
GI: Soft and Tender (Tender with palpation)
Musculoskeletal: Edema, Right Lower Extrem and Edema, Left Lower Extrem
Skin: Warm, Dry, Rash and Lesions (Bilaterally on the feet)
Neuro: Awake, Alert, Oriented and Other (Asterixis when hands are outstretched)
Data Reviewed
-
Labs: Labs Reviewed by me and Discussed with Physician
--- NOTE | 2024-06-02 19:45 | PTCARENOTE ---
Pt has been released on medical furlough for the duration of his hospital stay. Staff is to call [phone] upon medical clearance to return to incarceration which is listed on paper copy of chart.
--- NOTE | 2024-06-02 20:00 | PTCARENOTE ---
Addendum entered by Amira Vann RN 06/03/24 01:35:
On assessment pt AAOx3 with some confused / forgetful conversations at times, SR on the monitor, on vaso through RUE PICC, +4 BLLE edema, RA 98%, Distended ABD, nontender, states, 'feels much better than earlier', Soft BMs on the toilet, uses
urinal, skin yellow, BLLE with petechiae from admission, bed alarm on and call king in reach
Original Note:
On assessment pt AAOx3 with some confused / forgetful conversations at times, SR on the monitor, +4 BLLE, RA 98%, Distended ABD, nontender, states, 'feels much better than earlier', Soft BMs on the toilet, uses urinal, skin yellow, BLLE with peti
[2024-06-02] MEDS: KCL 20 MEQ PO (20:42)
[2024-06-03] VITALS (23 sets, daily range): BP systolic 79–122; BP diastolic 46–85; BMI 27.1
--- NOTE | 2024-06-03 | PTCARENOTE ---
no changes from prior assessment, bed alarm on and call king in reach
[2024-06-03] MEDS: PITRESSIN 100 IV ×2 (00:23→07:53)
--- NOTE | 2024-06-03 04:47 | PTCARENOTE ---
pt OOB to BR multiple times, x1 assist with walker, bed alarm on and call king in reach
[2024-06-03 05:13] LABS: Hematocrit 21.2 % (39.0-52.0); Hemoglobin 7.1 g/dL (13.0-18.0); Mean Corp Hgb Conc. 33.5 g/dL (33.0-37.0); Mean Corpuscular Volume 110.4 fL (80.0-94.0); Mean Platelet Volume 10.9 fL (7.4-10.4); Platelet Count 47 10^3/uL (130-400); Red Blood Cell Count 1.92 10^6/uL (4.70-6.10); Red Cell Dist. Width 17.3 % (11.5-14.5); White Blood Cell Count 6.1 10^3/uL (4.8-10.8)
[2024-06-03 05:19] LABS: ALT (SGPT) 55 U/L (0-50); AST (SGOT) 89 U/L (17-59); Albumin 2.5 g/dl (3.5-5.0); Alkaline Phosphatase 174 U/L (38-126); Blood Urea Nitrogen 24 mg/dl (9-20); Calcium 8.1 mg/dl (8.4-10.2); Carbon Dioxide 28 mmol/L (22-30); Chloride 109 mmol/L (98-107); Estimated Creatinine Clearance > 125 ml/min; Glucose 106 mg/dl (70-99); Iron 60 ug/dl (49-181); Magnesium 1.9 mg/dl (1.6-2.3); Potassium 3.7 mmol/L (3.5-5.1); Sodium 140 mmol/L (135-145); Total Bilirubin 4.6 mg/dl (0.2-1.3); Total Protein 5.6 g/dl (6.3-8.2); eGFR > 60.00
[2024-06-03 05:28] LABS: Percent Saturation 34 % (20-50); Total Iron Binding Capacity 174 ug/dl (261-462)
[2024-06-03] MEDS: ZOSYN 50 IV (06:10)
[2024-06-03] MEDS: TYLENOL 650 MG PO ×3 (06:10→17:07)
[2024-06-03] MEDS: VANCOCIN 530 MG IV (06:36)
[2024-06-03 06:41] LABS: INR 2.28; PT 25.6 Sec (11.4-14.6)
--- NOTE | 2024-06-03 07:17 | W.PN.INTV ---
Today's Communication / Plan
Recommendations
Weaning off pressors, midodrine continued
If cultures are final negative, can d/c abx
PT/OT, OOB
Tolerating diet
Pain control
Can transfer to tele today, we will sign off upon transfer
Assessment
-
Patient is a 44-year-old male with previous history of alcoholic liver cirrhosis (on [place] transplant list), hepatic encephalopathy, recurrent abdominal ascites status post recent paracentesis, chronic alcohol abuse, current incarceration status
presenting to ER with increased confusion. On admission ammonia level 41 on admission, INR 2.56, total bili 9. Received 2.5 L normal saline resuscitation in ER, maintained on Levophed low-dose 3-4 mcgs. Appears to be in decompensated liver
failure with possible underlying sepsis etiology. Recent paracentesis labs are not indicating SBP (culture negative), he was not compliant with prophylaxis. MELD score 25. CXR showing possible CHF. Admitted to ICU for shock, presumed sepsis.
Hypovolemic shock on pressors, culture negative
Improved with volume resuscitation and resumption of medications
Abd ascites, recurrent s/p recent diagnostic paracentesis 05/24/24, culture negative
B/l LE edema, volume overload status
Decompensated liver failure (MELD score 25)
Hepatic encephalopathy
Leukocytosis
Thrombocytopenia
Hypokalemia
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
GERD
Anxiety, depression
Migraine headaches
Neuropathy
ETOH Cirrhosis, hep panel negative, on [place] transplant list
Hepatic encephalopathy on home lactulose
Erectile dysfunction
Esophageal varices s/p banding
Substance use
Chronic anemia/thrombocytopenia
Chronic B12 deficiency
Chronic anasarca, recurrent ascites s/p paracentesis 05/24/24
Chronic transaminitis
Erosive gastropathy
Portal hypertension suspected
Nasal surgery for deviated septum
[place] teeth extraction
Plan
Hepatic encephalopathy noted on presentation, ammonia level 41
Noncompliant [facility] home regimen, resumed, MS improving
Psychiatric history noted above including anxiety/depression, resume on home meds
Chronic pain noted in LE, asking for more pain meds
Pain/sedation: Dilaudid PRN, tylenol and oxycodone with pain scale to reduce oversedation
Can consider gabapentin if needed
RASS goals: 0
Hemodynamically unstable, requiring pressors initially
Requiring pressors: Levo and vaso to be turned off this AM, midodrine continued, will add PRN dosing
Cardiac history reviewed--none noted
No prior ECHO for review, will obtain new study--reviewed/stable EF, moderate MR, mild-mod PH
Home meds can likely be resumed as tolerated
Monitor on telemetry
Oxygen needs: stable on RA
Prior history of lung disease: none noted
Supplemental O2 as indicated to maintain sats > 89%
CXR/CT reviewed indicating mild cephalization, no effusion
Can repeat imaging as needed
Advanced liver disease, GI consult
Decompensation most likely, notably noncompliant
s/p paracentesis, prelim appears negative
Diet advanced as tolerated
Store Operations Specialist recommendations
Aspiration precautions, HOB > 30 degrees
Speech therapy eval can be considered if at elevated risk
GI prophylaxis resumed, on home PPI
No bleeding noted
Creat at baseline, no history of renal disease
No evidence of HRS
Void trials
Follow urine output, critical I/Os
Replete electrolytes as needed
Possible infection given shock, WBC on arrival
Started on empiric antibiotics
Cultures sent/pending--seem to be negative thus far
Would stop abx and observe off
Follow fever trend, WBC count
CBC stable, no signs of bleeding or coagulopathy.
Overall he has anemia/thrombocytopenia at baseline
DVT prophylaxis as assessed based on risk, including mechanical SCDs
Can transfuse if indicated for Hb <7, plt < 10
INR elevated 2.5, follow clinically
No prior h/o diabetes or thyroid disease
Monitor accuchecks PRN/SS coverage if needed
Check HbA1c
He is DNR, overall QoL is poor, he understands that. If not clinically improving would be appropriate to discuss pall care options.
Diagnostic Data
Chest X-Ray: 06/01/24- No findings to suggest pneumonia. Pulmonary interstitial markings at least top normal, cannot exclude mild interstitial edema or pneumonitis.
02/27/24- No acute cardiopulmonary abnormality.
CT Scan:
HCT 05/23/24- No acute intracranial abnormality noted.
Abd US 06/02/24- Limited targeted ultrasound evaluation of the four quadrants of the abdomen was performed. Moderate volume ascites in the right upper and lower quadrants with trace ascites in the left upper and lower quadrants.
Echo: 06/01/24- Normal left ventricular size, wall thickness and systolic function. No regional wall motion abnormalities are seen. LV ejection fraction is 70-75%. Moderate mitral regurgitation. Mild tricuspid regurgitation. Estimated pulmonary
artery pressure of 40-45 mmHg. No prior study available for comparison.
PFT's:
Reports and relevant images were personally reviewed.
Critical Care time 45 mins -- The patient is admitted for acute critical illness for the treatment of vital organ failure and/or prevention of further life-threatening conditions. Total care includes time spent in review of history, physical exam,
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
Subjective Dataa
Subjective Data
Date of Service:
Date of Service: June 03, 2024
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
Subjective:
Weaning off pressors this AM, MS improved
LE pain ongoing
No new complaints
Objective Data
Data Reviewed
Vital Signs / I&O / Oxygen:
Vital Signs
Temp Pulse Resp BP Pulse Ox
97.9 F 73 18 95/60 98
06/02/24 21:10 06/03/24 06:30 06/03/24 06:30 06/03/24 06:30 06/03/24 04:53
Intake and Output
06/02/24 06/03/24 06/04/24
06:59 06:59 06:59
Intake Total 4375.0 / 4520.0 2487.8 / 2487.8
Output Total 1850 / 1850 900 / 900
Balance 2525.0 / 2670.0 1587.8 / 1587.8
SaO2 98
Physical Exam
General: Comfortable and Other (NAD, chronically ill appearing, muscle wasting)
HEENT: Normocephalic and Other (scleral icterus, dry MM, temporal wasting)
Cardiovascular: S1-S2, Regular Rhythm and Peripheral Edema (3+ bilateral)
Respiratory: Clear and Non-Labored Respirations
GI: Soft, Distended and Tender (w/ palpation, non focal, diffuse)
Neurology: Awake, Alert, No Motor Deficits and Tremors
Skin: Warm, Dry and Jaundice
Labs/Micro/Reports
Lab Data
06/03/24 04:32
06/03/24 04:32
Laboratory Results
06/03/24 06/03/24
04:32 06:14
PT Cancelled 25.6 H
INR Cancelled 2.28
Microbiology
06/02/24 10:30 Peritoneal Fluid Gram Stain - Preliminary
06/01/24 09:38 Urine Urine Culture - Final
NO GROWTH
06/01/24 10:05 Blood/Venous Blood Culture - Preliminary
No Growth in 24 hours- Final report to follow
06/01/24 10:05 Blood/Venous Blood Culture - Preliminary
No Growth in 24 hours- Final report to follow
06/01/24 13:41 Nasal Swab Influenza Types A & B (STEVEN) - Final
Negative for Influenza A & B, NAAT
Negative results must be combined with clinical observations
and patient history.
Nucleic Acid Amplification test (NAAT)performed on the
[employer] platform.
--- NOTE | 2024-06-03 08:00 | PTCARENOTE ---
Pt rec'd in report from night RN, remains AOx3 extremely talkative, will carry on conversation indefinitely if not limited, pt with anxiety, perseverating on topics such as food and dietary restrictions, etc. Meds and assessment as documented, plan
discussed in rounds, vasopressin dc'd at 09:00, BPs soft but stable, pt asymptomatic. Additional orders rec'd for PRN Midodrine if needed. Labs drawn and sent, repeat ammonia level noted at 42. [facility] for update this am,
pt is on medical furlough for the duration of his hospital stay. Staff is to call [phone] upon medical clearance to return to incarceration. SONJA Fairbanks and attending Dr. Nayak aware. Pt asssted oob to chair and to BR with Rw x1. Safe
environment maintained.
--- NOTE | 2024-06-03 08:21 | W.PN.INTV ---
Today's Communication / Plan
Recommendations
- wait on blood cx and peritoneal fluid cx
Assessment
-
Pt is a 44yo M pmh hepatic encephalopathy, alcoholic cirrhosis, ascites, and depression being admitted for hepatic encephalopathy.
alcohol use
Alcoholic cirrhosis
hepatic encephalopathy
Supratherapeutic INR due to cirrhosis
chronic anemia
chronic B12 deficiency
chronic thrombocytopenia due to cirrhosis
chronic anasarca bilateral lower legs portal hypertension
decompensated cirrhosis, esophageal varices status post banding ascites status post 1.5 L removed 05/24/2024
chronic transaminitis
erosive gastropathy per EGD 05/26/2024
chronic peripheral neuropathy
nicotine use
marijuana use
Plan
Neurological:
- Hx peripheral neuropathy, chronic hepatic encephalopathy, hx drug use
- RASS goal 0
- pt endorse b/l LE pain. On dilaudid
- outside window for alcohol w/d
- UDS positive for marijuana only
- cont lactulose 20g QID, rifaximin 550 mg BID, folic acid 1mg, thiamine daily for hepatic encephalopathy
- cont home B12 for vit B12 deficiency, which likely is causing the peripheral neuropathy
Cardiovascular:
- Hx HTN
- lactic acid normalized
- leukocytosis resolved, afebrile
- troponins undetectable, pro-BNP WNL
- TTE: LVEF 70-75%. Moderate MR, mild TR, pulm HTN.
- cardiogenic shock ruled out
- wean vasopressin
- restart home lasix
- hold home carvedilol for HoTN
- hold QTc prolonging agents
Respiratory:
- hx: smoking tobacco, marijuana
- smoking cessation advised
- on room air
GI:
- Hx of chronic cirrhosis, vitamin B12 deficiency, esophageal varices s/p banding, supratherapeutic INR
- erosive gastropathy per EGD 05/26/2024
- abd u/s: moderate ascites
- Child Liao Class C
- MELD Score: 23 pts, 19.6% estimated 3-month mortality
- continue home vit B12 repletion
- cont ppi for hx of GI bleeding
- diagnostic paracentesis 06/03, pt tolerated procedure well
- diet: 2g sodium, tolerating well
- appreciate GI input
Renal:
- no prior hx
- hypokalemia resolved
- Cr wnl
- I's and O's - positive fluid balance
- UO wnl
ID:
- blood cx x2 - no growth at 24h
- urine cx - no growth
- peritoneal fluid cx - pending
- on IV zosyn and IV vancomycin
Heme/onc: acute on chronic thrombocytopenia secondary to cirrhosis, acute on chronic macrocytic anemia
- Hb 7.1, Plt 47
- repeat Hb
- transfuse for Hb<7 or Hb<8 w active bleeding
- transfuse for plt<10 or plt<50 w active bleeding
- dvt ppx SCDs, chemoprophylaxis held due to thrombocytopenia
Endocrine
- HbA1c 3.6
Subjective Dataa
Subjective Data
Date of Service:
Date of Service: June 03, 2024
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
Subjective:
No acute overnight events. Endorses being hungry and not having enough food. Pt feels his pain is well controlled.
Objective Data
Data Reviewed
Vital Signs / I&O / Oxygen:
Vital Signs
Temp Pulse Resp BP Pulse Ox
97.9 F 65 12 107/49 98
06/02/24 21:10 06/03/24 07:30 06/03/24 07:30 06/03/24 07:30 06/03/24 04:53
Intake and Output
06/02/24 06/03/24 06/04/24
06:59 06:59 06:59
Intake Total 4375.0 / 4520.0 2487.8 / 2499.8
Output Total 1850 / 1850 900 / 900
Balance 2525.0 / 2670.0 1587.8 / 1599.8
SaO2 98
Physical Exam
General: Comfortable and Other (NAD, chronically ill appearing, muscle wasting)
HEENT: Normocephalic and Other (scleral icterus, dry MM, temporal wasting)
Cardiovascular: S1-S2, Regular Rhythm and Peripheral Edema (3+ bilateral)
Respiratory: Clear and Non-Labored Respirations
GI: Soft, Non Distended, Flat and Non Tender
Neurology: Awake, AO x 3, No Motor Deficits and Tremors
Skin: Warm, Dry, Jaundice and Bruising
Labs/Micro/Reports
Lab Data
06/03/24 04:32
06/03/24 04:32
Laboratory Results
06/03/24 06/03/24
06:14
PT Cancelled 25.6 H
INR Cancelled 2.28
Microbiology
06/02/24 10:30 Peritoneal Fluid Gram Stain - Preliminary
06/01/24 09:38 Urine Urine Culture - Final
NO GROWTH
06/01/24 10:05 Blood/Venous Blood Culture - Preliminary
No Growth in 24 hours- Final report to follow
06/01/24 10:05 Blood/Venous Blood Culture - Preliminary
No Growth in 24 hours- Final report to follow
06/01/24 13:41 Nasal Swab Influenza Types A & B (STEVEN) - Final
Negative for Influenza A & B, NAAT
Negative results must be combined with clinical observations
and patient history.
Nucleic Acid Amplification test (NAAT)performed on the
[employer] platform.
[2024-06-03 08:26] LABS: % Basophils 0.8 % (0-2); % Eosinophils 3.9 % (0-6); % Immature Granulocytes 0.2 % (0-0.5); % Lymphocytes 22.7 % (20.5-51.1); % Monocytes 9.6 % (1.7-9.3); % Neutrophils 62.8 % (42.2-75.2); Absolute Basophils 0.1 10^3/uL (0-0.2); Absolute Eosinophils 0.2 10^3/uL (0-0.7); Absolute Lymphocytes 1.4 10^3/uL (1.2-3.4); Absolute Monocytes 0.6 10^3/uL (0.1-0.6); Absolute Neutrophils 3.8 10^3/uL (1.4-6.5); Nucleated Red Blood Cells % 0 % (-)
--- NOTE | 2024-06-03 08:40 | PHA.VAN.FU ---
Vancomycin Assessment / Plan
- Assessment
Renal Function: Stable (0.6)
WBC's are: WNL (6.1)
In the past 24 hrs, patient has been: Afebrile
Concomitant Antimicrobials: Piperacillin/Tazobactam, Rifaximin
- Dosing Plan
Continue: Vanco 1500mg Q12H
- Monitoring Plan
No level(s) ordered at this time: Consider in the next few days
Monitoring Comments: Monitor renal function and pressor support requirements
- Follow Up
Pharmacy will continue to follow.
Vancomycin Follow UP
- -
Patient Age: 44
Patient Sex: Male
Vancomycin Day #: 3
Indication: Bacteremia
Requesting Provider: Tawny Glasgow
Pertinent Antimicrobial Allergies:
no pertinent antimicrobial allergies
Height / Weight:
Height 5 ft 10 in
Actual Weight 85.7 kg
- Vital Signs / Lab Results
Temp Pulse Resp BP Pulse Ox
98.1 F 65 12 107/49 98
06/03/24 08:24 06/03/24 07:30 06/03/24 07:30 06/03/24 07:30 06/03/24 04:53
Lab Results - Hematology
06/01/24 06/02/24 06/03/24
09:15 04:37 04:32
WBC 16.0 H 14.4 H 6.1
Lab Results - Chemistry
06/01/24 06/02/24 06/02/24
09:15 04:37 17:21
BUN 39 H 30 H 23 H
Creatinine 0.8 0.6 L 0.6 L
Estimated Creat Clear 120 > 125 > 125
Albumin 3.6 2.6 L
06/03/24
04:32
BUN 24 H
Creatinine 0.6 L
Estimated Creat Clear > 125
Albumin 2.5 L
06/01/24 06/01/24 06/01/24
10:05 13:41 17:56
Lactic Acid 4.5 H* 2.3 H 1.5
06/01/24
22:00
Lactic Acid Cancelled
Microbiology Results
06/01/24 17:43 MRSA Screen - Final
Nose No Methicillin Resistant Staphylococcus aureus isolated.
06/02/24 10:30 Gram Stain - Preliminary
Peritoneal Fluid
06/01/24 09:38 Urine Culture - Final
Urine NO GROWTH
06/01/24 10:05 Blood Culture - Preliminary
Blood/Venous No Growth in 24 hours- Final report to follow
06/01/24 10:05 Blood Culture - Preliminary
Blood/Venous No Growth in 24 hours- Final report to follow
06/01/24 13:41 Influenza Types A & B (STEVEN) - Final
Nasal Swab Negative for Influenza A & B, NAAT
Negative results must be combined with clinical observations
and patient history.
Nucleic Acid Amplification test (NAAT)performed on the
[employer] platform.
--- NOTE | 2024-06-03 09:05 | CM ---
Addendum entered by Laurie Fairbanks 06/03/24 14:22:
Per nursing patient on 'hiatus' and they are to call [facility] when patient for discharge. CM called to [facility]; Guillermo is uncertain and will check and call CM back with instructions for discharge. CM will continue to follow for discharge planning
needs
Pending dispensary clarification
Original Note:
Patient no longer with guards present. CM will talk to patient and review discharge planning needs.
[2024-06-03] MEDS: DUPHALAC/CHRONULAC PO (09:57)
[2024-06-03] MEDS: XIFAXAN 550 MG PO ×2 (09:57→19:50)
[2024-06-03] MEDS: PROTONIX 40 MG PO (09:57)
[2024-06-03] MEDS: ProAmatine 5 MG PO ×2 (09:57→15:48)
[2024-06-03] MEDS: FOLVITE 1 MG PO (09:57)
[2024-06-03] MEDS: VITAMIN B-12 500 MCG PO (10:00)
[2024-06-03] MEDS: VITAMIN B1 PO (10:14)
[2024-06-03] MEDS: ROXICODONE 5 MG PO ×3 (10:32→19:51)
[2024-06-03 10:46] LABS: Ammonia 42 umol/L (9-30)
[2024-06-03] MEDS: DUPHALAC/CHRONULAC 20 GRAMS PO ×3 (12:49→21:50)
[2024-06-03] MEDS: LASIX 40 MG PO (12:49)
--- NOTE | 2024-06-03 13:47 | PTCARENOTE ---
Pt downgraded to tele. VSS, pt pleasant and cooperative. Ringing call king appropriately. Discharge plan discussed with director outcomes, RN to call security as well as retirement when pt is ready for discharge.
--- NOTE | 2024-06-03 14:37 | W.PN.HOSP.TC ---
Addendum entered and electronically signed by Josy Nayak MD 06/03/24 16:09:
I saw and evaluated the patient independently. I reviewed the resident�s note and agree with findings and plan as documented by Dr. Connolly.
GENERAL: well developed, well nourished, male in no apparent distress
HEENT:NC/AT--mild scleral icterus
HEART: regular rate and rhythm, +S1, +S2
LUNGS : clear to auscultation bilaterally
ABDOM: soft, nontender, nondistended, + bowel sounds
EXT: no cyanosis, clubbing-- bilateral 4+ pedal edema with redness, appears petechial
NEUROLOGIC: grossly intact
Altered mental status--resolved-- likely due to Acute hepatic encephalopathy due to chronic alcohol use--s/p paracentesis, studies pending--Continue lactulose, rifaximin, folic acid--follow for improvement-- Last day of drinking hard liquor was
05/13/2024, doubt intoxication or withdrawal
Septic shock with leukocytosis and hypotension required pressors--resolved, no source of infection found-- Lactic acid on admission was 4.5, WBC was 16, patient was hypotensive--blood and urine cultures no growth--cont IVF--with cirrhosis, BP might
run lower--stop vanco/zosyn
Anemia likely of chronic disease with cirrhosis--BUT pt had GI bleeding last admission-- iron studies show chronic disease--consider transfusion if < 7--no evidence of active bleeding at this time- MCV is 108.6 which is showing megaloblastic anemia
probably due to patient's chronic alcohol use--cont thiamine, folate--check B12
Thrombocytopenia--likely due to cirrhosis and chronic ETOH use--no active bleeding
Alcohol abuse--- [facility] protocol- B cares- Alcohol cessation counseling
Nicotine abuse- Counseled smoking cessation--nicotine patch
Positive marijuana screen on urine drug screen-- Counseled on marijuana cessation
DVT prophylaxis on SCDs
code status -- DNR
if all stays stable, anticipate d/c tomorrow
Original Note:
Today's Communication/Plan
-
- Trend ammonia
- Trend CBC and CMP
- MSAS
- Titrate down lactulose
Assessment / Plan
Assessment / Plan
Acute on hepatic encephalopathy due to chronic alcohol use
Bilateral feet edema secondary to hepatic encephalopathy with petechiae:
- Last day of drinking hard liquor was 05/13/2024
- Continue lactulose, rifaximin, folic acid
- Monitor ammonia levels daily
- Neurochecks every 4 hours, assess for mental status improvement
- Aspiration precautions
- Identify and treat precipitating factors
- Continue laxatives for regular bowel movements
- peritoneal fluid analysis is negative
- Monitor electrolyte levels
- Protonix for GI prophylaxis
- Wound care consulted
- Check hemoglobin
- Check ammonia
- Stop antibiotics
- Wound care consulted and states petechiae and not cellulitis, most likely due to decreased platelet count
Watery Diarrhea:
- no stool, fever, no increased wbc count
- likely due to Lactulose induced
- ammonia level trend, today 42 and elevated
- Titrate lactate to only 2-3 bowel movements a day
- stool cultures
Hypovolemic shock:
- Lactic acid on admission was 4.5, WBC was 16, patient was hypotensive
- Blood culture showed no growth
- Urine culture showed no growth
- Continue fluids , try to keep the mean arterial pressure above 65 using pressors if needed, urine output more than 0.5, continue Vanco and Zosyn,
- Trend lactate, CBC, fever curve
Leukocytosis:
- WBC count is 14.4
- Possibly reactive as there is no fever and it is trending down from 16 on admission
Anemia of chronic disease:
- Hemoglobin is 7.1, transfuse if the hemoglobin reaches less than 7
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
- Iron panel negative
Thrombocytopenia:
- Platelet count 76
- Transfuse for when the platelet count is less than 10 or platelet count is less than 50 with active bleeding
Alcohol abuse:
- [facility] mira protocol
- B cares
- Alcohol cessation counseling
Nicotine abuse:
- Counseled smoking cessation
Positive marijuana screen on urine drug screen:
- Counseled on marijuana cessation
DVT prophylaxis on SCDs
Anticipated Discharge: 24 - 48 hours
Subjective/Interval History
-
Date of Service: June 03, 2024
Patient is a 44-year-old male DO NOT RESUSCITATE with hepatic encephalopathy, alcoholic cirrhosis, ascites, depression was admitted here from [facility] due to change in mental status yet a previous admission where he was admitted
here for hepatic encephalopathy on May 26 underwent paracentesis related 1.7 L of ascitic fluid he also underwent an EGD on the previous admission showing portal gastropathy but no active upper GI bleed. He was also in 4 days ago for wounds of
bilateral feet. Which was diagnosed as cellulitis. Patient is disoriented.
Objective Data
-
Labs:
Laboratory Results
06/03/24 06/03/24 06/03/24
04:32 06:14 15:00
WBC 6.1
Hgb 7.1 L Pending
Hct 21.2 L
Plt Count 47 L D
PT Cancelled 25.6 H
INR Cancelled 2.28
Sodium 140
Potassium 3.7
Chloride 109 H
Carbon Dioxide 28
BUN 24 H
Creatinine 0.6 L
Glucose 106 H
Calcium 8.1 L
Total Bilirubin 4.6 H
AST 89 H
ALT 55 H
Alkaline Phosphatase 174 H
Vital Signs:
Vital Signs
Temp Pulse Resp BP Pulse Ox
97.6 F 76 19 104/60 94
06/03/24 12:00 04/10/25 12:49 06/03/24 12:30 06/03/24 12:49 06/03/24 08:30
I&O
06/02/24 06/03/24 06/04/24
06:59 06:59 06:59
Intake Total 4375.0 / 4520.0 2487.8 / 2499.8 384 / 384
Output Total 1850 / 1850 900 / 900 100 / 100
Balance 2525.0 / 2670.0 1587.8 / 1599.8 284 / 284
Review of Systems
-
Constitutional: Denies Fever, Fatigue or Chills
EENT: Denies Sore Throat
Respiratory: Denies Cough
Cardiac: Denies Chest Pain, Palpitations or Syncope
Abdomen/GI: Reports Abdominal Pain; Denies Nausea or Vomiting
Musculoskeletal: Denies Joint Pain
Skin: Denies Itching or Rash
Neuro: Denies Headache, Weakness, Numbness or Seizures
Physical Exam
-
General: Appears Chronically Ill
Respiratory: Clear to Auscultation
Cardiac: Regular Rhythm and S1/S2
GI: Soft and Tender (Tender with palpation)
Musculoskeletal: Edema, Right Lower Extrem and Edema, Left Lower Extrem
Skin: Warm, Dry, Rash and Lesions (Bilaterally on the feet)
Neuro: Awake, Alert, Oriented and Other (Asterixis when hands are outstretched)
[2024-06-03 16:07] LABS: Hemoglobin 7.5 g/dL (13.0-18.0)
--- NOTE | 2024-06-03 16:34 | PTCARENOTE ---
Pt reassessed, no change in assessment, BP remains stable, 102/54 currently, no needs at this time.
--- NOTE | 2024-06-03 17:13 | W.PN.HOSP.TC ---
Today's Communication/Plan
-
- Patient is being discharged today
Assessment / Plan
Assessment / Plan
Acute on hepatic encephalopathy due to chronic alcohol use
Bilateral feet edema secondary to hepatic encephalopathy with petechiae:
- Last day of drinking hard liquor was 05/13/2024
- Continue lactulose, rifaximin, folic acid
- Monitor ammonia levels daily
- Neurochecks every 4 hours, assess for mental status improvement
- Aspiration precautions
- Identify and treat precipitating factors
- Continue laxatives for regular bowel movements
- peritoneal fluid analysis is negative
- Monitor electrolyte levels
- Protonix for GI prophylaxis
- Wound care consulted
- Check hemoglobin outpatient
- Stop antibiotics
- Wound care consulted and states petechiae and not cellulitis, most likely due to decreased platelet count
Hyperbilirubinemia:
- Patient has total bilirubin level of 5.5 which is trending up
- Patient was seen by gastroenterology whom are ok with him getting dicharged today
- No jaundiced skin, scleral icterus has gone down considerably
Hypokalemia:
- potassium is 3.3
- Repleted potassium
Watery Diarrhea:
- no stool, fever, no increased wbc count
- likely due to Lactulose induced
- ammonia level trend, today 42 and elevated
- Titrate lactate to only 2-3 bowel movements a day
Hypovolemic shock:
- Lactic acid on admission was 4.5, WBC was 16, patient was hypotensive
- Blood culture showed no growth
- Urine culture showed no growth
- Continue fluids , try to keep the mean arterial pressure above 65 using pressors if needed, urine output more than 0.5, DIScontinue Vanco and Zosyn,
- Trend lactate, CBC, fever curve
Reactive Leukocytosis- resolved :
- WBC count is 7.7, down from 14.4
Anemia of chronic disease:
- Hemoglobin is 7.7, transfuse if the hemoglobin reaches less than 7
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
- Iron panel negative
Thrombocytopenia:
- Platelet count 58 trending down from 76 yesterday
- Transfuse for when the platelet count is less than 10 or platelet count is less than 50 with active bleeding
- Check platelet count outpatient
Alcohol abuse:
- M mira protocol
- B cares
- Alcohol cessation counseling
Nicotine abuse:
- Counseled smoking cessation
Positive marijuana screen on urine drug screen:
- Counseled on marijuana cessation
DVT prophylaxis on SCDs
Anticipated Discharge: Today
Subjective/Interval History
-
Date of Service: June 03, 2024
Patient is a 44-year-old male DO NOT RESUSCITATE with hepatic encephalopathy, alcoholic cirrhosis, ascites, depression was admitted here from [facility] due to change in mental status yet a previous admission where he was admitted
here for hepatic encephalopathy on May 26 underwent paracentesis related 1.7 L of ascitic fluid he also underwent an EGD on the previous admission showing portal gastropathy but no active upper GI bleed. He was also in 4 days ago for wounds of
bilateral feet. Which was diagnosed as cellulitis. Patient is disoriented.
Altered mental status has since resolved, his hypovolemic shock has also resolved.
Objective Data
-
Labs:
Laboratory Results
06/03/24 06/03/24 06/03/24
04:32 06:14 15:55
WBC 6.1
Hgb 7.1 L 7.5 L
Hct 21.2 L
Plt Count 47 L D
PT Cancelled 25.6 H
INR Cancelled 2.28
Sodium 140
Potassium 3.7
Chloride 109 H
Carbon Dioxide 28
BUN 24 H
Creatinine 0.6 L
Glucose 106 H
Calcium 8.1 L
Total Bilirubin 4.6 H
AST 89 H
ALT 55 H
Alkaline Phosphatase 174 H
Vital Signs:
Vital Signs
Temp Pulse Resp BP Pulse Ox
98.1 F 78 19 104/60 94
06/03/24 15:43 06/03/24 16:00 06/03/24 12:30 06/03/24 15:48 06/03/24 08:30
I&O
06/02/24 06/03/24 06/04/24
06:59 06:59 06:59
Intake Total 4375.0 / 4520.0 2487.8 / 2499.8 384 / 384
Output Total 1850 / 1850 900 / 900 300 / 300
Balance 2525.0 / 2670.0 1587.8 / 1599.8 84 / 84
Review of Systems
-
Constitutional: Denies Fever, Fatigue or Chills
EENT: Denies Sore Throat
Respiratory: Denies Cough
Cardiac: Denies Chest Pain, Palpitations or Syncope
Abdomen/GI: Reports Abdominal Pain; Denies Nausea or Vomiting
Musculoskeletal: Denies Joint Pain
Skin: Denies Itching or Rash
Neuro: Denies Headache, Weakness, Numbness or Seizures
Physical Exam
-
General: Appears Chronically Ill
Respiratory: Clear to Auscultation
Cardiac: Regular Rhythm and S1/S2
GI: Soft and Tender (Tender with palpation)
Musculoskeletal: Edema, Right Lower Extrem and Edema, Left Lower Extrem
Skin: Warm, Dry, Rash and Lesions (Bilaterally on the feet)
Neuro: Awake, Alert, Oriented and Other (Asterixis when hands are outstretched)
Data Reviewed
-
Labs: Labs Reviewed by me and Discussed with Physician
[2024-06-03 17:49] LABS: Vitamin B12 780 pg/ml (239-931)
[2024-06-03 18:37] LABS: AFP Male/Tumor Marker 3.13 ng/ml
--- NOTE | 2024-06-03 18:47 | PTCARENOTE ---
pt downgraded to tele, AAOx3, SR on the monitor, pitting edema to BLLE, SCDs on, RA, uses toilet with x1 assist and walker, bed alarm on and call king in reach
[2024-06-03] MEDS: VITAMIN B1 100 MG PO (19:51)
[2024-06-04 00:04] VITALS: BP 120/69
[2024-06-04] MEDS: ProAmatine 5 MG PO ×2 (00:05→08:45)
[2024-06-04] MEDS: TYLENOL 650 MG PO ×3 (00:05→12:41)
[2024-06-04 00:06] VITALS: BP 119/70
[2024-06-04 04:30] VITALS: BP 114/56
[2024-06-04] MEDS: ROXICODONE 5 MG PO ×2 (04:30→08:44)
[2024-06-04 04:50] LABS: % Basophils 1.2 % (0-2); % Eosinophils 3.8 % (0-6); % Immature Granulocytes 0.4 % (0-0.5); % Lymphocytes 24.2 % (20.5-51.1); % Monocytes 10.6 % (1.7-9.3); % Neutrophils 59.8 % (42.2-75.2); Absolute Basophils 0.1 10^3/uL (0-0.2); Absolute Eosinophils 0.3 10^3/uL (0-0.7); Absolute Lymphocytes 1.9 10^3/uL (1.2-3.4); Absolute Monocytes 0.8 10^3/uL (0.1-0.6); Absolute Neutrophils 4.6 10^3/uL (1.4-6.5); Hematocrit 22.8 % (39.0-52.0); Hemoglobin 7.7 g/dL (13.0-18.0); Mean Corp Hgb Conc. 33.8 g/dL (33.0-37.0); Mean Corpuscular Hgb 37.4 pg (27.0-31.0); Mean Corpuscular Volume 110.7 fL (80.0-94.0); Mean Platelet Volume 10.7 fL (7.4-10.4); Nucleated Red Blood Cells % 0 % (-); Platelet Count 58 10^3/uL (130-400); Red Blood Cell Count 2.06 10^6/uL (4.70-6.10); White Blood Cell Count 7.7 10^3/uL (4.8-10.8)
[2024-06-04 05:11] LABS: ALT (SGPT) 50 U/L (0-50); AST (SGOT) 74 U/L (17-59); Albumin 2.5 g/dl (3.5-5.0); Alkaline Phosphatase 177 U/L (38-126); Blood Urea Nitrogen 15 mg/dl (9-20); Calcium 8.1 mg/dl (8.4-10.2); Carbon Dioxide 28 mmol/L (22-30); Chloride 108 mmol/L (98-107); Estimated Creatinine Clearance > 125 ml/min; Glucose 95 mg/dl (70-99); Potassium 3.3 mmol/L (3.5-5.1); Sodium 141 mmol/L (135-145); Total Bilirubin 5.5 mg/dl (0.2-1.3); Total Protein 5.6 g/dl (6.3-8.2); eGFR > 60.00
[2024-06-04 06:00] VITALS: BMI 27.2
[2024-06-04] MEDS: KCL ELIXIR 40 MEQ TUBE (06:01)
[2024-06-04] MEDS: XIFAXAN 550 MG PO (08:44)
[2024-06-04] MEDS: LASIX 40 MG PO (08:44)
[2024-06-04] MEDS: FOLVITE 1 MG PO (08:44)
[2024-06-04] MEDS: PROTONIX 40 MG PO (08:44)
[2024-06-04] MEDS: VITAMIN B1 100 MG PO (08:45)
[2024-06-04] MEDS: DUPHALAC/CHRONULAC 20 GRAMS PO ×2 (08:45→12:42)
[2024-06-04] MEDS: VITAMIN B-12 500 MCG PO (08:49)
--- NOTE | 2024-06-04 10:32 | PTCARENOTE ---
Incoming call for patient rec'd-caller identified himself as 'Raymond eY' , father of patient. This RN informed caller that pt is not allowed contact with his parents per court order paperwork on chart. Caller verbalized understanding, stating 'Ok.'
--- NOTE | 2024-06-04 10:46 | PTCARENOTE ---
Female visitor arrived at door of patient's room, this RN asked if she needed help, visitor identified herself as patient's mother. RN informed visitor that pt is not allowed contact with parents per court order listed on chart. Mother stated 'But
we are dropping charges.' This RN asked her to please follow proper channels. She stated her went to police station to do so. Mother asking for update on patient, RN informed her that manager personnel selection listed on chart is 'Lydia' and she
should contact her. Mother stated that patient has been calling his parents from the room and that he is awaitin her visit. She stated 'This is so difficult.' Emotional support provided by RN to mother. managed care director notified. Clarified that
patient is allowed access to phone unless court order states otherwise. Pt is sleeping at this time.
[2024-06-04] MEDS: KCL 40 MEQ PO (12:42)
[2024-06-04 12:45] VITALS: BP 123/77
--- NOTE | 2024-06-04 15:00 | CM ---
CM called to [facility] and was told by 'Declan' in the dispensary or [facility] that I should call back in an hour. CM updated security and physician, nursing. CM will continue to follow for discharge planning needs.
Plan; return to [facility]
--- NOTE | 2024-06-04 15:03 | W.PN.GI.CBS2 ---
Addendum entered and electronically signed by Ynes Saeed Do, MD 06/04/24 17:47:
I saw and examined the patient.
The ANALYTICAL LAB ANALYST's note was reviewed and I agree with the note.
Comment: Reconsulted today to see if patient can be d[facility]cas back to [facility]. He denies abd pain. Tolerating diet. Last drink was prior to incarceration. Lives with parents. Vitals stable. Exam no asterixis, jaundice, NTTP, NABS. Labs reviewed
Plan
- Cause of elevation in LFTs is ETOH cirrhosis and continued ETOH intake
- Cross sectional imaging all recently done reviewed without acute findings
- Viral hepatitis serologies all negative in Feb 2024
No further inpatient GI workup indicated. He needs to avoid all ETOH and close OP FU with hepatology
GI will sign off please call for ?
Original Note:
Today's Communication / Plan
-
ok to DC from GI perspective
Assessment / Plan
-
44 yo male with a PMH significant for GERD, alcohol abuse (Quit 06/2023 prior heavy use - 1 bottle daily for 4 years), ETOH hepatitis(prior steroid course 02/2023)/cirrhosis with decompensation, LE edema/cellulitis, GI bleed with MW tear, portal
gastropathy, Hepatic encephalopathy on Xifaxan and Lactulose prior to admission, gallstones with prior noted intra and extrahepatic biliary dilatation, neuropathy, and constipation who now presents with concern for recurrent hepatic encephalopathy
and multiple other complaints with weakness, abdominal pain etc. In review with patient and records he was seen in past with evaluation with Dr. Ruben Pro. He did need cardiac clearance and completed cardiac cath but never was listed as now
report issues with family and in [facility] with social concern for transplant. He missed last visit at [place] due to incarceration. He was recently admission to 05/23-05/26/24 with HE, cellulitis with antibiotic courses, upper GI bleed with drop in hbg to
range and completed follow up EGD 05/23 with portal HTN gastropathy, erosive gastropathy with treatment with monopolar probe, normal duodenal bulb. He now returns with change in mental status from [facility]. Septic shock on pressors, now off. Elevated
lactic acis with no source of infection found. Review of his urine, blood, imaging, ascitic fluid do not show any sign of infection. His abx were stopped yesterday. Asked to see him for slight increase in Bilirubin. Overall Bilirubin improved from
previous admissions. Also LFTs still continue to decrease. Could be combination of ETOH hapatitis with underlying cirrhosis.
-cirrhosis with decompensation with elevated LFT's
-hepatic encephalopathy with elevated ammonia level on admission -> resolved
-recent cellulitis with marked LE edema
-coagulopathy
-hypokalemia
-macrocytic anemia
-thrombocytopenia
-neuropathy
-severe portal HTN/gastric erosion per recent EGD
-ETOH abuse/prior ETOH hepatitis -> last drink 05/13/24
-hx MW tear
-hepatosplenomegaly on imaging
-cholelithiasis
PLAN:
ok for DC from GI perspective
Patient is not currently a candidate for transplant due to social situation in [facility]
Continue Midodrine, Vit B12, Thiamine, Pantoprazole, Folic acid, Lasix, Lactulose and Xifaxan as ordered.
MELD 3.0 = 23 (Improved from admission of 25)
urine, blood, imaging, ascitic fluid do not show any sign of infection.
Continue 2 gram Na diet
AFP 3.13
liver serology completed recently at [place] per patient and some in past at (2022, AMA, SLA neg, ceruloplasmin 23 mild celiac elevation) hepatitis neg 02/2024 need for eventual hep A/B vaccination
absolute ETOH abstinence and avoid liver toxins.
Subjective
Subjective
Date of Service: June 04, 2024
Asked to see patient again prior to DC for slighted elevated Bilirubin compared to day prior. Patient with history of prior heavy alcohol use, prior alcoholic hepatitis with decompensated cirrhosis with hepatic encephalopathy on Xifaxan and
lactulose, ascites and lower extremity edema on diuretics who [facility] with recurrent hepatic encephalopathy weakness. Was treated for septic shock with pressors, elevated lactic acid without source of infection found and was on Abx,
now DC yesterday. Bilirubin is 5.5 today but was 4.6 day prior. However this is overall improved from prior admissions. Patient having 2 BMs a day, he did hold dose of Lactulose the other day for too many BMs. Discussed 2 gm Na diet. Patient states
he is committed to ETOH rehab and has been sober since his incarceration 05/13/24. This also may be component of ETOH hepatitis along with cirrhosis. Patient without any abdominal pain, confusion or asterixis.
Objective
Data Reviewed
Laboratory Data:
Laboratory Results
06/04/24 04:26
06/04/24 04:26
Laboratory Results
PT 25.6 Sec (11.4-14.6) H 06/03/24 06:14
INR 2.28 06/03/24 06:14
Phosphorus 4.3 mg/dl (2.5-4.5) 06/01/24 09:15
Magnesium 1.9 mg/dl (1.6-2.3) 06/03/24 04:32
Total Bilirubin 5.5 mg/dl (0.2-1.3) H 06/04/24 04:26
AST 74 U/L (17-59) H 06/04/24 04:26
ALT 50 U/L (0-50) 06/04/24 04:26
Alkaline Phosphatase 177 U/L (38-126) H 06/04/24 04:26
Lipase 43 U/L (23-300) 06/01/24 09:15
Vital Signs and I&O:
Vital Signs
Temp Pulse Resp BP Pulse Ox
98.1 F 79 19 123/77 96
06/04/24 12:27 06/04/24 14:00 06/03/24 12:30 06/04/24 12:45 06/04/24 09:13
I&O
0406/04/24 06/05/24
06:59 06:59 06:59
Intake Total 2487.8 / 2499.8 384 / 384 960 / 960
Output Total 900 / 900 500 / 500 300 / 300
Balance 1587.8 / 1599.8 -116 / -116 660 / 660
Physical Exam
Physical Exam
HEENT: Other (sclera mildly icteric)
Cardiology: Normal Sinus Rhythm
Pulmonary: Clear (anterior)
GI: Soft, Distended, Non Tender, Normal Bowel Sounds and Other (+ ascites)
Extremities: Edema (+ B.L UBALDO)
Neuro: Non Focal (AAOx 3, no asterixis)
--- NOTE | 2024-06-04 17:41 | W.PN.HOSP.TC ---
Addendum entered and electronically signed by Josy Nayak MD 06/04/24 17:52:
I saw and evaluated the patient independently. I reviewed the resident�s note and agree with findings and plan as documented by Dr. Connolly.
GENERAL: well developed, well nourished, male in no apparent distress
HEENT:NC/AT--mild scleral icterus resolved
HEART: regular rate and rhythm, +S1, +S2
LUNGS : clear to auscultation bilaterally
ABDOM: soft, nontender, nondistended, + bowel sounds
EXT: no cyanosis, clubbing-- bilateral 4+ pedal edema with redness, appears petechial
NEUROLOGIC: grossly intact
Altered mental status--resolved-- likely due to Acute hepatic encephalopathy due to chronic alcohol use--s/p paracentesis, studies pending--Continue lactulose, rifaximin, folic acid--follow for improvement-- Last day of drinking hard liquor was
05/13/2024, doubt intoxication or withdrawal
Septic shock with leukocytosis and hypotension required pressors--resolved, no source of infection found-- Lactic acid on admission was 4.5, WBC was 16, patient was hypotensive--blood and urine cultures no growth--cont IVF--with cirrhosis, BP might
run lower--stop vanco/zosyn
Anemia likely of chronic disease with cirrhosis--BUT pt had GI bleeding last admission-- iron studies show chronic disease--consider transfusion if < 7--no evidence of active bleeding at this time- MCV is 108.6 which is showing megaloblastic anemia
probably due to patient's chronic alcohol use--cont thiamine, folate--check B12
Thrombocytopenia--likely due to cirrhosis and chronic ETOH use--no active bleeding
Alcohol abuse--- [facility] protocol- B cares- Alcohol cessation counseling
Nicotine abuse- Counseled smoking cessation--nicotine patch
Positive marijuana screen on urine drug screen-- Counseled on marijuana cessation
DVT prophylaxis on SCDs
code status -- DNR
apprec GI--OK for d/c
Original Note:
Today's Communication/Plan
-
- Patient is being discharged today
Assessment / Plan
Assessment / Plan
Acute on hepatic encephalopathy due to chronic alcohol use
Bilateral feet edema secondary to hepatic encephalopathy with petechiae:
- Last day of drinking hard liquor was 05/13/2024
- Continue lactulose, rifaximin, folic acid
- Monitor ammonia levels daily
- Neurochecks every 4 hours, assess for mental status improvement
- Aspiration precautions
- Identify and treat precipitating factors
- Continue laxatives for regular bowel movements
- peritoneal fluid analysis is negative
- Monitor electrolyte levels
- Protonix for GI prophylaxis
- Wound care consulted
- Check hemoglobin outpatient
- Stop antibiotics
- Wound care consulted and states petechiae and not cellulitis, most likely due to decreased platelet count
Hyperbilirubinemia:
- Patient has total bilirubin level of 5.5 which is trending up
- Patient was seen by gastroenterology whom are ok with him getting dicharged today
- No jaundiced skin, scleral icterus has gone down considerably
Hypokalemia:
- potassium is 3.3
- Repleted potassium
Watery Diarrhea:
- no stool, fever, no increased wbc count
- likely due to Lactulose induced
- ammonia level trend, today 42 and elevated
- Titrate lactate to only 2-3 bowel movements a day
Hypovolemic shock:
- Lactic acid on admission was 4.5, WBC was 16, patient was hypotensive
- Blood culture showed no growth
- Urine culture showed no growth
- Continue fluids , try to keep the mean arterial pressure above 65 using pressors if needed, urine output more than 0.5, DIScontinue Vanco and Zosyn,
- Trend lactate, CBC, fever curve
Reactive Leukocytosis- resolved :
- WBC count is 7.7, down from 14.4
Anemia of chronic disease:
- Hemoglobin is 7.7, transfuse if the hemoglobin reaches less than 7
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
- Iron panel negative
Thrombocytopenia:
- Platelet count 58 trending down from 76 yesterday
- Transfuse for when the platelet count is less than 10 or platelet count is less than 50 with active bleeding
- Check platelet count outpatient
Alcohol abuse:
- M mira protocol
- B cares
- Alcohol cessation counseling
Nicotine abuse:
- Counseled smoking cessation
Positive marijuana screen on urine drug screen:
- Counseled on marijuana cessation
DVT prophylaxis on SCDs
Anticipated Discharge: Today
Subjective/Interval History
-
Date of Service: June 04, 2024
Patient is a 44-year-old male DO NOT RESUSCITATE with hepatic encephalopathy, alcoholic cirrhosis, ascites, depression was admitted here from [facility] due to change in mental status yet a previous admission where he was admitted
here for hepatic encephalopathy on May 26 underwent paracentesis related 1.7 L of ascitic fluid he also underwent an EGD on the previous admission showing portal gastropathy but no active upper GI bleed. He was also in 4 days ago for wounds of
bilateral feet. Which was diagnosed as cellulitis. Patient is disoriented.
Altered mental status has since resolved, his hypovolemic shock has also resolved.
Objective Data
-
Vital Signs:
Vital Signs
Temp Pulse Resp BP Pulse Ox
98.1 F 79 19 123/77 97
06/04/24 12:27 06/04/24 14:00 06/03/24 12:30 06/04/24 12:45 06/04/24 15:52
I&O
06/03/24 06/04/24 06/05/24
06:59 06:59 06:59
Intake Total 2487.8 / 2499.8 384 / 384 960 / 960
Output Total 900 / 900 500 / 500 300 / 300
Balance 1587.8 / 1599.8 -116 / -116 660 / 660
Review of Systems
-
Constitutional: Denies Fever, Fatigue or Chills
EENT: Denies Sore Throat
Respiratory: Denies Cough
Cardiac: Denies Chest Pain, Palpitations or Syncope
Abdomen/GI: Reports Abdominal Pain; Denies Nausea or Vomiting
Musculoskeletal: Denies Joint Pain
Skin: Denies Itching or Rash
Neuro: Denies Headache, Weakness, Numbness or Seizures
Physical Exam
-
General: Appears Chronically Ill
Respiratory: Clear to Auscultation
Cardiac: Regular Rhythm and S1/S2
GI: Soft and Tender (Tender with palpation)
Musculoskeletal: Edema, Right Lower Extrem and Edema, Left Lower Extrem
Skin: Warm, Dry, Rash and Lesions (Bilaterally on the feet)
Neuro: Awake, Alert, Oriented and Other (Asterixis resolved)
Data Reviewed
-
Labs: Labs Reviewed by me and Discussed with Physician
[2024-06-04 22:09] LABS: Transferrin 102 mg/dL (200-360)
--- NOTE | 2024-06-05 12:49 | W.DCSUMMARY ---
Addendum entered and electronically signed by Josy Nayak MD 06/05/24 13:45:
Read, reviewed, and agree. See same day progress note for additional details. Time spent coordinating care, DC planning, review of DC plan of care with resident, transition of care, review of records in EMR, med rec, consults, notes, d/w
consultants, nursing, family, and CM 35 minutes
Corrections to below:
Actual discharge date was June 04, 2024
most likely petechiae from thrombocytosis--should read from thrombocytopenia
Original Note:
Discharge Summary
Discharge Data
Date of Admission: 06/01/24
Date of Discharge: 06/05/24
-
Pending Results: No
Hospital Course
Discharging Physician : Dr.Mary Adela Nayak and Dr. José Antonio Connolly
Disposition : To Half-Way
Primary care physician : Facility [facility]
Principal Discharge diagnosis : Altered mental status likely due to hepatic encephalopathy�resolved
Chronic Discharge diagnosis : septic shock leukocytosis and hypotension�resolved, anemia of chronic disease with cirrhosis, thrombocytopenia, alcohol abuse, nicotine abuse, positive marijuana screen
Hospital Course : 44 year old male, Do not resuscitate, with a history of hepatic encephalopathy, alcoholic cirrhosis, ascites, Lower extremity cellulitis,and depression was admitted here from [facility] due to change in mental
status. He had a previous admission on May 23 to May 26, where he was diagnosed with hepatic encephalopathy and started on Lactulose and Rifaximin , underwent paracentesis, and drained 1.7 liters of fluid as well as an EGD on May 26 where
it showed portal gastropathy with no active GI bleed, was discharged on Proton pump inhibitors. Was being seen at [facility] by Dr. Ruben Pro. His last drink was on 06/2023 where he was drinking 1 bottle a day for 4 years.
On admission his Urine drug screen was positive for marijuana, bedside ultrasound showed no significant ascites, chest xray showed pulmonary interstitial markings. Patients blood pressure was in the 70's systolic. Leucocytosis, anemia, and platelet
count of 73. Lactic acid of 4.5. Bilirubin was 9 from 6.2 on previous admission.
Patient meets the criteria for septic shock. He was started on Levophed, IV fluids, and Vancomycin/Zoysn, and Lasix was held. Once his blood pressure stabilized, and blood cultures were negative, he was discontinued on antibiotics once blood
cultures came back negative and levophed and on midodrine prn. Lasix was restarted towards end of his admission to help prevent ascites once his Levophed was stopped. Ascitic fluid analysis was also negative. Gastroenterology was consulted as well
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
Hepatic Encephalopathy due to patients altered mental status and asterixes/ bilateral scleral icterus on exam which resolved towards end of hospital course. His labs showed a stable ammonia level of 42 throughout the course of his hospital stay.
continued on Rifaximin and Lactulose. Had a short course of Diarrhea for 1 day with 8 bowel movements after which resolved the next day. Suspected to be Lactulose induced, ammonia level came back at 42. Mental status has improved however patient is
difficult to direct and I suspect some aspect of confabulation given history of alcohol use.
Anemia of Chronic Disease due to cirrhosis. his MCV was elevated and iron panels negative. Hemoglobin was 8.5 on admission and 7.7 on discharge. Patient had no clinical picture of active bleeding such as hemodynamic instability, pallor,
lightheadedness. Continue on thiamine, folate, vitamin b12 on discharge. Check CBC outpatient in 1 week with PCP.
His platelet count on admission was 73 and on discharge was 58. He did not require platelet transfusion during his stay as his platelet count did not drop below 50 with clinical symptoms of an active bleed. Check CBC with outpatient PCP in 1 week.
For his bilateral lower extremity edema, wound care was consulted due to suspicion of possible cellulitis and source of his sepsis. However, they confirmed that it was most likely petechiae from thrombocytosis. Swelling is most likely from stopping
Lasix on administration and also having cirrhosis with portal gastropathy. Edema improved moderatley upon discharge. Lower extremity ultrasound was also ordered and negative for DVT.
Patient was counseled on his alcohol use, given MSAS protocol, and [facility]cares consult. He was also counselled on Nicotine and Marijuana Cessation.
Important imaging findings :
Chest Xray on 06/01/24:
No findings to suggest pneumonia.
Pulmonary interstitial markings at least top normal, cannot exclude mild interstitial edema or pneumonitis.
Abdominal Ultrasound 06/02/24:
FINDINGS/IMPRESSION:
Limited targeted ultrasound evaluation of the four quadrants of the abdomen was performed.
Moderate volume ascites in the right upper and lower quadrants with trace ascites in the left upper and lower quadrants.
Peripheral Vascular Ultrasound 06/02/24:
There is no evidence for deep venous thrombosis bilaterally. There is normal compressibility, color flow, and spectral Doppler flow of the deep venous system bilaterally from the common femoral vein through the posterior tibial vein. The proximal
greater saphenous veins are also patent bilaterally.
Procedure findings :
Paracentesis 06/02/24:
IMPRESSION: Successful ultrasound guided diagnostic and therapeutic paracentesis.
No growth of bacteria in fluid.
Discharge Plan
-
Patient Disposition: Half-Way
Discharge Diagnosis/Procedures: Altered mental status likely due to hepatic encephalopathy�resolved, septic shock leukocytosis and hypotension�resolved, anemia of chronic disease with cirrhosis, thrombocytopenia, alcohol abuse, nicotine abuse,
positive marijuana screen
Condition: Good
Diet: 2 Gram Sodium
Activity: As tolerated
Driving Restrictions: No driving
Bathing Restrictions: None
Referrals:
[facility] [Family Provider] - in less than 1 week
Prescriptions:
New
midodrine 5 mg Tablet
5 mg PO Q8 Qty: 30 0RF
midodrine 5 mg Tablet
5 mg PO Q4HPRN PRN (Reason: SBP <90) Qty: 0 0RF
thiamine mononitrate (vit B1) 100 mg Tablet
100 mg PO BID Qty: 0 0RF
Continued
folic acid 1 mg Tablet
1 mg PO DAILY Qty: 30 0RF
Xifaxan 550 mg Tablet
550 mg PO BID Qty: 60 0RF
furosemide [Lasix] 40 mg Tablet
40 mg PO DAILY
carvedilol [Coreg] 6.25 mg Tablet
6.25 mg PO BID
lactulose 10 gram/15 mL Solution
20 g PO QID
omeprazole 20 mg Tablet,Disintegrat, Delay Rel
20 mg PO DAILY
cyanocobalamin (vitamin B-12) [Vitamin B-12] 1,000 mcg tablet
500 mcg PO DAILY
polyethylene glycol 3350 17 gram powder in packet
17 g PO DAILY
Discharge Orders:
Discharge Patient (As Directed); Ordered 06/04/24
Ordered By: Josy Nayak
Discharge Date and Time
Discharge Date/Time: 06/04/24 16:22
Print Language: MALAGASY
== END 2024-06-04 16:22 | DRG 871 ==
LOC: ICU 14:33
PROVIDERS: Clinical Nurse Specialist Family Health; Nurse Practitioner Adult Health; Nurse Practitioner Family; Physician Assistant; Radiology Neuroradiology; Radiology Vascular & Interventional Radiology; ADMITTING PHYSICIAN Hospitalist; ATTENDING PHYSICIAN Internal Medicine; CONSULT PHYSICIAN Internal Medicine; EMERGENCY PHYSICIAN Emergency Medicine; OTHER PHYSICIAN Internal Medicine
PROC: 0W9G3ZZ Drainage of Peritoneal Cavity, Percutaneous Approach (ICD-10-PCS; 2024-06-02)
PROC: 02HV33Z Insertion of Infusion Device into Superior Vena Cava, Percutaneous Approach (ICD-10-PCS; 2024-06-02)
DX: A41.9 Sepsis, unspecified organism (principal); G92.8 Other toxic encephalopathy; R65.21 Severe sepsis with septic shock; R57.1 Hypovolemic shock; K72.00 Acute and subacute hepatic failure without coma; I85.10 Secondary esophageal varices without bleeding; K76.6 Portal hypertension; D68.9 Coagulation defect, unspecified; L03.115 Cellulitis of right lower limb; Q39.9 Congenital malformation of esophagus, unspecified; K70.31 Alcoholic cirrhosis of liver with ascites; F32.A Depression, unspecified; F41.9 Anxiety disorder, unspecified; D69.59 Other secondary thrombocytopenia; F10.10 Alcohol abuse, uncomplicated; F12.90 Cannabis use, unspecified, uncomplicated; D53.9 Nutritional anemia, unspecified; E53.8 Deficiency of other specified B group vitamins; G62.9 Polyneuropathy, unspecified; K21.9 Gastro-esophageal reflux disease without esophagitis; G43.909 Migraine, unspecified, not intractable, without status migrainosus; G89.29 Other chronic pain; K31.89 Other diseases of stomach and duodenum; F11.10 Opioid abuse, uncomplicated; F17.210 Nicotine dependence, cigarettes, uncomplicated; E87.6 Hypokalemia; K76.82 Hepatic encephalopathy; D50.9 Iron deficiency anemia, unspecified; I27.20 Pulmonary hypertension, unspecified; D63.8 Anemia in other chronic diseases classified elsewhere; D75.839 Thrombocytosis, unspecified; K80.20 Calculus of gallbladder without cholecystitis without obstruction; Z66 Do not resuscitate; Z60.8 Other problems related to social environment; Z63.8 Other specified problems related to primary support group; Z91.148 Patient's other noncompliance with medication regimen for other reason; Z11.52 Encounter for screening for COVID-19
CPT/HCPCS: 88305; 49083; 71045; 76705; 80048; 80053; 80306; 81003; 81015; 82042; 82105; 82140; 82607; 82728; 82746; 82962; 83036; 83540; 83550; 83605; 83690; 83735; 83880; 84100; 84157; 84466; 84484; 85018; 85025; 85610; 87015; 87040; 87070; 87086; 87205; 87502; 87811; 88112; 88341; 88342; 89051; 93005; 93306; 93970; 96361; 96374; 96375; 97163; 97167; 99291; 99406

== ENCOUNTER 2024-06-06 23:30 | Emergency (ER) | payer OTHER, SELFPAY ==
[2024-06-06 23:41] VITALS: BP 119/79
[2024-06-06 23:45] VITALS: BP 119/79
[2024-06-07 00:11] VITALS: BMI 29.1
[2024-06-07 00:38] LABS: ALT (SGPT) 44 U/L (0-50); AST (SGOT) 50 U/L (17-59); Alkaline Phosphatase 178 U/L (38-126); Blood Urea Nitrogen 22 mg/dl (9-20); Calcium 8.3 mg/dl (8.4-10.2); Carbon Dioxide 27 mmol/L (22-30); Chloride 104 mmol/L (98-107); Estimated Creatinine Clearance > 125 ml/min; Glucose 104 mg/dl (70-99); Potassium 3.9 mmol/L (3.5-5.1); Sodium 138 mmol/L (135-145); Total Bilirubin 5.7 mg/dl (0.2-1.3); Total Protein 6.5 g/dl (6.3-8.2); eGFR > 60.00
[2024-06-07 00:47] LABS: NT-proBNP 74.2 pg/ml
[2024-06-07 00:53] LABS: Hematocrit 26.6 % (39.0-52.0); Mean Corp Hgb Conc. 33.8 g/dL (33.0-37.0); Mean Corpuscular Hgb 36.7 pg (27.0-31.0); Mean Corpuscular Volume 108.6 fL (80.0-94.0); Mean Platelet Volume 10.5 fL (7.4-10.4); Platelet Count 69 10^3/uL (130-400); Red Blood Cell Count 2.45 10^6/uL (4.70-6.10); Red Cell Dist. Width 16.2 % (11.5-14.5); White Blood Cell Count 8.5 10^3/uL (4.8-10.8)
[2024-06-07 01:00] VITALS: BP 104/60
--- NOTE | 2024-06-07 01:05 | ED.GENMED ---
History of Present Illness
<JASON Sultana - Last Filed: 06/07/24 02:16>
General
Chief Complaint: Swelling
Source: patient
Exam Limitations: none
Time Seen by Provider: 06/07/24 00:31
History of Present Illness
History of Present Illness:
44 y/o male pt with a PMH of with a history of hepatic encephalopathy, alcoholic cirrhosis, ascites, Lower extremity cellulitis,and depression was admitted here from [facility] due to edema of bilateral LE and scrotum. Pt states tis level of edema is new,
was restarted on lasix on 06/04/24. Pt recently hosptilized from may 23 to may 26 for hepatic encephalopathy resolved with lactulose, hospitilized again from june 01 to june 04 for sepsis. Pt
Past History
<JASON Sultana - Last Filed: 06/07/24 02:16>
Past History
ED Past Medical History: GERD, Psychiatric (Anxiety, Depression. ) and Other (Migraine headaches, Neuropathy, Numbness arms and legs, Cirrhosis liver, Hepatic encephalopathy, Erectile dysfunction, Esophageal varices. Substance abuse.)
ED Past Surgical History: Other (Nasal surgery for Deviated septum)
Social History
Tobacco: Smoker (1.5 ppd)
Alcohol: Former
Drug: Former user and IVDA (heroin)
Personal: Single
Living: assisted (going from hotel to hotel)
Employment: Employed
Family History
Family History: Other (Noncontributory)
Review of Systems
<JASON Sultana - Last Filed: 06/07/24 02:16>
Review of Systems
EENT: Reports no symptoms
Respiratory: Reports no symptoms
Cardiac: Reports no symptoms
Skin: Reports other (Jaundice)
Neurological: Reports no symptoms
Hematologic/Lymphatic: Reports other (petechiae)
Phy Exam
<JASON Sultana - Last Filed: 06/07/24 02:16>
General Physical Exam
General Presentation: no apparent distress and other (in pain but not distressed)
General age: appears older than age
General Skin: dry and other (jaundice)
General Mental: alert
ENT Exam
ENT Exam: neck supple
Cardiovascular Exam
Cardiovascular Exam: regular rate/rhythm, no gallop, no JVD and no murmur
Heart Sounds: normal
Pulmonary Exam
Pulmonary Exam: lungs clear, no crackles and no cough
Cough: no cough
Gastrointestinal Exam
Gastrointestinal Exam: ascites, distended and tender
Palpation: right upper quadrant: Mild tenderness
Auscultation of Abdomen: hyperactive
Liver Exam: ascites, edema of legs, jaundice, RUQ tenderness and other (scrotal edema )
Genitourinary Exam Male
Testicular Exam: Scrotal swollen: Bilateral, Tender to palpation: Bilateral and Enlarged testicle: Bilateral
Cremasteric Reflex: Bilateral: Absent (scrotum significantly swollen)
Skin Exam
Skin Exam: jaundice, petechia, redness and tenderness
Scores
<Roge Monson [facility] - Last Filed: 06/07/24 02:16>
Heart Failure Risk
Heart Failure Risk Score: Not Applicable
History of Stroke or TIA: No
History of intubation for respiratory distress: No
Heart rate on ED arrival >/= 110: No
SaO2 <90% on arrival on room air: No
NT-proBNP >/=5,000ng/L (5,000pg/ml): No
Course
<Roge Monson [facility] - Last Filed: 06/07/24 02:16>
Orders/Labs/Results
Orders:
Orders
06/07/24 00:14
Complete Blood Count/With Diff Urgent
Comprehensive Metabolic Panel Urgent
Pro-BNP [NT-proBNP] Urgent
06/07/24 00:55
Ammonia Urgent
06/07/24 01:41
Furosemide [Lasix] 40 mg IV NOW STA
Abnormal Lab Results
06/07/24
00:14
RBC 2.45 L 10^6/uL
(4.70-6.10)
Hgb 9.0 L g/dL
(13.0-18.0)
Hct 26.6 L %
(39.0-52.0)
MCV 108.6 H fL
(80.0-94.0)
MCH 36.7 H pg
(27.0-31.0)
RDW 16.2 H %
(11.5-14.5)
Plt Count 69 L 10^3/uL
(130-400)
MPV 10.5 H fL
(7.4-10.4)
Abs Immat Gran (auto) 0.1 H 10^3/uL
(0-0.05)
Absolute Monos (auto) 0.7 H 10^3/uL
(0.1-0.6)
Immature Gran % 1.2 H %
(0-0.5)
BUN 22 H mg/dl
(9-20)
Creatinine 0.5 L mg/dL
(0.7-1.3)
Glucose 104 H mg/dl
(70-99)
Calcium 8.3 L mg/dl
(8.4-10.2)
Total Bilirubin 5.7 H mg/dl
(0.2-1.3)
Alkaline Phosphatase 178 H U/L
(38-126)
Albumin 3.0 L g/dl
(3.5-5.0)
06/07/24 00:14
06/07/24 00:14
Vital Signs
Initial and Last Documented VS:
Initial Vital Signs
BP Pulse Ox
119/79 100
06/06/24 23:41 06/06/24 23:41
Last Documented Vital Signs
Temp Pulse Resp BP Pulse Ox
97.7 F 61 15 98/56 100
06/06/24 23:45 06/07/24 02:04 06/07/24 00:00 06/07/24 02:04 06/06/24 23:45
<Eli Vanegas, DO - Last Filed: 06/07/24 02:05>
Orders/Labs/Results
Orders:
Orders
06/07/24 00:14
Complete Blood Count/With Diff Urgent
Comprehensive Metabolic Panel Urgent
Pro-BNP [NT-proBNP] Urgent
06/07/24 00:55
Ammonia Urgent
06/07/24 01:41
Furosemide [Lasix] 40 mg IV NOW STA
Abnormal Lab Results
06/07/24
00:14
RBC 2.45 L 10^6/uL
(4.70-6.10)
Hgb 9.0 L g/dL
(13.0-18.0)
Hct 26.6 L %
(39.0-52.0)
MCV 108.6 H fL
(80.0-94.0)
MCH 36.7 H pg
(27.0-31.0)
RDW 16.2 H %
(11.5-14.5)
Plt Count 69 L 10^3/uL
(130-400)
MPV 10.5 H fL
(7.4-10.4)
Abs Immat Gran (auto) 0.1 H 10^3/uL
(0-0.05)
Absolute Monos (auto) 0.7 H 10^3/uL
(0.1-0.6)
Immature Gran % 1.2 H %
(0-0.5)
BUN 22 H mg/dl
(9-20)
Creatinine 0.5 L mg/dL
(0.7-1.3)
Glucose 104 H mg/dl
(70-99)
Calcium 8.3 L mg/dl
(8.4-10.2)
Total Bilirubin 5.7 H mg/dl
(0.2-1.3)
Alkaline Phosphatase 178 H U/L
(38-126)
Albumin 3.0 L g/dl
(3.5-5.0)
06/07/24 00:14
06/07/24 00:14
Vital Signs
Initial and Last Documented VS:
Initial Vital Signs
BP Pulse Ox
119/79 100
06/06/24 23:41 06/06/24 23:41
Last Documented Vital Signs
Temp Pulse Resp BP Pulse Ox
97.7 F 61 15 98/56 100
06/06/24 23:45 06/07/24 02:04 06/07/24 00:00 06/07/24 02:04 06/06/24 23:45
<Eli Vanegas DO - Last Filed: 06/07/24 02:05>
*Pulse Oximetry
Patient hypoxic: no
*Critical Care Note
Total Time (30-74mins, 75-104mins- exclusive of procedures): Not Applicable
ED Attending Note
<JASON Sultana - Last Filed: 06/07/24 02:16>
-
Portions of this chart may have been created with voice recognition software.� Occasional wrong word or��sound alike� substitutions may have occurred due to the inherent limitations of voice recognition software.
<Eli Vanegas DO - Last Filed: 06/07/24 02:05>
ED Attending Note
Patient seen and examined by attending physician: Yes
I performed the substantive portion of visit, reviewed & personally made and approve the management plan that is documented in note by myself or MAO.: Yes
ED Attending Note:
This is a 44-year-old gentleman with history of alcoholic cirrhosis with ascites, hepatic encephalopathy. Currently incarcerated [facility]. Multiple recent hospitalizations for hepatic encephalopathy and most recently for
sepsis requiring IV fluids, pressor support, IV antibiotics which were discontinued once blood cultures were negative. Paracentesis during most recent hospitalization was negative for infection.
Lasix was resumed just prior to discharge back to assisted on June 04.
He returns tonight with complaints of persistent bilateral lower extremity edema and scrotal edema. He does admit to mild but overall stable abdominal edema.
He denies coughing or shortness of breath.
He has history of hepatic encephalopathy, ammonia level has been stable around 45. He is also concerned that his 'brain function is off'
Has been compliant with medications since incarceration. Has also remained sober.
He has not had a fever nor chills.
Prior records reviewed. Note of significant bilateral lower extremity edema that had improved somewhat prior to discharge on the .
GENERAL: 44-year-old gentleman appears older than stated age. Awake and alert, oriented x 3, easily conversant and in no acute distress.
EYE: pupils equal and reactive. Anicteric.
NECK: Supple, nontender, no meningismus, no significant adenopathy.
ENT: posterior pharynx is clear, oral mucosa is moist. No rhinorrhea.
CARDIAC: Regular rate and rhythm. no murmur.
LUNGS: Clear breath sounds bilaterally, no acute respiratory distress, no wheezes/rales/rhonchi
ABDOMEN: Soft, nondistended, without focal tenderness, no r/g, no cvat. normoactive BS.
NEUROLOGICAL: Alert and oriented x3, no focal neuro deficits.
SKIN: Warm and dry, moderately sallow in color, skin intact. No rash.
MUSCULOSKELETAL: +4 pitting edema bilateral lower extremities. Moderate global scrotal edema. There is no erythema nor ulcerations. Peripheral pulses are full and equal b/l. Minimal global tenderness to the bilateral lower extremities.
PSYCH: Normal and appropriate interaction.
Bilateral lower extremity edema and scrotal edema appears third spacing, dependent edema in nature. Other consideration is CHF.
Minimal abdominal fullness but no significant ascites noted on exam.
I highly suspect third spacing related to recent hospitalization with IV fluids and pressors for treatment of sepsis.
Recent ultrasound bilateral lower extremities negative for DVT. No indication to repeat.
Overall patient is nontoxic in appearance. Vital signs within normal limits.
Labs thus far revealed mild but improving anemia. Moderate but improving thrombocytopenia. Chemistries show chronic but stable elevated bilirubin.
Albumin of 3 which is improved from previous.
Ammonia level is pending but reassuring that patient is mentating well, no asterixis on exam.
Will plan to give an IV dose of Lasix now and discharge back to to the assisted for continued care.
Recommend supportive measures, scrotal support. Compression stockings to bilateral lower extremities.
Continue current medications including daily Lasix.
Discharge Plan
Departure
Patient Disposition: Halfway
Date of Disposition: 06/07/24
Time of Disposition: 02:05
Discharge Problem:
Dependent edema
Instructions: Dependent Edema (DC)
Prescriptions:
No Action
folic acid 1 mg Tablet
1 mg PO DAILY Qty: 30 0RF
Xifaxan 550 mg Tablet
550 mg PO BID Qty: 60 0RF
furosemide [Lasix] 40 mg Tablet
40 mg PO DAILY
carvedilol [Coreg] 6.25 mg Tablet
6.25 mg PO BID
lactulose 10 gram/15 mL Solution
20 g PO QID
omeprazole 20 mg Tablet,Disintegrat, Delay Rel
20 mg PO DAILY
cyanocobalamin (vitamin B-12) [Vitamin B-12] 1,000 mcg tablet
500 mcg PO DAILY
polyethylene glycol 3350 17 gram powder in packet
17 g PO DAILY
midodrine 5 mg Tablet
5 mg PO Q8 Qty: 30 0RF
midodrine 5 mg Tablet
5 mg PO Q4HPRN PRN (Reason: SBP <90) Qty: 0 0RF
thiamine mononitrate (vit B1) 100 mg Tablet
100 mg PO BID Qty: 0 0RF
Referrals:
[facility] [Family Provider] -
Interventions
Interventions:
*Risk Screen - Suicide Last Done: 06/06/24 23:45
*General Assessment Last Done: 06/06/24 23:45
*Neglect/Abuse Screening Last Done: 06/06/24 23:45
*ED- Fall Risk Assessment Last Done: 06/06/24 23:45
*ED COVID-19 Vaccine History Last Done: 06/06/24 23:45
ED- Cardiac Assessment Last Done: 06/07/24 00:47
ED- Pulmonary Assessment Last Done: 06/07/24 00:47
ED-Skin Assessment Last Done: 06/07/24 00:47
Discharge Date and Time
Print Language: CZECH
[2024-06-07 01:20] LABS: % Basophils 0.7 % (0-2); % Eosinophils 3.5 % (0-6); % Immature Granulocytes 1.2 % (0-0.5); % Lymphocytes 25.1 % (20.5-51.1); % Monocytes 8.4 % (1.7-9.3); % Neutrophils 61.1 % (42.2-75.2); Absolute Basophils 0.1 10^3/uL (0-0.2); Absolute Eosinophils 0.3 10^3/uL (0-0.7); Absolute Immature Granulocytes 0.1 10^3/uL (0-0.05); Absolute Lymphocytes 2.1 10^3/uL (1.2-3.4); Absolute Monocytes 0.7 10^3/uL (0.1-0.6); Absolute Neutrophils 5.2 10^3/uL (1.4-6.5); Nucleated Red Blood Cells % 0 % (-)
[2024-06-07 01:23] LABS: Ammonia 17 umol/L (9-30)
[2024-06-07 02:00] VITALS: BP 101/63
[2024-06-07 02:03] VITALS: BP 98/56
[2024-06-07] MEDS: LASIX 40 MG IV (02:04)
== END 2024-06-07 02:42 ==
LOC: EMR 23:30
PROVIDERS: EMERGENCY PHYSICIAN Emergency Medicine
DX: R60.0 Localized edema (principal); F17.210 Nicotine dependence, cigarettes, uncomplicated; K76.82 Hepatic encephalopathy
CPT/HCPCS: 96374; 99284; 80053; 82140; 83880; 85025

== ENCOUNTER 2024-06-14 15:36 | Inpatient (IN) | payer OTHER, SELFPAY ==
[2024-06-14] VITALS (7 sets, daily range): BP systolic 112–150; BP diastolic 65–85; BMI 30.8
[2024-06-14 13:13] LABS: Ammonia 82 umol/L (9-30)
[2024-06-14 13:14] LABS: ALT (SGPT) 39 U/L (0-50); AST (SGOT) 49 U/L (17-59); Albumin 2.9 g/dl (3.5-5.0); Alkaline Phosphatase 328 U/L (38-126); Blood Urea Nitrogen 17 mg/dl (9-20); Calcium 8.4 mg/dl (8.4-10.2); Carbon Dioxide 25 mmol/L (22-30); Chloride 107 mmol/L (98-107); Glucose 106 mg/dl (70-99); Potassium 3.8 mmol/L (3.5-5.1); Sodium 140 mmol/L (135-145); Total Bilirubin 6.6 mg/dl (0.2-1.3); Total Protein 6.5 g/dl (6.3-8.2); eGFR > 60.00
[2024-06-14 13:21] LABS: Hematocrit 29.3 % (39.0-52.0); Mean Corp Hgb Conc. 34.1 g/dL (33.0-37.0); Mean Corpuscular Hgb 36.9 pg (27.0-31.0); Mean Corpuscular Volume 108.1 fL (80.0-94.0); Mean Platelet Volume 9.4 fL (7.4-10.4); Platelet Count 79 10^3/uL (130-400); Red Blood Cell Count 2.71 10^6/uL (4.70-6.10); Red Cell Dist. Width 14.5 % (11.5-14.5); White Blood Cell Count 9.7 10^3/uL (4.8-10.8)
--- NOTE | 2024-06-14 13:57 | ED.GENMED ---
History of Present Illness
General
Chief Complaint: Abdominal Symptoms
Source: patient
Exam Limitations: none
Time Seen by Provider: 06/14/24 13:44
History of Present Illness
History of Present Illness:
44-year-old male here for change in mental status lethargy. History is somewhat vague but apparently has digressed the last 1 to 2 days. Long history of same. Recent admission for hepatic encephalopathy cirrhosis end-stage renal disease. Patient
is unable to add history
Past History
Past History
ED Past Medical History: GERD, Psychiatric (Anxiety, Depression. ) and Other (Migraine headaches, Neuropathy, Numbness arms and legs, Cirrhosis liver, Hepatic encephalopathy, Erectile dysfunction, Esophageal varices. Substance abuse.)
ED Past Surgical History: Other (Nasal surgery for Deviated septum)
Social History
Tobacco: Smoker (1.5 ppd)
Alcohol: Former
Drug: Former user and IVDA (heroin)
Personal: Single
Living: [facility] (going from hotel to hotel)
Employment: Employed
Family History
Family History: Other (Noncontributory)
Review of Systems
Review of Systems
All Other Systems: Not applicable
Respiratory: Reports no symptoms
Cardiac: Reports no symptoms
ABD/GI: Reports no symptoms
Phy Exam
Physical Exam
Physical Exam:
GENERAL: Chronically ill-appearing. Old for stated age. Lethargic.
EYE: Orbits normal. Icteric
NECK: Supple, no significant adenopathy.
ENT: Pharynx without erythema
CARDIAC: Regular rate and rhythm without any obvious murmurs.
LUNGS: Clear breath sounds,normal
ABDOMEN: Distended but soft. Fluid wave is present. Periumbilical hernia easily reducible
NEUROLOGICAL: Alert. Somewhat lethargic. Will answer questions and follow simple commands however. Nonfocal. Positive flat.
SKIN: Warm and dry, erythema to the left lower extremity
Extremities: Significant bilateral pitting edema
PSYCH: Normal and appropriate interaction.
Course
Orders/Labs/Results
Orders:
Orders
06/14/24 12:53
Ammonia Urgent
Complete Blood Count/With Diff Urgent
Comprehensive Metabolic Panel Urgent
06/14/24 13:53
Cardiac Monitoring- Treatment ONCE
IV Insert/Care/Rem.- Treatment PRN
Pulse Ox/cont/shift [RESP] Urgent
Quantity: 1
06/14/24 13:56
Lactulose [Duphalac/Chronulac] 20 grams PO NOW STA
06/14/24 14:03
PT/INR [Prothrombin Time] Urgent
PTT Urgent
06/14/24 14:10
Blood Culture Q30M
ZEHRA Source: Blood/Venous
Specimen Description:
Blood Culture Q30M
ZEHRA Source: Blood/Venous
Specimen Description:
06/14/24 14:39
Blood Culture Routine
ZEHRA Source: Blood/Venous
Specimen Description:
06/14/24 14:41
EKG [Electrocardiogram (*1)] Urgent
Reason for Study: QTc Monitoring
Nursing to Place Non Medication Order As Directed
Physician Order: Please document blood pressure
06/14/24 14:46
CR Chest Portable - 1 View Urgent
Comment:
Reason For Exam: Confusion, ascites
Reason Study Needs to be Portable: Patient Unstable
06/14/24 14:47
Admit/Transfer Patient As Directed
Co-Sign Provider:
Level of Care: Inpatient admission
Assign to:: Telemetry
Physician / Group: consuelo michel
Diagnosis: Hyperammonemia, hepatic enceph, recurr abd ascited/ cirrhosis
Reason for Telemetry: Arrhythmia
Date to Stop Telemetry: 06/17/24
Time to Stop Telemetry: 11:00
Reason for Hospitalization: Hyperammonemia, hepatic enceph, recurr abd ascited/ cirrhosis
Expected length of stay greater than two midnights?: Yes
ELOS- Estimated Length of Stay in days: 6
I certify the patient meets the requirements for IP care: Yes
Code Status As Directed
Resuscitation Status: Full Code
06/14/24 14:55
PRN Pain Medication Management As Directed
May give lesser potent ordered pain med per pt: Yes
preference::
Protocol:: Medication orders for pain may be administered in a
manner that supports deferring to patient preference
when the pt is:
- Requesting an ordered lesser potent pain medication.
Least to most potent pain medications are defined
as: acetaminophen < NSAID < tramadol < opioids
(morphine, oxycodone, hydromorphone).
- Requesting a lesser dose of the same medication IF
ORDERED.
- Requesting a less intrusive route of administration
if both routes are prescribed by the provider (PO <
IV).
06/14/24 Dinner
Sodium, 2 Gram
At Your Request: Non-Participating
Trimethobenzamide [Tigan] 200 mg IM NOW STA
06/14/24 15:04
GASTROINTESTINAL CONSULT Routine
Consulting Provider: Darnell De Jesus
Was physician already notified: Yes
Reason for consult: Acute on chronic ABD ascites, hepatic enceph
06/14/24 17:48
Urinalysis Reflex To Culture Urgent
Date Specimen was Collected: 06/14/24
Time Specimen was Collected: 17:45
06/17/24 11:00
DC Protocol for Telemetry ONCE
Abnormal Lab Results
06/14/24 06/14/24
12:53 14:03
RBC 2.71 L 10^6/uL
(4.70-6.10)
Hgb 10.0 L g/dL
(13.0-18.0)
Hct 29.3 L %
(39.0-52.0)
MCV 108.1 H fL
(80.0-94.0)
MCH 36.9 H pg
(27.0-31.0)
Plt Count 79 L 10^3/uL
(130-400)
Absolute Neuts (auto) 6.8 H 10^3/uL
(1.4-6.5)
Absolute Monos (auto) 0.9 H 10^3/uL
(0.1-0.6)
Lymphocytes % 18.0 L %
(20.5-51.1)
PT 21.3 H Sec
(11.4-14.6)
APTT 35.4 H Sec
(23.4-35.0)
Creatinine 0.6 L mg/dL
(0.7-1.3)
Glucose 106 H mg/dl
(70-99)
Total Bilirubin 6.6 H mg/dl
(0.2-1.3)
Alkaline Phosphatase 328 H U/L
(38-126)
Ammonia 82 H umol/L
(9-30)
Albumin 2.9 L g/dl
(3.5-5.0)
06/14/24 12:53
06/14/24 12:53
Vital Signs
Initial and Last Documented VS:
Initial Vital Signs
Pulse Resp Pulse Ox
78 18 100
06/14/24 12:49 06/14/24 12:49 06/14/24 12:49
Last Documented Vital Signs
Temp Pulse Resp BP Pulse Ox
97.6 F 84 17 123/78 100
06/14/24 17:53 06/14/24 19:00 06/14/24 19:00 06/14/24 17:53 06/14/24 19:00
MDM/Problems Addressed
Differential Diagnosis Includes:
44-year-old male history of known end-stage liver disease cirrhosis ascites. Presents with lethargy confusion. All consistent with hepatic encephalopathy. Elevated ammonia level. No fever no white count. Area of erythema to the left lower leg.
This may be chronic. To consider ongoing or recurring cellulitis. Probably needs admission. PT PTT pending. Will give lactulose. Hold on antibiotics at this time
*Critical Care Note
Total Time (30-74mins, 75-104mins- exclusive of procedures): Not Applicable
Data Reviewed
Review of Other/Old Records Reveals: Labs, Records, Testing, Progress Notes and Discharge Summary
ED Attending Note
-
Portions of this chart may have been created with voice recognition software.� Occasional wrong word or��sound alike� substitutions may have occurred due to the inherent limitations of voice recognition software.
Discharge Plan
Departure
Patient Disposition: Admit
Date of Disposition: 06/14/24
Time of Disposition: 14:00
Presentation/result/management discussed w/ accepting MD/DO: Hospitalist
Discharge Problem:
Hepatic encephalopathy, End-stage liver disease
Interventions
Interventions:
*Risk Screen - Suicide Last Done: 06/14/24 14:19
*General Assessment Last Done: 06/14/24 19:16
*Neglect/Abuse Screening Last Done: 06/14/24 14:19
*ED- Fall Risk Assessment Last Done: 06/14/24 16:16
*ED COVID-19 Vaccine History Last Done: 06/14/24 16:16
*Nursing Disposition Last Done: 06/14/24 19:16
VU-Hyafaj-Nwchxonwfw Assessment Last Done: 06/14/24 14:19
Discharge Date and Time
Discharge Date/Time: 06/14/24 19:17
[2024-06-14 13:58] LABS: % Basophils 0.8 % (0-2); % Eosinophils 2.2 % (0-6); % Immature Granulocytes 0.3 % (0-0.5); % Monocytes 8.8 % (1.7-9.3); % Neutrophils 69.9 % (42.2-75.2); Absolute Basophils 0.1 10^3/uL (0-0.2); Absolute Eosinophils 0.2 10^3/uL (0-0.7); Absolute Lymphocytes 1.8 10^3/uL (1.2-3.4); Absolute Monocytes 0.9 10^3/uL (0.1-0.6); Absolute Neutrophils 6.8 10^3/uL (1.4-6.5); Nucleated Red Blood Cells % 0 % (-)
--- NOTE | 2024-06-14 14:07 | HPS.HSE ---
Family Physician
-
Family Physician: Facility [facility]
Chief Complaint
-
Confusion, not taking lactulose
History of Present Illness
44-year-old male from [facility] with 2 correctional officers at bedside sent over for increased confusion, jaundice, noncompliance with lactulose. The patient is oriented to name only states no thanks when asked president's
name is not aware of year or month is unable to give review of systems. His abdomen is distended on exam he has bilateral +3 edema to lower legs with weeping. He has chronic erythema bilateral lower legs secondary to peripheral edema. The
correctional casework specialist at bedside states he did take his lactulose this morning but has been noncompliant giving the nurses a hard time taking it. The patient denies current headache, chills, chest pain, palpitations, cough, diarrhea, constipation.
He does complain of abdominal pain due to distention along with nausea.
He had a recent admission On 06/01-06/05/24 secondary to hypovolemic shock requiring IV Levophed IV fluids IV vancomycin IV Zosyn. He underwent paracentesis for abdominal ascites draining 1.2 L with fluid cytology negative for bacteria. He has
acute on chronic hepatic encephalopathy due to noncompliance with lactulose however does take rifaximin. His bilirubin was 5.5 he is chronically anemic due to cirrhosis his iron panels B12 folate were within normal range. He was also treated for
bilateral lower extremity edema with petechiae from thrombocytosis fluid was felt to be secondary to cirrhosis with portal gastropathy he had negative lower extremity Dopplers. He is not a candidate for liver transplant due to incarceration, last
drink 05/13/2024.He has past medical history of alcohol abuse, marijuana use, alcoholic cirrhosis, hepatic encephalopathy, chronic recurrent abdominal ascites, chronic anemia, chronic thrombocytopenia due to cirrhosis, chronic anasarca bilateral
lower legs portal hypertension, decompensated cirrhosis, esophageal varices status post banding ascites status post 1.5 L removed 05/24/2024, chronic transaminitis, erosive gastropathy per EGD 05/26/2024, chronic anemia, chronic B12 deficiency, chronic
peripheral neuropathy, nicotine abuse, marijuana use.
Medical History
Past Medical History
Past Medical History: Reports Other
Additional Past Medical History:
alcohol abuse
Alcoholic cirrhosis
hepatic encephalopathy
Supratherapeutic INR due to cirrhosis
chronic anemia
chronic B12 deficiency
chronic thrombocytopenia due to cirrhosis
chronic anasarca bilateral lower legs portal hypertension
decompensated cirrhosis, esophageal varices status post banding ascites status post 1.5 L removed 05/24/2024
chronic transaminitis
erosive gastropathy per EGD 05/26/2024
chronic peripheral neuropathy
nicotine abuse
marijuana use
Past Surgical History: Reports Other
Additional Past Surgical History:
wisdom teeth extraction
Esophageal varices s/p banding
Social History
Tobacco: Former Smoker
Alcohol: Former (1 bottle liquor a day last drink 05/13/2024 prior to incarceration)
Drug: None
Personal: Single
Living: [facility]
Employment: Not Employed
Family History
Family History: Unable to Obtain
Allergies / Home Medications
Allergies reflects when Allergies were last updated in [facility].
Home Medications with original date entered in [facility]
Allergy/Medication List:
Allergies
Allergy/AdvReac Type Severity Reaction Status Date / Time
No Known Allergies Allergy Verified 06/06/24 23:44
Home Medications
folic acid 1 mg tablet 1 mg PO DAILY #30 tabs 10/25/23
rifaximin 550 mg tablet (Xifaxan) 550 mg PO BID #60 tabs 10/25/23
carvedilol 6.25 mg tablet (Coreg) 6.25 mg PO BID Heart Disease/Condition 05/23/24
furosemide 40 mg tablet (Lasix) 60 mg PO DAILY Fluid Retention/Swelling 05/23/24
lactulose 10 gram/15 mL oral solution 20 g PO QID Gastrointestinal Issue 05/23/24
cyanocobalamin (vitamin B-12) 1,000 mcg tablet (Vitamin B-12) 500 mcg PO DAILY Supplement 06/01/24
omeprazole 20 mg delayed release,disintegrating tablet 20 mg PO DAILY Gastrointestinal Issue 06/01/24
polyethylene glycol 3350 17 gram oral powder packet 17 g PO DAILY Constipation 06/02/24
midodrine 5 mg tablet 5 mg PO TID 06/14/24
potassium chloride 10 mEq tablet,extended release 10 meq PO DAILY 06/14/24
Review of Systems
-
History Source: Patient and Other (2 correctional officers at bedside)
A 12 point ROS was completed and negative except as noted: Yes
Constitutional: Reports Other (Confusion, acute jaundice); Denies Fever or Chills
EENT: Denies Sore Throat or Runny Nose
Respiratory: Denies Cough or Trouble Breathing
Cardiac: Denies Chest Pain, Diaphoresis or Palpitations
Abdomen/GI: Reports Abdominal Pain (Due to ascites) and Nausea; Denies Vomiting, Diarrhea or Constipated
: Denies Dysuria, Frequency, Flank Pain, Incontinence or Difficulty Voiding
Musculoskeletal: Reports Edema (Plus for bilateral leg edema weeping, chronic erythema due to excessive edema); Denies Joint Pain
Skin: Denies Itching or Rash
Neurological: Reports Weakness (Generalized); Denies Dizzy or Headache
Hematologic/Lymphatic: Denies Bleeding
Psych: Reports Calm
Physical Exam
Vital Signs
Vital Signs
Temp Pulse Resp Pulse Ox
98.5 F 78 18 100
06/14/24 12:51 06/14/24 12:49 06/14/24 12:49 06/14/24 12:49
Physical Exam
General: Conversant (Oriented to name only states no thanks when asked president not oriented to place, year, month) and Pain (Abdomen due to ascites); No Fever or Chills
HEENT: NormoCephalic, PERRLA, Gaines Conjunctivae, No Ptosis and Other (Acute jaundice, scleral icterus)
Respiratory: Clear; No Wheezes or Rales
Cardiac: S1/S2, Regular Rhythm and Peripheral Edema (+3 bilateral legs weeping with erythema secondary to edema); No Murmur, Rub or Gallop
Breast: Deferred by me
GI: Normal Bowel Sounds, Tender (Generalized) and Distended
Rectal: Deferred by Provider
Genito-urinary: Deferred by me
Musculoskeletal: No Clubbing, No Cyanosis, Edema, Left Lower Extremity, Edema, Right Lower Extremity and Other (+3 bilateral legs weeping with erythema secondary to edema)
Skin: Warm, Dry and Other (+3 bilateral legs weeping with erythema secondary to edema)
Neuro: Awake (But lethargic due to elevated ammonia, jaundice, oriented to name only states no thanks when asked president not oriented to place, year, month); No Slurred Speech, Facial Droop or Tremors
Psych: Calm
Laboratory Results
-
06/14/24 12:53
06/14/24 12:53
Laboratory Results
Total Bilirubin 6.6 mg/dl (0.2-1.3) H 06/14/24 12:53
AST 49 U/L (17-59) 06/14/24 12:53
ALT 39 U/L (0-50) 06/14/24 12:53
Alkaline Phosphatase 328 U/L (38-126) H 06/14/24 12:53
Impression/Plan
-
Impression/plan:
Admit to telemetry
#Acute on chronic hepatic encephalopathy with hyperbilirubinemia- related to noncompliance with meds, lactulose and rifaximin on last admission. Has been incarcerated since May 13, 2024
#Hyperammonemia
T. bili 6.6> 9 On 06/01/2024 noncompliant with lactulose per patient he states however he is taking rifaximin
-Per correctional casework specialist at bedside patient did take a.m. dose of lactulose today but has been refusing it at the present
-Patient oriented to name only when asked to the president is he says no thanks
- Ammonia level 82 > 17 on 06/08/2019
-Resume lactulose 20gm 4 times daily, patient given first dose of lactulose in ER
- Resume rifaximin
-Blood cultures x 2, UA, CXR
- Follow CBC, CMP, follow ammonia level
-Low-sodium diet
- Consult GI
#Acute on chronic abdominal ascites secondary to cirrhosis
#Hx ascites status post paracentesis 1.2 L on 06/02/2024 / 1.7 L removed by IR 05/24/2024
-(Review of culture peritoneal fluid no growth for 11/13/2024)
- Consult IR for paracentesis with fluid analysis, no need for cytology given multiple paracentesis with no growth, afebrile
- Consult GI
#Acute on chronic nausea
#Hx prolonged QTc
- Tigan now for nausea will check EKG for prolonged QTc had history of QTc last admission 506
# Chronic cirrhosis with decompensation secondary to alcohol abuse
-Patient is not currently a candidate for transplant due to social situation in jail
-Continue Midodrine, Vit B12, Thiamine, Pantoprazole, Folic acid, Lasix, -continue lactulose and Xifaxan
MELD 3.0 = 23 (Improved from admission of 25)
AFP 3.13
liver serology completed recently at [facility] per patient and some in past at (2022, AMA, SLA neg, ceruloplasmin 23 mild celiac elevation) hepatitis neg 02/2024 need for eventual hep A/B vaccination
Hx 2D echo 06/01/2024: EF 70-75%, normal LVS LVSF no wall abnormalities, moderate MR, mild TR, PASP 40-45 mmHg
absolute ETOH abstinence and avoid liver toxins.
#Chronic hypotension
Continue midodrine 5 mg 3 times daily
#Supratherapeutic INR due to cirrhotic liver/worsening liver failure due to chronic alcohol use
INR 1.82 < 2.28 on 06/03/2024
#Right ankle cellulitis�resolved
#Chronic petechial rash to right foot in setting of +3 edema /thrombocytosis
#Chronic anasarca due to Portal hypertension
-Chronic significant bilateral lower extremity edema.
-Doppler ultrasound negative for DVT on visit.
-Continue Lasix 60 mg daily if SBP> 110
# Prior alcohol abuse
-Currently no alcohol since arrest on 05/13/2024
-reportedly patient still drinks 1/5 a day of hard liquor vodka, whiskey, fireball whenever he could get up until arrest on 05/13/2024
He is under arrest for DUI.
- Continue vitamin B12, folic acid 1 mg daily
#Hx erosive gastropathy recent EGD 05/26/2024
- Continue Protonix 40 mg daily
# chronic anemia -Macrocytic anemia.
Hgb 10 > 9 on 06/07/2024 baseline appears7.5�8 no evidence of bleeding.
Not iron deficient per recent labs April - May 2024
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
portal hypertension,
erosive gastropathy with stigmata of recent bleeding treated with monopolar probe
#Chronic thrombocytopenia secondary to cirrhosis
Plt 79 appears baseline for patient
#Vitamin B12 deficiency
- continue oral repletion.
#Chronic peripheral neuropathy -suspect related to alcohol.
#Nicotine abuse
Was smoking daily unknown amount prior to arrest on 05/13/2024
- Cessation advised
DVT prophylaxis
- SCDs
Full code patient is confused only oriented to name when asked president states no thanks does not know year or month his prior admission
patient incarcerated must call medical staff if case worsens [phone] as we must get Tightening Machine Operator approval to contact emergency contact patient lists as a friend Lydia his friend [phone] on prior admission. Patient still has living parents
which are his next of kin he is estranged from
[2024-06-14 14:19] LABS: APTT 35.4 Sec (23.4-35.0); INR 1.82; PT 21.3 Sec (11.4-14.6)
[2024-06-14] MEDS: DUPHALAC/CHRONULAC 20 GRAMS PO ×2 (14:54→20:40)
--- NOTE | 2024-06-14 14:58 | W.PN.UPDATE ---
Update Note
Progress Note Update
This is an addendum to H&P written by Tawny Glasgow on 06/01/2024.� Patient seen examined independently with ASSISTANT PROJECT MANAGER.
44-year-old male past medical history of alcoholic cirrhosis, hepatic encephalopathy, hypertensive erosive gastropathy, chronic anemia, peripheral neuropathy, alcohol use disorder, presenting from [facility] presenting with
change in mental status and lethargy.
Patient was recently admitted from 06/01 to 06/05 for hepatic encephalopathy, underwent paracentesis with negative ascites fluid, and EGD showing portal gastropathy.� Patient met criteria for septic shock treated with IV fluids, IV antibiotics and
Levophed.
On examination patient is very confused.� Not able to provide accurate history.� Unclear whether he has been compliant with lactulose which has been an issue previously.� Abdomen very distended.
Labs show chronic thrombocytopenia of 79.� Ammonia level of 82.� Labs otherwise unremarkable.
Patient with hepatic encephalopathy.� Blood cultures pending.� Check urinalysis and chest x-ray.� Continue lactulose and rifaximin.� IR consulted for paracentesis.� GI consulted.
--- NOTE | 2024-06-14 16:12 | CON.GI ---
Addendum entered and electronically signed by Darnell De Jesus DO 06/14/24 17:58:
Original Note:
Consultation
-
Date/Time Consultation Requested: 06/14/24 1504
Date/Time Consultation Performed: 06/14/24 1600
Requesting Provider: Tawny PRUITT
Performing Provider: Dr. Darnell De Jesus / Laurel Meredith PA-C
Reason for Consultation: h/o hepatic encephalopathy; confusion, change in mental status
Medical History
Chief Complaint / HPI
Chief Complaint: abdominal pain/change in mental status
History of Present Illness:
This is a 44 year old male, currently incarcerated, with a past medical history of alcoholic cirrhosis (decompensated, with ascites), h/o alcoholic hepatitis, h/o alcohol abuse, GERD, chronic anemia and thrombocytopenia, h/o GI bleeding with MW tear
and hypertensive portal gastropathy, gallstones with prior noted intra and extrahepatic biliary dilatation, recurrent hepatic encephalopathy secondary to medication noncompliance who was recently admitted earlier this month (06/01 to 06/05/24) for HE,
at that time in septic shock and required pressors, IV antibiotics. [facility] with confusion and change in mental status. There is reported noncompliance with taking lactulose. Currently incarcerated
since 05/13/2024 for DUI. He has not had any alcohol since incarceration but was drinking up until that point. Patient is followed by GI at [facility], Dr. Ruben Pro, and is known in our office to Dr. Alas.
Upon arrival in the ER today, labs as follows: WBC count 9.7, Hgb 10.0, platelets 79 (around his baseline). LFTs showing total bilirubin 6.6, AST 49, ALT 39, alk phos 328, albumin 2.9. PT 21.3 and INR 1.82. Ammonia level 82.
Patient is afebrile. At the time of my exam he is somnolent but arousable, responsive, but not oriented (can only tell me his first name; not oriented to time/place). Chest x-ray negative.
Past Medical History
Past Medical History: GERD, Psychiatric (anxiety/depression) and Other (alcohol abuse, prior substance abuse, ETOH hepatitis/cirrhosis with decompensation with ascites/LE edema, hepatic encephalopathy, GI bleeding --MW tear, portal gastropathy,
erosive gastropathy vocal cord lesion/nodule, migraines)
Past Surgical History: Other (nasal surgery)
Social History
Tobacco: Smoker (1 PPD)
Alcohol: Former (quit 3 months ago but admits to hx heavy use in past )
Drug: Former User (heroin, quit 6 years ago) and Marijuana (gummies )
Living: Care Home
Employment: Not Employed
Family History
Family History: Other (no family hx colon CA, polyps, liver disease )
Allergies / Home Medications
Allergy/AdvReac Type Severity Reaction Status Date / Time
No Known Allergies Allergy Verified 06/06/24 23:44
�Medication �Instructions �Recorded
folic acid 1 mg tablet 1 mg PO DAILY #30 tabs 10/25/23
rifaximin 550 mg tablet (Xifaxan) 550 mg PO BID #60 tabs 10/25/23
carvedilol 6.25 mg tablet (Coreg) 6.25 mg PO BID Heart 05/23/24
Disease/Condition
furosemide 40 mg tablet (Lasix) 60 mg PO DAILY Fluid 05/23/24
Retention/Swelling
lactulose 10 gram/15 mL oral 20 g PO QID Gastrointestinal Issue 05/23/24
solution
cyanocobalamin (vitamin B-12) 500 mcg PO DAILY Supplement 06/01/24
1,000 mcg tablet (Vitamin B-12)
omeprazole 20 mg delayed 20 mg PO DAILY Gastrointestinal 06/01/24
release,disintegrating tablet Issue
polyethylene glycol 3350 17 gram 17 g PO DAILY Constipation 06/02/24
oral powder packet
midodrine 5 mg tablet 5 mg PO TID 06/14/24
potassium chloride 10 mEq 10 meq PO DAILY 06/14/24
tablet,extended release
Review of Systems
-
Unable to obtain full review of systems at this time due to: Other (altered mental status)
History Source: Other (medical record)
Vital Signs
Temp Pulse Resp BP Pulse Ox
98.5 F 80 16 112/74 100
06/14/24 12:51 06/14/24 14:53 06/14/24 14:53 06/14/24 14:43 06/14/24 14:53
Physical Exam
Exam
General: Other (chronically ill appearing male with jaundice)
HEENT: Other (+scleral icterus)
Respiratory: Clear
Cardiac: Regular Rhythm
GI: Soft, Non Tender and Distended
Skin: Warm, Dry and Other (+jaundice)
Neuro: Other (somnolent but arousable; awake and alert, oriented x1 (person))
Psych: Calm
Results
WBC 9.7 10^3/uL (4.8-10.8) 06/14/24 12:53
Hgb 10.0 g/dL (13.0-18.0) L 06/14/24 12:53
Hct 29.3 % (39.0-52.0) L 06/14/24 12:53
MCV 108.1 fL (80.0-94.0) H 06/14/24 12:53
Plt Count 79 10^3/uL (130-400) L 06/14/24 12:53
Absolute Neuts (auto) 6.8 10^3/uL (1.4-6.5) H 06/14/24 12:53
PT 21.3 Sec (11.4-14.6) H 06/14/24 14:03
INR 1.82 06/14/24 14:03
APTT 35.4 Sec (23.4-35.0) H 06/14/24 14:03
Sodium 140 mmol/L (135-145) 06/14/24 12:53
Potassium 3.8 mmol/L (3.5-5.1) 06/14/24 12:53
Chloride 107 mmol/L (98-107) 06/14/24 12:53
Carbon Dioxide 25 mmol/L (22-30) 06/14/24 12:53
BUN 17 mg/dl (9-20) 06/14/24 12:53
Creatinine 0.6 mg/dL (0.7-1.3) L 06/14/24 12:53
Calcium 8.4 mg/dl (8.4-10.2) 06/14/24 12:53
Total Bilirubin 6.6 mg/dl (0.2-1.3) H 06/14/24 12:53
AST 49 U/L (17-59) 06/14/24 12:53
ALT 39 U/L (0-50) 06/14/24 12:53
Alkaline Phosphatase 328 U/L (38-126) H 06/14/24 12:53
Diagnostic Image Results:
06/14/24 Chest x-ray: negative
05/24/24 US Abdomen:
1. There is much ascites predominantly in the right upper quadrant
2. There are stones and sludge within the gallbladder. The gallbladder wall is thickened but this may be related to the surrounding ascites. Cholecystitis cannot be excluded.
3. Common bile duct is dilated, but has been noted to be dilated on prior ultrasounds
4. The liver is borderline in size with a coarse echotexture consistent with history of ascites
5. There is splenomegaly
Prior GI Procedures:
EGD:
05/26/24 EGD: (Dr Alejandro)
- Tortuous esophagus.
- Portal hypertensive gastropathy
- Erosive gastropathy with stigmata of recent
bleeding. Treated with a monopolar probe.
- Normal duodenal bulb and second portion of the duodenum.
06/21/23 EGD: (Dr. Alas)
- Normal esophagus. Healed MW tears, no varices seen.
- Portal hypertensive gastropathy.
- An endoclip was found in the stomach.
- Normal examined duodenum
03/07/2023 EGD: (Dr. Alas)
- Maria Eugenia-Merino tears. Injected. Clip was placed as
described above. No signs of varices were seen.
- Normal stomach.
- Normal examined duodenum.
Assessment / Plan
-
44 year old male, currently incarcerated, with a past medical history of alcoholic cirrhosis (decompensated, with ascites), h/o alcoholic hepatitis, h/o alcohol abuse, GERD, chronic anemia and thrombocytopenia, h/o GI bleeding with MW tear and
hypertensive portal gastropathy, gallstones with prior noted intra and extrahepatic biliary dilatation, recurrent hepatic encephalopathy secondary to medication noncompliance who was recently admitted earlier this month (06/01 to 06/05/24) for HE, at
that time in septic shock and required pressors, IV antibiotics. He now presents from [facility] with confusion and change in mental status. There is reported noncompliance with taking lactulose. Currently incarcerated since
05/13/2024 for DUI. He has not had any alcohol since incarceration but was drinking up until that point. Patient is followed by GI at [facility], Dr. Ruben Pro, and is known in our office to Dr. Alas.
Upon arrival in the ER today, labs as follows: WBC count 9.7, Hgb 10.0, platelets 79 (around his baseline). LFTs showing total bilirubin 6.6, AST 49, ALT 39, alk phos 328, albumin 2.9. PT 21.3 and INR 1.82. Ammonia level 82.
Patient is afebrile. At the time of my exam he is somnolent but arousable, responsive, but not oriented. Chest x-ray negative.
IMPRESSION / PLAN:
Hepatic encephalopathy, recurrent, suspect secondary to medication noncompliance
- Ammonia level 82
- Give lactulose enema, continuing q 4 hours
- Resume xifaxan
- Infectious workup: CXR negative, blood and urine cultures pending
- IR has been consulted for paracentesis - rule out SBP
- hold diuretics for now
Cirrhosis, decompensated with ascites, portal hypertensive gastropathy
- MELD 3.0 = 21
- not currently a transplant candidate
Other medical issues managed as per hospitalist team. We will follow.
-
-
Thank you for consultation and allowing me to participate in the patient's care. Please call the information systems consultant GI physician during the after hours with any questions or concerns.
[2024-06-14] MEDS: TIGAN 200 MG IM (17:50)
[2024-06-14] MEDS: LACTULOSE ENEMA 300 ML RECTAL (18:30)
[2024-06-14 18:51] LABS: Urine Albumin 1+ (Neg - Trace); Urine Bilirubin 1+ (Negative); Urine Character Clear (Clear); Urine Color Amber; Urine Glucose Negative (Negative); Urine Ketone 1+ (Negative); Urine Leukocyte 1+ (Negative); Urine Nitrite Negative (Negative); Urine Occult Blood Negative (Negative); Urine Urobilinogen 3+ (Neg - 1+)
[2024-06-14 19:21] LABS: Urine Mucus Moderate
[2024-06-14 19:22] LABS: Urine Bacteria Few (Negative); Urine Red Blood Cell 0-2 /HPF (0-2)
[2024-06-14] MEDS: XIFAXAN 550 MG PO (20:40)
[2024-06-14] MEDS: ProAmatine 5 MG PO (20:40)
[2024-06-14] MEDS: COREG 6.25 MG PO (20:40)
[2024-06-15] VITALS (9 sets, daily range): BP systolic 80–158; BP diastolic 52–85; BMI 30.7
[2024-06-15 08:10] LABS: Ammonia 14 umol/L (9-30)
[2024-06-15 08:27] LABS: Hematocrit 26.3 % (39.0-52.0); Hemoglobin 8.8 g/dL (13.0-18.0); Mean Corp Hgb Conc. 33.5 g/dL (33.0-37.0); Mean Corpuscular Hgb 36.4 pg (27.0-31.0); Mean Corpuscular Volume 108.7 fL (80.0-94.0); Mean Platelet Volume 9.9 fL (7.4-10.4); Platelet Count 65 10^3/uL (130-400); Red Blood Cell Count 2.42 10^6/uL (4.70-6.10); Red Cell Dist. Width 14.3 % (11.5-14.5); White Blood Cell Count 11.1 10^3/uL (4.8-10.8)
[2024-06-15 08:41] LABS: ALT (SGPT) 34 U/L (0-50); AST (SGOT) 42 U/L (17-59); Albumin 2.5 g/dl (3.5-5.0); Alkaline Phosphatase 177 U/L (38-126); Blood Urea Nitrogen 18 mg/dl (9-20); Calcium 8.3 mg/dl (8.4-10.2); Carbon Dioxide 23 mmol/L (22-30); Chloride 106 mmol/L (98-107); Estimated Creatinine Clearance > 125 ml/min; Glucose 97 mg/dl (70-99); Potassium 3.2 mmol/L (3.5-5.1); Sodium 136 mmol/L (135-145); Total Bilirubin 9.8 mg/dl (0.2-1.3); Total Protein 5.7 g/dl (6.3-8.2); eGFR > 60.00
--- NOTE | 2024-06-15 08:44 | W.PN.GI.CBS2 ---
Addendum entered and electronically signed by Darnell De Jesus DO 06/15/24 12:41:
I saw and examined the patient.
The CANDY SPREADER HELPER's note was reviewed and I agree with the note.
Comment: Mr. Ye is a 44 y.o male with past medical history of decompensated EtOH cirrhosis (HE and ascites) and chronic thrombocytopenia who presented from [facility] on 06/14/24 with acute change in mental status and
worsening lethargy concerning for recurrent HE. Currently, his mental status is much improved over the past 24 hrs and is currently AAOx3. May stop rectal enemas and decreased his lactulose to q 8 hrs while titrating his lactulose with goal BMs of
at least 3-4 while inpatient along with continuing Rifaximin 550 mg BiD. Infectious w/u thus far negative pending blood cultures and recent paracentesis on 06/15 (-) 3.9 L removed and 42 PMNs. No signs of GI bleeding and thus suspect recurrent HE
secondary to reported noncompliance pending rest of infectious w/u. Still volume overloaded and significant anasarca. May continue his lasix 60 mg once daily and will start spironolactone 100 mg q daily as well. He is not currently in OLT evaluation
given his social circumstances / incarceration. Discussed importance of ongoing EtOH cessation and would likely benefit from EtOH rehab after his incarceration as well. Recommend Nutrition consult as well given his sarcopenia. See rest of care as
outlined below.
Discussed with primary internal medicine team. GI will continue to follow.
Addendum entered and electronically signed by EDMOND Wray 06/15/24 10:10:
para 3900, with stable Na, creat, BP and neg SBP no albumin needed. Reviewed with nursing
Original Note:
Today's Communication / Plan
-
see below
for para
await culture data
cont Lactulose QID (may need tapering down) and Xifaxan BID
cont Lasix - consider adding aldactone
Not transplant candidate as currently incarerated
2 gram Na diet
trend labs
Assessment / Plan
-
44 yo incarcerated for DUI male with a PMH significant for GERD, alcohol abuse (Quit 06/2023 prior heavy use - 1 bottle daily for 4 years), ETOH hepatitis(prior steroid course 02/2023)/cirrhosis with decompensation, LE edema/cellulitis, GI bleed with
MW tear, portal gastropathy, Hepatic encephalopathy on Xifaxan and Lactulose prior to admission, gallstones with prior noted intra and extrahepatic biliary dilatation, neuropathy, and constipation who now presents with concern for recurrent
hepatic encephalopathy with recent admission with sepsis with hypotension requiring pressors, IV abx, and now returns with change in mental status and concern for recurrent hepatic enceopalpathy. Lasst ETOH prior to incarceration. . Patient is
followed by GI at [facility], Dr. Ruben Pro, and is known in our office to Dr. Alas.
-recurrent hepatic encephalopathy with elevated ammonia level on admission
-cirrhosis with decompensation with elevated LFT's
-recent cellulitis with marked LE edema
-coagulopathy
-hypokalemia
-macrocytic anemia
-thrombocytopenia
-neuropathy
-severe portal HTN/gastric erosion per recent EGD
-ETOH abuse/prior ETOH hepatitis
-hx MW tear
-hepatosplenomegaly on imaging
-cholelithiasis
PLAN:
etiology of symptoms with concern for ETOH cirrhosis with decompensation with mild hepatic encephalopathy with elevated ammonia level on admission in setting of recent cellulitis vs other-with also concern for medication non compliance at [facility]
ammonia 82 on admission now 14 -- follow mental status- remains awake and alert
pt also with continued worsening fluid overload with ascites/edema with wt gain
MELD 3.0 21 was 25 on recent admission
cont Lactulose QID and Xifaxan BID
r/o infection,- urine/blood cx , CXR 06/14 no PNA or pleural effusion --for para this am
2 gram Na diet
pt was on Lasix 60mg and consider adding Aldactone during admission if BP tolerates
cont folate and add thiamine
correct K per medical team
will give dose vitamin K with coagulopathy and anemia
cont to trend labs
AFP 3.13 on 06/02, last US 02/2024 no masses
liver serology completed recently at [facility] per patient and some in past at (2022, AMA, SLA neg, ceruloplasmin 23 mild celiac elevation) hepatitis neg 02/2024 need for eventual hep A/B vaccination
absolute ETOH abstinence and avoid liver toxins
drop in hbg likely portal gastropathy but pt had not had colonoscopy in past monitor for signs of active GI bleeding
per prior discussed with patient he was in work up for liver transplant but currently on hold with incarceration and admits to estrangement with family and lack of social support -- will need re eval if able vs consider goals of care discussion
Subjective
Subjective
Date of Service: June 15, 2024
pt awake and alert, feeling like fluid issues getting worse, admits to loose stools with some incontinence
Objective
Data Reviewed
Laboratory Data:
Laboratory Results
06/15/24 07:34
06/15/24 07:34
Laboratory Results
PT 21.3 Sec (11.4-14.6) H 06/14/24 14:03
INR 1.82 06/14/24 14:03
APTT 35.4 Sec (23.4-35.0) H 06/14/24 14:03
Total Bilirubin 9.8 mg/dl (0.2-1.3) H 06/15/24 07:34
AST 42 U/L (17-59) 06/15/24 07:34
ALT 34 U/L (0-50) 06/15/24 07:34
Alkaline Phosphatase 177 U/L (38-126) H 06/15/24 07:34
Vital Signs and I&O:
Vital Signs
Temp Pulse Resp BP Pulse Ox
98 F 85 15 110/68 100
06/15/24 07:55 06/15/24 08:38 06/15/24 08:38 06/15/24 08:38 06/15/24 08:35
I&O
06/14/24 06/15/24 06/16/24
06:59 06:59 06:59
Intake Total 1200 / 1200
Output Total 800 / 800
Balance 400 / 400
Physical Exam
Physical Exam
HEENT: Other (marked jaundice )
Cardiology: Normal Sinus Rhythm
Pulmonary: Clear
GI: Soft, Distended and Tender (mild diffuse )
Extremities: Edema
Neuro: Non Focal and Other (minimal asterixis )
[2024-06-15 08:55] LABS: % Basophils 0.5 % (0-2); % Eosinophils 1.5 % (0-6); % Immature Granulocytes 0.5 % (0-0.5); % Lymphocytes 17.6 % (20.5-51.1); % Monocytes 6.9 % (1.7-9.3); Absolute Basophils 0.1 10^3/uL (0-0.2); Absolute Eosinophils 0.2 10^3/uL (0-0.7); Absolute Immature Granulocytes 0.1 10^3/uL (0-0.05); Absolute Monocytes 0.8 10^3/uL (0.1-0.6); Absolute Neutrophils 8.1 10^3/uL (1.4-6.5); Nucleated Red Blood Cells % 0 % (-)
[2024-06-15 09:16] LABS: Body Fluid Albumin < 1.0 g/dl; Body Fluid Amylase 44 U/L; Body Fluid LDH 68 U/L; Body Fluid Protein < 2.0 g/dl
[2024-06-15 09:17] LABS: Body Fluid Mononuclear 77.3 %; Body Fluid Polymorphonuclear 22.7 %; Body Fluid WBC 185 /CUMM
[2024-06-15 09:21] LABS: Body Fluid Second Tech US
[2024-06-15] MEDS: KCL 270 MEQ IV (10:51)
[2024-06-15] MEDS: LASIX 60 MG PO (10:56)
[2024-06-15] MEDS: ProAmatine 5 MG PO ×3 (10:57→17:16)
[2024-06-15] MEDS: FOLVITE 1 MG PO (10:58)
[2024-06-15] MEDS: PROTONIX 40 MG PO (10:58)
[2024-06-15] MEDS: MIRALAX PO (10:58)
[2024-06-15] MEDS: XIFAXAN 550 MG PO ×2 (10:58→20:38)
[2024-06-15] MEDS: VITAMIN B-12 500 MCG PO (10:58)
[2024-06-15] MEDS: VITAMIN B1 100 MG PO (10:58)
[2024-06-15] MEDS: DUPHALAC/CHRONULAC 20 GRAMS PO ×2 (10:59→17:16)
[2024-06-15] MEDS: KCL 10 MEQ PO (10:59)
[2024-06-15] MEDS: COREG PO (11:07)
[2024-06-15] MEDS: ALDACTONE 100 MG PO (14:25)
--- NOTE | 2024-06-15 16:25 | CM ---
Patient seen at bedside with physicians and [facility] guards. Patient is for return to [facility] when appropriate. CM called to [facility] and spoke with nurse Sukumar. Physician recommendation of regular paracentesis following patient return to [facility] reviewed
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 CM will continue to follow for discharge planning needs.
Plan; return to [facility] when medically appropriate.
--- NOTE | 2024-06-15 17:11 | W.PN.HOSP.TC ---
Addendum entered and electronically signed by Josy Nayak MD 06/15/24 18:47:
I saw and evaluated the patient independently. I reviewed the resident�s note and agree with findings and plan as documented by Dr. Connolly.
GENERAL: chronically ill jaundiced male in no apparent distress
HEENT: NC/AT--scleral icterus
HEART: regular rate and rhythm, +S1, +S2
LUNGS : clear to auscultation bilaterally
ABDOM: soft, nontender, nondistended, + bowel sounds
EXT: no cyanosis, clubbing-- 3+ edema LE bilaterally
NEUROLOGIC: subdued--nonfocal
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
thiamine to prevent Wernicke encephalopathy and Korsakoff syndrome--SAAG score is more than 1.1 and protein less than 2.5 indicating portal hypertension caused by cirrhosis. PMN count is less than 250 excluding SBP--Continue Lasix and Aldactone to
remove fluid from patient while preventing potassium loss (spironolactone potassium sparing) and diuretic related electrolyte imbalances--Sodium restricted diet less than 2 g a day to minimize fluid retention--dietary consult--apprec GI--cont
lactulose--may benefit from weekly paracentesis---- Ammonia level on admission was 82, today its 14 and normal--cont rifamixin
Leucocytosis-- Wbc is 11.1, likely reactive due to alcoholic cirrhosis, continue to trend
Anemia of chronic disease-- Likely due to cirrhosis-- hgb is 8.8 today trending down from 10 on admission--follow for need for transfusion
Hypokalemia--- Most likely due to his cirrhosis combined with IV lasix diuretic use--replete
Hyperbilirubinemia-- total bilirubin is 9.8-- Most likely due to hepatic clearance of bilirubin due to hepatocellular injury- Continue to follow bilirubin level
GERD- continue Protonix
DVT ppx- SCD's
FUll code
Original Note:
Today's Communication/Plan
-
- continue to monitor electrolytes
- Continue to monitor bilirubin level
- follow up with GI
Assessment / Plan
Assessment / Plan
Decompensated Cirrhotic liver disease secondary to previous chronic alcohol abuse
Thrombocytopenia
Requiring paracentesis:
- Last drink on 05/13/2024 according to patient
- continue folic acid and thiamine to prevent Wernicke encephalopathy and Korsakoff syndrome
- Paracentesis yielded 3900 cc of fluid. SAAG score is more than 1.1 and protein less than 2.5 indicating portal hypertension caused by cirrhosis. PMN count is less than 250 excluding SBP.
- Continue Lasix and Aldactone to remove fluid from patient while preventing potassium loss ( spironolactone potassium sparing) and diuretic related electrolyte imbalances
- Sodium restricted diet less than 2 g a day to minimize fluid retention
- Dietary consult was placed so patient could talk with business development consultant about low sodium food options
- Platelet count is 65, transfuse if less than 10 or less than 50 with active bleeding
- GI is following
- Talked to [facility] and they can arrange for him to have therapeutic paracentesis done at facility
Hepatic Encephalopathy due to chronic alcohol use:
- On presentation, patient presented with increased confusion and mild asterixis on exam
- Ammonia level on admission was 82, today its 14 and normal
- Continue lactulose which removes ammonia through colon and titrate it 2-3 bowel movements an hour, and rifaximin which eliminates ammonia producing bacteria from gut
- Further alcohol cessation counselling provided
- Continue to trend electrolytes and ammonia
Leucocytosis:
- Wbc is 11.1, likely reactive due to alcoholic cirrhosis, continue to trend
- patient is afebrile
Anemia of chronic disease:
- Likely due to cirrhosis
- hgb is 8.8 today trending down from 10 on admission
- The iron count is normal but the TIBC is low on last admission 06/03/24
- b12 and folate normal on last admission 06/03/24
Hypokalemia:
- potassium is 3.2
- Most likely due to his cirrhosis combined with IV lasix diuretic use
- repleted potassium with potassium 40 rider
Hyperbilirubinemia:
- total bilirubin is 9.8
- Most likely due to hepatic clearance of bilirubin due to hepatocellular injury
- Continue to follow bilirubin level
- Gi is following
GERD:
- continue Protonix
DVT ppx- SCD's
FUll code
Anticipated Discharge: 24 - 48 hours
Subjective/Interval History
-
Date of Service: June 15, 2024
Patient is asking if there are any alternative ways to get a therapeutic paracentesis rather than having to come to [place] every time. He also wants to talk to a business development consultant about different low sodium options, as he felt that helped him during his
last admission.
Objective Data
-
Labs:
Laboratory Results
06/15/24
07:34
WBC 11.1 H
Hgb 8.8 L
Hct 26.3 L
Plt Count 65 L
Sodium 136
Potassium 3.2 L
Chloride 106
Carbon Dioxide 23
BUN 18
Creatinine 0.6 L
Glucose 97
Calcium 8.3 L
Total Bilirubin 9.8 H
AST 42
ALT 34
Alkaline Phosphatase 177 H
Vital Signs:
Vital Signs
Temp Pulse Resp BP Pulse Ox
98.8 F 90 20 111/62 100
06/15/24 15:35 06/15/24 15:35 06/15/24 15:35 06/15/24 15:35 06/15/24 15:35
I&O
06/14/24 06/15/24 06/16/24
06:59 06:59 06:59
Intake Total 1200 / 1200
Output Total 800 / 800
Balance 400 / 400
Review of Systems
-
History Source: Patient
Constitutional: Reports Fatigue; Denies Fever, Weight Gain, No Appetite or Sleep Disturbance
Respiratory: Denies Cough, Trouble Breathing or Wheezing
Cardiac: Denies Chest Pain, Diaphoresis or Palpitations
Abdomen/GI: Reports Abdominal Pain; Denies Nausea, Vomiting, Diarrhea or Bloody Stools
Genitourinary: Denies Dysuria
Musculoskeletal: Denies Joint Pain
Skin: Denies Itching
Neuro: Denies Weakness, Numbness, Ataxia or Tremors
Physical Exam
-
General: Appears Chronically Ill and Other (Diffuse Jaundice all over body and scleral icterus)
Respiratory: Clear to Auscultation
Cardiac: Regular Rhythm and S1/S2
GI: Soft, Tender (mild diffuse tenderness ) and Distended
Skin: Warm, Dry and Jaundice
Neuro: Awake, Alert and Oriented
Data Reviewed
-
Labs: Labs Reviewed by me and Discussed with Physician
[2024-06-15] MEDS: COREG 6.25 MG PO (20:37)
[2024-06-16] VITALS (8 sets, daily range): BP systolic 90–130; BP diastolic 44–75; BMI 29.7
[2024-06-16] MEDS: DUPHALAC/CHRONULAC 20 GRAMS PO ×3 (00:29→23:11)
--- NOTE | 2024-06-16 07:53 | W.PN.UPDATE ---
Update Note
Progress Note Update
Brief GI Note:
Recent Doppler US on 06/15/24 revealed partially occlusive thrombus present within the R portal vein and distal main PV along with moderate ascites. Suspect partially occlusive PVT resulting in his recurrent ascites. However, prior to starting a/c
would benefit from a repeat EGD to r/o EV/GV. Additionally, ordered repeat AFP and would benefit from a MRI Abdomen WWO contrast for further evaluation of partially occlusive thrombus to better characterize degree of chronicity as low suspicion for
an acute PVT and without any symptoms concerning for mesenteric ischemia. Would continue to hold off on a/c until EGD has been performed and MRI has been completed. Given partially occlusive nature, would hold a/c at this time as well.
See EGD report later today for additional findings and recommendations. Keep NPO pending EGD.
GI team will continue to follow.
[2024-06-16 08:27] LABS: Hematocrit 23.4 % (39.0-52.0); Hemoglobin 7.8 g/dL (13.0-18.0); Mean Corp Hgb Conc. 33.3 g/dL (33.0-37.0); Mean Corpuscular Hgb 36.3 pg (27.0-31.0); Mean Corpuscular Volume 108.8 fL (80.0-94.0); Mean Platelet Volume 9.2 fL (7.4-10.4); Platelet Count 62 10^3/uL (130-400); Red Blood Cell Count 2.15 10^6/uL (4.70-6.10); Red Cell Dist. Width 14.5 % (11.5-14.5); White Blood Cell Count 8.3 10^3/uL (4.8-10.8)
[2024-06-16 08:31] LABS: INR 1.84; PT 21.7 Sec (11.4-14.6)
[2024-06-16 08:50] LABS: % Basophils 0.6 % (0-2); % Eosinophils 2.3 % (0-6); % Immature Granulocytes 0.4 % (0-0.5); % Lymphocytes 23.2 % (20.5-51.1); % Monocytes 9.7 % (1.7-9.3); % Neutrophils 63.8 % (42.2-75.2); Absolute Basophils 0.1 10^3/uL (0-0.2); Absolute Eosinophils 0.2 10^3/uL (0-0.7); Absolute Lymphocytes 1.9 10^3/uL (1.2-3.4); Absolute Monocytes 0.8 10^3/uL (0.1-0.6); Absolute Neutrophils 5.3 10^3/uL (1.4-6.5); Nucleated Red Blood Cells % 0 % (-)
[2024-06-16 08:53] LABS: Ammonia 121 umol/L (9-30)
[2024-06-16 09:19] LABS: ALT (SGPT) 35 U/L (0-50); AST (SGOT) 45 U/L (17-59); Albumin 2.4 g/dl (3.5-5.0); Alkaline Phosphatase 218 U/L (38-126); Blood Urea Nitrogen 19 mg/dl (9-20); Calcium 8.2 mg/dl (8.4-10.2); Carbon Dioxide 24 mmol/L (22-30); Chloride 104 mmol/L (98-107); Estimated Creatinine Clearance > 125 ml/min; Glucose 99 mg/dl (70-99); Potassium 3.8 mmol/L (3.5-5.1); Sodium 136 mmol/L (135-145); Total Bilirubin 5.4 mg/dl (0.2-1.3); Total Protein 5.6 g/dl (6.3-8.2); eGFR > 60.00
[2024-06-16] MEDS: LACTULOSE ENEMA 300 ML RECTAL (10:37)
--- NOTE | 2024-06-16 12:51 | W.PN.HOSP.TC ---
Addendum entered and electronically signed by Josy Nayak MD 06/16/24 17:22:
I saw and evaluated the patient independently. I reviewed the resident�s note and agree with findings and plan as documented by Dr. Connolly.
GENERAL: chronically ill jaundiced male in no apparent distress--confused and subdued
HEENT: NC/AT--scleral icterus--jaundice
HEART: regular rate and rhythm, +S1, +S2
LUNGS : clear to auscultation bilaterally
ABDOM: soft, nontender, nondistended, + bowel sounds
EXT: no cyanosis, clubbing-- 3+ edema LE bilaterally
NEUROLOGIC: subdued--nonfocal
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
thiamine---SAAG score is more than 1.1 and protein less than 2.5 indicating portal hypertension caused by cirrhosis. PMN count is less than 250 excluding SBP--Continue Lasix and Aldactone--Sodium restricted diet less than 2 g a day to minimize fluid
retention--dietary consult--apprec GI--cont lactulose--may benefit from weekly paracentesis---- Ammonia level on admission was 82, today its 121--cont rifamixin
possible portal vein thrombosis--EGD done which showed 2 gastric ulcers 1 with visible vessel--s/p cautery--no anticoagulation--clears and restart oral meds
Leucocytosis-- Wbc is 11.1-- likely reactive, down to 8.3
Anemia of chronic disease-- Likely due to cirrhosis-- hgb is 7.8 today trending down from 10 on admission--follow for need for transfusion
Hypokalemia--- Most likely due to his cirrhosis combined with IV lasix diuretic use--replete
Hyperbilirubinemia-- total bilirubin elevated--chronic
GERD- continue Protonix
DVT ppx- SCD's
Full code
Original Note:
Today's Communication/Plan
-
- continue to monitor electrolytes
- Continue to monitor bilirubin level
- follow up with GI
Assessment / Plan
Assessment / Plan
Decompensated Cirrhotic liver disease secondary to previous chronic alcohol abuse
Thrombocytopenia
Requiring paracentesis:
- Yesterday night, patient was made NPO so that he could get an EGD today to check for esophageal and gastric varices which are complications of decompensated alcoholic cirrhosis.
- Also doppler ultrasound of his abdomen found a partially occlusive thrombus in his right and distal main portal vein so MRI is scheduled for today.
- Last drink on 05/13/2024 according to patient
- continue folic acid and thiamine to prevent Wernicke encephalopathy and Korsakoff syndrome
- Paracentesis yielded 3900 cc of fluid. SAAG score is more than 1.1 and protein less than 2.5 indicating portal hypertension caused by cirrhosis. PMN count is less than 250 excluding SBP.
- Continue Lasix and Aldactone to remove fluid from patient while preventing potassium loss ( spironolactone potassium sparing) and diuretic related electrolyte imbalances
- Sodium restricted diet less than 2 g a day to minimize fluid retention
- Dietary consult was placed so patient could talk with [employer] clerk about low sodium food options
- Platelet count is 62,, transfuse if less than 10 or less than 50 with active bleeding
- GI is following
- [facility] to [facility] and they can arrange for him to have therapeutic paracentesis done at facility
Hepatic Encephalopathy due to chronic alcohol use:
- patient is complaining of waxing and waning confusion along with abdominal pain/cramping.
- Ammonia level on admission was 82, today its 121. Lactulose was given rectally as patient is NPO.
- Continue lactulose which removes ammonia through colon and titrate it 2-3 bowel movements an hour, and rifaximin which eliminates ammonia producing bacteria from gut
- Further alcohol cessation counselling provided
- Continue to trend electrolytes and ammonia
Leucocytosis:
- Wbc is 8.3 today, afebrile
- resolved
Anemia of chronic disease:
- Likely due to cirrhosis
- hgb is 7.8 today trending down from 10 on admission
- The iron count is normal but the TIBC is low on last admission 06/03/24
- b12 and folate normal on last admission 06/03/24
- transfuse if less than 7
Hypokalemia:
- potassium is 3.8
- resolved
Hyperbilirubinemia:
- total bilirubin is 9.8
- Most likely due to hepatic clearance of bilirubin due to hepatocellular injury
- Continue to follow bilirubin level
- Gi is following
GERD:
- continue Protonix
DVT ppx- SCD's
FUll code
Anticipated Discharge: 24 - 48 hours
Subjective/Interval History
-
Date of Service: June 16, 2024
patient is complaining of abdominal pain.
Objective Data
-
Labs:
Laboratory Results
06/16/24
07:57
WBC 8.3
Hgb 7.8 L
Hct 23.4 L
Plt Count 62 L
PT 21.7 H
INR 1.84
Sodium 136
Potassium 3.8
Chloride 104
Carbon Dioxide 24
BUN 19
Creatinine 0.7
Glucose 99
Calcium 8.2 L
Total Bilirubin 5.4 H
AST 45
ALT 35
Alkaline Phosphatase 218 H
Vital Signs:
Vital Signs
Temp Pulse Resp BP Pulse Ox
97.8 F 70 18 90/44 100
06/16/24 11:16 06/16/24 11:16 06/16/24 11:16 06/16/24 11:16 06/16/24 11:16
I&O
06/15/24 06/16/24 06/17/24
06:59 06:59 06:59
Intake Total 1200 / 1200 1060 / 1060
Output Total 800 / 800 850 / 850
Balance 400 / 400 210 / 210
Review of Systems
-
History Source: Patient
Constitutional: Reports Fatigue; Denies Fever, Weight Gain, No Appetite or Sleep Disturbance
Respiratory: Denies Cough, Trouble Breathing or Wheezing
Cardiac: Denies Chest Pain, Diaphoresis or Palpitations
Abdomen/GI: Reports Abdominal Pain; Denies Nausea, Vomiting, Diarrhea or Bloody Stools
Genitourinary: Denies Dysuria
Musculoskeletal: Denies Joint Pain
Skin: Denies Itching
Neuro: Denies Weakness, Numbness, Ataxia or Tremors
Physical Exam
-
General: Appears Chronically Ill and Other (Diffuse Jaundice all over body and scleral icterus)
Respiratory: Clear to Auscultation
Cardiac: Regular Rhythm and S1/S2
GI: Soft, Tender (mild diffuse tenderness ) and Distended
Skin: Warm, Dry and Jaundice
Neuro: Awake, Alert and Oriented
Data Reviewed
-
Labs: Labs Reviewed by me and Discussed with Physician
--- NOTE | 2024-06-16 15:14 | CM ---
Patient seen at bedside with physicians. Patient is currently on [facility] per [facility] and when discharged is to be picked up for transfer back to the intermediate. CM will continue to follow for discharge planning needs.
Plan; return to intermediate when medically appropriate
[2024-06-16] MEDS: ProAmatine PO ×2 (15:50)
[2024-06-16] MEDS: COREG PO (15:50)
[2024-06-16] MEDS: XIFAXAN PO (15:50)
[2024-06-16] MEDS: DUPHALAC/CHRONULAC PO (16:51)
[2024-06-16] MEDS: MIRALAX 17 GRAMS PO (17:34)
[2024-06-16] MEDS: LASIX 60 MG PO (17:35)
[2024-06-16] MEDS: ProAmatine 5 MG PO (17:35)
[2024-06-16] MEDS: PROTONIX 40 MG PO (17:36)
[2024-06-16] MEDS: KCL 10 MEQ PO (17:36)
[2024-06-16] MEDS: VITAMIN B-12 500 MCG PO (17:36)
[2024-06-16] MEDS: VITAMIN B1 100 MG PO (17:36)
[2024-06-16] MEDS: FOLVITE 1 MG PO (17:36)
[2024-06-16] MEDS: ALDACTONE 100 MG PO (17:36)
[2024-06-16] MEDS: COREG 6.25 MG PO (20:37)
[2024-06-16] MEDS: XIFAXAN 550 MG PO (20:37)
[2024-06-17 03:20] VITALS: BP 111/65
--- NOTE | 2024-06-17 03:49 | DOWNTIME ---
There was a [employer] Client Configuration Management Analyst Downtime on 06/17/2024 from 0200 to 06/18/2023 at 0318 . Downtime documentation of patient's care, including medication administrations, has been reconciled in the electronic record per guidelines. Refer to the
patient's paper chart under the miscellaneous tab to see printed paper medication records and downtime forms.
[2024-06-17 05:26] VITALS: BMI 29.1
[2024-06-17 07:30] VITALS: BP 115/66
--- NOTE | 2024-06-17 08:51 | W.PN.GI.CBS2 ---
Addendum entered and electronically signed by Darnell De Jesus DO 06/17/24 14:32:
I saw and examined the patient.
The ELECTRONIC INSTALLER's note was reviewed and I agree with the note.
Comment: Agree with the detailed note as below. Recent EGD on 06/16/24 without any evidence of EV/GV or duodenal varices. Moderate PHG and incidental gastric ulcers in antrum and prepyloric region with one gastric ulcer with NBVV s/p bicap for
prevention of rebleeding and additional hemostasis. Otherwise, no signs of active or old blood throughout the examined upper GI tract and thus would defer any plans for IV abx. Upon review of his imaging of his MRI, given his non-occlusive, partial
right PVT would not be a candidate for anticoagulation from a GI/liver standpoint per AASLD guidelines. He has no other imaging to suggest mesenteric ischemia or other concerning abdominal symptoms in regards to his PVT. Furthermore, given the
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 Unfortunately, his overall prognosis remains
poor with MELD 3.0 score ranging between 21-25 (current 24 as of 06/17) and not an OLT candidate at this time due to his AUD, recent DUI along with incarceration with recent furlough status further complicating his social situation. Agree with
continuing his diuretics for now along with continuing his Rifaximin 550 mg BiD and lactulose to titrate to 2-3 BMs per day. Infectious w/u has continued to remain negative and no other signs of over GI bleeding. Agree with continuing PPI 40 mg BiD
x 8 weeks then once daily. Palliative Care also consulted given patient's poor prognosis given his ESLD and per recent discussions with Palliative Care patient has agreed to transition to hospice care. Appreciate SW/CM for assistance given patient's
recent incarceration and transition to hospice. Agree with rest of plan and recommendations as outlined below.
Discussed with primary internal medicine team this afternoon. Given plans to transition to hospice care, GI team will sign-off. Please re-engage if any questions or concerns.
Original Note:
Today's Communication / Plan
-
etiology of symptoms with concern for ETOH cirrhosis with decompensation with mild hepatic encephalopathy with elevated ammonia level on admission in setting of recent cellulitis vs other-with also concern for medication non compliance at [facility],
he is also noted with partial PVT and Gastric ulcer with visible vessel on EGD during admission along with fluid overload and progression on disease
cont Lactulose q 8 will change to TID dosing and cont Xifaxan--- will stop Miralax as still with loose stools
reviewed with staff for accurate monitoring of stool output to see if patient need BID dosing of lactulose
advance to 2 gram na diet
MELD 3.0 21 this admission and was 25 on recent admission
await am labs
cont PPI with noted ulcer on EGD will increased to BID
cont Lasix 60mg and Aldactone 100mg
infectious work up neg
cont thiamine and folate
US doppler and MRI as noted with partial PVT -- holding on AC with thrombocytopenia, noted with visible vessel
AFP 3.13 on 06/02 no mass on MRI
absolute ETOH abstinence and avoid liver toxins
long discussion with patient this AM-- he is tearful but realizes liver transplant is not option and he is dying of his liver disease-- he is agreeable for palliative care and will be open to discuss hospice
I also spoke with Gladys at [facility] [phone] as pt on furlough status. Will need to return to skilled nursing vs consider SNF/hospice-- I will further review with social work
Assessment / Plan
-
44 yo incarcerated for DUI male with a PMH significant for GERD, alcohol abuse (Quit 06/2023 prior heavy use - 1 bottle daily for 4 years), ETOH hepatitis(prior steroid course 02/2023)/cirrhosis with decompensation, LE edema/cellulitis, GI bleed with
MW tear, portal gastropathy, Hepatic encephalopathy on Xifaxan and Lactulose prior to admission, gallstones with prior noted intra and extrahepatic biliary dilatation, neuropathy, and constipation who now presents with concern for recurrent
hepatic encephalopathy with recent admission with sepsis with hypotension requiring pressors, IV abx, and now returns with change in mental status and concern for recurrent hepatic enceopalpathy. Lasst ETOH prior to incarceration. . Patient is
followed by GI at [facility], Dr. Ruben Pro, and is known in our office to Dr. Alas.
06/15/24 - US doppler
1. Thrombus is present within the right portal vein and distal main portal vein.
2. Cholelithiasis.
3. Moderate abdominal ascites.
06/16/24 MR Abdomen W/o & W Contrast
Limited by respiratory motion and misregistration.
No intrahepatic space-occupying lesion identified.
Findings consistent with portal hypertension, with recanalized paraumbilical vein, esophageal varices, splenomegaly, and ascites.
There appears to be diminished degree of enhancement in the right portal vein, which would be consistent with partial thrombus as reported on recent ultrasound.
Moderately distended gallbladder with layering of sludge and/or stones.
06/16/24 EGD - Mildly tortuous esophagus. Otherwise, no evidence of
EV.
- Diffuse, moderate portal hypertensive gastropathy.
- Non-bleeding gastric ulcer with a nonbleeding
visible vessel (Adrian Class IIa) within the gastric
antrum. Treated with bipolar cautery.
- Non-bleeding gastric ulcer with a clean ulcer base
(Adrian Class III) within the prepyloric region.
Biopsied.
- Erosive gastropathy with no bleeding and no stigmata
of recent bleeding. Biopsied.
- Otherwise, normal stomach on direct and retroflexion
views. No GV were visualized.
- Normal examined duodenum up to the second portion.
No duodenal varices were visualized.
- The examination was otherwise normal without any old
or fresh blood throughout the examined upper GI tract.
-recurrent hepatic encephalopathy with elevated ammonia level on admission
-cirrhosis with decompensation with elevated LFT's
-recent cellulitis with marked LE edema
-partial portal vein thrombus
-gastric ulcer with visible vessel noted
-coagulopathy
-hypokalemia - improving
-macrocytic anemia
-thrombocytopenia
-neuropathy
-severe portal HTN/gastric erosion per recent EGD
-ETOH abuse/prior ETOH hepatitis
-hx MW tear
-hepatosplenomegaly on imaging
-cholelithiasis
PLAN:
etiology of symptoms with concern for ETOH cirrhosis with decompensation with mild hepatic encephalopathy with elevated ammonia level on admission in setting of recent cellulitis vs other-with also concern for medication non compliance at [facility],
he is also noted with partial PVT and Gastric ulcer with visible vessel on EGD during admission along with fluid overload and progression on disease
cont Lactulose q 8 will change to TID dosing and cont Xifaxan--- will stop Miralax as still with loose stools
reviewed with staff for accurate monitoring of stool output to see if patient need BID dosing of lactulose
advance to 2 gram na diet
MELD 3.0 21 this admission and was 25 on recent admission
await am labs
cont PPI with noted ulcer on EGD will increased to BID
cont Lasix 60mg and Aldactone 100mg
infectious work up neg
cont thiamine and folate
US doppler and MRI as noted with partial PVT -- holding on AC with thrombocytopenia, noted with visible vessel
AFP 3.13 on 06/02 no mass on MRI
absolute ETOH abstinence and avoid liver toxins
long discussion with patient this AM-- he is tearful but realizes liver transplant is not option and he is dying of his liver disease-- he is agreeable for palliative care and will be open to discuss hospice
I also spoke with Gladys at [facility] [phone] as pt on furlough status. Will need to return to skilled nursing vs consider SNF/hospice-- I will further review with social work
Subjective
Subjective
Date of Service: June 17, 2024
06/16 brown stool advancing to 2 gram na diet, feeling ok
Objective
Data Reviewed
Laboratory Data:
Laboratory Results
PT 21.7 Sec (11.4-14.6) H 06/16/24 07:57
INR 1.84 06/16/24 07:57
APTT 35.4 Sec (23.4-35.0) H 06/14/24 14:03
Total Bilirubin 5.4 mg/dl (0.2-1.3) H 06/16/24 07:57
AST 45 U/L (17-59) 06/16/24 07:57
ALT 35 U/L (0-50) 06/16/24 07:57
Alkaline Phosphatase 218 U/L (38-126) H 06/16/24 07:57
Vital Signs and I&O:
Vital Signs
Temp Pulse Resp BP Pulse Ox
98.5 F 80 18 111/65 99
06/17/24 03:20 06/17/24 03:20 06/17/24 03:20 06/17/24 03:20 06/17/24 03:20
I&O
06/16/24 06/17/24 06/18/24
06:59 06:59 06:59
Intake Total 1060 / 1060 1920 / 1920
Output Total 850 / 850 1550 / 1550
Balance 210 / 210 370 / 370
Physical Exam
Physical Exam
HEENT: Other (jaundice )
Cardiology: Normal Sinus Rhythm
Pulmonary: Clear
GI: Soft, Distended and Tender (mild diffuse )
Extremities: Edema
Neuro: Non Focal
[2024-06-17 09:45] LABS: % Basophils 0.8 % (0-2); % Eosinophils 2.1 % (0-6); % Immature Granulocytes 0.4 % (0-0.5); % Lymphocytes 23.1 % (20.5-51.1); % Monocytes 5.6 % (1.7-9.3); Absolute Basophils 0.1 10^3/uL (0-0.2); Absolute Eosinophils 0.2 10^3/uL (0-0.7); Absolute Lymphocytes 2.1 10^3/uL (1.2-3.4); Absolute Monocytes 0.5 10^3/uL (0.1-0.6); Absolute Neutrophils 6.1 10^3/uL (1.4-6.5); Hematocrit 26.9 % (39.0-52.0); Hemoglobin 9.3 g/dL (13.0-18.0); Mean Corp Hgb Conc. 34.6 g/dL (33.0-37.0); Mean Corpuscular Hgb 37.1 pg (27.0-31.0); Mean Corpuscular Volume 107.2 fL (80.0-94.0); Mean Platelet Volume 10.1 fL (7.4-10.4); Nucleated Red Blood Cells % 0 % (-); Platelet Count 84 10^3/uL (130-400); Red Blood Cell Count 2.51 10^6/uL (4.70-6.10); Red Cell Dist. Width 13.9 % (11.5-14.5)
[2024-06-17 09:46] LABS: ALT (SGPT) 36 U/L (0-50); AST (SGOT) 44 U/L (17-59); Albumin 2.7 g/dl (3.5-5.0); Alkaline Phosphatase 154 U/L (38-126); Blood Urea Nitrogen 18 mg/dl (9-20); Calcium 8.1 mg/dl (8.4-10.2); Carbon Dioxide 22 mmol/L (22-30); Chloride 100 mmol/L (98-107); Estimated Creatinine Clearance > 125 ml/min; Glucose 176 mg/dl (70-99); Potassium 3.7 mmol/L (3.5-5.1); Sodium 131 mmol/L (135-145); Total Bilirubin 7.4 mg/dl (0.2-1.3); Total Protein 6.2 g/dl (6.3-8.2); eGFR > 60.00
[2024-06-17] MEDS: MIRALAX PO (10:07)
[2024-06-17 10:15] LABS: Ammonia 76 umol/L (9-30)
[2024-06-17] MEDS: DUPHALAC/CHRONULAC 20 GRAMS PO ×3 (10:30→21:14)
--- NOTE | 2024-06-17 11:02 | W.CON.PAL ---
Consultation
-
Date/Time Consultation Requested: 06/17/2024
Date/Time Consultation Performed: 06/17/24
Requesting Provider: adenike Arana
Performing Provider: Dr. Ashlye
Reason for Consult: Goals of Care Discussion
Primary Diagnosis: ?Hospice
Consult Requested By: Patient's Physician
Reason for Admission
Illness Course/HPI
Yong is a 44 y/o male with ESLD from [facility], MELD 25, Cirrhosis, hx of encepahlopathy, gastropathy, [facility]. 4th hospital admission since .
Palliative care consulted regarding goals of care
Functional Status
patient is weakened status. requires walker for ambulation.
Goals of Care Discussion
-
Individuals Present for Discussion & Relationship to Patient:
Patient
Patient able to participate in discussion at time of visit: Yes
Patient Goals
Patient understands that he has an end stage condition with his advanced cirrhosis. he is unlikely to be a candidate for liver transplant, and reports he no longer intends to pursue workup.
His goals are comfort oriented. agreeable to hospice
Pain & Symptom Assessment
[place] Symptom Scale 0=none, 10=worst
Pain: 3
-
Reports abdominal pain symptoms, fatigue, weakness.
Objective Data
-
Objective Data:
Vital Signs
Temp Pulse Resp BP Pulse Ox
97.8 F 77 20 115/66 95
06/17/24 07:30 06/17/24 07:30 06/17/24 07:30 06/17/24 07:30 06/17/24 07:30
Laboratory Results
06/17/24 08:32
06/17/24 08:32
PT 21.7 Sec (11.4-14.6) H 06/16/24 07:57
INR 1.84 06/16/24 07:57
APTT 35.4 Sec (23.4-35.0) H 06/14/24 14:03
Ammonia 76 umol/L (9-30) H 06/17/24 08:32
Total Protein 6.2 g/dl (6.3-8.2) L 06/17/24 08:32
Albumin 2.7 g/dl (3.5-5.0) L 06/17/24 08:32
Urine Color [place] 06/14/24 17:48
Urine Clarity Clear (Clear) 06/14/24 17:48
Urine pH 6.0 (5.0-9.0) 06/14/24 17:48
Ur Specific [place] 1.020 (<1.030) 06/14/24 17:48
Urine Ketones 1+ (Negative) A 06/14/24 17:48
Urine Bilirubin 1+ (Negative) A 06/14/24 17:48
Palliative Performance Scale
Palliative Performance Scale:
PPS Level Ambulation Activity & Evidence of Disease Self Care Intake Conscious Level
100% Full Normal Activity & Work; Full Intake Full
No Evidence of Disease
90% Full Normal Activity & Work; Full Normal Full
Some Evidence of Disease
80% Full Normal Activity with Effort Full Normal or Full
Some Evidence of Disease Reduced
70% Reduced Unable Normal Job/Work Full Normal or Full
Significant Disease Reduced
60% Reduced Unable Hobby/Housework Occasional Normal or Full or Confusion
Significant Disease Assistance Reduced
50% Mainly Sit/Lie Unable to do Any Work Considerable Normal or Full or Confusion
Extensive Disease Assistance Req'd Reduced
40% Mainly in Bed Unable to do Most Activity Mainly Assistance Normal or Full or Drowsy;
Extensive Disease Reduced +/- Confusion
30% Totally Bed Unable to do Any Activity Total Care Normal or Full or Drowsy;
Bound Extensive Disease Reduced +/- Confusion
20% Totally Bed Bound Unable to do Any Activity Total Care Minimal to Full or Drowsy;
Extensive Disease Sips +/- Confusion
10% Totally Bed Bound Unable to do Any Activity Total Care Mouth Care Drowsy or Coma;
Extensive Disease Only +/- Confusion
0%
PPS Score Level:
Palliative Performance Score Response
Palliative Performance Score Response: 50%
Physical Exam
-
General: No Apparent Distress
GI: Distended
Neuro: Awake and Alert
Psych: Calm
Assessment / Plan
-
Assessment/Plan:
Patient agreeable to hospice plan of care. discussed with attending and case mangement as there are legal logistics to be clarified before we can start hospice.
[2024-06-17] MEDS: ProAmatine 5 MG PO ×3 (11:12→17:43)
[2024-06-17] MEDS: PROTONIX 40 MG PO (11:13)
[2024-06-17] MEDS: ALDACTONE 100 MG PO (11:13)
[2024-06-17] MEDS: VITAMIN B-12 500 MCG PO (11:13)
[2024-06-17] MEDS: VITAMIN B1 100 MG PO (11:14)
[2024-06-17] MEDS: XIFAXAN 550 MG PO ×2 (11:14→20:32)
[2024-06-17] MEDS: LASIX 60 MG PO (11:14)
[2024-06-17] MEDS: FOLVITE 1 MG PO (11:15)
[2024-06-17] MEDS: KCL 10 MEQ PO (11:15)
[2024-06-17] MEDS: COREG 6.25 MG PO ×2 (11:15→20:33)
[2024-06-17 11:44] VITALS: BP 121/74
--- NOTE | 2024-06-17 12:11 | W.PN.HOSP.TC ---
Addendum entered and electronically signed by Josy Nayak MD 06/17/24 16:07:
I saw and evaluated the patient independently. I reviewed the resident�s note and agree with findings and plan as documented by Dr. Connolly.
GENERAL: chronically ill jaundiced male in no apparent distress--brighter today
HEENT: NC/AT--less scleral icterus--less jaundice
HEART: regular rate and rhythm, +S1, +S2
LUNGS : clear to auscultation bilaterally
ABDOM: soft, nontender, nondistended, + bowel sounds
EXT: no cyanosis, clubbing-- 3+ edema LE bilaterally
NEUROLOGIC: subdued--nonfocal
Hepatic encephalopathy due to Decompensated Cirrhotic liver disease secondary to previous chronic alcohol abuse with chronic thrombocytopenia--s/p 3.9L paracentesis--no SBP--Last drink on 05/13/2024 according to patient--continue folic acid and
thiamine---SAAG score is more than 1.1 and protein less than 2.5 indicating portal hypertension caused by cirrhosis. PMN count is less than 250 excluding SBP--Continue Lasix and Aldactone--Sodium restricted diet less than 2 g a day to minimize fluid
retention--dietary consult--apprec GI--cont lactulose--may benefit from weekly paracentesis---- Ammonia level on admission was 82, 14, 121, 76--cont rifamixin
possible portal vein thrombosis--EGD done which showed 2 gastric ulcers 1 with visible vessel--s/p cautery--no anticoagulation--clears and restart oral meds
Leucocytosis-- Wbc is 11.1-- likely reactive, down to 8.3
Anemia of chronic disease-- Likely due to cirrhosis-- hgb is 7.8 today trending down from 10 on admission--follow for need for transfusion
Hypokalemia--- Most likely due to his cirrhosis combined with IV lasix diuretic use--replete
Hyperbilirubinemia-- total bilirubin elevated--chronic
GERD- continue Protonix
DVT ppx- SCD's
code status--DNR--GI spoke with patient regarding hospice, not candidate for liver transplant, no further treatments available--palliative care met with patient and referred case to hospice--hospice spoke with patient and patient is agreeable to the
hospice philosophy--however, patient is on furlough from the [facility] and arrangements need to be made prior to transitioning the patient and discharging back to the nursing home on hospice.
Original Note:
Today's Communication/Plan
-
- Transition to hospice care
Assessment / Plan
Assessment / Plan
- Pt agreed to hospice care and comfort care. All medications except those used for symptomatic relief are discontinued. No further labs or consults.
Decompensated Cirrhotic liver disease secondary to previous chronic alcohol abuse
Thrombocytopenia
Requiring paracentesis:
- EGD on 06/16/24 showed two non bleeding gastric ulcers which were biopsied
- Follow up MRI showed partial thrombus in right portal vein which confirms the findings of the Doppler ultrasound.
- Last drink on 05/13/2024 according to patient
- Paracentesis yielded 3900 cc of fluid. SAAG score is more than 1.1 and protein less than 2.5 indicating portal hypertension caused by cirrhosis. PMN count is less than 250 excluding SBP.
- d/c folic acid and thiamine
- d/c Lasix and Aldactone
- Sodium restricted diet less than 2 g a day to minimize fluid retention
- Platelet count is 84,, transfuse if less than 10 or less than 50 with active bleeding
- alkaline phosphatase is 154 and trending down from admission of 218.
- No longer needs therapeutic paracentesis at [facility] as he is hospice
Hepatic Encephalopathy due to chronic alcohol use:
- patient is complaining of waxing and waning confusion along with abdominal pain/cramping.
- Ammonia level on admission was 76, yesterday it was 121
- d/c lactulose
- Further alcohol cessation counselling provided
Acute Mild hyponatremia:
- no dizziness, headache, confusion.
- suspect this is due to post EGD procedure, diuretic use, and recent NPO diet.
Leucocytosis:
- resolved
Anemia of chronic disease:
- Likely due to cirrhosis
- hgb is 9.3 today trending down from 10 on admission
- The iron count is normal but the TIBC is low on last admission 06/03/24
- b12 and folate normal on last admission 06/03/24
- transfuse if less than 7
Hypokalemia:
- resolved
Hyperbilirubinemia:
- total bilirubin is 7.4 and trending down from 9.8 on admission
- Most likely due to hepatic clearance of bilirubin due to hepatocellular injury
- No longer need GI to follow as patient is hospice.
GERD:
- d/c protonix
DVT ppx- SCD's
FUll code
Anticipated Discharge: 24 - 48 hours
Subjective/Interval History
-
Date of Service: June 17, 2024
No acute medical complaints today.
Objective Data
-
Labs:
Laboratory Results
06/17/24
08:32
WBC 9.0
Hgb 9.3 L
Hct 26.9 L
Plt Count 84 L D
Sodium 131 L
Potassium 3.7
Chloride 100
Carbon Dioxide 22
BUN 18
Creatinine 0.6 L
Glucose 176 H
Calcium 8.1 L
Total Bilirubin 7.4 H
AST 44
ALT 36
Alkaline Phosphatase 154 H
Vital Signs:
Vital Signs
Temp Pulse Resp BP Pulse Ox
97.8 F 83 18 121/74 100
06/17/24 11:44 06/17/24 11:44 06/17/24 11:44 06/17/24 11:44 06/17/24 11:44
I&O
06/16/24 06/17/24 06/18/24
06:59 06:59 06:59
Intake Total 1060 / 1060 1920 / 1920
Output Total 850 / 850 1550 / 1550
Balance 210 / 210 370 / 370
Review of Systems
-
History Source: Patient
Constitutional: Reports Fatigue; Denies Fever, Weight Gain, No Appetite or Sleep Disturbance
Respiratory: Denies Cough, Trouble Breathing or Wheezing
Cardiac: Denies Chest Pain, Diaphoresis or Palpitations
Abdomen/GI: Reports Abdominal Pain; Denies Nausea, Vomiting, Diarrhea or Bloody Stools
Genitourinary: Denies Dysuria
Musculoskeletal: Denies Joint Pain
Skin: Denies Itching
Neuro: Denies Weakness, Numbness, Ataxia or Tremors
Physical Exam
-
General: Appears Chronically Ill and Other (Diffuse Jaundice all over body and scleral icterus)
Respiratory: Clear to Auscultation
Cardiac: Regular Rhythm and S1/S2
GI: Soft, Tender (mild diffuse tenderness ) and Distended
Musculoskeletal: Other (paresthesia's on palpation of bilateral lower extremities )
Skin: Warm, Dry and Jaundice
Neuro: Awake, Alert and Oriented
Data Reviewed
-
Labs: Labs Reviewed by me and Discussed with Physician
--- NOTE | 2024-06-17 12:49 | HOSPNOTE ---
Met with patient to discuss hospice and the philosophy. The patient stated that he is now a DNR and code status was updated. Patient is in agreement with hospice we just need to figure our logistics of where the services can be provided. Patient is
currently on furlough from [facility] and upon discharge needs to return. Patient is reluctant to have hospice services in the intermediate because he feels he would not be cared for appropriately. CM updated and Attending aware.
Will continue to follow.
--- NOTE | 2024-06-17 15:13 | CM ---
Patient seen at bedside with physician. Palliative care physician already in room. Discussion about options and change of plan for hospice vs palliative care treatment. Patient interested in hospice but not if it means that he would not come back to
hospital as needed. Patient discussed with hospice nurse options and changed code status to DNR. Patient is currently on adelina from [facility]. CM will call to [facility] to review options and update. Per PA from GI she has already called to [facility] and
reviewed above with [facility]. CM will call with hospice nurse. CM will continue to follow for discharge planning needs.
Plan; return to [facility], vs hospice/ SNF
[2024-06-17 16:00] VITALS: BP 115/66
[2024-06-17 18:41] VITALS: BP 117/52
[2024-06-17] MEDS: DILAUDID 0.25 MG IV (21:14)
[2024-06-17 23:43] VITALS: BP 147/86
[2024-06-18] MEDS: DILAUDID 0.25 MG IV ×4 (02:22→15:01)
[2024-06-18 05:36] VITALS: BMI 30.6
[2024-06-18 07:25] VITALS: BP 107/62
[2024-06-18 08:24] LABS: Ammonia 77 umol/L (9-30)
[2024-06-18 08:48] LABS: Hematocrit 26.2 % (39.0-52.0); Hemoglobin 8.8 g/dL (13.0-18.0); Mean Corp Hgb Conc. 33.6 g/dL (33.0-37.0); Mean Corpuscular Hgb 36.5 pg (27.0-31.0); Mean Corpuscular Volume 108.7 fL (80.0-94.0); Mean Platelet Volume 9.8 fL (7.4-10.4); Platelet Count 80 10^3/uL (130-400); Red Blood Cell Count 2.41 10^6/uL (4.70-6.10); White Blood Cell Count 7.8 10^3/uL (4.8-10.8)
[2024-06-18 08:49] LABS: INR 1.77; PT 20.8 Sec (11.4-14.6)
[2024-06-18] MEDS: COREG PO (09:01)
[2024-06-18 09:10] LABS: ALT (SGPT) 40 U/L (0-50); AST (SGOT) 56 U/L (17-59); Albumin 2.4 g/dl (3.5-5.0); Alkaline Phosphatase 197 U/L (38-126); Blood Urea Nitrogen 16 mg/dl (9-20); Calcium 8.2 mg/dl (8.4-10.2); Carbon Dioxide 26 mmol/L (22-30); Chloride 101 mmol/L (98-107); Estimated Creatinine Clearance > 125 ml/min; Glucose 85 mg/dl (70-99); Potassium 4.3 mmol/L (3.5-5.1); Sodium 130 mmol/L (135-145); Total Bilirubin 5.6 mg/dl (0.2-1.3); Total Protein 5.7 g/dl (6.3-8.2); eGFR > 60.00
[2024-06-18] MEDS: DUPHALAC/CHRONULAC 20 GRAMS PO ×2 (09:23→17:10)
[2024-06-18] MEDS: VITAMIN B1 100 MG PO (09:23)
[2024-06-18] MEDS: VITAMIN B-12 500 MCG PO (09:24)
[2024-06-18] MEDS: LASIX 60 MG PO (09:24)
[2024-06-18] MEDS: ProAmatine 5 MG PO ×3 (09:25→17:10)
[2024-06-18] MEDS: XIFAXAN 550 MG PO (09:26)
[2024-06-18] MEDS: PROTONIX 40 MG PO (09:26)
[2024-06-18] MEDS: FOLVITE 1 MG PO (09:26)
[2024-06-18] MEDS: ALDACTONE 100 MG PO (09:26)
[2024-06-18] MEDS: KCL 10 MEQ PO (09:26)
[2024-06-18 10:12] LABS: % Eosinophils 2.7 % (0-6); % Immature Granulocytes 0.3 % (0-0.5); % Lymphocytes 22.1 % (20.5-51.1); % Monocytes 8.9 % (1.7-9.3); Absolute Basophils 0.1 10^3/uL (0-0.2); Absolute Eosinophils 0.2 10^3/uL (0-0.7); Absolute Lymphocytes 1.7 10^3/uL (1.2-3.4); Absolute Monocytes 0.7 10^3/uL (0.1-0.6); Nucleated Red Blood Cells % 0 % (-)
--- NOTE | 2024-06-18 10:30 | CM ---
Patient seen at bedside with physicians. Patient stated that he wanted to talk to hospice again and is complaining of continued pain. CM will discuss with hospice and call to [facility] to discuss with [facility]. CM will continue to follow for
discharge planing needs.
Plan; pending further discussions with hospice/patient and long-term.
--- NOTE | 2024-06-18 13:23 | HOSPNOTE ---
Spoke with patient and he is in agreement with comfort measures. Patient does not have any inpatient hospice coverage so the patient will remain here on comfort measures. Admissions was called and patient will be moved to [facility]. Attending and CM
aware of plan. We will continue to follow.
--- NOTE | 2024-06-18 14:25 | CM ---
Addendum entered by Laurie Fairbanks 06/18/24 15:06:
CM updated patient and plan is for comfort care and [facility] will be send a copy to the [place] to restart the insurance coverage.
Original Note:
Patient seen at bedside with physicians. Patient asking for hospice discussion at this time. CM spoke with Gladys from [facility] and she stated patient has no insurance as soon as guards left. Patient had insurance with [employer] that was effective
until 06/02 and totally cut off on 06/17/24 per Shona from [facility]. Patient order for Jennifer on 06/16/24 has not been uploaded to system per [facility]. 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 CM will discuss with patient. Patient
for comfort care at this time. CM will continue to follow for discharge planning needs.
Plan; Comfort care.
[2024-06-18 15:15] VITALS: BP 118/66
--- NOTE | 2024-06-18 17:14 | W.PN.HOSP.TC ---
Addendum entered and electronically signed by Josy Nayak MD 06/18/24 17:26:
I saw and evaluated the patient independently. I reviewed the resident�s note and agree with findings and plan as documented by Dr. Connolly.
GENERAL: chronically ill jaundiced male in no apparent distress--brighter today
HEENT: NC/AT--less scleral icterus--less jaundice
HEART: regular rate and rhythm, +S1, +S2
LUNGS : clear to auscultation bilaterally
ABDOM: soft, nontender, distended, + bowel sounds
EXT: no cyanosis, clubbing-- 4+ edema LE bilaterally
NEUROLOGIC: subdued--nonfocal
Hepatic encephalopathy due to Decompensated Cirrhotic liver disease secondary to previous chronic alcohol abuse with chronic thrombocytopenia--s/p 3.9L paracentesis--no SBP--Last drink on 05/13/2024 according to patient--continue folic acid and
thiamine---SAAG score is more than 1.1 and protein less than 2.5 indicating portal hypertension caused by cirrhosis-- PMN count is less than 250 excluding SBP--Continue Lasix and Aldactone--Sodium restricted diet less than 2 g a day to minimize
fluid retention--dietary consult--apprec GI--cont lactulose--may benefit from weekly paracentesis---- Ammonia level on admission was 82, 14, 121, 76--cont rifamixin
possible portal vein thrombosis--EGD done which showed 2 gastric ulcers 1 with visible vessel--s/p cautery--no anticoagulation--clears and restart oral meds
Leucocytosis-- Wbc is 11.1-- likely reactive, down to 8.3
Anemia of chronic disease-- Likely due to cirrhosis-- hgb is 7.8 today trending down from 10 on admission--follow for need for transfusion
Hypokalemia--- Most likely due to his cirrhosis combined with IV lasix diuretic use--replete
Hyperbilirubinemia-- total bilirubin elevated--chronic
GERD- continue Protonix
DVT ppx- SCD's
code status--DNR--GI spoke with patient regarding hospice, not candidate for liver transplant, no further treatments available--palliative care met with patient and referred case to hospice--hospice spoke with patient and patient is agreeable to the
hospice philosophy--however, patient is on furlough from the [facility] and arrangements need to be made prior to transitioning the patient and discharging back to the [facility] on hospice
Overnight, patient has required at least 3 doses of IV Dilaudid for pain relief--spoke with hospice and patient would meet inpatient criteria for symptom management especially if ammonia increases once all medications are stopped --however,
insurance issues preclude this at this time--patient is agreeable to comfort measures and we will stop all medications and focus on comfort, transitioning him to [address] [place] [address]
Original Note:
Today's Communication/Plan
-
- f/u with case management regarding patients comfort care measures
Assessment / Plan
Assessment / Plan
- Pt agreed to comfort care measures.
- For his pain patient is on Dilaudid .25 mg every 4 hours
- patient is back on regular diet
Decompensated Cirrhotic liver disease secondary to previous chronic alcohol abuse
Thrombocytopenia
Requiring paracentesis:
- EGD on 06/16/24 showed two non bleeding gastric ulcers which were biopsied
- Follow up MRI showed partial thrombus in right portal vein which confirms the findings of the Doppler ultrasound.
- Last drink on 05/13/2024 according to patient
- Paracentesis yielded 3900 cc of fluid. SAAG score is more than 1.1 and protein less than 2.5 indicating portal hypertension caused by cirrhosis. PMN count is less than 250 excluding SBP.
- d/c folic acid and thiamine
- d/c Lasix and Aldactone
- Sodium restricted diet less than 2 g a day to minimize fluid retention
- Platelet count is 84,, transfuse if less than 10 or less than 50 with active bleeding
- alkaline phosphatase is 154 and trending down from admission of 218.
- No longer needs therapeutic paracentesis at [facility] as he is on comfort care measures.
Hepatic Encephalopathy due to chronic alcohol use:
- d/c lactulose and rifaximin
- Further alcohol cessation counselling provided
Acute Mild hyponatremia:
- no dizziness, headache, confusion.
- suspect this is due to post EGD procedure, diuretic use, and recent NPO diet.
Leucocytosis:
- resolved
Anemia of chronic disease:
- Likely due to cirrhosis
- hgb is 9.3 today trending down from 10 on admission
- The iron count is normal but the TIBC is low on last admission 06/03/24
- b12 and folate normal on last admission 06/03/24
- transfuse if less than 7
Hypokalemia:
- resolved
Hyperbilirubinemia:
- total bilirubin is 7.4 and trending down from 9.8 on admission
- Most likely due to hepatic clearance of bilirubin due to hepatocellular injury
- No longer need GI to follow as patient is hospice.
GERD:
- d/c protonix
DVT ppx- SCD's
FUll code
Anticipated Discharge: 24 - 48 hours
Subjective/Interval History
-
Date of Service: June 18, 2024
Patient was complaining of abdominal pain and left knee pain since yesterday.
Objective Data
-
Labs:
Laboratory Results
06/18/24
07:45
WBC 7.8
Hgb 8.8 L
Hct 26.2 L
Plt Count 80 L
PT 20.8 H
INR 1.77
Sodium 130 L
Potassium 4.3
Chloride 101
Carbon Dioxide 26
BUN 16
Creatinine 0.7
Glucose 85
Calcium 8.2 L
Total Bilirubin 5.6 H
AST 56
ALT 40
Alkaline Phosphatase 197 H
Vital Signs:
Vital Signs
Temp Pulse Resp BP Pulse Ox
98.2 F 78 18 118/66 100
06/18/24 15:15 06/18/24 15:15 06/18/24 15:15 06/18/24 15:15 06/18/24 15:15
I&O
06/17/24 06/18/24 06/19/24
06:59 06:59 06:59
Intake Total 1920 / 1920 1460 / 1460
Output Total 1550 / 1550 2190 / 2190
Balance 370 / 370 -730 / -730
Review of Systems
-
History Source: Patient
Constitutional: Reports Fatigue; Denies Fever, Weight Gain, No Appetite or Sleep Disturbance
Respiratory: Denies Cough, Trouble Breathing or Wheezing
Cardiac: Denies Chest Pain, Diaphoresis or Palpitations
Abdomen/GI: Reports Abdominal Pain; Denies Nausea, Vomiting, Diarrhea or Bloody Stools
Genitourinary: Denies Dysuria
Musculoskeletal: Reports Joint Pain (left knee pain)
Skin: Denies Itching
Neuro: Denies Weakness, Numbness, Ataxia or Tremors
Physical Exam
-
General: Appears Chronically Ill and Other (Diffuse Jaundice all over body and scleral icterus)
Respiratory: Clear to Auscultation
Cardiac: Regular Rhythm and S1/S2
GI: Soft, Tender (mild diffuse tenderness ) and Distended
Musculoskeletal: Other (paresthesia's on palpation of bilateral lower extremities )
Skin: Warm, Dry and Jaundice
Neuro: Awake, Alert and Oriented
Data Reviewed
-
Labs: Labs Reviewed by me and Discussed with Physician
--- NOTE | 2024-06-18 17:30 | PTCARENOTE ---
1730 Explain to pt moving to [address] [place] [address]. Transferred pt to room 2132 via bed room accompanied 2 staff nurses. all personnell belongings sent with pt. Report given to 2 [place] nurse.
[2024-06-18 18:04] VITALS: BP 111/61
[2024-06-18] MEDS: MORPHINE SULFATE 1 MG IV ×2 (20:35→22:00)
[2024-06-18 23:35] VITALS: BP 116/58
[2024-06-19] MEDS: MORPHINE SULFATE 1 MG IV ×9 (03:42→22:04)
[2024-06-19 07:45] VITALS: BP 146/86
--- NOTE | 2024-06-19 12:25 | W.PN.HOSP.TC ---
Addendum entered and electronically signed by Josy Nayak MD 06/19/24 13:56:
I saw and evaluated the patient independently. I reviewed the resident�s note and agree with findings and plan as documented by Dr. Connolly.
GENERAL: chronically ill jaundiced male in no apparent distress
HEENT: NC/AT--less scleral icterus--less jaundice but both still present
HEART: regular rate and rhythm, +S1, +S2
LUNGS : clear to auscultation bilaterally
ABDOM: soft, nontender, distended, + bowel sounds
EXT: no cyanosis, clubbing-- 4+ edema LE bilaterally
NEUROLOGIC: grossly intact
Hepatic encephalopathy (currently resolved) due to Decompensated Cirrhotic liver disease secondary to previous chronic alcohol abuse with chronic thrombocytopenia--s/p 3.9L paracentesis--no SBP--Last drink on 05/13/2024 according to
patient---stopping Lasix and Aldactone, Xifaxan and lactulose---apprec GI
possible portal vein thrombosis--EGD done which showed 2 gastric ulcers 1 with visible vessel--s/p cautery--no anticoagulation--diet as tolerated
Leucocytosis--- likely reactive
Anemia of chronic disease-- Likely due to cirrhosis-
Hypokalemia
Hyperbilirubinemia
GERD
DVT ppx- SCD's
code status--DNR--GI spoke with patient regarding hospice, not candidate for liver transplant, no further treatments available--palliative care met with patient and referred case to hospice--hospice spoke with patient and patient is agreeable to the
hospice philosophy--however, patient is on [facility] and arrangements need to be made prior to discharge back if able--for now continue comfort measures with comfort meds
Original Note:
Today's Communication/Plan
-
- patient is on comfort care
Assessment / Plan
Assessment / Plan
- Pt agreed to comfort care measures and has been transitioned to [address] [place] [address]. Case managment still figuring out his insurance issues relating to hospice care.
- For his pain patient is on Morphine sulfate 1 mg Q1 as needed, glycopyrrolate for secretions, Lorazepam for agitation, haldol for agitation, zofran for nausea, and dulcolax for medication induced constipation
- patient is back on regular diet
Decompensated Cirrhotic liver disease secondary to previous chronic alcohol abuse
Thrombocytopenia
Requiring paracentesis:
- EGD on 06/16/24 showed two non bleeding gastric ulcers which were biopsied
- Follow up MRI showed partial thrombus in right portal vein which confirms the findings of the Doppler ultrasound.
- Last drink on 05/13/2024 according to patient
- Paracentesis yielded 3900 cc of fluid. SAAG score is more than 1.1 and protein less than 2.5 indicating portal hypertension caused by cirrhosis. PMN count is less than 250 excluding SBP.
- d/c folic acid and thiamine
- d/c Lasix and Aldactone
- Sodium restricted diet less than 2 g a day to minimize fluid retention
- Platelet count is 80,, transfuse if less than 10 or less than 50 with active bleeding
- alkaline phosphatase is 197 and trending up from yesterday 154, continue to observe
- No longer needs therapeutic paracentesis at [facility] as he is on comfort care measures.
Hepatic Encephalopathy due to chronic alcohol use:
- d/c lactulose and rifaximin
- Further alcohol cessation counselling provided
Acute Mild hyponatremia:
- today sodium level is 130
- no dizziness, headache, confusion.
- suspect this is due to post EGD procedure, diuretic use, and recent NPO diet.
Leucocytosis:
- resolved
Anemia of chronic disease:
- Likely due to cirrhosis
- hgb is 8.8 today trending down from 10 on admission
- The iron count is normal but the TIBC is low on last admission 06/03/24
- b12 and folate normal on last admission 06/03/24
- transfuse if less than 7
Hypokalemia:
- resolved
Hyperbilirubinemia:
- total bilirubin is 7.4 and trending down from 9.8 on admission
- Most likely due to hepatic clearance of bilirubin due to hepatocellular injury
- No longer need GI to follow as patient is hospice.
GERD:
- d/c protonix
DVT ppx- none
FUll code
Anticipated Discharge: 24 - 48 hours
Subjective/Interval History
-
Date of Service: June 19, 2024
Patient has no acute complaints. Pain is well controlled.
Objective Data
-
Vital Signs:
Vital Signs
Temp Pulse Resp BP Pulse Ox
98.1 F 83 18 146/86 100
06/19/24 07:45 06/19/24 07:45 06/19/24 07:45 06/19/24 07:45 06/19/24 07:45
I&O
06/18/24 06/19/24 06/20/24
06:59 06:59 06:59
Intake Total 1460 / 1460 360 / 360
Output Total 2190 / 2190 1475 / 1475
Balance -730 / -730 -1115 / -1115
Review of Systems
-
History Source: Patient
Constitutional: Reports Fatigue; Denies Fever, Weight Gain, No Appetite or Sleep Disturbance
Respiratory: Denies Cough, Trouble Breathing or Wheezing
Cardiac: Denies Chest Pain, Diaphoresis or Palpitations
Abdomen/GI: Reports Abdominal Pain; Denies Nausea, Vomiting, Diarrhea or Bloody Stools
Genitourinary: Denies Dysuria
Skin: Denies Itching
Neuro: Denies Weakness, Numbness, Ataxia or Tremors
Physical Exam
-
General: Appears Chronically Ill and Other (Diffuse Jaundice all over body and scleral icterus)
Respiratory: Clear to Auscultation
Cardiac: Regular Rhythm and S1/S2
GI: Soft, Tender (mild diffuse tenderness ) and Distended
Musculoskeletal: Edema, Right Lower Extrem and Edema, Left Lower Extrem
Skin: Warm, Dry and Jaundice
Neuro: Awake, Alert, Oriented and AO x 3
Data Reviewed
-
Labs: Labs Reviewed by me and Discussed with Physician
[2024-06-19] MEDS: ATIVAN 0.5 MG IV ×2 (17:59→22:05)
[2024-06-19] MEDS: NSS (PRESERVATIVE FREE) 0.25 ML IV (22:05)
[2024-06-19 23:30] VITALS: BP 130/71
[2024-06-20] MEDS: MORPHINE SULFATE 1 MG IV ×7 (03:55→23:58)
[2024-06-20] MEDS: NSS (PRESERVATIVE FREE) 0.25 ML IV (03:57)
[2024-06-20] MEDS: ATIVAN 0.5 MG IV (03:57)
[2024-06-20 07:35] VITALS: BP 121/63
--- NOTE | 2024-06-20 09:22 | W.PN.HOSP.TC ---
Today's Communication/Plan
-
- patient is on comfort care measures, discuss with case management about his insurance so he can transition to hospice.
Assessment / Plan
Assessment / Plan
- Pt agreed to comfort care measures and has been transitioned to [address] [place] [id number]. Case managment still figuring out his insurance issues relating to hospice care.
- For his pain patient is on Morphine sulfate 1 mg Q1 as needed, glycopyrrolate for secretions, Lorazepam for agitation, haldol for agitation, zofran for nausea, and dulcolax for medication induced constipation
- patient is back on regular diet
Decompensated Cirrhotic liver disease secondary to previous chronic alcohol abuse
Thrombocytopenia
Requiring paracentesis:
- EGD on 06/16/24 showed two non bleeding gastric ulcers which were biopsied
- Follow up MRI showed partial thrombus in right portal vein which confirms the findings of the Doppler ultrasound.
- Last drink on 05/13/2024 according to patient
- Paracentesis yielded 3900 cc of fluid. SAAG score is more than 1.1 and protein less than 2.5 indicating portal hypertension caused by cirrhosis. PMN count is less than 250 excluding SBP.
- d/c folic acid and thiamine
- d/c Lasix and Aldactone
- Sodium restricted diet less than 2 g a day to minimize fluid retention
- Platelet count is 80,, transfuse if less than 10 or less than 50 with active bleeding
- alkaline phosphatase is 197 and trending up from yesterday 154, continue to observe
- No longer needs therapeutic paracentesis at [facility] as he is on comfort care measures.
Hepatic Encephalopathy due to chronic alcohol use:
- Today patient is confused on physical exam, waxing and waning mental status , will continue to provide comfort care measures and observe
- d/c lactulose and rifaximin
- Further alcohol cessation counselling provided
Acute Mild hyponatremia:
- today sodium level is 130
- no dizziness, headache, confusion.
- suspect this is due to post EGD procedure, diuretic use, and recent NPO diet.
Leucocytosis:
- resolved
Anemia of chronic disease:
- Likely due to cirrhosis
- last hgb is 8.8 and trending down from 10 on admission
- The iron count is normal but the TIBC is low on last admission 06/03/24
- b12 and folate normal on last admission 06/03/24
- transfuse if less than 7
Hypokalemia:
- resolved
Hyperbilirubinemia:
- total bilirubin is 7.4 and trending down from 9.8 on admission
- Most likely due to hepatic clearance of bilirubin due to hepatocellular injury
- No longer need GI to follow as patient is hospice.
GERD:
- d/c protonix
DVT ppx- none
FUll code
Anticipated Discharge: 24 - 48 hours
Subjective/Interval History
-
Date of Service: June 20, 2024
patient has altered mental status today and is confused upon interviewing him for any medical complaints. He is waxing and waning.
Objective Data
-
Vital Signs:
Vital Signs
Temp Pulse Resp BP Pulse Ox
99.0 F 94 16 121/63 99
06/20/24 07:35 06/20/24 07:35 06/20/24 07:35 06/20/24 07:35 06/20/24 07:35
I&O
06/19/24 06/20/24 06/21/24
06:59 06:59 06:59
Intake Total 360 / 360 2039
Output Total 1475 / 1475
Balance -1115 / -1115 2039
Review of Systems
-
History Source: Patient
Constitutional: Reports Fatigue; Denies Fever, Weight Gain, No Appetite or Sleep Disturbance
Respiratory: Denies Cough, Trouble Breathing or Wheezing
Cardiac: Denies Chest Pain, Diaphoresis or Palpitations
Abdomen/GI: Reports Abdominal Pain; Denies Nausea, Vomiting, Diarrhea or Bloody Stools
Genitourinary: Denies Dysuria
Skin: Denies Itching
Neuro: Reports Other (patient is feeling confused); Denies Weakness, Numbness, Ataxia or Tremors
Physical Exam
-
General: Appears Chronically Ill and Other (Diffuse Jaundice all over body and scleral icterus)
Respiratory: Clear to Auscultation
Cardiac: Regular Rhythm and S1/S2
GI: Soft, Tender (mild diffuse tenderness ) and Distended
Musculoskeletal: Edema, Right Lower Extrem and Edema, Left Lower Extrem
Skin: Warm, Dry and Jaundice
Neuro: Awake and Alert
--- NOTE | 2024-06-20 09:51 | W.PN.UPDATE ---
Update Note
Progress Note Update
I saw and evaluated the patient. I reviewed the resident�s note and agree with findings and plan as documented in the resident�s note.
Reports shortness of breath and abdominal pain.
Gen: NAD, awake and alert, appears chronically ill
Eyes: EOMI, PERRLA, moderate scleral icterus.
Neck: supple.
CV: RRR, +S1/S2, no m/r/g.
Resp: CTAB, no rales, wheezes, or rhonchi.
Abd: +BS, soft, mild tenderness to palpation, moderate distention with ascites
Skin: Jaundiced skin, 3+ bilateral lower extremity edema
Neuro: CN 2-12 intact, non-focal.
Psych: Normal mood and affect.
Acute hepatic encephalopathy due to decompensated alcoholic cirrhosis from prior alcohol abuse:
-Last drink on 05/13/2024 according to patient
-with chronic thrombocytopenia
-s/p 3.9L paracentesis (no SBP)
-EGD done which showed 2 gastric ulcers 1 with visible vessel s/p cautery
-now on comfort care as below
Other problems:
Possible portal vein thrombosis
Leucocytosis, likely reactive
Anemia of chronic disease (due to cirrhosis)
Hypokalemia
Hyperbilirubinemia
GERD
DNR/comfort care
GI spoke with patient regarding hospice, not candidate for liver transplant, no further treatments available--palliative care met with patient and referred case to hospice--hospice spoke with patient and patient is agreeable to the hospice
philosophy--however, patient is on furlough from the [facility] and arrangements need to be made prior to discharge back if able--for now continue comfort measures with comfort meds
[2024-06-20 23:28] VITALS: BP 137/76
[2024-06-21] MEDS: MORPHINE 100 IV (00:41)
[2024-06-21] MEDS: MORPHINE SULFATE 2 MG IV ×3 (05:07→17:34)
[2024-06-21 07:30] VITALS: BP 141/85
[2024-06-21] MEDS: ATIVAN 0.5 MG IV ×3 (08:18→17:34)
--- NOTE | 2024-06-21 09:07 | W.PN.UPDATE ---
Update Note
Progress Note Update
I saw and evaluated the patient. I reviewed the resident�s note and agree with findings and plan as documented in the resident�s note.
No new complaints.
Gen: NAD, awake and alert, appears chronically ill
Eyes: EOMI, PERRLA, moderate scleral icterus.
Neck: supple.
CV: remains RRR, +S1/S2, no m/r/g.
Resp: CTAB anteriorly, no rales, wheezes, or rhonchi.
Abd: +BS, soft, nontender to light palpation, moderate-severe distention with ascites
Skin: Jaundiced skin, 3+ bilateral lower extremity edema
Neuro: CN 2-12 intact, non-focal.
Psych: Normal mood and affect.
Acute hepatic encephalopathy due to decompensated alcoholic cirrhosis from prior alcohol abuse:
-Last drink on 05/13/2024 according to patient
-with chronic thrombocytopenia
-s/p 3.9L paracentesis (no SBP)
-EGD done which showed 2 gastric ulcers 1 with visible vessel s/p cautery
-now on comfort care as below
-morphine gtt started
Other problems:
Possible portal vein thrombosis
Leucocytosis, likely reactive
Anemia of chronic disease (due to cirrhosis)
Hypokalemia
Hyperbilirubinemia
GERD
DNR/comfort care
GI spoke with patient regarding hospice, not candidate for liver transplant, no further treatments available--palliative care met with patient and referred case to hospice--hospice spoke with patient and patient is agreeable to the hospice
philosophy--however, patient is on furlough from the [facility] and arrangements need to be made prior to discharge back if able--for now continue comfort measures with comfort meds
--- NOTE | 2024-06-21 09:58 | W.PN.HOSP.TC ---
Today's Communication/Plan
-
- patient is on comfort care measures, discuss with case management about his insurance so he can transition to hospice.
Assessment / Plan
Assessment / Plan
- Pt agreed to comfort care measures and has been transitioned to [address] [place] [id number]. Case managment still figuring out his insurance issues relating to hospice care.
- For his pain patient is on Morphine sulfate 1 mg Q1 as needed, glycopyrrolate for secretions, Lorazepam for agitation, haldol for agitation, zofran for nausea, and dulcolax for medication induced constipation
- patient is back on regular diet
Decompensated Cirrhotic liver disease secondary to previous chronic alcohol abuse
Thrombocytopenia
Requiring paracentesis:
- EGD on 06/16/24 showed two non bleeding gastric ulcers which were biopsied
- Follow up MRI showed partial thrombus in right portal vein which confirms the findings of the Doppler ultrasound.
- Last drink on 05/13/2024 according to patient
- Paracentesis yielded 3900 cc of fluid. SAAG score is more than 1.1 and protein less than 2.5 indicating portal hypertension caused by cirrhosis. PMN count is less than 250 excluding SBP.
- d/c folic acid and thiamine
- d/c Lasix and Aldactone
- Sodium restricted diet less than 2 g a day to minimize fluid retention
- Platelet count is 80,, transfuse if less than 10 or less than 50 with active bleeding
- alkaline phosphatase is 197 and trending up from yesterday 154, continue to observe
- No longer needs therapeutic paracentesis at [facility] as he is on comfort care measures.
Hepatic Encephalopathy due to chronic alcohol use:
- Today patient is confused on physical exam, waxing and waning mental status , will continue to provide comfort care measures and observe
- d/c lactulose and rifaximin
- Further alcohol cessation counselling provided
Acute Mild hyponatremia:
- today sodium level is 130
- no dizziness, headache, confusion.
- suspect this is due to post EGD procedure, diuretic use, and recent NPO diet.
Leucocytosis:
- resolved
Anemia of chronic disease:
- Likely due to cirrhosis
- last hgb is 8.8 and trending down from 10 on admission
- The iron count is normal but the TIBC is low on last admission 06/03/24
- b12 and folate normal on last admission 06/03/24
- transfuse if less than 7
Hypokalemia:
- resolved
Hyperbilirubinemia:
- total bilirubin is 7.4 and trending down from 9.8 on admission
- Most likely due to hepatic clearance of bilirubin due to hepatocellular injury
- No longer need GI to follow as patient is hospice.
GERD:
- d/c protonix
DVT ppx- none
FUll code
Anticipated Discharge: Within 24 hours
Subjective/Interval History
-
Date of Service: June 21, 2024
patient has altered mental status today and is confused upon interviewing him for any medical complaints. He is waxing and waning.
Objective Data
-
Vital Signs:
Vital Signs
Temp Pulse Resp BP Pulse Ox
98.8 F 101 18 141/85 99
06/21/24 07:30 06/21/24 07:30 06/21/24 07:30 06/21/24 07:30 06/21/24 07:30
I&O
06/20/24 06/21/24 06/22/24
06:59 06:59 06:59
Intake Total 2039 1200 / 1200
Output Total 300 / 300
Balance 2039 900 / 900
Review of Systems
-
History Source: Patient
Constitutional: Reports Fatigue; Denies Fever, Weight Gain, No Appetite or Sleep Disturbance
Respiratory: Denies Cough, Trouble Breathing or Wheezing
Cardiac: Denies Chest Pain, Diaphoresis or Palpitations
Abdomen/GI: Reports Abdominal Pain; Denies Nausea, Vomiting, Diarrhea or Bloody Stools
Genitourinary: Denies Dysuria
Skin: Denies Itching
Neuro: Reports Other (patient is feeling confused); Denies Weakness, Numbness, Ataxia or Tremors
Physical Exam
-
General: Appears Chronically Ill and Other (Diffuse Jaundice all over body and scleral icterus)
Respiratory: Clear to Auscultation
Cardiac: Regular Rhythm and S1/S2
GI: Soft, Tender (mild diffuse tenderness ) and Distended
Musculoskeletal: Edema, Right Lower Extrem and Edema, Left Lower Extrem
Skin: Warm, Dry and Jaundice
Neuro: Awake and Alert
Data Reviewed
-
Labs: Labs Reviewed by me and Discussed with Physician
--- NOTE | 2024-06-21 10:18 | CM ---
Addendum entered by Abbie Higgins RN 06/21/24 11:48:
Updated Gladys (nurse) with [facility] regarding patient's status.
Addendum entered by Abbie Higgins RN 06/21/24 11:28:
Patient's father at bedside.
Original Note:
Reviewed the chart notes and spoke with attending. Patient now on a Morphine gtt. CM continues to be available to patient/family.
Plan: Comfort Care.
[2024-06-21] MEDS: NSS (PRESERVATIVE FREE) 0.25 ML IV ×2 (11:32→17:32)
--- NOTE | 2024-06-21 11:51 | HOSPNOTE ---
Patient is on a morphine drip, appears agitated and will be medicated. Father at bedside emotional support provided. Patient remains on comfort care due to insurance and not having any inpatient coverage. We will continue to follow.
[2024-06-21 16:17] VITALS: BP 154/85
[2024-06-21 19:43] VITALS: BP 123/91
[2024-06-22 07:45] VITALS: BP 143/78
--- NOTE | 2024-06-22 09:00 | CM ---
Reviewed the chart notes and spoke with the patient's father at the bedside. Patient on Morphine gtt. CM continues to be available to patient/family.
Plan: GIP Hospice.
--- NOTE | 2024-06-22 09:45 | W.PN.UPDATE ---
Update Note
Progress Note Update
I saw and evaluated the patient. I reviewed the resident�s note and agree with findings and plan as documented in the resident�s note.
No new complaints. When prompted pt c/o SOB.
Gen: NAD, awake and alert, appears chronically ill
Eyes: EOMI, PERRLA, moderate scleral icterus.
Neck: supple.
CV: continues to remain RRR, +S1/S2, no m/r/g.
Resp: CTAB anteriorly, no rales, wheezes, or rhonchi.
Abd: +BS, soft, nontender to light palpation, severe distention with ascites
Skin: Jaundiced skin, 3+ bilateral lower extremity edema
Neuro: CN 2-12 intact, non-focal.
Psych: Normal mood and affect.
Acute hepatic encephalopathy due to decompensated alcoholic cirrhosis from prior alcohol abuse:
-Last drink on 05/13/2024 according to patient
-with chronic thrombocytopenia
-s/p 3.9L paracentesis (no SBP)
-EGD done which showed 2 gastric ulcers 1 with visible vessel s/p cautery
-now on comfort care as below
-cont morphine gtt
Other problems:
Possible portal vein thrombosis
Leucocytosis, likely reactive
Anemia of chronic disease (due to cirrhosis)
Hypokalemia
Hyperbilirubinemia
GERD
DNR/comfort care
GI spoke with patient regarding hospice, not candidate for liver transplant, no further treatments available--palliative care met with patient and referred case to hospice--hospice spoke with patient and patient is agreeable to the hospice
philosophy--however, patient is on furlough from the [facility] and arrangements need to be made prior to discharge back if able--for now continue comfort measures with comfort meds
--- NOTE | 2024-06-22 10:47 | W.PN.HOSP.TC ---
Today's Communication/Plan
-
- patient is on comfort care measures, discuss with case management about his insurance so he can transition to hospice.
Assessment / Plan
Assessment / Plan
- Pt agreed to comfort care measures and has been transitioned to [address] [place] [address]. Case managment still figuring out his insurance issues relating to hospice care.
- For his pain patient is on Morphine sulfate 1 mg Q1 as needed, glycopyrrolate for secretions, Lorazepam for agitation, haldol for agitation, zofran for nausea, and dulcolax for medication induced constipation
- patient is back on regular diet
Decompensated Cirrhotic liver disease secondary to previous chronic alcohol abuse
Thrombocytopenia
Requiring paracentesis:
- EGD on 06/16/24 showed two non bleeding gastric ulcers which were biopsied
- Follow up MRI showed partial thrombus in right portal vein which confirms the findings of the Doppler ultrasound.
- Last drink on 05/13/2024 according to patient
- Paracentesis yielded 3900 cc of fluid. SAAG score is more than 1.1 and protein less than 2.5 indicating portal hypertension caused by cirrhosis. PMN count is less than 250 excluding SBP.
- d/c folic acid and thiamine
- d/c Lasix and Aldactone
- Sodium restricted diet less than 2 g a day to minimize fluid retention
- Platelet count is 80,, transfuse if less than 10 or less than 50 with active bleeding
- alkaline phosphatase is 197 and trending up from yesterday 154, continue to observe
- No longer needs therapeutic paracentesis at [facility] as he is on comfort care measures.
Hepatic Encephalopathy due to chronic alcohol use:
- Today patient is confused on physical exam, waxing and waning mental status , will continue to provide comfort care measures and observe
- d/c lactulose and rifaximin
- Further alcohol cessation counselling provided
Acute Mild hyponatremia:
- today sodium level is 130
- no dizziness, headache, confusion.
- suspect this is due to post EGD procedure, diuretic use, and recent NPO diet.
Leucocytosis:
- resolved
Anemia of chronic disease:
- Likely due to cirrhosis
- last hgb is 8.8 and trending down from 10 on admission
- The iron count is normal but the TIBC is low on last admission 06/03/24
- b12 and folate normal on last admission 06/03/24
- transfuse if less than 7
Hypokalemia:
- resolved
Hyperbilirubinemia:
- total bilirubin is 7.4 and trending down from 9.8 on admission
- Most likely due to hepatic clearance of bilirubin due to hepatocellular injury
- No longer need GI to follow as patient is hospice.
GERD:
- d/c protonix
DVT ppx- none
FUll code
Anticipated Discharge: 24 - 48 hours
Subjective/Interval History
-
Date of Service: June 22, 2024
Patient is complaining of intermittent shortness of breath.
Objective Data
-
Vital Signs:
Vital Signs
Temp Pulse Resp BP Pulse Ox
98.5 F 96 16 143/78 100
06/22/24 07:45 06/22/24 07:45 06/22/24 07:45 06/22/24 07:45 06/22/24 07:45
I&O
06/21/24 06/22/24 06/23/24
06:59 06:59 06:59
Intake Total 1200 / 1200 480 / 480
Output Total 300 / 300 750 / 750
Balance 900 / 900 -270 / -270
Review of Systems
-
History Source: Patient
Constitutional: Reports Fatigue; Denies Fever, Weight Gain, No Appetite or Sleep Disturbance
Respiratory: Reports Trouble Breathing; Denies Cough or Wheezing
Cardiac: Denies Chest Pain, Diaphoresis or Palpitations
Abdomen/GI: Reports Abdominal Pain; Denies Nausea, Vomiting, Diarrhea or Bloody Stools
Genitourinary: Denies Dysuria
Skin: Denies Itching
Neuro: Reports Other (patient is feeling confused); Denies Weakness, Numbness, Ataxia or Tremors
Physical Exam
-
General: Appears Chronically Ill and Other (Diffuse Jaundice all over body and scleral icterus)
Respiratory: Clear to Auscultation
Cardiac: Regular Rhythm and S1/S2
GI: Soft, Tender (mild diffuse tenderness ) and Distended
Musculoskeletal: Edema, Right Lower Extrem and Edema, Left Lower Extrem
Skin: Warm, Dry and Jaundice
Neuro: Awake and Alert
[2024-06-22] MEDS: MORPHINE SULFATE 1 MG IV (17:46)
[2024-06-22] MEDS: ATIVAN 0.5 MG IV ×3 (17:48→21:52)
[2024-06-22 19:10] VITALS: BP 151/89
[2024-06-22] MEDS: MORPHINE SULFATE 2 MG IV ×3 (19:53→22:18)
[2024-06-23] MEDS: MORPHINE SULFATE 2 MG IV ×5 (00:49→23:16)
[2024-06-23] MEDS: ATIVAN 0.5 MG IV ×4 (00:49→22:54)
[2024-06-23 07:44] VITALS: BP 141/91
--- NOTE | 2024-06-23 07:45 | W.PN.UPDATE ---
Update Note
Progress Note Update
I saw and evaluated the patient. I reviewed the resident�s note and agree with findings and plan as documented in the resident�s note.
Pt sleeping
Gen: NAD, appears chronically ill
CV: RRR, +S1/S2, no m/r/g.
Resp: CTAB anteriorly, no rales, wheezes, or rhonchi.
Abd: +BS, soft, NT, severe distention with ascites
Skin: Jaundiced skin, 3+ bilateral lower extremity edema
Acute hepatic encephalopathy due to decompensated alcoholic cirrhosis from prior alcohol abuse:
-Last drink on 05/13/2024 according to patient
-with chronic thrombocytopenia
-s/p 3.9L paracentesis (no SBP)
-EGD done which showed 2 gastric ulcers 1 with visible vessel s/p cautery
-now on comfort care as below
-cont morphine gtt
Other problems:
Possible portal vein thrombosis
Leucocytosis, likely reactive
Anemia of chronic disease (due to cirrhosis)
Hypokalemia
Hyperbilirubinemia
GERD
DNR/comfort care
GI spoke with patient regarding hospice, not candidate for liver transplant, no further treatments available--palliative care met with patient and referred case to hospice--hospice spoke with patient and patient is agreeable to the hospice
philosophy--however, patient is on furlough from the [facility] and arrangements need to be made prior to discharge back if able--for now continue comfort measures with comfort meds
[2024-06-23] MEDS: NSS (PRESERVATIVE FREE) 0.25 ML IV ×2 (08:07→17:48)
--- NOTE | 2024-06-23 08:56 | CM ---
Reviewed the chart notes. Patient's father at the bedside. Patient on Morphine gtt. CM continues to be available to patient/family.
Plan: GIP Hospice.
--- NOTE | 2024-06-23 09:24 | W.PN.HOSP.TC ---
Today's Communication/Plan
-
- patient is on comfort care measures, discuss with case management about his insurance so he can transition to hospice.
Assessment / Plan
Assessment / Plan
- Pt agreed to comfort care measures and has been transitioned to [address] [place] [address]. Case managment still figuring out his insurance issues relating to hospice care.
- For his pain patient is on Morphine sulfate 1 mg Q1 as needed, glycopyrrolate for secretions, Lorazepam for agitation, haldol for agitation, zofran for nausea, and dulcolax for medication induced constipation
- patient is back on regular diet
Decompensated Cirrhotic liver disease secondary to previous chronic alcohol abuse
Thrombocytopenia
Requiring paracentesis:
- EGD on 06/16/24 showed two non bleeding gastric ulcers which were biopsied
- Follow up MRI showed partial thrombus in right portal vein which confirms the findings of the Doppler ultrasound.
- Last drink on 05/13/2024 according to patient
- Paracentesis yielded 3900 cc of fluid. SAAG score is more than 1.1 and protein less than 2.5 indicating portal hypertension caused by cirrhosis. PMN count is less than 250 excluding SBP.
- d/c folic acid and thiamine
- d/c Lasix and Aldactone
- Sodium restricted diet less than 2 g a day to minimize fluid retention
- Platelet count is 80,, transfuse if less than 10 or less than 50 with active bleeding
- alkaline phosphatase is 197 and trending up from yesterday 154, continue to observe
- No longer needs therapeutic paracentesis at [facility] as he is on comfort care measures.
Hepatic Encephalopathy due to chronic alcohol use:
- Today patient is confused on physical exam, waxing and waning mental status , will continue to provide comfort care measures and observe
- d/c lactulose and rifaximin
- Further alcohol cessation counselling provided
Acute Mild hyponatremia:
- today sodium level is 130
- no dizziness, headache, confusion.
- suspect this is due to post EGD procedure, diuretic use, and recent NPO diet.
Leucocytosis:
- resolved
Anemia of chronic disease:
- Likely due to cirrhosis
- last hgb is 8.8 and trending down from 10 on admission
- The iron count is normal but the TIBC is low on last admission 06/03/24
- b12 and folate normal on last admission 06/03/24
- transfuse if less than 7
Hypokalemia:
- resolved
Hyperbilirubinemia:
- total bilirubin is 7.4 and trending down from 9.8 on admission
- Most likely due to hepatic clearance of bilirubin due to hepatocellular injury
- No longer need GI to follow as patient is hospice.
GERD:
- d/c protonix
DVT ppx- none
FUll code
Anticipated Discharge: 24 - 48 hours
Subjective/Interval History
-
Date of Service: June 23, 2024
Patient is stating that he is feeling intermittently confused.
Objective Data
-
Vital Signs:
Vital Signs
Temp Pulse Resp BP Pulse Ox
98.8 F 105 18 141/91 95
06/23/24 07:44 06/23/24 07:44 06/23/24 07:44 06/23/24 07:44 06/23/24 07:44
I&O
06/22/24 06/23/24 06/24/24
06:59 06:59 06:59
Intake Total 480 / 480
Output Total 750 / 750 600 / 600
Balance -270 / -270 -600 / -600
Review of Systems
-
History Source: Patient
Constitutional: Reports Fatigue; Denies Fever, Weight Gain, No Appetite or Sleep Disturbance
Respiratory: Reports Trouble Breathing; Denies Cough or Wheezing
Cardiac: Denies Chest Pain, Diaphoresis or Palpitations
Abdomen/GI: Reports Abdominal Pain; Denies Nausea, Vomiting, Diarrhea or Bloody Stools
Genitourinary: Denies Dysuria
Skin: Denies Itching
Neuro: Reports Other (patient is feeling confused); Denies Weakness, Numbness, Ataxia or Tremors
Physical Exam
-
General: Appears Chronically Ill and Other (Diffuse Jaundice all over body and scleral icterus)
Respiratory: Clear to Auscultation
Cardiac: Regular Rhythm and S1/S2
GI: Soft, Tender (mild diffuse tenderness ) and Distended
Musculoskeletal: Edema, Right Lower Extrem and Edema, Left Lower Extrem
Skin: Warm, Dry and Jaundice
Neuro: Awake and Alert
--- NOTE | 2024-06-23 12:24 | HOSPNOTE ---
Patient remains on comfort due to the insurance (long term insurance has no hospice benefit). Billing will be under the present hospitalization. We continue to follow and support. and patient has had a significant decline and is transitioning to
actively dying. Patient will be seen tomorrow. Emotional support provided to father.
[2024-06-23] MEDS: MORPHINE 100 IV (17:36)
[2024-06-23 19:33] VITALS: BP 129/80
[2024-06-24] MEDS: MORPHINE SULFATE 2 MG IV ×2 (00:34→20:35)
[2024-06-24 07:00] VITALS: BP 132/74
--- NOTE | 2024-06-24 07:53 | W.PN.UPDATE ---
Update Note
Progress Note Update
I saw and evaluated the patient. I reviewed the resident�s note and agree with findings and plan as documented in the resident�s note.
Unresponsive.
Gen: NAD, appears chronically ill
CV: tachy, reg rhythm, +S1/S2, no m/r/g.
Resp: CTAB anteriorly, no rales, wheezes, or rhonchi.
Abd: +BS, soft, NT, mod-severe distention with ascites
Skin: Jaundiced skin
Acute hepatic encephalopathy due to decompensated alcoholic cirrhosis from prior alcohol abuse:
-Last drink on 05/13/2024 according to patient
-with chronic thrombocytopenia
-s/p 3.9L paracentesis (no SBP)
-EGD done which showed 2 gastric ulcers 1 with visible vessel s/p cautery
-now on comfort care as below
-cont morphine gtt
Other problems:
Possible portal vein thrombosis
Leucocytosis, likely reactive
Anemia of chronic disease (due to cirrhosis)
Hypokalemia
Hyperbilirubinemia
GERD
DNR/comfort care
GI spoke with patient regarding hospice, not candidate for liver transplant, no further treatments available--palliative care met with patient and referred case to hospice--hospice spoke with patient and patient is agreeable to the hospice
philosophy--however, patient is on furlough from the [facility] and arrangements need to be made prior to discharge back if able--for now continue comfort measures with comfort meds
--- NOTE | 2024-06-24 08:08 | W.PN.HOSP.TC ---
Today's Communication/Plan
-
- follow comfort care measures
Assessment / Plan
Assessment / Plan
- Pt agreed to comfort care measures and has been transitioned to [address] [place] [address]. Case managment still figuring out his insurance issues relating to hospice care.
- For his pain patient is on Morphine sulfate 1 mg Q1 as needed, glycopyrrolate for secretions, Lorazepam for agitation, haldol for agitation, zofran for nausea, and dulcolax for medication induced constipation
- patient is back on regular diet
Decompensated Cirrhotic liver disease secondary to previous chronic alcohol abuse
Thrombocytopenia
Requiring paracentesis:
Hepatic Encephalopathy due to chronic alcohol use:
Acute Mild hyponatremia:
Leucocytosis:
Anemia of chronic disease:
Hypokalemia:
Hyperbilirubinemia:
GERD:
DVT ppx- none
FUll code
Anticipated Discharge: 24 - 48 hours
Subjective/Interval History
-
Date of Service: June 24, 2024
Patient has no acute complaints today.
Objective Data
-
Vital Signs:
Vital Signs
Temp Pulse Resp BP Pulse Ox
98.0 F 98 10 132/74 90
06/24/24 07:00 06/24/24 07:00 06/24/24 07:00 06/24/24 07:00 06/24/24 07:00
I&O
06/23/24 06/24/24 06/25/24
06:59 06:59 06:59
Intake Total 0 / 0
Output Total 600 / 600 845 / 845
Balance -600 / -600 -845 / -845
Review of Systems
-
History Source: Patient
Constitutional: Reports Fatigue; Denies Fever, Weight Gain, No Appetite or Sleep Disturbance
Respiratory: Reports Trouble Breathing; Denies Cough or Wheezing
Cardiac: Denies Chest Pain, Diaphoresis or Palpitations
Abdomen/GI: Reports Abdominal Pain; Denies Nausea, Vomiting, Diarrhea or Bloody Stools
Genitourinary: Denies Dysuria
Skin: Denies Itching
Neuro: Reports Other (patient is feeling confused); Denies Weakness, Numbness, Ataxia or Tremors
Physical Exam
-
General: Appears Chronically Ill and Other (Diffuse Jaundice all over body and scleral icterus)
Respiratory: Clear to Auscultation
Cardiac: Regular Rhythm and S1/S2
GI: Soft, Tender (mild diffuse tenderness ) and Distended
Genito-urinary: Nichols
Musculoskeletal: Edema, Right Lower Extrem and Edema, Left Lower Extrem
Skin: Warm, Dry and Jaundice
Neuro: Awake and Alert
Data Reviewed
-
Labs: Labs Reviewed by me and Discussed with Physician
[2024-06-24] MEDS: ATIVAN 0.5 MG IV ×2 (09:37→20:34)
[2024-06-24] MEDS: NSS (PRESERVATIVE FREE) 0.25 ML IV ×2 (09:37→20:35)
[2024-06-24] MEDS: ROBINUL 0.2 MG IV ×2 (09:38→19:45)
[2024-06-24] MEDS: MORPHINE SULFATE 4 MG IV ×3 (09:38→21:02)
--- NOTE | 2024-06-24 10:00 | CM ---
Reviewed the chart notes and spoke with the patient's father at the bedside. Patient's brother is flying in this morning from [place]. CM continues to be available to patient/family. Wish remains if possible for the patient's body to be donated
to science. Per father, if not possible then the patient's older sister will make arrangements. CM continues to be available to patient/family.
Plan: Comfort Care
--- NOTE | 2024-06-24 11:21 | HOSPNOTE ---
Patient is actively dying, patient was washed and repositioned and continues on a morphine drip. Family was present and patient's brother will be coming in later this afternoon. Hospice will continue to follow and support.
[2024-06-24] MEDS: MORPHINE 100 IV (16:45)
[2024-06-24 19:26] VITALS: BP 127/61
[2024-06-24] MEDS: TYLENOL/FEVERALL 650 MG RECTAL (19:37)
[2024-06-25] MEDS: TYLENOL/FEVERALL 650 MG RECTAL ×3 (01:41→14:03)
[2024-06-25] MEDS: ROBINUL 0.2 MG IV ×5 (01:41→22:04)
[2024-06-25] MEDS: MORPHINE 100 IV ×2 (07:11→23:49)
[2024-06-25 07:20] VITALS: BP 94/49
--- NOTE | 2024-06-25 08:33 | W.PN.UPDATE ---
Update Note
Progress Note Update
I saw and evaluated the patient. I reviewed the resident�s note and agree with findings and plan as documented in the resident�s note.
Unresponsive.
Gen: remains NAD, appears chronically ill
CV: remains tachy, reg rhythm, +S1/S2, no m/r/g.
Resp: remains CTAB anteriorly, no rales, wheezes, or rhonchi.
Abd: +BS, soft, NT, mod-severe distention with ascites
Skin: Jaundiced skin
Acute hepatic encephalopathy due to decompensated alcoholic cirrhosis from prior alcohol abuse:
-Last drink on 05/13/2024 according to patient
-with chronic thrombocytopenia
-s/p 3.9L paracentesis (no SBP)
-EGD done which showed 2 gastric ulcers 1 with visible vessel s/p cautery
-now on comfort care as below
-cont morphine gtt
Other problems:
Possible portal vein thrombosis
Leucocytosis, likely reactive
Anemia of chronic disease (due to cirrhosis)
Hypokalemia
Hyperbilirubinemia
GERD
DNR/comfort care
GI spoke with patient regarding hospice, not candidate for liver transplant, no further treatments available--palliative care met with patient and referred case to hospice--hospice spoke with patient and patient is agreeable to the hospice
philosophy--however, patient is [facility] and arrangements need to be made prior to discharge back if able--for now continue comfort measures with comfort meds
--- NOTE | 2024-06-25 09:00 | CM ---
Reviewed the chart notes. Patient's father at bedside. Morphine gtt continues. CM continues to be available to patient/family.
Plan: Comfort Care
--- NOTE | 2024-06-25 10:36 | W.PN.HOSP.TC ---
Today's Communication/Plan
-
- continue on comfort care measures
Assessment / Plan
Assessment / Plan
- Pt agreed to comfort care measures and has been transitioned to [address] [place] [address]. Case managment still figuring out his insurance issues relating to hospice care.
- For his pain patient is on Morphine sulfate 1 mg Q1 as needed, glycopyrrolate for secretions, Lorazepam for agitation, haldol for agitation, zofran for nausea, and dulcolax for medication induced constipation
- patient is back on regular diet
Decompensated Cirrhotic liver disease secondary to previous chronic alcohol abuse
Thrombocytopenia
Requiring paracentesis:
Hepatic Encephalopathy due to chronic alcohol use:
Acute Mild hyponatremia:
Leucocytosis:
Anemia of chronic disease:
Hypokalemia:
Hyperbilirubinemia:
GERD:
DVT ppx- none
FUll code
Anticipated Discharge: 24 - 48 hours
Subjective/Interval History
-
Date of Service: June 25, 2024
Patient has waxing and waning consciousness.
Objective Data
-
Vital Signs:
Vital Signs
Temp Pulse Resp BP Pulse Ox
101.1 F H 122 18 94/49 77
06/25/24 07:20 06/25/24 07:20 06/25/24 07:20 06/25/24 07:20 06/25/24 07:20
I&O
06/24/24 06/25/24 06/26/24
06:59 06:59 06:59
Intake Total 0 / 0 0 / 0
Output Total 845 / 845 570 / 570
Balance -845 / -845 -570 / -570
Review of Systems
-
History Source: Patient
Constitutional: Reports Fatigue; Denies Fever, Weight Gain, No Appetite or Sleep Disturbance
Respiratory: Reports Trouble Breathing; Denies Cough or Wheezing
Cardiac: Denies Chest Pain, Diaphoresis or Palpitations
Abdomen/GI: Reports Abdominal Pain; Denies Nausea, Vomiting, Diarrhea or Bloody Stools
Genitourinary: Denies Dysuria
Skin: Denies Itching
Neuro: Reports Other (patient is feeling confused); Denies Weakness, Numbness, Ataxia or Tremors
Physical Exam
-
General: Appears Chronically Ill and Other (Diffuse Jaundice all over body and scleral icterus)
Respiratory: Clear to Auscultation
Cardiac: Regular Rhythm and S1/S2
GI: Soft, Tender (mild diffuse tenderness ) and Distended
Genito-urinary: Nichols
Musculoskeletal: Edema, Right Lower Extrem and Edema, Left Lower Extrem
Skin: Warm, Dry and Jaundice
Neuro: Awake and Alert
[2024-06-25] MEDS: MORPHINE SULFATE 6 MG IV ×3 (11:28→18:04)
--- NOTE | 2024-06-25 15:27 | PTCARENOTE ---
Patient with periods of apnea/gasping, gurgling with oral secretions, ax temp this AM 101.1F; patient medicated with PRN IV morphine, Robinul and rectal Tylenol throughout shift - see APR. Morphine gtt infusing through L FA IV at 6mg/hr, Magdalena for
end of life draining dark maggie colored urine.
[2024-06-25 19:00] VITALS: BP 104/47
[2024-06-26] MEDS: ROBINUL 0.2 MG IV ×3 (03:06→18:15)
[2024-06-26] MEDS: MORPHINE SULFATE 6 MG IV ×3 (03:07→18:16)
--- NOTE | 2024-06-26 07:12 | W.PN.HOSP.TC ---
Today's Communication/Plan
-
see bold
Assessment / Plan
Assessment / Plan
I saw and evaluated the patient. I reviewed the resident�s note and agree with findings and plan as documented in the resident�s note.
Unresponsive.
Gen: continues to remain NAD, appears chronically ill
CV: continues to remain tachy, reg rhythm, +S1/S2, no m/r/g.
Resp: continues to remain CTAB anteriorly, no rales, wheezes, or rhonchi.
Abd: +BS, soft, NT, mod-severe distention with ascites
Skin: Jaundiced skin
Acute hepatic encephalopathy due to decompensated alcoholic cirrhosis from prior alcohol abuse:
-Last drink on 05/13/2024 according to patient
-with chronic thrombocytopenia
-s/p 3.9L paracentesis (no SBP)
-EGD done which showed 2 gastric ulcers 1 with visible vessel s/p cautery
-now on comfort care as below
-cont morphine gtt
Other problems:
Possible portal vein thrombosis
Leucocytosis, likely reactive
Anemia of chronic disease (due to cirrhosis)
Hypokalemia
Hyperbilirubinemia
GERD
DNR/comfort care
GI spoke with patient regarding hospice, not candidate for liver transplant, no further treatments available--palliative care met with patient and referred case to hospice--hospice spoke with patient and patient is agreeable to the hospice
philosophy--however, patient is on furlough from the [facility] and arrangements need to be made prior to discharge back if able--for now continue comfort measures with comfort meds
Anticipated Discharge: Within 24 hours
Subjective/Interval History
-
Date of Service: June 26, 2024
Unresponsive.
Objective Data
-
Vital Signs:
Vital Signs
Temp Pulse Resp BP Pulse Ox
100.6 F H 122 18 104/47 62
06/25/24 19:00 06/25/24 19:00 06/25/24 07:20 06/25/24 19:00 06/25/24 21:02
I&O
06/25/24 06/26/24 06/27/24
06:59 06:59 06:59
Intake Total 0 / 0 0 / 0
Output Total 570 / 570 350 / 350
Balance -570 / -570 -350 / -350
[2024-06-26 07:35] VITALS: BP 96/51
[2024-06-26] MEDS: TYLENOL/FEVERALL 650 MG RECTAL (08:30)
[2024-06-26 14:24] VITALS: BP 108/61
[2024-06-26] MEDS: MORPHINE SULFATE 4 MG IV (15:17)
[2024-06-26] MEDS: MORPHINE 100 IV (15:39)
--- NOTE | 2024-06-26 22:18 | W.PN.DEATH ---
Addendum entered and electronically signed by EDMOND Livingston 06/26/24 23:54:
unable to reach his brother (no call back) no other phone numbers in chart for other family members.
Original Note:
Pronouncement of
-
Called to see patient to pronounce.
No spontaneous heart tones or respirations noted.
Patient not responsive to verbal stimuli.
Patient is pronounced .
Time of : 22:00
Date of : 06/26/24
Cause of : metabolic encephalopathy, cirrhosis
Family Notified: Yes (will try brother with number in chart and also his father who visited him )
--- NOTE | 2024-06-27 00:57 | PTCARENOTE ---
Pt at 2200, 06/26/24. BRIM BUSTER on called notified and attempted to notify family. Pt donated his body to science, but no info provided about the facility. Hospice [facility] notified, no information provided concerning pt wishes. [facility] notified.
Postmotem care done.
--- NOTE | 2024-06-27 16:16 | CM ---
CM reached out to patient father currently listed as patient brother on contacts. Per patient father he understood that the CaseManager was working on arranging for patient body donation to science. Patient father indicated that he was planning on
coming in tomorrow to talk to CM about how the process was working, and what else he had to do. CM updated supervisor [employer] and will continue to follow for discharge planning needs.
Plan; continue to work on donation to science arrangement
--- NOTE | 2024-06-28 08:36 | CM ---
Addendum entered by Abbie Higgins RN 06/28/24 09:09:
CM spoke with the patient's father and updated on inability to donate patient's remains. Father will contact a home.
Original Note:
SONJA spoke with Meryl with [facility] ([phone]). Per Meryl, they are unable to accept the patient's body due to BMI, jaundice, and cirrhosis.
== END 2024-06-27 01:05 | disposition expired | DRG 432 ==
LOC: 2 NORTH 15:36
PROVIDERS: Clinical Nurse Specialist Family Health; Nurse Practitioner Adult Health; Radiology Vascular & Interventional Radiology; Student in an Organized Health Care Education/Training Program; ADMITTING PHYSICIAN Hospitalist; ATTENDING PHYSICIAN Internal Medicine; EMERGENCY PHYSICIAN Emergency Medicine; OTHER PHYSICIAN Student in an Organized Health Care Education/Training Program
PROC: 0W9G3ZZ Drainage of Peritoneal Cavity, Percutaneous Approach (ICD-10-PCS; 2024-06-15)
PROC: 0DB78ZX Excision of Stomach, Pylorus, Via Natural or Artificial Opening Endoscopic, Diagnostic (ICD-10-PCS; 2024-06-16)
PROC: 0DB68ZX Excision of Stomach, Via Natural or Artificial Opening Endoscopic, Diagnostic (ICD-10-PCS; 2024-06-16)
PROC: 0W3P8ZZ Control Bleeding in Gastrointestinal Tract, Via Natural or Artificial Opening Endoscopic (ICD-10-PCS; 2024-06-16)
DX: K70.31 Alcoholic cirrhosis of liver with ascites (principal); G93.41 Metabolic encephalopathy; I85.10 Secondary esophageal varices without bleeding; K76.6 Portal hypertension; Q39.9 Congenital malformation of esophagus, unspecified; K25.9 Gastric ulcer, unspecified as acute or chronic, without hemorrhage or perforation; K76.82 Hepatic encephalopathy; F10.10 Alcohol abuse, uncomplicated; D63.8 Anemia in other chronic diseases classified elsewhere; K21.9 Gastro-esophageal reflux disease without esophagitis; Z66 Do not resuscitate; E87.6 Hypokalemia; E80.6 Other disorders of bilirubin metabolism; Z91.148 Patient's other noncompliance with medication regimen for other reason; E53.8 Deficiency of other specified B group vitamins; D69.59 Other secondary thrombocytopenia; K31.89 Other diseases of stomach and duodenum; G62.9 Polyneuropathy, unspecified; R79.1 Abnormal coagulation profile; F17.210 Nicotine dependence, cigarettes, uncomplicated; F32.A Depression, unspecified; F41.9 Anxiety disorder, unspecified; G43.909 Migraine, unspecified, not intractable, without status migrainosus; I95.89 Other hypotension; N52.9 Male erectile dysfunction, unspecified; Z79.899 Other long term (current) drug therapy; Z87.19 Personal history of other diseases of the digestive system
CPT/HCPCS: 88305; 49083; 71045; 74183; 80053; 81003; 81015; 82042; 82105; 82140; 82150; 83615; 84157; 85025; 85610; 85730; 87015; 87040; 87070; 87086; 87147; 87186; 87205; 88342; 89051; 93005; 93975; 99285; A9581